=== PATIENT | female | born 1995 | race Caucasian/White ===

== ENCOUNTER 2017-12-28 20:40 | Emergency (ER) | payer OTHER ==
[2017-12-28 21:33] LABS: Urine Blood 1+ (NEG); Urine Glucose NEGATIVE (NEG); Urine Protein NEGATIVE (NEG); Urine Specific Gravity >1.030 (1.005-1.030); Urine pH 5.5 (5.0-7.0)
[2017-12-28 21:41] LABS: Absolute Lymphocytes (CBC) 2.7 K/uL (0.7-4.9); Absolute Neutrophil 7.7 K/uL (1.8-8.0); Basophils % 0.7 % (0-1.3); Eosinophils % 4.2 % (0-4.4); Hematocrit 38.3 % (36.0-45.0); Lymphocytes % 22.7 % (15.3-44.8); MCV 83.2 fL (80-100); MPV 8.4 fL (7.6-11.3); Monocytes % 8.1 % (3.3-12.3); RBC Red Blood Cell Count 4.61 M/uL (3.86-4.86)
[2017-12-28 21:49] LABS: Bicarbonate 27 mEq/L (21-31); Glucose Level 98 mg/dL (65-120); Potassium 3.6 mEq/L (3.6-5.0); Sodium Level 140 mEq/L (135-145)
[2017-12-28 21:50] LABS: BUN Blood Urea Nitrogen 15 mg/dL (6-20)
--- NOTE | 2017-12-28 23:11 | EDPHYS ---
Physician Documentation [facility] Name: Cony Krishnamurthy Age: 22 yrs Sex: Female : 1995 Arrival Date: 12/28/2017 Time: 20:41 Bed 18 Private MD: ED Physician David Domingo HPI: 12/28 20:55 This 22 yrs old Female presents to ER via Ambulatory with complaints of rn Abdominal Pain, Vaginal Bleeding, + Preg <12wks. 20:55 The patient presents to the emergency department with abdominal pain, of the suprapubic rn area and left lower quadrant, vaginal bleeding, that is light, with no clots. Previous pregnancies: in previous pregnancies patient has had. The patient has experienced similar episodes in the past. Reports at approx 6 weeks by dates presents with mild lower abd pain and spotting for 6 days, 3 previous abortions, unknown reasons. No trauma, no urinary symptoms. . 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 - Social history:: Smoking status: Patient uses tobacco products, smokes one pack cigarettes per day. - Family history:: not pertinent. - Hospitalizations: : No recent hospitalization is reported. ROS: 20:55 Constitutional: Negative for fever, chills, and weight loss, Eyes: Negative for injury, rn pain, redness, and discharge, Neck: Negative for injury, pain, and swelling, Cardiovascular: Negative for chest pain, palpitations, and edema, Respiratory: Negative for shortness of breath, cough, wheezing, and pleuritic chest pain, Abdomen/GI: Negative for nausea, vomiting, diarrhea, and constipation, Back: Negative for injury and pain, MS/Extremity: Negative for injury and deformity, Skin: Negative for injury, rash, and discoloration, Neuro: Negative for headache, weakness, numbness, tingling, and seizure. Exam: 20:55 Constitutional: This is a well developed, well nourished patient who is awake, alert, rn and in no acute distress. Head/Face: Normocephalic, atraumatic. Eyes: Pupils equal round and reactive to light, extra-ocular motions intact. Lids and lashes normal. Conjunctiva and sclera are non-icteric and not injected. Cornea within normal limits. Periorbital areas with no swelling, redness, or edema. ENT: MMM Abdomen/GI: Soft, non-tender, with normal bowel sounds. No distension or tympany. No guarding or rebound. No evidence of tenderness throughout. Skin: Warm, dry with normal turgor. Normal color with no rashes, no lesions, and no evidence of cellulitis. MS/ Extremity: Pulses equal, no cyanosis. Neurovascular intact. Full, normal range of motion. Equal circumference. Neuro: Awake and alert, GCS 15, oriented to person, place, time, and situation. Cranial nerves II-XII grossly intact. Motor strength 5/5 in all extremities. Sensory grossly intact. Cerebellar exam normal. Normal gait. Vital Signs: 20:47 BP 140 / 78; Pulse 105; Resp 19; Temp 98.6(TE); Pulse Ox 100% on R/A; Weight 115.67 kg; la1 Height 5 ft. 4 in. (162.56 cm); 22:00 BP 139 / 69; Pulse 99; Resp 17; Pulse Ox 99% on R/A; rk2 23:30 BP 147 / 79; Pulse 97; Resp 17; Pulse Ox 99% on R/A; rk2 20:47 Body Mass Index 43.77 (115.67 kg, 162.56 cm) la1 MDM: 20:49 Patient medically screened. rn 23:07 Differential diagnosis: ectopic . Data reviewed: vital signs, nurses notes, employee benefits attorney test result(s), radiologic studies, ultrasound, and as a result, I will discharge patient. Counseling: I had a detailed discussion with the patient and/or guardian regarding: the historical points, exam findings, and any diagnostic results supporting the discharge/admit diagnosis, lab results, radiology results, the need for outpatient follow up, to return to the emergency department if symptoms worsen or persist or if there are any questions or concerns that arise at home. Special discussion: Based on the patient's Hx, exam, and Dx evaluation, there is no indication for emergent surgery or inpatient Tx. It is understood by the patient/guardian that if the Sx's persist or worsen they need to return immediately for re-evaluation. I discussed with the patient/guardian in detail that at this point there is no indication for admission to the hospital. It is understood, however, that if the symptoms persist or worsen the patient needs to return immediately for re-evaluation. Based on the history and exam findings, there is no indication for further emergent testing or inpatient evaluation. I discussed with the patient/guardian the need to see the OB Gyne specialist for further evaluation of the symptoms. ED course: Nothing visualized on u/s, beta 41, UPT neg, will dc home with return in 48 hours for repeat beta. Possible miscarriage given + preg test 1 week ago, now neg, but beta elevated. Patient ambulatory, sitting upright, no peritoneal signs to suggest ectopic, no hx of ectopic. Return precautions given and understood.. 12/28 20:50 Order name: Quantitative Hcg; Complete Time: 22:04 12/28 20:50 Order name: Abo/rh Typing; Complete Time: 22:39 12/28 20:50 Order name: Basic Metabolic Panel; Complete Time: 22: 12/28 20:50 Order name: CBC with Diff; Complete Time: 22:04 12/28 21:17 Order name: Urine Dipstick--Ancillary (enter results); Complete Time: 22:04 12/28 21:17 Order name: Urine --Ancillary (enter results); Complete Time: 22:04 12/28 20:50 Order name: Urine Test (obtain specimen); Complete Time: 21:16 12/28 20:50 Order name: IV Saline Lock; Complete Time: 22:14 12/28 20:50 Order name: Labs collected and sent; Complete Time: 22:14 12/28 20:50 Order name: NPO; Complete Time: 22:14 12/28 20:50 Order name: Urine Dipstick-Ancillary (obtain specimen); Complete Time: 21:16 12/28 20:50 Order name: US Transvaginal Ob rn Administered Medications: No medications were administered Disposition: 12/28/17 23:10 Discharged to Home. Impression: Other abnormal uterine and vaginal bleeding, Suspected . - Condition is Stable. - Discharge Instructions: Miscarriage, Threatened Miscarriage, First Trimester of . - Medication Reconciliation Form, Thank You Letter, Antibiotic Education, Prescription Opioid Use form. - Follow up: Private Physician; When: As needed; Reason: Recheck today's complaints, Re-evaluation by your physician. - Problem is new. - Symptoms have improved. Signatures: Dispatcher [employer] EDDavid Diez MD MD rn Gera Mahoney RN RN la1 Mamta Campa RN RN rk2
--- NOTE | 2017-12-28 23:11 | ER ---
Nurse's Notes [facility] Name: Cony Krishnamurthy Age: 22 yrs Sex: Female : 1995 Arrival Date: 12/28/2017 Time: 20:41 Bed 18 Private MD: Diagnosis: Other abnormal uterine and vaginal bleeding;Suspected Presentation: 12/28 20:46 Presenting complaint: Patient states: I am (LMP 11/09/17) and having spotting la1 as well as lower abd cramping. Transition of care: patient was not received from another setting of care. Onset of symptoms was December 28, 2017. Initial Sepsis Screen: Does the patient meet any 2 criteria? No. Patient's initial sepsis screen is negative. Does the patient have a suspected source of infection? No. Patient's initial sepsis screen is negative. Care prior to arrival: None. 20:46 Method Of Arrival: Ambulatory la1 20:46 Acuity: SYBIL 3 la1 Triage Assessment: 21:10 General: Appears in no apparent distress. well groomed, well developed, well nourished, rk2 Behavior is calm, cooperative. 21:10 Pain: Complains of pain in left lower quadrant and suprapubic area. Neuro: Level of rk2 Consciousness is alert, obeys commands, Oriented to person, place, time, situation. Respiratory: Airway is patent Respiratory effort is even, unlabored, Respiratory pattern is regular, symmetrical. GI: Reports lower abdominal pain. Derm: Skin is pink, warm \T\ dry. 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 - Social history:: Smoking status: Patient uses tobacco products, smokes one pack cigarettes per day. - Family history:: not pertinent. - Hospitalizations: : No recent hospitalization is reported. Screenin:10 Abuse screen: Denies threats or abuse. rk2 21:10 Nutritional screening: No deficits noted. Tuberculosis screening: No symptoms or risk rk2 factors identified. Fall Risk None identified. Assessment: 20:30 GI: Bowel sounds Abd is soft Abdomen is tender to palpation in left lower quadrant. rk2 22:15 Reassessment: Pt. taken to US by wheelchair. rk2 22:45 Reassessment: Pt. resting in room \T\ this time, appears to be in no obvious distress... rk2 No needs voiced \T\ this time. Vital Signs: 20:47 BP 140 / 78; Pulse 105; Resp 19; Temp 98.6(TE); Pulse Ox 100% on R/A; Weight 115.67 kg; la1 Height 5 ft. 4 in. (162.56 cm); 22:00 BP 139 / 69; Pulse 99; Resp 17; Pulse Ox 99% on R/A; rk2 23:30 BP 147 / 79; Pulse 97; Resp 17; Pulse Ox 99% on R/A; rk2 20:47 Body Mass Index 43.77 (115.67 kg, 162.56 cm) la1 ED Course: 20:30 Inserted saline lock: 20 gauge in left antecubital area, using aseptic technique. rk2 20:41 Patient arrived in ED. am2 20:47 Triage completed. la1 20:48 David Domingo MD is Attending Physician. rn 20:48 Arm band placed on left wrist. la1 21:01 Mamta Campa, KATERINE is Primary Nurse. rk2 21:03 Radiology exam delayed due to test not completed at this time. sg3 21:10 Patient has correct armband on for positive identification. Bed in low position. Call rk2 light in reach. 22:15 US Transvaginal Ob Sent. rk2 22:29 Ultrasound completed. Patient tolerated well. sg3 23:41 No provider procedures requiring assistance completed. IV discontinued. rk2 Administered Medications: No medications were administered Outcome: 23:10 Discharge ordered by . rn 23:41 Discharged to home ambulatory. rk2 23:41 Condition: good 23:41 Discharge instructions given to patient. 23:42 Patient left the ED. rk2 Signatures: Dispatcher [employer] EDMS David Domingo MD MD rn Attema, Lee, RN RN la1 Karina Mccarthy am2 Radha Olson sg3 Mamta Campa, KATREINE RN rk2 Corrections: (The following items were deleted from the chart) 22:39 22:39 In radiology for Transvaginal Ob+US.RAD.TOYA. EDMS sg3
--- NOTE | 2017-12-29 09:01 | RAD REPORT ---
EXAM DESCRIPTION: US - Transvaginal OB - 12/28/2017 10:39 pm CLINICAL HISTORY: Abdominal pain, cramping, positive beta HCG Preliminary findings provided the time of the study. COMPARISON: None. TECHNIQUE: Endovaginal sonography performed. FINDINGS: A 9 millimeter thick endometrial stripe is present. There is no gestational sac or sac rem nant seen. Minimal amount of free fluid is present in the cul-de-sac. No adnexal mass to suspect ecto pic . Ovaries are unremarkable. Uterus is normal size. No myometrial mass. IMPRESSION: No intrauterine gestation or sac remnant. No adnexal mass to suspect ectopic . Findings may simply reflect very early . Followup sonography can be performed if serial HCG values indicate ongoing .
== END 2017-12-28 23:42 | disposition home or self-care (01) ==
LOC: ER 20:40
DX: O20.9 Hemorrhage in early pregnancy, unspecified (principal); Z3A.01 Less than 8 weeks gestation of pregnancy
CPT/HCPCS: 36415; 76817; 80048; 81003; 81025; 84702; 85025; 86900; 86901; 99283

== ENCOUNTER 2018-01-19 16:55 | Emergency (ER) | payer OTHER ==
[2018-01-19 17:58] LABS: Urine Bacteria <20 /HPF (<20)
[2018-01-19 17:59] LABS: Urine Culture Reflex Order REFLEXED; Urine Mucus 1+ /HPF (NONE SEEN)
[2018-01-19] MEDS ORDERED: NA CHLORIDE 0.9% 1,000 ML ONE (18:19)
[2018-01-19] MEDS ORDERED: DICYCLOMINE HCL 10 MG CAP ONE (18:19)
[2018-01-19] MEDS ORDERED: ONDANSETRON 4 MG (ODT) TAB ONE (18:19)
[2018-01-19 18:30] LABS: Absolute Lymphocytes (CBC) 1.3 K/uL (0.7-4.9); Absolute Monocytes 0.8 K/uL (0.1-1.3); Absolute Neutrophil 7.6 K/uL (1.8-8.0); Basophils % 0.4 % (0-1.3); Eosinophils % 2.5 % (0-4.4); Hematocrit 43.2 % (36.0-45.0); Lymphocytes % 12.8 % (15.3-44.8); MCH 27.5 pg (27.0-35.0); MCV 84.8 fL (80-100); MPV 8.6 fL (7.6-11.3); RBC Red Blood Cell Count 5.09 M/uL (3.86-4.86)
[2018-01-19 18:45] LABS: Urine Blood 2+ (NEG); Urine Glucose NEGATIVE (NEG); Urine Protein 2+ (NEG); Urine Specific Gravity >1.030 (1.005-1.030); Urine pH 5.5 (5.0-7.0)
[2018-01-19 18:57] LABS: Bicarbonate 25 mEq/L (21-31); Glucose Level 99 mg/dL (65-120); Lipase 16 U/L (22-51); Potassium 3.4 mEq/L (3.6-5.0); Sodium Level 137 mEq/L (135-145)
[2018-01-19 19:03] LABS: ALT/SGPT 18 IU/L (10-60); AST/SGOT 20 IU/L (10-42); Albumin 4.1 g/dL (3.2-5.5); Alkaline Phosphatase 55 IU/L (42-121); Amylase Level 36 U/L (28-100); BUN Blood Urea Nitrogen 13 mg/dL (6-20); Bilirubin Direct 0.1 mg/dL (0-0.2); Bilirubin Total 0.5 mg/dL (0.3-1.2); Protein, Total 7.6 g/dL (6.0-8.3)
[2018-01-19] MEDS ORDERED: POTASSIUM CL SA 10 MEQ TAB PO ONE (19:30)
[2018-01-19] MEDS ORDERED: DIPHENOX/ATROP SULF 1 TAB PO ONE (19:31)
--- NOTE | 2018-01-19 19:50 | EDPHYS ---
Physician Documentation [facility] Name: Cony Krishnamurthy Age: 22 yrs Sex: Female : 1995 Arrival Date: 01/19/2018 Time: 16:58 Bed 26 Private MD: None, None ED Physician Bg Lee HPI: 01/19 17:25 This 22 yrs old Female presents to ER via Ambulatory with complaints of Pain cp With Urination. 17:25 The patient presents with urinary symptoms, frequency. Onset: The symptoms/episode cp began/occurred 3 day(s) ago. Associated signs and symptoms: Pertinent positives: diarrhea, nausea, Pertinent negatives: constipation, fever, vaginal bleeding, vaginal discharge. Severity of symptoms: in the emergency department the symptoms are unchanged, despite home interventions. 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 - Social history:: Smoking status: Patient uses tobacco products, smokes one-half pack cigarettes per day. ROS: 17:30 Constitutional: Negative for body aches, chills, fever, poor PO intake. cp 17:30 Eyes: Negative for injury, pain, redness, and discharge. cp 17:30 ENT: Negative for drainage from ear(s), ear pain, sore throat, difficulty swallowing, difficulty handling secretions. 17:30 Cardiovascular: Positive for chest pain, Negative for edema, palpitations. 17:30 Respiratory: Negative for cough, shortness of breath, wheezing. 17:30 Abdomen/GI: Positive for abdominal pain, nausea, diarrhea, Negative for vomiting, constipation, anorexia, dysphagia, black/tarry stool, rectal bleeding. 17:30 Back: Negative for pain at rest, pain with movement, radiated pain. 17:30 : Positive for urinary symptoms, Negative for vaginal bleeding, vaginal discharge. 17:30 Skin: Negative for cellulitis, rash. 17:30 Neuro: Negative for altered mental status, headache, syncope, near syncope, weakness. 17:30 All other systems are negative. Exam: 17:35 Constitutional: The patient appears in no acute distress, alert, awake, non-toxic, well cp developed, well nourished. 17:35 Head/Face: Normocephalic, atraumatic. cp 17:35 Eyes: Periorbital structures: appear normal, Pupils: equal, round, and reactive to light and accomodation, Extraocular movements: intact throughout, Conjunctiva: normal, no exudate, no injection, Sclera: no appreciated abnormality, Lids and lashes: appear normal, bilaterally. 17:35 ENT: External ear(s): are unremarkable, Ear canal(s): are normal, clear, TM's: are normal, no evidence of bulging, no erythema, Nose: is normal, Mouth: Lips: moist, Oral mucosa: pink and intact, moist, Posterior pharynx: is normal, airway is patent, no erythema, no exudate. 17:35 Neck: ROM/movement: is normal, is supple, without pain, no range of motions limitations, no nuchal rigidity. 17:35 Chest/axilla: Inspection: normal, Palpation: is normal, no crepitus, no tenderness. 17:35 Cardiovascular: Rate: tachycardic, Rhythm: regular, Edema: is not appreciated, JVD: is not appreciated. 17:35 Respiratory: the patient does not display signs of respiratory distress, Respirations: normal, no use of accessory muscles, no retractions, no splinting, no tachypnea, labored breathing, is not present, Breath sounds: are clear throughout, no decreased breath sounds, no stridor, no wheezing. 17:35 Abdomen/GI: Inspection: abdomen appears normal, Bowel sounds: active, all quadrants, Palpation: soft, in all quadrants, mild abdominal tenderness, in the right lower quadrant and left lower quadrant, rebound tenderness, is not appreciated, voluntary guarding, is not appreciated, involuntary guarding, is not appreciated. 17:35 Back: CVA tenderness, is absent. 17:35 Skin: cellulitis, is not appreciated, no rash present. 18:50 ECG was reviewed by the Attending Physician. cp Vital Signs: 17:03 BP 131 / 79; Pulse 111; Resp 19; Temp 98.6; Pulse Ox 100% on R/A; Weight 97.52 kg; la1 Height 5 ft. 4 in. (162.56 cm); 19:34 BP 126 / 86; Pulse 90; Resp 18; Pulse Ox 99% on R/A; Pain 4/10; ed1 17:03 Body Mass Index 36.90 (97.52 kg, 162.56 cm) la1 MDM: 17:05 Patient medically screened. karmen 18:00 Differential diagnosis: ovarian cyst, pelvic inflammatory disease, urinary tract cp infection, vaginosis, dehydration, electrolyte abnormality. 19:35 Data reviewed: vital signs, nurses notes, lab test result(s), EKG. 19:35 Counseling: I had a detailed discussion with the patient and/or guardian regarding: the cp historical points, exam findings, and any diagnostic results supporting the discharge/admit diagnosis, lab results, to return to the emergency department if symptoms worsen or persist or if there are any questions or concerns that arise at home. Response to treatment: the patient's symptoms have markedly improved after treatment, and as a result, I will discharge patient. 01/19 17:41 Order name: Urine Microscopic Only; Complete Time: 18:02 cp 01/19 18:02 Interpretation: Normal except: UWBC 10-20; URBC 10-20; SQEPI 10-20. 01/19 17:48 Order name: Urine Dipstick--Ancillary (enter results); Complete Time: 19:03 ag 01/19 19:03 Interpretation: Normal except: UBLD 2+; UPROT 2+. 01/19 17:48 Order name: Urine --Ancillary (enter results); Complete Time: 19:03 ag 01/19 18:00 Order name: Urine Culture EDMI 01/19 18:03 Order name: Amylase, Serum; Complete Time: 19:16 cp 01/19 18:03 Order name: Basic Metabolic Panel; Complete Time: 19:16 cp 01/19 19:16 Interpretation: Normal except: K 3.4. cp 01/19 18:03 Order name: CBC with Diff; Complete Time: 18:39 cp 01/19 18:39 Interpretation: Normal except: RBC 5.09; VERA% 76.3; LYM% 12.8. 01/19 18:03 Order name: Creatinine for Radiology; Complete Time: 19:03 cp 01/19 18:03 Order name: Hepatic Function; Complete Time: 19:16 cp 01/19 18:03 Order name: Lipase; Complete Time: 19:16 cp 01/19 18:03 Order name: Magnesium; Complete Time: 19:16 cp 01/19 17:21 Order name: Urine Dipstick-Ancillary (obtain specimen); Complete Time: 17:40 cp 01/19 17:21 Order name: Urine Test (obtain specimen); Complete Time: 17:40 cp 01/19 18:03 Order name: IV Saline Lock; Complete Time: 18:17 cp 01/19 18:03 Order name: Labs collected and sent; Complete Time: 18:17 cp 01/19 18:03 Order name: EKG; Complete Time: 18:04 cp 01/19 18:03 Order name: EKG - Nurse/Tech; Complete Time: 18:52 cp 01/19 19:17 Order name: PO challenge; Complete Time: 19:33 cp EC:50 Rate is 79 beats/min. Rhythm is regular. MI interval is normal. QRS interval is normal. cp QT interval is normal. No ST changes noted. Interpreted by me. Reviewed by me. Administered Medications: 18:20 Drug: Zofran 4 mg Route: PO; mb3 18:20 Drug: Bentyl 20 mg Route: PO; mb3 18:23 Drug: NS 0.9% 1000 ml Route: IV; Rate: 1 bolus; Site: right antecubital; mb3 20:03 Follow up: IV Status: Completed infusion; IV Intake: 1000ml ed1 19:32 Drug: LoMOTIL 2 tabs Route: PO; ed1 20:03 Follow up: Response: No adverse reaction; No change in condition ed1 19:33 Drug: Potassium Chloride 20 mEq Route: PO; ed1 20:03 Follow up: Response: No adverse reaction ed1 Disposition: 01/20 07:53 Co-signature as Attending Physician, Bg Lee MD I agree with the assessment and karmen plan of care. Disposition: 01/19/18 19:49 Discharged to Home. Impression: Diarrhea, unspecified. - Condition is Stable. - Discharge Instructions: Food Choices to Help Relieve Diarrhea, Adult, Diarrhea. - Prescriptions for Bentyl 20 mg Oral Tablet - take 2 tablets by ORAL route every 6 hours As needed; 30 tablet. Zofran 4 mg Oral Tablet - take 1 tablet by ORAL route every 12 hours As needed; 20 tablet. Lomotil 2.5- 0.025 mg Oral Tablet - take 1 tablet by ORAL route every 6 hours As needed; 20 tablet. - Work release form, Medication Reconciliation Form, Thank You Letter, Antibiotic Education, Prescription Opioid Use form. - Follow up: Private Physician; When: 1 - 2 days; Reason: Recheck today's complaints. - Problem is new. - Symptoms have improved. Signatures: Dispatcher [employer] EDMS Bg Lee MD MD cha Riggs, Erika, AMBULATORY CARE COORDINATOR AMBULATORY CARE COORDINATOR ed1 Gera Mahoney RN RN la1 Bg Reeves PA PA cp Barnett, Mark RN RN mb3 Corrections: (The following items were deleted from the chart) 01/19 20:02 19:49 01/19/2018 19:49 Discharged to Home. Impression: Diarrhea, unspecified. Condition ed1 is Stable. Forms are Medication Reconciliation Form, Thank You Letter, Antibiotic Education, Prescription Opioid Use. Follow up: Private Physician; When: 1 - 2 days; Reason: Recheck today's complaints. Problem is new. Symptoms have improved. cp
--- NOTE | 2018-01-19 19:50 | ER ---
Nurse's Notes [facility] Name: Cony Krishnamurthy Age: 22 yrs Sex: Female : 1995 Arrival Date: 01/19/2018 Time: 16:58 Bed 26 Private MD: None, None Diagnosis: Diarrhea, unspecified Presentation: 01/19 17:02 Presenting complaint: Patient states: urinary sx for a few days and now having la1 abdominal pain, diarrhea, and nausea. Transition of care: patient was not received from another setting of care. Onset of symptoms was January 19, 2018. Initial Sepsis Screen: Does the patient meet any 2 criteria? No. Patient's initial sepsis screen is negative. Does the patient have a suspected source of infection? No. Patient's initial sepsis screen is negative. Care prior to arrival: None. 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 - Social history:: Smoking status: Patient uses tobacco products, smokes one-half pack cigarettes per day. Screenin:16 Abuse screen: Denies threats or abuse. Denies injuries from another. Nutritional ed1 screening: No deficits noted. Tuberculosis screening: No symptoms or risk factors identified. Fall Risk None identified. Assessment: 17:16 General: Appears in no apparent distress. Behavior is calm, cooperative. Pain: ed1 Complains of pain in suprapubic area, right lower quadrant and left lower quadrant Pain does not radiate. Pain currently is 6 out of 10 on a pain scale. Quality of pain is described as burning, aching, Pain began 2-3 days ago. Is continuous. Neuro: Level of Consciousness is awake, alert, obeys commands, Oriented to person, place, time, situation. Cardiovascular: Denies chest pain, Heart tones S1 S2 present. Respiratory: Airway is patent Respiratory effort is even, unlabored, Respiratory pattern is regular, symmetrical, Breath sounds are clear bilaterally. GI: Abdomen is non-distended, Bowel sounds present X 4 quads. Abd is soft and non tender X 4 quads. Reports diarrhea, nausea, vomiting. : Reports burning with urination, urinary frequency. EENT: No signs and/or symptoms were reported regarding the EENT system. Derm: Skin is pink, warm \T\ dry. Musculoskeletal: Circulation, motion, and sensation intact. 17:16 Reassessment: I agree with assessment completed by GIBSON Barajas . aa5 19:34 Reassessment: Patient appears in no apparent distress at this time. No changes from ed1 previously documented assessment. Patient and/or family updated on plan of care and expected duration. Pain level reassessed. Patient is alert, oriented x 3, equal unlabored respirations, skin warm/dry/pink. Patient states symptoms have improved. Vital Signs: 17:03 BP 131 / 79; Pulse 111; Resp 19; Temp 98.6; Pulse Ox 100% on R/A; Weight 97.52 kg; la1 Height 5 ft. 4 in. (162.56 cm); 19:34 BP 126 / 86; Pulse 90; Resp 18; Pulse Ox 99% on R/A; Pain 4/10; ed1 17:03 Body Mass Index 36.90 (97.52 kg, 162.56 cm) la1 ED Course: 16:58 Patient arrived in ED. sb2 16:58 None, None is Private Physician. sb2 17:03 Triage completed. la1 17:03 Arm band placed on right wrist. la1 17:04 Bg Reeves PA is PHCP. cp 17:04 Bg Lee MD is Attending Physician. cp 17:05 Jenn Ngo LVN is Primary Nurse. ed1 17:16 Patient has correct armband on for positive identification. Bed in low position. Call ed1 light in reach. 17:41 Urine collected: clean catch specimen, cloudy. dh3 18:17 Initial lab(s) drawn, by va, sent to lab. Inserted saline lock: 22 gauge in right ed1 antecubital area, using aseptic technique. Blood collected. 19:00 EKG done, by ED staff, reviewed by Bg DUMONT. dh3 20:00 No provider procedures requiring assistance completed. IV discontinued, intact, No la1 redness/swelling at site. Administered Medications: 18:20 Drug: Zofran 4 mg Route: PO; mb3 18:20 Drug: Bentyl 20 mg Route: PO; mb3 18:23 Drug: NS 0.9% 1000 ml Route: IV; Rate: 1 bolus; Site: right antecubital; mb3 20:03 Follow up: IV Status: Completed infusion; IV Intake: 1000ml ed1 19:32 Drug: LoMOTIL 2 tabs Route: PO; ed1 20:03 Follow up: Response: No adverse reaction; No change in condition ed1 19:33 Drug: Potassium Chloride 20 mEq Route: PO; ed1 20:03 Follow up: Response: No adverse reaction ed1 Intake: 20:03 IV: 1000ml; Total: 1000ml. ed1 Outcome: 19:49 Discharge ordered by . trena 20:00 Discharged to home ambulatory. la1 20:00 Condition: good 20:00 Discharge instructions given to patient, Instructed on discharge instructions, follow up and referral plans. medication usage, Demonstrated understanding of instructions, follow-up care, medications, Prescriptions given X 3. 20:02 Patient left the ED. ed1 Addendum: 01/22/2018 07:52 Addendum: Culture Results: Positive urine culture. Patient was not prescribed a a5 antibiotics at discharge. Report given to DENI for further evaluation and then to certified art therapist for follow up with patient. Phone call Attempt #1 at [phone], left voicemail. 12:20 Addendum: Culture Results: Positive urine culture. Patient was not prescribed a a5 antibiotics at discharge. Report given to DENI for further evaluation and then to certified art therapist for follow up with patient. Prescription called-in to pharmacy of choice. to [facility] in [place], [place] per pt's request. Signatures: Cristel Alfredo, RN RN aa5 Jenn Ngo LVN SCARFING MACHINE OPERATOR ed1 Gera Mahoney RN RN la1 Bg Reeves PA PA Bernadette Willson 3 Kimmie Villar sb2 Jose Crane, RN RN mb3
--- NOTE | 2018-01-20 08:01 | EKG ---
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
== END 2018-01-19 20:02 | disposition home or self-care (01) ==
LOC: ER 16:55
DX: R19.7 Diarrhea, unspecified (principal)
CPT/HCPCS: 36415; 80048; 80076; 81003; 81015; 81025; 82150; 83690; 83735; 85025; 87077; 87086; 87088; 87186; 93005; 96360; 96361; 99284; J7030

== ENCOUNTER 2018-08-18 11:22 | Emergency (ER) | payer OTHER ==
--- NOTE | 2018-08-18 13:51 | EDPHYS ---
Physician Documentation [facility] Name: Cony Krishnamurthy Age: 23 yrs Sex: Female : 1995 Arrival Date: 08/18/2018 Time: :27 Bed DIS1 Private MD: Tiffani Sheridan ED Physician Bg Lee HPI: 08/18 13:23 This 23 yrs old Female presents to ER via Ambulatory with complaints of Sore pm1 Throat, Congestion. 13:24 The patient presents with sore throat. The patient describes throat pain as constant. pm1 Onset: The symptoms/episode began/occurred yesterday. Severity of symptoms: in the emergency department the symptoms are unchanged. Modifying factors: The symptoms are alleviated by nothing, the symptoms are aggravated by swallowing, Patient's oral intake status: good The patient has had contact with sick daughter. Associated signs and symptoms: Pertinent positives: chills, flu-like symptoms, Sore throat Pertinent negatives chest pain, nausea, shortness of breath, vomiting. The patient has not experienced similar symptoms in the past. The patient has not recently seen a physician. 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 - Social history:: Smoking status: Patient uses tobacco products, smokes one-half pack cigarettes per day. - Ebola Screening: : No symptoms or risks identified at this time. ROS: 13:24 Eyes: Negative for injury, pain, redness, and discharge. pm1 13:24 Neck: Negative for injury, pain, and swelling, Cardiovascular: Negative for chest pain, palpitations, and edema, Respiratory: Negative for shortness of breath, cough, wheezing, and pleuritic chest pain, Abdomen/GI: Negative for abdominal pain, nausea, vomiting, diarrhea, and constipation, Back: Negative for injury and pain, : Negative for injury, bleeding, discharge, and swelling, MS/Extremity: Negative for injury and deformity, Skin: Negative for injury, rash, and discoloration, Neuro: Negative for headache, weakness, numbness, tingling, and seizure. 13:24 Constitutional: Positive for body aches, fever, Negative for poor PO intake. 13:24 ENT: Positive for sore throat, Negative for drainage from ear(s), ear pain, difficulty swallowing, difficulty handling secretions, hoarseness. Exam: 13:24 Constitutional: This is a well developed, well nourished patient who is awake, alert, pm1 and in no acute distress. Head/Face: Normocephalic, atraumatic. Eyes: Pupils equal round and reactive to light, extra-ocular motions intact. Lids and lashes normal. Conjunctiva and sclera are non-icteric and not injected. Cornea within normal limits. Periorbital areas with no swelling, redness, or edema. ENT: Nares patent. No nasal discharge, no septal abnormalities noted. Tympanic membranes are normal and external auditory canals are clear. Oropharynx with no redness, swelling, or masses, exudates, or evidence of obstruction, uvula midline. Mucous membranes moist. Neck: Trachea midline, no thyromegaly or masses palpated, and no cervical lymphadenopathy. Supple, full range of motion without nuchal rigidity, or vertebral point tenderness. No Meningismus. Chest/axilla: Normal chest wall appearance and motion. Nontender with no deformity. No lesions are appreciated. Cardiovascular: Regular rate and rhythm with a normal S1 and S2. No gallops, murmurs, or rubs. Normal PMI, no JVD. No pulse deficits. Respiratory: Lungs have equal breath sounds bilaterally, clear to auscultation and percussion. No rales, rhonchi or wheezes noted. No increased work of breathing, no retractions or nasal flaring. Abdomen/GI: Soft, non-tender, with normal bowel sounds. No distension or tympany. No guarding or rebound. No evidence of tenderness throughout. Back: No spinal tenderness. No costovertebral tenderness. Full range of motion. Skin: Warm, dry with normal turgor. Normal color with no rashes, no lesions, and no evidence of cellulitis. MS/ Extremity: Pulses equal, no cyanosis. Neurovascular intact. Full, normal range of motion. 13:24 Neuro: Orientation: is normal, Motor: is normal, Gait: is steady, at a normal pace, without difficulty. Vital Signs: 11:59 BP 140 / 85; Pulse 103; Resp 18 S; Temp 98.2(O); Pulse Ox 100% on R/A; Weight 108.41 kg aa5 (R); Height 5 ft. 4 in. (162.56 cm) (R); Pain 9/10; 11:59 Body Mass Index 41.02 (108.41 kg, 162.56 cm) aa5 MDM: 12:03 Patient medically screened. pm1 13:50 Data reviewed: vital signs. Data interpreted: Pulse oximetry: on room air is 100 %. pm1 Interpretation: normal. Counseling: I had a detailed discussion with the patient and/or guardian regarding: the historical points, exam findings, and any diagnostic results supporting the discharge/admit diagnosis, lab results, the need for outpatient follow up, to return to the emergency department if symptoms worsen or persist or if there are any questions or concerns that arise at home. 08/18 12:08 Order name: Flu; Complete Time: 13:46 pm1 08/18 12:08 Order name: Strep; Complete Time: 13:23 pm1 08/18 13:23 Order name: Throat Culture EDMS Administered Medications: No medications were administered Disposition: 08/19 06:32 Co-signature as Attending Physician, Bg Lee MD I agree with the assessment and [facility] plan of care. Disposition: 08/18/18 13:51 Discharged to Home. Impression: Acute pharyngitis. - Condition is Stable. - Discharge Instructions: Pharyngitis. - Prescriptions for Tamiflu 75 mg Oral Capsule - take 1 tablet by ORAL route once daily for 10 days; 10 tablet. - Work release form, Medication Reconciliation Form, Thank You Letter, Antibiotic Education form. - Follow up: Emergency Department; When: As needed; Reason: Worsening of condition. Follow up: Private Physician; When: 2 - 3 days; Reason: Recheck today's complaints, Continuance of care, Re-evaluation by your physician. - Problem is new. - Symptoms have improved. Signatures: Dispatcher [employer] EDBg Tarango MD MD cha Calderon, Audri RN KATERINE aa5 Jesica Mcnulty RN RN Alexis Bates, SAM AUDIOVISUAL AIDS TECHNICIAN pm1 Corrections: (The following items were deleted from the chart) 12/17 14:15 13:51 08/18/2018 13:51 Discharged to Home. Impression: Acute pharyngitis. Condition is ss Stable. Forms are Medication Reconciliation Form, Thank You Letter, Antibiotic Education, Prescription Opioid Use. Follow up: Emergency Department; When: As needed; Reason: Worsening of condition. Follow up: Private Physician; When: 2 - 3 days; Reason: Recheck today's complaints, Continuance of care, Re-evaluation by your physician. Problem is new. Symptoms have improved. pm1
--- NOTE | 2018-08-18 13:51 | ER ---
Nurse's Notes [facility] Name: Cony Krishnamurthy Age: 23 yrs Sex: Female : 1995 Arrival Date: 08/18/2018 Time: 11:27 Bed DIS1 Private MD: Tiffani Sheridan Diagnosis: Acute pharyngitis Presentation: 08/18 11:57 Presenting complaint: Patient states: cough, sore throat, congestion, and fever up to aa5 101.4 that began yesterday. Transition of care: patient was not received from another setting of care. Onset of symptoms was August 2018. Risk Assessment: Do you want to hurt yourself or someone else? Patient reports no desire to harm self or others. Initial Sepsis Screen: Does the patient meet any 2 criteria? No. Patient's initial sepsis screen is negative. Does the patient have a suspected source of infection? No. Patient's initial sepsis screen is negative. Care prior to arrival: None. 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 - Social history:: Smoking status: Patient uses tobacco products, smokes one-half pack cigarettes per day. - Ebola Screening: : No symptoms or risks identified at this time. Screenin:15 Abuse screen: Denies threats or abuse. Denies injuries from another. Nutritional ss screening: No deficits noted. Tuberculosis screening: No symptoms or risk factors identified. Never had TB. Fall Risk None identified. Assessment: 12:15 General: Appears in no apparent distress. comfortable, Behavior is calm, cooperative, ss Reports feeling ill for 1-2 days, Denies fever, fatigue, chills. Pain: Complains of pain in throat Quality of pain is described as sore Is continuous. Neuro: Level of Consciousness is awake, alert, obeys commands, Oriented to person, place, time, situation. Cardiovascular: Capillary refill < 3 seconds is brisk in bilateral fingers. Respiratory: Airway is patent Respiratory effort is even, unlabored, Respiratory pattern is regular, symmetrical, Breath sounds are clear bilaterally. GI: Patient currently denies diarrhea, nausea, vomiting. EENT: Throat is clear. Derm: Skin is intact, Skin is pink, warm \T\ dry. normal. Musculoskeletal: Circulation, motion, and sensation intact. Range of motion: intact in all extremities, Swelling absent. Vital Signs: 11:59 BP 140 / 85; Pulse 103; Resp 18 S; Temp 98.2(O); Pulse Ox 100% on R/A; Weight 108.41 kg aa5 (R); Height 5 ft. 4 in. (162.56 cm) (R); Pain 9/10; 11:59 Body Mass Index 41.02 (108.41 kg, 162.56 cm) aa5 ED Course: 11:27 Patient arrived in ED. mr 11:28 Tiffani Sheridan is Private Physician. mr 11:57 Arm band placed on. aa5 11:58 Triage completed. aa5 12:03 Alexis Bates NP is PHCP. pm1 12:03 Bg Lee MD is Attending Physician. pm1 12:15 Patient has correct armband on for positive identification. Bed in low position. Call ss light in reach. 14:14 No provider procedures requiring assistance completed. Patient did not have IV access ss during this emergency room visit. Administered Medications: No medications were administered Outcome: 13:51 Discharge ordered by MD. pm1 14:14 Discharged to home ambulatory, with family. 14:14 Condition: good 14:14 Discharge instructions given to patient, family, Instructed on discharge instructions, follow up and referral plans. medication usage, Demonstrated understanding of instructions, follow-up care, medications, Prescriptions given X 1. 14:15 Patient left the ED. ss Signatures: Archer Layne mr Cristel Alfredo RN RN aa5 Jesica Mcnulty RN RN ss Marinas, Patrick, NP BOWL TOPPER pm1 Corrections: (The following items were deleted from the chart) 16:24 12:02 Cristel Alfredo RN is Primary Nurse. aa5 aa5
== END 2018-08-18 14:15 | disposition home or self-care (01) ==
LOC: ER 11:22
DX: J02.9 Acute pharyngitis, unspecified (principal); J45.909 Unspecified asthma, uncomplicated; F17.210 Nicotine dependence, cigarettes, uncomplicated
CPT/HCPCS: 87070; 87081; 87804; 99282

== ENCOUNTER 2018-11-30 16:27 | Emergency (ER) | payer OTHER ==
--- OUTSIDE RECORDS SUMMARY | 2018-11-30 16:28 | XMS REPORT ---
:1995 [facility] Address [address] [place] [address] [address] [place] [address] Care Team Providers Name Role Phone Unavailable Unavailable Unavailable Problems This patient has no known problems. Allergies, Adverse Reactions, Alerts This patient has no known allergies or adverse reactions. Medications This patient has no known medications.
--- NOTE | 2018-11-30 17:09 | EDPHYS ---
Physician Documentation [facility] Name: Cony Krishnamurthy Age: 23 yrs Sex: Female : 1995 Arrival Date: 11/30/2018 Time: 16:32 Bed 12 Private MD: Tiffnai Sheridan ED Physician David Domingo HPI: 11/30 17:06 This 23 yrs old Female presents to ER via Ambulatory with complaints of kb Vomiting, 6 wks . 17:06 The patient presents to the emergency department with nausea and vomiting. The kb estimated gestational age is 6 weeks. course: care: at a clinic, Leakage of Fluid: none appreciated, Ultrasound: the patient has not had an ultrasound, Risk/complications: no obvious risks or complications are appreciated. Previous pregnancies: in previous pregnancies patient has had. Associated signs and symptoms: Pertinent positives: nausea, vomiting. 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 Pt reports she vomited once at work today due to morning sickness. States she was sent home and told she had to have a note to return, but they don't know she is . . 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 - Social history:: Smoking status: Patient uses tobacco products, smokes one-half pack cigarettes per day. - Ebola Screening: : No symptoms or risks identified at this time. ROS: 17:05 Constitutional: Negative for fever, chills, and weight loss, Neck: Negative for injury, kb pain, and swelling, Cardiovascular: Negative for chest pain, palpitations, and edema, Respiratory: Negative for shortness of breath, cough, wheezing, and pleuritic chest pain, Back: Negative for injury and pain, : Negative for injury, bleeding, discharge, and swelling, MS/Extremity: Negative for injury and deformity, Skin: Negative for injury, rash, and discoloration, Neuro: Negative for headache, weakness, numbness, tingling, and seizure. 17:05 Abdomen/GI: Positive for nausea and vomiting, Negative for abdominal pain, diarrhea, constipation, abdominal cramps, abdominal distension. Exam: 17:05 Constitutional: This is a well developed, well nourished patient who is awake, alert, kb and in no acute distress. Head/Face: Normocephalic, atraumatic. ENT: Nares patent. No nasal discharge, no septal abnormalities noted. Tympanic membranes are normal and external auditory canals are clear. Oropharynx with no redness, swelling, or masses, exudates, or evidence of obstruction, uvula midline. Mucous membranes moist. Neck: Trachea midline, no thyromegaly or masses palpated, and no cervical lymphadenopathy. Supple, full range of motion without nuchal rigidity, or vertebral point tenderness. No Meningismus. Chest/axilla: Normal chest wall appearance and motion. Nontender with no deformity. No lesions are appreciated. Cardiovascular: Regular rate and rhythm with a normal S1 and S2. No gallops, murmurs, or rubs. Normal PMI, no JVD. No pulse deficits. Respiratory: Lungs have equal breath sounds bilaterally, clear to auscultation and percussion. No rales, rhonchi or wheezes noted. No increased work of breathing, no retractions or nasal flaring. Abdomen/GI: Soft, non-tender, with normal bowel sounds. No distension or tympany. No guarding or rebound. No evidence of tenderness throughout. Back: No spinal tenderness. No costovertebral tenderness. Full range of motion. Skin: Warm, dry with normal turgor. Normal color with no rashes, no lesions, and no evidence of cellulitis. MS/ Extremity: Pulses equal, no cyanosis. Neurovascular intact. Full, normal range of motion. Neuro: Awake and alert, GCS 15, oriented to person, place, time, and situation. Cranial nerves II-XII grossly intact. Motor strength 5/5 in all extremities. Sensory grossly intact. Cerebellar exam normal. Normal gait. Vital Signs: 16:43 BP 119 / 59; Pulse 88; Resp 18; Temp 97.1; Pulse Ox 98% on R/A; Weight 111.13 kg; la1 Height 5 ft. 4 in. (162.56 cm); Pain 0/10; 16:43 Body Mass Index 42.05 (111.13 kg, 162.56 cm) la1 MDM: 16:56 Patient medically screened. kb 17:06 Data reviewed: vital signs, nurses notes. Data interpreted: Pulse oximetry: on room air kb is 98 %. Interpretation: normal. Counseling: I had a detailed discussion with the patient and/or guardian regarding: the historical points, exam findings, and any diagnostic results supporting the discharge/admit diagnosis, the need for outpatient follow up, an OB/Gyne specialist, to return to the emergency department if symptoms worsen or persist or if there are any questions or concerns that arise at home. Administered Medications: No medications were administered Disposition: 18:48 Co-signature as Attending Physician, David Domingo MD. rn Disposition: 11/30/18 17:08 Discharged to Home. Impression: Vomiting of , unspecified. - Condition is Stable. - Discharge Instructions: Morning Sickness, [id number]. - Work release form, Medication Reconciliation Form, Thank You Letter, Antibiotic Education, Prescription Opioid Use form. - Follow up: Emergency Department; When: As needed; Reason: Worsening of condition. Follow up: Private Physician; When: 2 - 3 days; Reason: Recheck today's complaints, Continuance of care, Re-evaluation by your physician. Signatures: Lisa Hale, ELEMENTARY PRINCIPAL-C ELEMENTARY PRINCIPAL-Ckb Jannie Luna, RN RN David Martinez MD MD rn Attema, Lee, RN RN la1 Corrections: (The following items were deleted from the chart) 17:26 17:08 11/30/2018 17:08 Discharged to Home. Impression: Vomiting of , iw unspecified. Condition is Stable. Forms are Medication Reconciliation Form, Thank You Letter, Antibiotic Education, Prescription Opioid Use. Follow up: Emergency Department; When: As needed; Reason: Worsening of condition. Follow up: Private Physician; When: 2 - 3 days; Reason: Recheck today's complaints, Continuance of care, Re-evaluation by your physician. kb
--- NOTE | 2018-11-30 17:09 | ER ---
Nurse's Notes [facility] Name: Cony Krishnamurthy Age: 23 yrs Sex: Female : 1995 Arrival Date: 11/30/2018 Time: 16:32 Bed 12 Private MD: Tiffani Sheridan Diagnosis: Vomiting of , unspecified Presentation: 11/30 16:42 Presenting complaint: Patient states: I know I am and I vomited once at work, la1 they sent me home, I know it was morning sickness but I do not want to tell anyone at work I am because I have a history of miscarriages. I need a work note to be able to go back. Transition of care: patient was not received from another setting of care. Onset of symptoms was November 30, 2018. Risk Assessment: Do you want to hurt yourself or someone else? Patient reports no desire to harm self or others. Initial Sepsis Screen: Does the patient meet any 2 criteria? No. Patient's initial sepsis screen is negative. Does the patient have a suspected source of infection? No. Patient's initial sepsis screen is negative. Care prior to arrival: None. 16:42 Method Of Arrival: Ambulatory la1 16:42 Acuity: SYBIL 5 la1 Triage Assessment: 17:25 General: Appears in no apparent distress. Behavior is calm, cooperative. GI: Reports iw nausea. 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 - Social history:: Smoking status: Patient uses tobacco products, smokes one-half pack cigarettes per day. - Ebola Screening: : No symptoms or risks identified at this time. Screenin:25 Abuse screen: Denies threats or abuse. Denies injuries from another. Nutritional iw screening: No deficits noted. Tuberculosis screening: No symptoms or risk factors identified. Fall Risk None identified. Assessment: 17:10 General: Appears in no apparent distress. comfortable, Behavior is calm, cooperative. iw Pain:. Neuro: Level of Consciousness is awake, alert, obeys commands. Respiratory: Respiratory effort is even, unlabored. GI: Abdomen is non-distended, Reports nausea, vomiting. Derm: Skin is intact, is healthy with good turgor. Musculoskeletal: Range of motion: intact in all extremities. Vital Signs: 16:43 BP 119 / 59; Pulse 88; Resp 18; Temp 97.1; Pulse Ox 98% on R/A; Weight 111.13 kg; la1 Height 5 ft. 4 in. (162.56 cm); Pain 0/10; 16:43 Body Mass Index 42.05 (111.13 kg, 162.56 cm) la1 ED Course: 16:32 Patient arrived in ED. mr 16:32 Tiffani Sheridan is Private Physician. mr 16:43 Triage completed. la1 16:43 [facility]C [facility]. kb 16:43 David Domingo MD is Attending Physician. kb 16:44 Arm band placed on right wrist. la1 16:55 Jannie Luna, RN is Primary Nurse. iw 17:10 Patient has correct armband on for positive identification. iw 17:25 No provider procedures requiring assistance completed. Patient did not have IV access iw during this emergency room visit. Administered Medications: No medications were administered Outcome: 17:08 Discharge ordered by . kb 17:25 Discharged to home ambulatory. iw 17:25 Condition: good 17:25 Discharge instructions given to patient, Instructed on discharge instructions, follow up and referral plans. Demonstrated understanding of instructions, follow-up care. 17:26 Patient left the ED. iw Signatures: Lisa Hale FNP-C FNP-Ckb RiveraLayne mr Jannie Luna RN KATERINE Gera Mahoney RN RN [facility]
== END 2018-11-30 17:26 | disposition home or self-care (01) ==
LOC: ER 16:27
DX: O21.9 Vomiting of pregnancy, unspecified (principal); Z3A.01 Less than 8 weeks gestation of pregnancy; O99.331 Smoking (tobacco) complicating pregnancy, first trimester; F17.210 Nicotine dependence, cigarettes, uncomplicated
CPT/HCPCS: 99281

== ENCOUNTER 2018-12-07 17:48 | Emergency (ER) | payer OTHER ==
--- OUTSIDE RECORDS SUMMARY | 2018-12-07 17:50 | XMS REPORT ---
:1995 [facility] Address [address] [place] [address] [address]. [address] [place] [address] Care Team Providers Name Role Phone Unavailable Unavailable Unavailable Problems This patient has no known problems. Allergies, Adverse Reactions, Alerts This patient has no known allergies or adverse reactions. Medications This patient has no known medications.
[2018-12-07 18:46] LABS: Urine Blood TRACE (NEG); Urine Glucose NEGATIVE (NEG); Urine Protein NEGATIVE (NEG); Urine Specific Gravity 1.025 (1.005-1.030); Urine pH 6.5 (5.0-7.0)
[2018-12-07] MEDS ORDERED: NA CHLORIDE 0.9% 500 ML ONE (18:51)
[2018-12-07] MEDS ORDERED: METOCLOPRAMIDE 10 MG/2mL INJ ONE (18:51)
[2018-12-07 19:10] LABS: Absolute Lymphocytes (CBC) 2.1 K/uL (0.7-4.9); Absolute Monocytes 1.1 K/uL (0.1-1.3); Absolute Neutrophil 8.7 K/uL (1.8-8.0); Basophils % 0.3 % (0-1.3); Eosinophils % 2.4 % (0-4.4); Hematocrit 39.8 % (36.0-45.0); Lymphocytes % 17.4 % (15.3-44.8); MPV 8.6 fL (7.6-11.3); Monocytes % 8.9 % (3.3-12.3); RBC Red Blood Cell Count 4.61 M/uL (3.86-4.86)
[2018-12-07 19:44] LABS: BUN Blood Urea Nitrogen 12 mg/dL (7-18); Bicarbonate 25 mmol/L (21-32); Glucose Level 82 mg/dL (74-106); HCG, Quantitative 15458 mIU/mL (1-3); Potassium 3.8 mmol/L (3.5-5.1); Sodium Level 140 mmol/L (136-145)
--- NOTE | 2018-12-07 20:29 | ER ---
Nurse's Notes [facility] Name: Cony Krishnamurthy Age: 23 yrs Sex: Female : 1995 Arrival Date: 12/07/2018 Time: 17:49 Bed 13 Private MD: Diagnosis: Threatened Presentation: 12/07 17:58 Presenting complaint: Patient states: I am about 6 weeks and I am high risk, I la1 have been having a headache since this morning and also having vaginal bleeding since last night. Transition of care: patient was not received from another setting of care. Onset of symptoms was December 07, 2018. Risk Assessment: Do you want to hurt yourself or someone else? Patient reports no desire to harm self or others. Initial Sepsis Screen: Does the patient meet any 2 criteria? No. Patient's initial sepsis screen is negative. Does the patient have a suspected source of infection? No. Patient's initial sepsis screen is negative. Care prior to arrival: None. 17:58 Method Of Arrival: Ambulatory la1 17:58 Acuity: SYBIL 3 la1 CLINICAL APPLICATION CONSULTANT: 17:59 LMP 10/24/2018 la1 18:13 7, 0 jmm Historical: - Allergies: 17:59 No Known Allergies; la1 - Home Meds: 18:05 albuterol sulfate 90 mcg/actuation Inhl HFAA 2 puffs every 4-6 hours as needed rb1 [Active]; Vitamin Oral tab 1 tab once daily [Active]; - PMHx: 17:59 Asthma; la1 - Immunization history:: Adult Immunizations up to date. - Social history:: Smoking status: Patient uses tobacco products, smokes one-half pack cigarettes per day. - Ebola Screening: : No symptoms or risks identified at this time. Screenin:05 Abuse screen: Denies threats or abuse. Nutritional screening: No deficits noted. rb1 Tuberculosis screening: No symptoms or risk factors identified. Fall Risk None identified. Assessment: 18:05 General: Appears in no apparent distress. comfortable, Behavior is calm, cooperative. rb1 Pain: Complains of pain in headache Pain currently is 7 out of 10 on a pain scale. Neuro: Level of Consciousness is awake, alert, obeys commands, Oriented to person, place, time, situation, Reports headache frontal area. Cardiovascular: Capillary refill < 3 seconds is brisk in bilateral fingers. Respiratory: Airway is patent Respiratory effort is even, unlabored, Respiratory pattern is regular, symmetrical. GI: Reports nausea, vomiting. : No signs and/or symptoms were reported regarding the genitourinary system. Derm: Skin is dry, Skin is normal, Skin temperature is warm. 18:05 Obstetrical Assessment: General assessment: awake and alert, skin warm and dry. rb1 19:00 Reassessment: Patient appears in no apparent distress at this time. Patient and/or jb4 family updated on plan of care and expected duration. Pain level reassessed. Patient is alert, oriented x 3, equal unlabored respirations, skin warm/dry/pink. 20:00 Reassessment: Patient appears in no apparent distress at this time. Patient and/or jb4 family updated on plan of care and expected duration. Pain level reassessed. Patient is alert, oriented x 3, equal unlabored respirations, skin warm/dry/pink. Patient states feeling better. Vital Signs: 17:59 BP 117 / 78; Pulse 92; Resp 16; Temp 97.8; Pulse Ox 98% on R/A; Weight 113.4 kg; Height la1 5 ft. 4 in. (162.56 cm); Pain 7/10; 18:59 BP 103 / 52; Pulse 81; Resp 19; Pulse Ox 100% on R/A; rb1 19:58 BP 105 / 68; Pulse 83; Resp 16; Pulse Ox 100% on R/A; jb4 17:59 Body Mass Index 42.91 (113.40 kg, 162.56 cm) la1 Vitals: 18:15 Heart Tones Too early to hear heart tones. rb1 ED Course: 17:49 Patient arrived in ED. as 17:59 Triage completed. la1 17:59 Arm band placed on left wrist. la1 18:00 Indra Pimentel PA is PHCP. [facility] 18:00 Bg Lee MD is Attending Physician. [facility] 18:00 Cony Zayas, KATERINE is Primary Nurse. rb1 18:05 Patient has correct armband on for positive identification. Bed in low position. Call rb1 light in reach. Side rails up X 1. Pulse ox on. NIBP on. Warm blanket given. 18:57 Report given to KATERINE Vásquez. rb1 19:57 Ultrasound completed. Patient tolerated well. Notified PLASTER MECHANIC/PA indra. sg3 20:30 US 1st Trimest Single 1st Fetus In Process Unspecified. EDMS 20:40 No provider procedures requiring assistance completed. IV discontinued, intact, jb4 bleeding controlled. Administered Medications: 18:52 Drug: Reglan 10 mg Route: IVP; Site: right antecubital; rb1 20:00 Follow up: Response: No adverse reaction; Nausea is decreased jb4 18:52 Drug: NS 0.9% 500 ml Route: IV; Rate: bolus; Site: right antecubital; rb1 19:45 Follow up: Response: No adverse reaction; IV Status: Completed infusion; IV Intake: jb4 500ml Point of Care Testing: Urine : 18:30 hCG Reading: Positive; Control Reading: Positive; rb1 Intake: 19:45 IV: 500ml; Total: 500ml. jb4 Outcome: 20:28 Discharge ordered by . raiza 20:40 Discharged to home ambulatory. jb4 20:40 Condition: stable 20:40 Discharge instructions given to patient, Instructed on discharge instructions, follow up and referral plans. Demonstrated understanding of instructions, follow-up care. 20:40 Patient left the ED. jb4 Signatures: Dispatcher [employer] EDMS Indra Pimentel PA PA jmm Martinez, Amelia as Attema, Lee RN RN la1 Cony Zayas, KATERINE RN rb1 Nino Krause RN RN jb4 Radha Olson sg3
--- NOTE | 2018-12-07 20:29 | EDPHYS ---
Physician Documentation [facility] Name: Cony Krishnamurthy Age: 23 yrs Sex: Female : 1995 Arrival Date: 12/07/2018 Time: 17:49 Bed 13 Private MD: ED Physician Bg Lee HPI: 12/07 18:13 This 23 yrs old Female presents to ER via Ambulatory with complaints of jmm Vaginal Bleeding, + Preg <12wks. 18:13 The patient presents to the emergency department with vaginal bleeding. The estimated jmm gestational age is 6 weeks. This is a 23 year old female with a history of asthma presents to the ED with complaints of vaginal spotting beginning last night. Patient states she has not carried a longer than 6 weeks. Patient is scheduled to see [facility]. Patient also complaints of frontal headache with nasal congestion beginning today. Patient denies fever, denies chills, denies cough. . 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 - Social history:: Smoking status: Patient uses tobacco products, smokes one-half pack cigarettes per day. - Ebola Screening: : No symptoms or risks identified at this time. ROS: 18:13 Constitutional: Negative for fever, chills, and weight loss. jmm 18:13 Neck: Negative for injury, pain, and swelling, Cardiovascular: Negative for chest pain, palpitations, and edema, Respiratory: Negative for shortness of breath, cough, wheezing, and pleuritic chest pain. 18:13 ENT: Positive for sinus congestion. 18:13 : Positive for vaginal bleeding. 18:13 All other systems are negative. Exam: 18:13 Head/Face: atraumatic. Eyes: EOMI, no conjunctival erythema appreciated ENT: Moist jmm Mucus Membranes Neck: Trachea midline, Supple Chest/axilla: Normal chest wall appearance and motion. Cardiovascular: Regular rate and rhythm. No edema appreciated Respiratory: Normal respirations, no respiratory distress appreciated Abdomen/GI: Non distended, soft Back: Normal ROM 18:13 Skin: General appearance color normal MS/ Extremity: Moves all extremities, no obvious deformities appreciated, no edema noted to the lower extremities Neuro: Awake and alert, normal gait Psych: Behavior is normal, Mood is normal, Patient is cooperative and pleasant 18:13 Constitutional: The patient appears in no acute distress, alert, awake. 18:13 Head/face: Sinus tenderness, that is moderate, is located over the right frontal sinus, left frontal sinus, right maxillary sinus and left maxillary sinus. Vital Signs: 17:59 BP 117 / 78; Pulse 92; Resp 16; Temp 97.8; Pulse Ox 98% on R/A; Weight 113.4 kg; Height la1 5 ft. 4 in. (162.56 cm); Pain 7/10; 18:59 BP 103 / 52; Pulse 81; Resp 19; Pulse Ox 100% on R/A; rb1 19:58 BP 105 / 68; Pulse 83; Resp 16; Pulse Ox 100% on R/A; jb4 17:59 Body Mass Index 42.91 (113.40 kg, 162.56 cm) la1 MDM: 18:10 Patient medically screened. [facility] 20:28 Data reviewed: vital signs, nurses notes. Counseling: I had a detailed discussion with [facility] the patient and/or guardian regarding: the historical points, exam findings, and any diagnostic results supporting the discharge/admit diagnosis, the need for outpatient follow up, smoking cessation. 20:28 Data reviewed: lab test result(s), radiologic studies, ultrasound. [facility] 20:28 ED course: Patient is alert and non toxic in appearance in the ED. I discussed with the [facility] patient US results and lab results along with the need for close OB follow up. PE findings consistent with sinus headache. patient's neck is supple I do not suspect meningitis. Character of headache appears inconsistent with SAH. Patient was otherwise given strict return precautions. Patient understood and agrees with the plan of care. . 12/07 18:12 Order name: Quantitative Hcg; Complete Time: 19:47 [facility] 12/07 18:12 Order name: Abo/rh Typing; Complete Time: 19:47 [facility] 12/07 18:12 Order name: Basic Metabolic Panel; Complete Time: 19:47 [facility] 12/07 18:12 Order name: CBC with Diff; Complete Time: 19:20 [facility] 12/07 18:13 Order name: Flu; Complete Time: 19:13 [facility] 12/07 18:40 Order name: Urine Dipstick--Ancillary (enter results); Complete Time: 18:49 bd 12/07 18:12 Order name: Urine Test (obtain specimen); Complete Time: 18:57 [facility] 12/07 18:12 Order name: IV Saline Lock; Complete Time: 18:57 [facility] 12/07 18:12 Order name: Labs collected and sent; Complete Time: 18:57 [facility] 12/07 18:12 Order name: NPO; Complete Time: 18:57 [facility] 12/07 18:40 Order name: Urine --Ancillary (enter results); Complete Time: 18:49 12/07 18:50 Order name: 1st Trimest Single 1st Fetus [facility] 12/07 18:12 Order name: Urine Dipstick-Ancillary (obtain specimen); Complete Time: 18:57 [facility] Administered Medications: 18:52 Drug: Reglan 10 mg Route: IVP; Site: right antecubital; rb1 20:00 Follow up: Response: No adverse reaction; Nausea is decreased jb4 18:52 Drug: NS 0.9% 500 ml Route: IV; Rate: bolus; Site: right antecubital; rb1 19:45 Follow up: Response: No adverse reaction; IV Status: Completed infusion; IV Intake: jb4 500ml Point of Care Testing: Urine : 18:30 hCG Reading: Positive; Control Reading: Positive; rb1 Disposition: 12/08 08:05 Co-signature as Attending Physician, Bg Lee MD I agree with the assessment and karmen plan of care. Disposition: 12/07/18 20:28 Discharged to Home. Impression: Threatened . - Condition is Stable. - Discharge Instructions: Threatened Miscarriage, Pelvic Rest. - Medication Reconciliation Form, Thank You Letter, Antibiotic Education, Prescription Opioid Use, Work release form form. - Follow up: Private Physician; When: 2 - 3 days; Reason: Recheck today's complaints, Continuance of care, Repeat Beta-HCG (48 Hours), Re-evaluation by your physician. Signatures: Dispatcher [employer] EDMS Jesus, BgMD MD karmen delacruz Joel, PA PA jmm Attema, Lee RN RN la1 Cony Zayas, RN RN rb1 Nino Krause RN RN jb4 Corrections: (The following items were deleted from the chart) 12/07 20:40 20:28 12/07/2018 20:28 Discharged to Home. Impression: Threatened . Condition jb4 is Stable. Forms are Medication Reconciliation Form, Thank You Letter, Antibiotic Education, Prescription Opioid Use. Follow up: Private Physician; When: 2 - 3 days; Reason: Recheck today's complaints, Continuance of care, Repeat Beta-HCG (48 Hours), Re-evaluation by your physician. raiza
--- NOTE | 2018-12-07 20:44 | RAD REPORT ---
EXAM DESCRIPTION: US - 1St Trimest Single 1St Fetus - 12/07/2018 8:30 pm CLINICAL HISTORY: VAGINAL BLEEDING COMPARISON: <Comparisons> FINDINGS: A single gestational sac is seen within the uterus. The shape of the sac is within normal limits for gestational age. Within the sac is a single pole with crown-rump length of 5 mm, cor relating to estimated gestational age of 6 weeks 2 days. Estimated date of delivery is 07/31/2019. Heart rate is 122 BPM. The placenta is not yet developed due to early gestational age. The maternal adnexa and ovaries are within normal limits. Normal Doppler blood flow was demonstrated to both ovaries. 11 x 7 mm subchorionic bleed is present inferior to the gestational sac. IMPRESSION: Single live early intrauterine gestation with estimated gestational age of 6 weeks 2 day s, FAN 07/31/2019. 11 x 7 mm subchorionic bleed inferior to the gestational sac.
== END 2018-12-07 20:40 | disposition home or self-care (01) ==
LOC: ER 17:48
DX: O20.0 Threatened abortion (principal); O99.511 Diseases of the respiratory system complicating pregnancy, first trimester; J45.909 Unspecified asthma, uncomplicated; Z3A.01 Less than 8 weeks gestation of pregnancy
CPT/HCPCS: 36415; 76801; 80048; 81003; 81025; 84702; 85025; 86900; 86901; 87804; 96361; 96374; 99284; J2765

== ENCOUNTER 2019-01-11 14:25 | Emergency (ER) | payer OTHER ==
--- OUTSIDE RECORDS SUMMARY | 2019-01-11 14:26 | XMS REPORT ---
:1995 [facility] Address [address] [place] [address] [address]. [address] [place] [address] Care Team Providers Name Role Phone Unavailable Unavailable Unavailable Problems This patient has no known problems. Allergies, Adverse Reactions, Alerts This patient has no known allergies or adverse reactions. Medications This patient has no known medications.
--- NOTE | 2019-01-11 14:49 | EDPHYS ---
Physician Documentation [facility] Name: Cony Krishnamurthy Age: 23 yrs Sex: Female : 1995 Arrival Date: 01/11/2019 Time: 14:26 Bed 19 Private MD: ED Physician Bg Lee HPI: 01/11 14:43 This 23 yrs old Female presents to ER via Ambulatory with complaints of nh Vaginal Discharge - 11 wks preg. 14:43 The patient presents with vaginal discharge, that is a moderate amount of white nh discharge. Onset: The symptoms/episode began/occurred 2 day(s) ago. Modifying factors: The symptoms are alleviated by nothing, the symptoms are aggravated by nothing. Associated signs and symptoms: The patient has no apparent associated signs or symptoms. Severity of symptoms: At their worst the symptoms were mild, just prior to arrival, in the emergency department the symptoms are unchanged. Patient is currently and c/o white vaginal discharge with itching. Denies abdominal pain. States that she has not tried anything over the counter. MILIEU COORDINATOR: 14:31 LMP 10/23/2018 aj Historical: - Allergies: 14:31 No Known Allergies; aj - Home Meds: 14:31 Vitamin Oral tab 1 tab once daily [Active]; albuterol sulfate 90 mcg/actuation aj Inhl HFAA 2 puffs every 4-6 hours as needed [Active]; - PMHx: 14:31 Asthma; aj - PSHx: 14:31 None; aj - Immunization history:: Adult Immunizations up to date. - Social history:: Smoking status: Patient uses tobacco products, smokes one-half pack cigarettes per day. - Ebola Screening: : Patient negative for fever greater than or equal to 101.5 degrees Fahrenheit, and additional compatible Ebola Virus Disease symptoms Patient denies exposure to infectious person Patient denies travel to an Ebola-affected area in the 21 days before illness onset No symptoms or risks identified at this time. ROS: 14:43 Positive for vaginal discharge. nh 14:43 Constitutional: Negative for fever, chills, and weight loss, Eyes: Negative for injury, pain, redness, and discharge, ENT: Negative for injury, pain, and discharge, Neck: Negative for injury, pain, and swelling, Cardiovascular: Negative for chest pain, palpitations, and edema, Respiratory: Negative for shortness of breath, cough, wheezing, and pleuritic chest pain, Abdomen/GI: Negative for abdominal pain, nausea, vomiting, diarrhea, and constipation, Back: Negative for injury and pain, MS/Extremity: Negative for injury and deformity, Skin: Negative for injury, rash, and discoloration, Neuro: Negative for headache, weakness, numbness, tingling, and seizure, Psych: Negative for depression, anxiety, suicide ideation, homicidal ideation, and hallucinations, Allergy/Immunology: Negative for hives, rash, and allergies, Endocrine: Negative for neck swelling, polydipsia, polyuria, polyphagia, and marked weight changes, Hematologic/Lymphatic: Negative for swollen nodes, abnormal bleeding, and unusual bruising. 14:43 : Positive for vaginal itching. Exam: 14:43 Constitutional: This is a well developed, well nourished patient who is awake, alert, nh and in no acute distress. Head/Face: Normocephalic, atraumatic. Eyes: Pupils equal round and reactive to light, extra-ocular motions intact. Lids and lashes normal. Conjunctiva and sclera are non-icteric and not injected. Cornea within normal limits. Periorbital areas with no swelling, redness, or edema. ENT: Nares patent. No nasal discharge, no septal abnormalities noted. Tympanic membranes are normal and external auditory canals are clear. Oropharynx with no redness, swelling, or masses, exudates, or evidence of obstruction, uvula midline. Mucous membranes moist. Neck: Trachea midline, no thyromegaly or masses palpated, and no cervical lymphadenopathy. Supple, full range of motion without nuchal rigidity, or vertebral point tenderness. No Meningismus. Chest/axilla: Normal chest wall appearance and motion. Nontender with no deformity. No lesions are appreciated. Cardiovascular: Regular rate and rhythm with a normal S1 and S2. No gallops, murmurs, or rubs. Normal PMI, no JVD. No pulse deficits. Respiratory: Lungs have equal breath sounds bilaterally, clear to auscultation and percussion. No rales, rhonchi or wheezes noted. No increased work of breathing, no retractions or nasal flaring. Abdomen/GI: Soft, non-tender, with normal bowel sounds. No distension or tympany. No guarding or rebound. No evidence of tenderness throughout. Back: No spinal tenderness. No costovertebral tenderness. Full range of motion. Female : Normal external genitalia. Skin: Warm, dry with normal turgor. Normal color with no rashes, no lesions, and no evidence of cellulitis. MS/ Extremity: Pulses equal, no cyanosis. Neurovascular intact. Full, normal range of motion. Neuro: Awake and alert, GCS 15, oriented to person, place, time, and situation. Cranial nerves II-XII grossly intact. Motor strength 5/5 in all extremities. Sensory grossly intact. Cerebellar exam normal. Normal gait. Psych: Awake, alert, with orientation to person, place and time. Behavior, mood, and affect are within normal limits. Vital Signs: 14:31 BP 112 / 65; Pulse 90; Resp 16; Temp 98.4; Pulse Ox 100% on R/A; Weight 113.4 kg; aj Height 5 ft. 4 in. (162.56 cm); 14:31 Body Mass Index 42.91 (113.40 kg, 162.56 cm) MDM: 14:38 Patient medically screened. wa 14:43 Data reviewed: vital signs, nurses notes, I have discussed the patient's wa presentation/case with the attending Emergency Department Physician; and as a result, I will discharge patient. Counseling: I had a detailed discussion with the patient and/or guardian regarding: the historical points, exam findings, and any diagnostic results supporting the discharge/admit diagnosis, the need for outpatient follow up, to return to the emergency department if symptoms worsen or persist or if there are any questions or concerns that arise at home. Administered Medications: No medications were administered Disposition: 01/12 09:04 Co-signature as Attending Physician, Bg Lee MD I agree with the assessment and [facility] plan of care. Disposition: 01/11/19 14:48 Discharged to Home as Medical Screen. Impression: Encounter for general adult medical examination without abnormal findings. - Condition is Stable. - Medication Reconciliation Form, Thank You Letter, Antibiotic Education, Prescription Opioid Use form. - Follow up: Private Physician; When: 2 - 3 days; Reason: Recheck today's complaints. - Problem is new. - Symptoms are unchanged. Signatures: Karina Ortiz RN RN aj Anderson, Corey, MD MD cha Cronk, Niki, RISK TECH RISK TECH nh Moon, Kvng, GARMENT PARTS CUTTER MACHINE GARMENT PARTS CUTTER MACHINE em Corrections: (The following items were deleted from the chart) 01/11 14:54 14:48 01/11/2019 14:48 Discharged to Home as Medical Screen. Impression: Encounter for em general adult medical examination without abnormal findings. Condition is Stable. Forms are Medication Reconciliation Form, Thank You Letter, Antibiotic Education, Prescription Opioid Use. Follow up: Private Physician; When: 2 - 3 days; Reason: Recheck today's complaints. Problem is new. Symptoms are unchanged. nh
--- NOTE | 2019-01-11 14:49 | ER ---
Nurse's Notes [facility] Name: Cony Krishnamurthy Age: 23 yrs Sex: Female : 1995 Arrival Date: 01/11/2019 Time: 14:26 Bed 19 Private MD: Diagnosis: Encounter for general adult medical examination without abnormal findings Presentation: 01/11 14:30 Presenting complaint: Patient states: "I think I have a yeast infection that started aj yesterday." Report thick white discharge. No OTC medications used. Transition of care: patient was not received from another setting of care. Onset of symptoms was January 10, 2019. Risk Assessment: Do you want to hurt yourself or someone else? Patient reports no desire to harm self or others. Initial Sepsis Screen: Does the patient meet any 2 criteria? No. Patient's initial sepsis screen is negative. Does the patient have a suspected source of infection? No. Patient's initial sepsis screen is negative. Care prior to arrival: None. 14:30 Method Of Arrival: Ambulatory 14:30 Acuity: SYBIL 5 aj Triage Assessment: 14:31 General: Appears in no apparent distress. comfortable, Behavior is calm, cooperative, aj appropriate for age. Pain: Denies pain. Neuro: Level of Consciousness is awake, alert, obeys commands, Oriented to person, place, time, situation, Appropriate for age. Respiratory: Airway is patent Respiratory effort is even, unlabored, Respiratory pattern is regular, symmetrical. : Reports discharge, white. Derm: Skin is intact, is healthy with good turgor, Skin is pink, warm \\T\\ dry. normal. 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 - Social history:: Smoking status: Patient uses tobacco products, smokes one-half pack cigarettes per day. - Ebola Screening: : Patient negative for fever greater than or equal to 101.5 degrees Fahrenheit, and additional compatible Ebola Virus Disease symptoms Patient denies exposure to infectious person Patient denies travel to an Ebola-affected area in the 21 days before illness onset No symptoms or risks identified at this time. Screenin:50 Abuse screen: Denies threats or abuse. Denies injuries from another. Nutritional iw screening: No deficits noted. Tuberculosis screening: No symptoms or risk factors identified. Fall Risk None identified. Assessment: 14:35 General: Appears in no apparent distress. iw Vital Signs: 14:31 BP 112 / 65; Pulse 90; Resp 16; Temp 98.4; Pulse Ox 100% on R/A; Weight 113.4 kg; aj Height 5 ft. 4 in. (162.56 cm); 14:31 Body Mass Index 42.91 (113.40 kg, 162.56 cm) aj ED Course: 14:26 Patient arrived in ED. as 14:31 Triage completed. aj 14:31 Arm band placed on left wrist. Patient placed in an exam room. aj 14:35 Patient has correct armband on for positive identification. iw 14:38 Kay Sanchez FNP is PHCP. nh 14:38 Bg Lee MD is Attending Physician. nh 14:50 No provider procedures requiring assistance completed. Patient did not have IV access iw during this emergency room visit. 14:54 Kvng Moon LVN is Primary Nurse. em Administered Medications: No medications were administered Outcome: 14:48 Discharge ordered by MD. nh 14:53 Condition: good iw 14:53 Following a medical screening exam, the patient was provided information regarding alternative care sites and resources available per registration personnel. 14:54 Medical screen evaluation completed per provider. Patient declined treatment. em 14:54 Patient left the ED. em Signatures: Karina Ortiz, RN RN aj Kay Sanchez FNP FNP mt Kvng Moon LVN LVN em Alpa Taylor as Jannie Luna RN RN iw
== END 2019-01-11 14:54 | disposition home or self-care (01) ==
LOC: ER 14:25
DX: O26.891 Other specified pregnancy related conditions, first trimester (principal); O99.331 Smoking (tobacco) complicating pregnancy, first trimester; F17.210 Nicotine dependence, cigarettes, uncomplicated; J45.909 Unspecified asthma, uncomplicated; Z3A.11 11 weeks gestation of pregnancy
CPT/HCPCS: 99281

== ENCOUNTER 2020-09-04 05:19 | Emergency (ER) | payer OTHER ==
--- OUTSIDE RECORDS SUMMARY | 2020-09-04 05:21 | XMS REPORT | Continuity of Care Document ---
:1995 Author Organization [facility] t Address [address] [place] [address] Care Team Providers Name Role Phone Betsy HERNÁNDEZ Attending Clinician 1, Lab Attending Clinician Unavailable Gray COREAS, Trav Attending Clinician Doctor Unassigned, Name Attending Clinician Unavailable Problems This patient has no known problems. Allergies, Adverse Reactions, Alerts This patient has no known allergies or adverse reactions. Medications This patient has no known medications. Procedures This patient has no known procedures. Encounters Start End Encounter Admission Attending Care Care Encounter Source Date/Time Date/Time Type Type Clinicians Facility Department ID 2019-05-20 2019-05-20 Routine GRIFFIN Meyer [id number] 13:07:44 13:38:14 Cinthya Ruiz [id number] Visit [place] [id number] [facility] [id number] [address] 2019-05-15 2019-05-15 Organizational Development Specialist 1, [facility] Lab [facility] [id number] 08:51:51 09:06:51 Visit Sara [id number] [place] [id number] [place] [id number] [facility] 2019-05-07 2019-05-07 Organizational Development Specialist 1, Mily Lab [facility] [id number] 08:17:00 08:32:00 Visit Sara [id number] [place] [id number] [place] [id number] 2019-05-07 2019-05-07 Case Betsy [facility] [id number] 00:00:00 00:00:00 Management Cinthya Sara [id number] [place] [id number] [facility] [id number] [address] 2019-04-29 2019-04-29 Routine Christi Castellano [facility] [id number] 14:22:55 15:27:05 Trav Ruiz [id number] Visit [place] [id number] [facility] [id number] [address] 2019-04-27 2019-04-27 Orders Doctor TYSHAWN [id number] 00:00:00 00:00:00 Only Unassigned, ELLIE [id number] [place] [facility] [id number] Results This patient has no known results.
[2020-09-04] MEDS ORDERED: KETOROLAC 30 MG/ML INJ ONE (06:15)
[2020-09-04] MEDS ORDERED: TETANUS & DIPHTHERIA TOX,ADULT 0.5 ML VIAL ONE (06:15)
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
[2020-09-04] MEDS ORDERED: ACETAMINOPHEN 500 MG TAB ONE (07:43)
[2020-09-04] MEDS ORDERED: LIDOCAINE 1% W/EPI 1:100,000 MDV 50 ML VIAL ONE (07:56)
[2020-09-04 09:12] VITALS: BP 119/78; TEMP 97.9; O2SAT 99
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
== END 2020-09-04 09:03 | disposition home or self-care (01) ==
LOC: ER 05:19
PROC: 0JQK0ZZ Repair Left Hand Subcutaneous Tissue and Fascia, Open Approach (ICD-10-PCS; principal; 2020-09-04)
DX: S61.432A Puncture wound without foreign body of left hand, initial encounter (principal); Y04.2XXA Assault by strike against or bumped into by another person, initial encounter; Y93.9 Activity, unspecified; Y92.89 Other specified places as the place of occurrence of the external cause; Z23 Encounter for immunization
CPT/HCPCS: 70450; 70486; 72125; 76377; 90471; 90714; 96372; 99284

== ENCOUNTER 2023-03-28 03:56 | Emergency (ER) | payer OTHER ==
--- OUTSIDE RECORDS SUMMARY | 2023-03-28 04:01 | XMS REPORT | Continuity of Care Document ---
:1995 Demographics Address [address] [address] Mobile Phone Email Address DECLINED 03/28 23 Preferred Language Barbadian Marital Status Unknown Hoahaoism Affiliation Unknown Race Unknown Additional Race(s) Black or Unavailable Ethnic Group Unknown Author Organization [facility] t Address [address] [facility] [place] [address] Care Team Providers Name Role Phone BOOM RAYO Attending Clinician Unavailable Robert Humphrey Attending Clinician Doctor Unassigned, Meyers Attending Clinician Unavailable Tasia Fu Attending Clinician [phone] Boom Villa Attending Clinician Imelda Claudio Attending Clinician TASIA BRIAN Attending Clinician Unavailable CINTHYA GARCIA Attending Clinician Unavailable Cinthya Garcia PA-C Attending Clinician 1, [facility] Attending Clinician Unavailable Christi Castellano MD Attending Clinician Payers Payer Name Policy Type Policy Number Effective Date Expiration Date S william [place] [id number] 2020 00:00:00 [place] [id number] 2020 WOMEN 00:00:00 MEDICAID PENDING PENDING 2020 00:00:00 [place] [facility] [id number] 2018 HEALTH 00:00:00 Problems Condition Condition Condition Status Onset Resolution Last Treating Co mments Source Name Details Category Date Date Treatment Clinician Date Chlamydia Chlamydia Disease Active Overview: Univers infection infection 2-17 Pending ity of affecting affecting 00:[place] 00 [facility] BMI BMI Disease Active Univers 35.0-35.9, 35.0-35.9, 2-12 it y of adult adult 00:00: [place] [facility] Branch Vaginal Vaginal Disease Active Univers bleeding bleeding 2-12 [place] affecting [place] 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 ity of loss in loss in 00:00: [place] 00 Medica l patient in patient in Br anch second second trimester, trimester, antepartum antepartum Vaginal Vaginal Disease Active Univers yeast yeast 6-12 [place] of infection infection 00:[place] [facility] Abnormal Abnormal Disease Active Overview: Un delia maternal maternal 3-29 Passed 3 ity of glucose glucose 00:00: hr gtt [place] tolerance, tolerance, 00 Me dical antepartum antepartum Br anch Supervisio Supervisio Disease Active U pari n of high n of high 3-28 ity of risk risk 00:00: [place] , , 00 Me dical antepartum antepartum Br anch History of History of Disease Active Overview : Univers miscarriag miscarriag 3-06 X5 per it y of e e 00:00: patient [address] Tobacco Tobacco Disease Active Univers smoking smoking 3-16 [place] of affecting affecting 00:[place] [facility] Obesity in Obesity in Disease Active U nivers 6-11 ity of 00:00: [address] Branch History of History of Disease Active Overview : Univers asthma asthma 6-11 ICD10 ity of 00:00: Diagnosis Term Medical [employer] Branch Utility Allergies, Adverse Reactions, Alerts Allergy Allergy Status Severity Reaction(s) Onset Inactive Treating Comm ents Source Name Type Date Date Clinician NO KNOWN Drug Active Univers ALLERGIE Class ity of S [facility] Social History Social Habit Start Date Stop Date Quantity Comments Source ASSERTION 2020-09-18 University of 00:00:00 [facility] Exposure to Not sure University of SARS-CoV-2 (event) [place] [facility] Sex Assigned At Universit y of [facility] Tobacco use and 2020-10-14 2020-10-14 Current user Univers ity of exposure 00:00:00 00:00:00 [facility] Cigarettes smoked 2020-10-14 2020-10-14 Univers ity of current (pack per 00:00:00 00:00:00 [place] ) - Reported Branch Alcohol intake 2020-10-14 2020-10-14 Current University of 00:00:00 00:00:00 non-drinker of [facility] alcohol Branch (finding) Tobacco Comment 2020-10-14 2020-10-14 vapes daily [facility] of 00:00:00 00:00:00 [facility] History of tobacco 2007-11-06 2020-05-03 Cigarette Smoker University of use 00:00:00 00:00:00 [facility] Smoking Status Start Date Stop Date Source Former smoker 2020-10-14 00:00:00 2020-10-14 00:00:00 Universi ty of [facility] Current every day 2020-10-11 00:00:00 [facility] [place] Medications Ordered Filled Start Stop Current Ordering Indication Dosage Frequency Signature Comments Components Source Medication Medication Date Date Medication? Clinician (SIG) Name Name ibuprofen Yes [id number] 600mg Take 1 Univers 600 mg 3-04 tablet by ity of tablet 00:00: mouth [place] 00 every 6 Medical (six) Branch hours as needed for Pain (scale 4-6). azithromyci 2020- No [id number] 1000mg Take 2 Univers n 500 mg 2-17 -18 tablets by ity of tablet 00:00: 05:59 [place] :[place] now for 1 Medical dose. Branch azithromyci 2020- No [id number] 1000mg Take 2 Univers n 500 mg 2-17 02-18 tablets by ity of tablet 00:00: 05:59 [place] 00 :[place] now for 1 Medical dose. Branch montelukast 2020- No Take by Un delia sodium 10-14 mouth. ity of (SINGULAIR 16:14: 00:00 [place] ORAL) 13 :00 Medical Branch montelukast 2020- No Take by Un delia sodium 10-14 mouth. ity of (SINGULAIR 16:14: 00:00 [place] ORAL) 13 :00 Medical Branch montelukast 2020- No Take by Un delia sodium 10-14 mouth. ity of (SINGULAIR 16:14: 00:00 [place] ORAL) 13 :00 Medical Branch diphenhydrA 2020- No 25mg Take 25 mg Univers MINE 10-14 by mouth ity of (BENADRYL) 16:14: 00:00 every 6 [place] 25 mg 03 :00 (six) Medical capsule hours as Branch needed for Allergies. diphenhydrA 2020- No 25mg Take 25 mg Univers MINE 10-14 by mouth ity of (BENADRYL) 16:14: 00:00 every 6 [place] 25 mg 03 :00 (six) Medical capsule hours as Branch needed for Allergies. diphenhydrA 2020- No 25mg Take 25 mg Univers MINE 10-14 by mouth ity of (BENADRYL) 16:14: 00:00 every 6 [place] 25 mg 03 :00 (six) Medical capsule hours as Branch needed for Allergies. ALBUTEROL 2020- No Inhale. [facility] [place] [facility] ers INHALE 10-14 ity of 16:14: 00:00 [place] 00 :00 Medical Branch ALBUTEROL 2020- No Inhale. [facility] [place] [facility] ers INHALE 10-14 ity of 16:14: 00:00 [place] 00 :00 Medical Branch ALBUTEROL 2020- No Inhale. [facility] [place] [facility] ers INHALE 10-14 ity of 16:14: 00:00 [place] 00 :00 [facility] Yes [id number] 1{tbl} Take 1 Univers ne 0.35 mg 2-19 tablet by ity of tablet 00:00: mouth [place] 00 daily. Medical Branch [facility] 2018-09 Yes [id number] 1{tbl} Take 1 Univers ne 0.35 mg 2-19 tablet by ity of tablet 00:00: mouth [place] 00 daily. Medical Branch [facility] 2018-09 Yes [id number] 1{tbl} Take 1 Univers ne 0.35 mg 2-19 tablet by ity of tablet 00:00: mouth [place] 00 daily. [facility] 2018-09- No [id number] 1{tbl} Take 1 Univers ne 0.35 mg 2-19 02-12 tablet by ity of tablet 00:00: 00:00 mouth [place] 00 :00 daily. [facility] 2018-09- No [id number] 1{tbl} Take 1 Univers ne 0.35 mg 2-19 02-12 tablet by ity of tablet 00:00: 00:00 mouth [place] 00 :00 daily. [facility] 2018-09- No [id number] 1{tbl} Take 1 Univers ne 0.35 mg 2-19 02-12 tablet by ity of tablet 00:00: 00:00 mouth [place] 00 :00 daily. [facility] ALBUTEROL 2018-09 Yes Inhale. [facility] INHALE 09-28 ity of 22:36: [place] [address] [place] [address] 2018-09 Yes Take by Uni vers sodium 1-27 mouth. ity of (SINGULAIR 22:36: [place] ORAL) [address] [place] [address] diphenhydrA 2018-09 Yes 25mg Take 25 mg Univers MINE 1-27 by mouth ity of (BENADRYL) 22:36: every 6 [place] 25 mg 08 (six) Medical capsule hours as Branch needed for Allergies. ALBUTEROL 2018-09 Yes Inhale. [facility] INHALE 09-28 ity of 22:36: [place] [address] [place] [address] 2018-09 Yes Take by Uni vers sodium 1-27 mouth. ity of (SINGULAIR 22:36: [place] ORAL) [address] [place] [address] diphenhydrA 2018-09 Yes 25mg Take 25 mg Univers MINE 1-27 by mouth ity of (BENADRYL) 22:36: every 6 [place] 25 mg 08 (six) Medical capsule hours as Branch needed for Allergies. ALBUTEROL 2018-09 Yes Inhale. [facility] INHALE - ity of 22:36: [place] [address] [place] [address] 2018-09 Yes Take by Uni vers sodium 1-27 mouth. ity of (SINGULAIR 22:36: [place] ORAL) [address] [place] [address] diphenhydrA 2018-09 Yes 25mg Take 25 mg Univers MINE 1-27 by mouth ity of (BENADRYL) 22:36: every 6 [place] 25 mg 08 (six) Medical capsule hours as Branch needed for Allergies. 2018-09 Yes [id number] 1{tbl} Take 1 U nivers vitamin 1-27 tablet by ity of w/FA tablet 00:00: mouth [place] 00 daily. Medical Branch docusate 2018-09 Yes [id number] 240mg Take 1 Un delia calcium 240 1-27 capsule by it y of mg capsule 00:00: mouth [place] 00 daily as Medical needed for Branch Constipati on. ferrous 2018-09 Yes [id number] 325mg Take 1 Uni vers sulfate 325 1-27 tablet by ity of mg (65 mg 00:00: mouth 2 [place] iron) 00 (two) Medical tablet times Branch daily. ibuprofen 2018-09 Yes [id number] 600mg Take 1 U nivers 600 mg 1-27 tablet by ity of tablet 00:00: mouth [place] 00 every 6 Medical (six) Branch hours as needed (Pain). Take with food or milk. 2018-09 Yes [id number] 1{tbl} Take 1 U nivers vitamin 1-27 tablet by ity of w/FA tablet 00:00: mouth [place] 00 daily. Medical Branch docusate 2018-09 Yes [id number] 240mg Take 1 Un delia calcium 240 1-27 capsule by it y of mg capsule 00:00: mouth [place] 00 daily as Medical needed for Branch Constipati on. ferrous 2018-09 Yes [id number] 325mg Take 1 Uni vers sulfate 325 1-27 tablet by ity of mg (65 mg 00:00: mouth 2 [place] iron) 00 (two) Medical tablet times Branch daily. ibuprofen 2018-09 Yes [id number] 600mg Take 1 U nivers 600 mg 1-27 tablet by ity of tablet 00:00: mouth [place] 00 every 6 Medical (six) Branch hours as needed (Pain). Take with food or milk. 2018-09 Yes [id number] 1{tbl} Take 1 U nivers vitamin 1-27 tablet by ity of w/FA tablet 00:00: mouth [place] 00 daily. Medical Branch docusate 2018-09 Yes [id number] 240mg Take 1 Un delia calcium 240 1-27 capsule by it y of mg capsule 00:00: mouth [place] 00 daily as Medical needed for Branch Constipati on. ferrous 2018-09 Yes [id number] 325mg Take 1 Uni vers sulfate 325 - tablet by ity of mg (65 mg 00:00: mouth 2 [place] iron) 00 (two) Medical tablet times Branch daily. ibuprofen 2018-09 Yes [id number] 600mg Take 1 U nivers 600 mg 09-28 tablet by ity of tablet 00:00: mouth [place] 00 every 6 Medical (six) Branch hours as needed (Pain). Take with food or milk. 2018-09- No [id number] 1{tbl} Take 1 Univers vitamin 09-28- tablet by ity of w/FA tablet 00:00: 00:00 [place] 00 :00 daily. Medical Branch docusate 2018-09- No [id number] 240mg Take 1 U nivers calcium 240 09-28 capsule by i ty of mg capsule 00:00: 00:00 mouth once [place] 00 :00 daily as Medical needed for Branch Constipati on. ferrous 2018-09- No [id number] 325mg Take 1 Un delia sulfate 325 09-28- tablet by it y of mg (65 mg 00:00: 00:00 [place] iron[place] 00 :00 (two) Medical tablet times Branch daily. ibuprofen 2018-09- No [id number] 600mg Take 1 Univers 600 mg 09-28- tablet by ity of tablet 00:00: 00:00 mouth [place] 00 :00 every 6 Medical (six) Branch hours as needed (Pain). Take with food or milk. 2018-09- No [id number] 1{tbl} Take 1 Univers vitamin 09-28- tablet by ity of w/FA tablet 00:00: 00:00 [place] 00 :00 daily. Medical Branch docusate 2018-09- No [id number] 240mg Take 1 U nivers calcium 240 09-28- capsule by i ty of mg capsule 00:00: 00:00 mouth once [place] 00 :00 daily as Medical needed for Branch Constipati on. ferrous 2018-09- No [id number] 325mg Take 1 Un delia sulfate 325 1-27 02-12 tablet by it y of mg (65 mg 00:00: 00:00 mouth [place] iron) 00 :00 (two) Medical tablet times Branch daily. ibuprofen 2018-09- No [id number] 600mg Take 1 Univers 600 mg 09-28 tablet by ity of tablet 00:00: 00:00 mouth [place] 00 :00 every 6 Medical (six) Branch hours as needed (Pain). Take with food or milk. 2018-09- No [id number] 1{tbl} Take 1 Univers vitamin 09-28 tablet by ity of w/FA tablet 00:00: 00:00 [place] 00 :00 daily. Medical Branch docusate 2018-09- No [id number] 240mg Take 1 U nivers calcium 240 09-28 capsule by i ty of mg capsule 00:00: 00:00 mouth once [place] 00 :00 daily as Medical needed for Branch Constipati on. ferrous 2018-09- No [id number] 325mg Take 1 Un delia sulfate 325 09-28 tablet by it y of mg (65 mg 00:00: 00:00 mouth [place] iron) 00 :00 (two) Medical tablet times Branch daily. ibuprofen 2018-09- No [id number] 600mg Take 1 Univers 600 mg 09-28 tablet by ity of tablet 00:00: 00:00 mouth [place] 00 :00 every 6 Medical (six) Branch hours as needed (Pain). Take with food or milk. [facility] Yes Take by Uni vers sodium 8-28 mouth. ity of (SINGULAIR 19:51: [place] ORAL) 56 [facility] Yes Take by Uni vers sodium 8-28 mouth. ity of (SINGULAIR 19:51: [place] ORAL) 56 [facility] Yes Take by Uni vers sodium 8-28 mouth. ity of (SINGULAIR 19:51: [place] ORAL) 56 [facility] 0 Yes Take by Uni vers sodium 8-28 mouth. ity of (SINGULAIR 19:51: [place] ORAL) 56 [facility] Yes Take by Uni vers sodium 8-28 mouth. ity of (SINGULAIR 19:51: [place] ORAL) [address] [place], [place] [address]st Yes Take by Uni vers sodium 8-28 mouth. ity of (SINGULAIR 19:51: [place] ORAL) 56 Medical Branch [facility] 0 Yes Take by Un delia sodium 8-28 mouth. ity of (SINGULAIR 19:51: [place] ORAL) 56 Medical Branch diphenhydrA Yes 25mg Take 25 mg Univers MINE 7-22 by mouth ity of (BENADRYL) 14:42: every 6 [place] 25 mg 42 (six) Medical capsule hours as Branch needed for Allergies. diphenhydrA Yes 25mg Take 25 mg Univers MINE 7-22 by mouth ity of (BENADRYL) 14:42: every 6 [place] 25 mg 42 (six) Medical capsule hours as Branch needed for Allergies. diphenhydrA Yes 25mg Take 25 mg Univers MINE 7-22 by mouth ity of (BENADRYL) 14:42: every 6 [place] 25 mg 42 (six) Medical capsule hours as Branch needed for Allergies. diphenhydrA Yes 25mg Take 25 mg Univers MINE 7-22 by mouth ity of (BENADRYL) 14:42: every 6 [place] 25 mg 42 (six) Medical capsule hours as Branch needed for Allergies. diphenhydrA Yes 25mg Take 25 mg Univers MINE 7-22 by mouth ity of (BENADRYL) 14:42: every 6 [place] 25 mg 42 (six) Medical capsule hours as Branch needed for Allergies. diphenhydrA Yes 25mg Take 25 mg Univers MINE 7-22 by mouth ity of (BENADRYL) 14:42: every 6 [place] 25 mg 42 (six) Medical capsule hours as Branch needed for Allergies. diphenhydrA Yes 25mg Take 25 mg Univers MINE 7-22 by mouth ity of (BENADRYL) 14:42: every 6 [place] 25 mg 42 (six) Medical capsule hours as Branch needed for Allergies. ALBUTEROL 0 Yes Inhale. [facility] INHALE 3-06 ity of 19:58: [address] ALBUTEROL 2018-0 Yes Inhale. [facility] [place] [facility] INHALE 3-06 ity of 19:58: [address] ALBUTEROL Yes Inhale. Unive rs INHALE 3-06 ity of 19:58: [address] ALBUTEROL Yes Inhale. Unive rs INHALE 3-06 ity of 19:58: [address] ALBUTEROL Yes Inhale. Unive rs INHALE 3-06 ity of 19:58: [address] ALBUTEROL Yes Inhale. Unive rs INHALE 3-06 ity of 19:58: [address] ALBUTEROL Yes Inhale. Unive rs INHALE 3-06 ity of 19:58: [place] [address] Medical Branch Yes 1{tbl} Take 1 Unive rs multivitami 3-06 tablet by ity of n ( 00:00: mouth [place] VITAMIN) 00 daily. Medical tablet Branch Yes 1{tbl} Take 1 Unive rs multivitami 3-06 tablet by ity of n ( 00:00: mouth [place] VITAMIN) 00 daily. Medical tablet Branch Yes 1{tbl} Take 1 Unive rs multivitami 3-06 tablet by ity of n ( 00:00: mouth [place] VITAMIN) 00 daily. Medical tablet Branch Yes 1{tbl} Take 1 Unive rs multivitami 3-06 tablet by ity of n ( 00:00: mouth [place] VITAMIN) 00 daily. Medical tablet Branch Yes 1{tbl} Take 1 Unive rs multivitami 3-06 tablet by ity of n ( 00:00: mouth [place] VITAMIN) 00 daily. Medical tablet Branch Yes 1{tbl} Take 1 Unive rs multivitami 3-06 tablet by ity of n ( 00:00: mouth [place] VITAMIN) 00 daily. Medical tablet Branch Yes 1{tbl} Take 1 Unive rs multivitami 3-06 tablet by ity of n ( 00:00: mouth [place] VITAMIN) 00 daily. Medical tablet Branch Yes 1{tbl} Take 1 Unive rs multivitami 3-06 tablet by ity of n ( 00:00: mouth [place] VITAMIN) 00 daily. Medical tablet Branch Yes 1{tbl} Take 1 Unive rs multivitami 3-06 tablet by ity of n ( 00:00: mouth [place] VITAMIN) 00 daily. Medical tablet Branch Yes 1{tbl} Take 1 Unive rs multivitami 3-06 tablet by ity of n ( 00:00: mouth [place] VITAMIN) 00 daily. Medical tablet Branch 2020- No 1{tbl} Take 1 Univ ers multivitami 3-06 02-12 tablet by it y of n ( 00:00: 00:00 [place] VITAMIN[place] 00 :00 daily. Medical tablet Branch 2020- No 1{tbl} Take 1 Univ ers multivitami 3-06 02-12 tablet by it y of n ( 00:00: 00:00 [place] VITAMIN) 00 :00 daily. Medical tablet Branch 2020- No 1{tbl} Take 1 Univ ers multivitami 3-06 02-12 tablet by it y of n ( 00:00: 00:00 [place] VITAMIN) 00 :00 daily. Medical tablet Branch No known No Univers medications ity of [facility] Immunizations Ordered Immunization Filled Immunization Date Status Commen ts Source Name Name TDAP (ADACEL) 2019-05-20 Completed University of VACCINE 00:00:00 [facility] TDAP (ADACEL) 2019-05-20 Completed University of VACCINE 00:00:00 [facility] TDAP (ADACEL) 2019-05-20 Completed University of VACCINE 00:00:00 [facility] TDAP (ADACEL) 2019-05-20 Completed University of VACCINE 00:00:00 [facility] TDAP (ADACEL) 2019-05-20 Completed University of VACCINE 00:00:00 [facility] TDAP (ADACEL) 2019-05-20 Completed University of VACCINE 00:00:00 [facility] Branch TDAP (ADACEL) 2019-05-20 Completed University of VACCINE 00:00:00 [facility] Branch TDAP (ADACEL) 2019-05-20 Completed University of VACCINE 00:00:00 [facility] TDAP (ADACEL) 2019-05-20 Completed University of VACCINE 00:00:00 [facility] TDAP (ADACEL) 2019-05-20 Completed University of VACCINE 00:00:00 [facility] TDAP (ADACEL) 2019-05-20 Completed University of VACCINE 00:00:00 [place] [facility] HPV 2012-05-06 Completed University of 00:00:00 [place] [facility] HPV 2012-05-06 Completed University of 00:00:00 [place] [facility] HPV 2012-05-06 Completed University of 00:00:00 [place] [facility] HPV 2012-05-06 Completed University of 00:00:00 [place] [facility] HPV 2012-05-06 Completed University of 00:00:00 [place] [facility] HPV 2012-05-06 Completed University of 00:00:00 [place] [facility] HPV 2012-05-06 Completed University of 00:00:00 [place] [facility] HPV 2012-05-06 Completed University of 00:00:00 [place] [facility] HPV 2012-05-06 Completed University of 00:00:00 [place] [facility] HPV 2012-05-06 Completed University of 00:00:00 [place] [facility] HPV 2012-05-06 Completed University of 00:00:00 [place] [facility] HPV 2012-05-06 Completed University of 00:00:00 [place] [facility] HPV 2012-05-06 Completed University of 00:00:00 [place] [facility] HPV 2012-05-06 Completed University of 00:00:00 [place] [facility] HPV 2012-05-06 Completed University of 00:00:00 [facility] Branch HPV 2012-05-06 Completed University of 00:00:00 [place] [facility] HPV 2012-05-06 Completed University of 00:00:00 [facility] Branch HEPATITIS A 2011-06-06 Completed University of 00:00:00 [facility] Influenza Virus 2011-06-06 Completed Universit y of Vaccine 00:00:00 [facility] Branch Meningococcal 2011-06-06 Completed University of Vaccine 00:00:00 [facility] HEPATITIS A 2011-06-06 Completed University of 00:00:00 [facility] Influenza Virus 2011-06-06 Completed Universit y of Vaccine 00:00:00 [facility] Branch Meningococcal 2011-06-06 Completed University of Vaccine 00:00:00 [facility] HEPATITIS A 2011-06-06 Completed University of 00:00:00 [facility] Influenza Virus 2011-06-06 Completed Universit y of Vaccine 00:00:00 [facility] Meningococcal 2011-06-06 Completed University of Vaccine 00:00:00 [facility] HEPATITIS A 2011-06-06 Completed University of 00:00:00 [facility] Influenza Virus 2011-06-06 Completed Universit y of Vaccine 00:00:00 [facility] Meningococcal 2011-06-06 Completed University of Vaccine 00:00:00 [facility] HEPATITIS A 2011-06-06 Completed University of 00:00:00 [facility] Influenza Virus 2011-06-06 Completed Universit y of Vaccine 00:00:00 [facility] Meningococcal 2011-06-06 Completed University of Vaccine 00:00:00 [facility] HEPATITIS A 2011-06-06 Completed University of 00:00:00 [facility] Influenza Virus 2011-06-06 Completed Universit y of Vaccine 00:00:00 [facility] Meningococcal 2011-06-06 Completed University of Vaccine 00:00:00 [facility] HEPATITIS A 2011-06-06 Completed University of 00:00:00 [facility] Influenza Virus 2011-06-06 Completed Universit y of Vaccine 00:00:00 [facility] Meningococcal 2011-06-06 Completed University of Vaccine 00:00:00 [facility] HEPATITIS A 2011-06-06 Completed University of 00:00:00 [facility] Influenza Virus 2011-06-06 Completed Universit y of Vaccine 00:00:00 [facility] Meningococcal 2011-06-06 Completed University of Vaccine 00:00:00 [facility] HEPATITIS A 2011-06-06 Completed University of 00:00:00 [facility] Influenza Virus 2011-06-06 Completed Universit y of Vaccine 00:00:00 [facility] Meningococcal 2011-06-06 Completed University of Vaccine 00:00:00 [facility] HEPATITIS A 2011-06-06 Completed University of 00:00:00 [facility] Influenza Virus 2011-06-06 Completed Universit y of Vaccine 00:00:00 [facility] Meningococcal 2011-06-06 Completed University of Vaccine 00:00:00 [facility] HEPATITIS A 2011-06-06 Completed University of 00:00:00 [facility] Influenza Virus 2011-06-06 Completed Universit y of Vaccine 00:00:00 [facility] Meningococcal 2011-06-06 Completed University of Vaccine 00:00:00 [facility] HEPATITIS A 2011-06-06 Completed University of 00:00:00 [facility] Influenza Virus 2011-06-06 Completed Universit y of Vaccine 00:00:00 [facility] Meningococcal 2011-06-06 Completed University of Vaccine 00:00:00 [facility] HEPATITIS A 2011-06-06 Completed University of 00:00:00 [facility] Influenza Virus 2011-06-06 Completed Universit y of Vaccine 00:00:00 [facility] Meningococcal 2011-06-06 Completed University of Vaccine 00:00:00 [facility] HEPATITIS A 2011-06-06 Completed University of 00:00:00 [facility] Influenza Virus 2011-06-06 Completed Universit y of Vaccine 00:00:00 [facility] Meningococcal 2011-06-06 Completed University of Vaccine 00:00:00 [facility] HEPATITIS A 2011-06-06 Completed University of 00:00:00 [facility] Influenza Virus 2011-06-06 Completed Universit y of Vaccine 00:00:00 [facility] Meningococcal 2011-06-06 Completed University of Vaccine 00:00:00 [facility] HEPATITIS A 2011-06-06 Completed University of 00:00:00 [facility] Influenza Virus 2011-06-06 Completed Universit y of Vaccine 00:00:00 [facility] Meningococcal 2011-06-06 Completed University of Vaccine 00:00:00 [facility] HEPATITIS A 2011-06-06 Completed University of 00:00:00 [facility] Influenza Virus 2011-06-06 Completed Universit y of Vaccine 00:00:00 [facility] Meningococcal 2011-06-06 Completed University of Vaccine 00:00:00 [facility] MMR 1999-10-04 Completed University of 00:00:00 [facility] MMR 1999-10-04 Completed University of 00:00:00 [facility] MMR 1999-10-04 Completed University of 00:00:00 [facility] MMR 1999-10-04 Completed University of 00:00:00 [facility] MMR 1999-10-04 Completed University of 00:00:00 [facility] MMR 1999-10-04 Completed University of 00:00:00 [facility] MMR 1999-10-04 Completed University of 00:00:00 [facility] MMR 1999-10-04 Completed University of 00:00:00 [facility] MMR 1999-10-04 Completed University of 00:00:00 [facility] MMR 1999-10-04 Completed University of 00:00:00 [facility] MMR 1999-10-04 Completed University of 00:00:00 [facility] MMR 1999-10-04 Completed University of 00:00:00 [facility] MMR 1999-10-04 Completed University of 00:00:00 [facility] MMR 1999-10-04 Completed University of 00:00:00 [facility] MMR 1999-10-04 Completed University of 00:00:00 [facility] MMR 1999-10-04 Completed University of 00:00:00 [facility] MMR 1999-10-04 Completed University of 00:00:00 [facility] 1996-11-24 Completed University of 00:00:00 [facility] MMR 1996-11-24 Completed University of 00:00:00 [facility] MMR 1996-11-24 Completed University of 00:00:00 [facility] 1996-11-24 Completed University of 00:00:00 [facility] MMR 1996-11-24 Completed University of 00:00:00 [facility] MMR 1996-11-24 Completed University of 00:00:00 [facility] 1996-11-24 Completed University of 00:00:00 [facility] 1996-11-24 Completed University of 00:00:00 [facility] 1996-11-24 Completed University of 00:00:00 [facility] MMR 1996-11-24 Completed University of 00:00:00 [facility] 1996-11-24 Completed University of 00:00:00 [facility] 1996-11-24 Completed University of 00:00:00 [facility] 1996-11-24 Completed University of 00:00:00 [facility] 1996-11-24 Completed University of 00:00:00 [facility] 1996-11-24 Completed University of 00:00:00 [facility] 1996-11-24 Completed University of 00:00:00 [facility] MMR 1996-11-24 Completed University of 00:00:00 [facility] Hep B, Adol or Pedi 1996-05-15 Completed Unive rsity of Dosage 00:00:00 [facility] Hep B, Adol or Pedi 1996-05-15 Completed Unive rsity of Dosage 00:00:00 [facility] Hep B, Adol or Pedi 1996-05-15 Completed Unive rsity of Dosage 00:00:00 [facility] Hep B, Adol or Pedi 1996-05-15 Completed Unive rsity of Dosage 00:00:00 [facility] Hep B, Adol or Pedi 1996-05-15 Completed Unive rsity of Dosage 00:00:00 [facility] Hep B, Adol or Pedi 1996-05-15 Completed Unive rsity of Dosage 00:00:00 [facility] Hep B, Adol or Pedi 1996-05-15 Completed Unive rsity of Dosage 00:00:00 [facility] Hep B, Adol or Pedi 1996-05-15 Completed Unive rsity of Dosage 00:00:00 [facility] Hep B, Adol or Pedi 1996-05-15 Completed Unive rsity of Dosage 00:00:00 [facility] Hep B, Adol or Pedi 1996-05-15 Completed Unive rsity of Dosage 00:00:00 [facility] Hep B, Adol or Pedi 1996-05-15 Completed Unive rsity of Dosage 00:00:00 [facility] Hep B, Adol or Pedi 1996-05-15 Completed Unive rsity of Dosage 00:00:00 [facility] Hep B, Adol or Pedi 1996-05-15 Completed Unive rsity of Dosage 00:00:00 [facility] Hep B, Adol or Pedi 1996-05-15 Completed Unive rsity of Dosage 00:00:00 [facility] Hep B, Adol or Pedi 1996-05-15 Completed Unive rsity of Dosage 00:00:00 [facility] Hep B, Adol or Pedi 1996-05-15 Completed Unive rsity of Dosage 00:00:00 [facility] Hep B, Adol or Pedi 1996-05-15 Completed Unive rsity of Dosage 00:00:00 [facility] Hep B, Adol or Pedi 1995 Completed Unive rsity of Dosage 00:00:00 [facility] Hep B, Adol or Pedi 1995 Completed Unive rsity of Dosage 00:00:00 [facility] Hep B, Adol or Pedi 1995 Completed Unive rsity of Dosage 00:00:00 [facility] Hep B, Adol or Pedi 1995 Completed Unive rsity of Dosage 00:00:00 [facility] Hep B, Adol or Pedi 1995 Completed Unive rsity of Dosage 00:00:00 [facility] Hep B, Adol or Pedi 1995 Completed Unive rsity of Dosage 00:00:00 [facility] Hep B, Adol or Pedi 1995 Completed Unive rsity of Dosage 00:00:00 [facility] Hep B, Adol or Pedi 1995 Completed Unive rsity of Dosage 00:00:00 [facility] Hep B, Adol or Pedi 1995 Completed Unive rsity of Dosage 00:00:00 [facility] Hep B, Adol or Pedi 1995 Completed Unive rsity of Dosage 00:00:00 [facility] Hep B, Adol or Pedi 1995 Completed Unive rsity of Dosage 00:00:00 [facility] Hep B, Adol or Pedi 1995 Completed Unive rsity of Dosage 00:00:00 [facility] Hep B, Adol or Pedi 1995 Completed Unive rsity of Dosage 00:00:00 [facility] Hep B, Adol or Pedi 1995 Completed Unive rsity of Dosage 00:00:00 [facility] Hep B, Adol or Pedi 1995 Completed Unive rsity of Dosage 00:00:00 [facility] Hep B, Adol or Pedi 1995 Completed Unive rsity of Dosage 00:00:00 [facility] Hep B, Adol or Pedi 1995 Completed Unive rsity of Dosage 00:00:00 [facility] Hep B, Adol or Pedi 1995 Completed Unive rsity of Dosage 00:00:00 [facility] Hep B, Adol or Pedi 1995 Completed Unive rsity of Dosage 00:00:00 [facility] Hep B, Adol or Pedi 1995 Completed Unive rsity of Dosage 00:00:00 [facility] Hep B, Adol or Pedi 1995 Completed Unive rsity of Dosage 00:00:00 [facility] Hep B, Adol or Pedi 1995 Completed Unive rsity of Dosage 00:00:00 [facility] Hep B, Adol or Pedi 1995 Completed Unive rsity of Dosage 00:00:00 [facility] Hep B, Adol or Pedi 1995 Completed Unive rsity of Dosage 00:00:00 [facility] Hep B, Adol or Pedi 1995 Completed Unive rsity of Dosage 00:00:00 [facility] Hep B, Adol or Pedi 1995 Completed Unive rsity of Dosage 00:00:00 [facility] Hep B, Adol or Pedi 1995 Completed Unive rsity of Dosage 00:00:00 [facility] Hep B, Adol or Pedi 1995 Completed Unive rsity of Dosage 00:00:00 [facility] Hep B, Adol or Pedi 1995 Completed Unive rsity of Dosage 00:00:00 [facility] Hep B, Adol or Pedi 1995 Completed Unive rsity of Dosage 00:00:00 [facility] Hep B, Adol or Pedi 1995 Completed Unive rsity of Dosage 00:00:00 [facility] Hep B, Adol or Pedi 1995 Completed Unive rsity of Dosage 00:00:00 [facility] Hep B, Adol or Pedi 1995 Completed Unive rsity of Dosage 00:00:00 [facility] Hep B, Adol or Pedi 1995 Completed Unive rsity of Dosage 00:00:00 [facility] Vital Signs Vital Name Observation Time Observation Value Comments Source Systolic blood 2020-11-03 23:01:00 129 mm[Hg] Univer sity of pressure [facility] Diastolic blood 2020-11-03 23:01:00 71 mm[Hg] Unive rsity of pressure [facility] Heart rate 2020-11-03 23:01:00 93 /min [facility] Body temperature 2020-11-03 23:01:00 37.17 [place] [facility] Respiratory rate 2020-11-03 23:01:00 14 /min [facility] Body height 2020-11-03 23:01:00 162.6 cm [facility] Body weight 2020-11-03 23:01:00 86.183 kg [facility] BMI 2020-11-03 23:01:00 32.61 kg/m2 Universi ty of [facility] Oxygen saturation in 2020-11-03 23:01:00 100 /min University of Arterial blood by [facility] Pulse oximetry Branch Systolic blood 2020-10-14 15:42:00 109 mm[Hg] Univer sity of pressure [facility] Diastolic blood 2020-10-14 15:42:00 67 mm[Hg] Unive rsity of pressure [facility] Heart rate 2020-10-14 15:42:00 81 /min Universi ty of [facility] Body temperature 2020-10-14 15:42:00 36.61 [place] Univ ersity of [facility] Respiratory rate 2020-10-14 15:42:00 16 /min Univ ersity of [facility] Body height 2020-10-14 15:42:00 162.6 cm Universi ty of [facility] Body weight 2020-10-14 15:42:00 94.212 kg [facility]i ty of [facility] BMI 2020-10-14 15:42:00 35.65 kg/m2 Univers[facility] ty of [facility] Systolic blood 2020-10-12 02:31:00 127 mm[Hg] Univer sity of pressure [facility] Diastolic blood 2020-10-12 02:31:00 83 mm[Hg] Unive rsity of pressure [facility] Heart rate 2020-10-12 02:31:00 86 /min Universi ty of [facility] Body temperature 2020-10-12 02:31:00 36.72 [place] Univ ersity of [facility] Respiratory rate 2020-10-12 02:31:00 17 /min Univ ersity of [facility] Oxygen saturation in 2020-10-12 02:31:00 100 /min University of Arterial blood by [facility] Pulse oximetry Branch Systolic blood 2020-10-12 01:30:00 112 mm[Hg] Univer sity of pressure [facility] Diastolic blood 2020-10-12 01:30:00 66 mm[Hg] Unive rsity of pressure [facility] Heart rate 2020-10-12 01:30:00 83 /min Universi ty of [facility] Respiratory rate 2020-10-12 01:30:00 17 /min Univ ersity of [facility] Oxygen saturation in 2020-10-12 01:30:00 100 /min University Arterial blood by [facility] Pulse oximetry Branch Body temperature 2020-10-11 23:12:00 36.67 [place] Univ ersity of [facility] Body weight 2020-10-11 23:12:00 91.627 kg Universi ty of [facility] BMI 2020-10-11 23:12:00 31.64 kg/m2 Universi ty of [facility] Systolic blood 2019-05-20 18:15:00 127 mm[Hg] Univer sity of pressure [facility] Diastolic blood 2019-05-20 18:15:00 79 mm[Hg] Unive rsity of pressure [facility] Heart rate 2019-05-20 18:15:00 88 /min Universi ty of [facility] Body temperature 2019-05-20 18:15:00 36.67 [place] Univ ersity of [facility] Respiratory rate 2019-05-20 18:15:00 18 /min Univ ersity of [facility] Body height 2019-05-20 18:15:00 162.6 cm [facility] [place] [facility] [place] Body weight 2019-05-20 18:15:00 117.028 kg [facility]i ty [facility] BMI 2019-05-20 18:15:00 44.29 kg/m2 Universi ty of [facility] Systolic blood 2019-05-20 18:15:00 127 mm[Hg] Univer sity of pressure [facility] Diastolic blood 2019-05-20 18:15:00 79 mm[Hg] Unive rsity of pressure [facility] Heart rate 2019-05-20 18:15:00 88 /min Universi ty of [facility] Body temperature 2019-05-20 18:15:00 36.67 [place] Univ ersity of [facility] Respiratory rate 2019-05-20 18:15:00 18 /min Univ ersity of [facility] Body height 2019-05-20 18:15:00 162.6 cm [facility] [place] Body weight 2019-05-20 18:15:00 117.028 kg [facility] BMI 2019-05-20 18:15:00 44.29 kg/m2 [facility] Systolic blood 2019-04-29 19:47:00 122 mm[Hg] Univer sity of pressure [facility] Diastolic blood 2019-04-29 19:47:00 71 mm[Hg] Unive rsity of pressure [facility] Heart rate 2019-04-29 19:47:00 98 /min Universi ty of [facility] Body temperature 2019-04-29 19:47:00 36.61 [place] Univ ersity of [facility] Respiratory rate 2019-04-29 19:47:00 18 /min Univ ersity of [facility] Body height 2019-04-29 19:47:00 162.6 cm Universi ty of [facility] Body weight 2019-04-29 19:47:00 116.847 kg [facility] BMI 2019-04-29 19:47:00 44.22 kg/m2 [facility] ty of [facility] Systolic blood 2019-04-29 19:47:00 122 mm[Hg] Univer sity of pressure [facility] Diastolic blood 2019-04-29 19:47:00 71 mm[Hg] Unive rsity of pressure [facility] Heart rate 2019-04-29 19:47:00 98 /min Universi ty of [facility] Body temperature 2019-04-29 19:47:00 36.61 [place] Univ ersity of [facility] Respiratory rate 2019-04-29 19:47:00 18 /min Univ ersity of [facility] Body height 2019-04-29 19:47:00 162.6 cm Universi ty of [facility] Body weight 2019-04-29 19:47:00 116.847 kg [facility] BMI 2019-04-29 19:47:00 44.22 kg/m2 [facility] Procedures Procedure Date / Time Performing Clinician Source Performed CONSENT/REFUSAL FOR 2020-11-03 22:50:29 Doctor Unassigned, No [facility] DIAGNOSIS AND TREATMENT [facility] POCT TEST 2020-10-14 15:43:00 Boom Rayo [facility] POCT URINALYSIS W/O 2020-10-14 15:43:00 Boom Rayo [facility] SPECIFIC GRAVITY [facility] Branch ASSIGNMENT OF BENEFITS 2020-10-14 15:02:26 Doctor Unassigned, No University [facility] Name Medical Branch US FIRST 2020-10-12 01:27:14 Imelda Iglesias [facility] TRIMESTER LESS THAN 14 Medical B ranch WEEKS WITH TRANSVAGINAL COMP. METABOLIC PANEL 2020-10-11 23:30:00 Imelda Iglesias [facility] ([id number]) [facility] TOTAL BETA HCG ASSAY 2020-10-11 23:30:00 Imelda Iglesias [facility] CBC WITH DIFF 2020-10-11 23:30:00 Imelda Iglesias [facility] URINALYSIS 2020-10-11 23:30:00 Imelda Iglesias [facility] POCT TEST 2020-10-11 23:30:00 IglesiasImelda curtis [facility] NOTICE OF PRIVACY 2020-10-11 23:00:41 Doctor Unassigned, No [facility] TDAP (ADACEL) 2019-05-20 18:30:34 Radha Excela [facility] IMMUNIZATION [facility] POCT URINALYSIS W/O 2019-05-20 00:00:00 Cinthya Garcia [facility] SPECIFIC GRAVITY [facility] 1 HR GLUCOSE TOLERANCE 2019-05-15 15:00:00 Radha Cinthya [facility] GLUCOSE FASTING 2019-05-15 14:00:00 Rad[facility] DME/SUPPLY JUSTIFICATION 2019-04-27 05:01:00 Doctor Unassigned, No [facility] Encounters Start End Encounter Admission Attending Care Care Encounter Source Date/Time Date/Time Type Type Clinicians Facility Department ID 2021-07-02 Emergency [facility] [id number] Univers 03:21:10 [facility] 2021-07-01 Emergency [facility] [id number] Univers 22:39:41 [facility] 2020-11-14 2020-11-14 Outpatient Irasema RAYO [facility] [id number] Univers 13:45:00 13:45:00 BOOM [facility] 2020-11-03 2020-11-03 Emergency Robert Stapleton [facility] [id number] Univers 17:03:00 17:26:00 Amber Ruiz [id number] i ty of [place] [id number] [facility] [id number] [address] 2020-11-03 2020-11-03 Orders Doctor TYSHAWN [id number] Univers 00:00:00 00:00:00 Only Unassigned, ELLIE [id number] [facility]y [facility] [place] [facility] [id number] [place] [id number] [address] 2020-10-19 2020-10-19 Telephone [facility] [id number] Univers 00:00:00 00:00:00 Tasia Cox [employer] [id number] ity of [facility] [id number] [place] MATERNAL [phone] Med ical & CHILD [address] [place] [address] 2020-10-14 2020-10-14 Initial [facility] [id number] Univers 09:21:43 10:26:07 Jose Albertonda R [employer] [id number] ity of Visit [facility] [id number] [place] MATERNAL [phone] Med ical & CHILD [address] [place] [address] 2020-10-14 2020-10-14 Outpatient R [facility] [id number] Univers 08:30:00 08:30:00 ity of [facility] 2020-10-14 2020-10-14 Orders Doctor TYSHAWN [id number] Univers 00:00:00 00:00:00 Only Unassigned, ELLIE [id number] [facility]y [facility] [place] [facility] [id number] [place] [phone] [address] 2020-10-11 2020-10-11 Emergency [facility] [id number] Univers 17:13:00 20:50:00 Imelda Ruiz [id number] i ty of [place] [id number] [facility] [id number] [address] 2020-08-09 2020-08-09 Outpatient R SNEHAL, [facility] [id number] Univers 14:15:00 14:15:00 TASIA salguero [facility] 2020-02-22 2020-02-22 Outpatient R RADHA, [facility] [id number] Univers 14:00:00 14:00:00 CINTHYA wall [facility] 2019-08-20 2019-08-20 Outpatient R RADHA, [facility] [id number] Univers 08:30:00 08:46:46 CINTHYA wall [facility] 2019-05-20 2019-05-20 [facility] [id number] 13:07:44 13:38:14 Cinthya Ruiz [id number] Visit [place] [id number] Professio [id number] [address] 2019-05-20 2019-05-20 Routine Radha [facility] [id number] Univers 13:07:44 13:38:14 Cinthya Ruiz [id number] ity of Visit [place] [id number] [facility] [id number] Tn dical [address] 2019-05-15 2019-05-15 Medicaid Nurse 1, [facility] 1.2.840.114 [id number] Univers 08:51:51 09:06:51 Visit Cinthya Garcia [id number] [id number] [id number] [address] 2019-05-15 2019-05-15 Medicaid Nurse 1, [facility] 1.2.840.114 [id number] 08:51:51 09:06:51 Visit Sara [id number] [place] [id number] [place] [id number] [facility] 2019-05-07 2019-05-07 Medicaid Nurse 1, Adc Lab [facility] 1.2.840.114 [id number] Univers 08:17:00 08:32:00 Visit Christi Castellano [id number] it[id number] [phone] [facility] [address] [place] 2019-05-07 2019-05-07 Medicaid Nurse 1, Adc Lab [facility] 1.2.840.114 [id number] 08:17:00 08:32:00 Visit [place] [id number] [place] [id number] [place] [id number] [facility] 2019-05-07 2019-05-07 Case Radha [facility] [id number] [facility] 00:00:00 00:00:00 Management Cinthya [place] [id number] ity [id number] [phone] [address] 2019-05-07 2019-05-07 Cornelius Garcia [facility] [id number] 00:00:00 00:00:00 Management Cinthya Ruiz [id number] [place] [id number] Professio [phone] [address] 2019-04-29 2019-04-29 Routine Christi Castellano MSCHANDA [id number] [facility] 14:22:55 15:27:05 Cam Sara [id number] ity of Visit [id number] [phone] [address] 2019-04-29 2019-04-29 Routine Christi Castellano [facility] [id number] 14:22:55 15:27:05 Cam Sara [id number] Visit [place] [id number] Professio [id number] [address] 2019-04-27 2019-04-27 Orders Doctor TYSHAWN 1.2.840.114 [id number] 00:00:00 00:00:00 Only Unassigned, ELLIE [id number] ity [facility] [place] [facility] [id number] [place] [id number] [address] 2019-04-27 2019-04-27 Orders Doctor TYSHAWN [id number] 00:00:00 00:00:00 Only Unassigned, ELLIE [id number] [place] [facility] 4.2.7.2.686 [id number] Results Test Description Test Time Test Comments Results Result Comments Source POCT URINALYSIS W/O SPECIFIC GRAVITY 2020-10-14 15:44:00 Test Item Value Reference Range Interpretation Comme nts POCT PH U (test code = 3254) 5 mg/dl 5-8 POCT U LEUK EST (test code = 3263) trace Negative - Negative POCT U NIT (test code = 3262) pos Negative - Negative POCT U PROT (test code = 3259) trace Negative - Negative POCT U GLU (test code = 3256) neg Negative - Negative POCT U KETONE (test code = 3258) neg Negative - Negative POCT U BLD (test code = 3257) large Negative - Negative Lab Interpretation (test code = 87108-9) Abnormal [facility] URINALYSIS W/O SPECIFIC [id number] 15:44:00 Test Item Value Reference Range Interpretation Comments POCT PH U (test code = 3254) 5 mg/dl 5-8 POCT U LEUK EST (test code = trace Negative - Negative 3263) POCT U NIT (test code = 3262) pos Negative - Negative POCT U PROT (test code = 3259) trace Negative - Negative POCT U GLU (test code = 3256) neg Negative - Negative POCT U KETONE (test code = 3258) neg Negative - Negative POCT U BLD (test code = 3257) large Negative - Negative Lab Interpretation (test code = Abnormal 52929-3) [facility] URINALYSIS W/O SPECIFIC [id number] 15:44:00 Test Item Value Reference Range Interpretation Comments POCT PH U (test code = 3254) 5 mg/dl 5-8 POCT U LEUK EST (test code = trace Negative - Negative 3263) POCT U NIT (test code = 3262) pos Negative - Negative POCT U PROT (test code = 3259) trace Negative - Negative POCT U GLU (test code = 3256) neg Negative - Negative POCT U KETONE (test code = 3258) neg Negative - Negative POCT U BLD (test code = 3257) large Negative - Negative Lab Interpretation (test code = Abnormal 47388-7) [facility] [id number] 15:43:00 Test Item Value Reference Range Interpretation Comments POCT PREG (test code = 1605) Positive On board controls acceptable with C Yes Line (test code = 3574) POCT PREG LOT # (test code = 3575) POCT PREG TEST DATE (test code = 3576) [facility] [id number] 15:43:00 Test Item Value Reference Range Interpretation Comments POCT PREG (test code = 1605) Positive On board controls acceptable with C Yes Line (test code = 3574) POCT PREG LOT # (test code = 3575) POCT PREG TEST DATE (test code = 3576) [facility] [id number] 15:43:00 Test Item Value Reference Range Interpretation Comments POCT PREG (test code = 1605) Positive On board controls acceptable with C Yes Line (test code = 3574) POCT PREG LOT # (test code = 3575) POCT PREG TEST DATE (test code = 3576) [facility] TRIMESTER LESS THAN 14 WEEKS WITH [id number] 02:38:22 No intrauterine or extrauterine fetus is visualized. Hypoechoic fluid is seen in the cul-de-sac which could represent blood.Possibility of an ectopic cannot be definitely excluded. Possible gestational sac versus fluid distention in the upper endometrium.Left ovary corpus luteal cyst. Preliminary Report Dictated by Resident: Ronald Oliveros MD., have reviewed this study and agree with the abovereport.TRANSABDOMINAL AND TRANSVAGINAL PELVIC ULTRASOUND CLINICAL HISTORY: vaginal bleeding, Beta HCG: ~1700 mIU/mL. FINDINGS: Transabdominal and transvaginal pelvic ultrasounds were performed. ? The uterus measures 7.9 x 4.3 x 5.7 cm. Mild anechoic fluid distentionversus a gestational sac is seen in the upper endometrial canal, measuringup to 1.8 cm. Adjacent mild heterogenous irregular thickening of theendometrium is noted. The lower endometrial canal is nondistended. No fetalpole or yolk sac is detected. Free fluid in the posterior pelvis extends to the left adnexa. Ill-definedtubular structures posterior to the uterus and around the adnexal regionslikely represent loops of bowel. The right ovary measures 3.2 x 2.4 x 1.7 cm (6.7 mL) and contains smallfollicles. Th e left ovary measures 3.6 x 2.9 x 2.9 cm (15.1 mL) andcontains a corpus luteal cyst measuring 2.3 cmwith peripheralvascularization. The ovaries demonstrate symmetric blood flow and no focallesions areseen. [facility], Radiant Results Inft User - 10/11/2020 8:39 PM CSTTRANSABDOMINAL AND TRANSVAGINAL PELVIC ULTRASOUNDCLINICAL HISTORY: vaginal bleeding, Beta HCG: ~1700 mIU/mL.FINDINGS:Transabdominal and transvaginal pelvic ultrasounds were performed. The uterus measures 7.9 x 4.3 x 5.7 cm. Mild anechoic fluid distentionversus a gestational sac is seen in the upper endometrial canal, measuringup to 1.8 cm. Adjacent mild heterogenous irregular thickening of theendometrium is noted. The lower endometrial canal is nondistended. No fetalpole or yolk sac is detected.Free fluid in the posterior pelvisextends to the left adnexa. Ill-definedtubular structures posterior to the uterus and around the adnexal regionslikely represent loops of bowel.The right ovary measures 3.2 x 2.4 x 1.7 cm (6.7 mL) and contains smallfollicles. The left ovary measures 3.6 x 2.9 x 2.9 cm (15.1 mL) andcontains a corpus luteal cyst measuring 2.3 cm with peripheralvascularization. The ovaries demonstrate symmetric blood flow and no focallesions are seen.IMPRESSIONNo intrauterine or extrauterine fetus is visualized.Hypoechoic fluid is seen in the cul-de-sac which could represent blood.Possibility of an ectopic cannot be definitely excluded.Possible gestational sac versus fluid distention in the upper endometrium.Left ovary corpus luteal cyst.Preliminary Report Dictated by Resident: Ronald Moctezuma MD., have reviewed this study and agree with the abovereport.[facility] BETA HCG [id number] 00:24:00 Test Item Value Reference Range Interpretation Comments BETA HCG (test See_Comment [Automated m essage] code = The system Readmill [id number]) generated this result transmit addis reference range : Non- fe male and male patien ts: <5 mIU/mL. The reference range was not used to interpret this result as normal/abnormal . VIVI (test code Gestational Age ? ? = VIVI) ?Range (mIU/mL) 1-10 ?Weeks ?83-67766640-90 Weeks ?44870-29297538-68 Weeks ?6226-80719904-57 Weeks ?1531-060236 Biotin has been reported to cause a negative bias, interpret results relative to patient's use of biotin. [facility] BETA HCG [id number] 00:24:00 Test Item Value Reference Range Interpretation Comments BETA HCG (test See_Comment [Automated m essage] code = The system Readmill [id number]) generated this result transmit addis reference range : Non- fe male and male patien ts: <5 mIU/mL. The reference range was not used to interpret this result as normal/abnormal . VIVI (test code Gestational Age ? ? = VIVI) ?Range (mIU/mL) 1-10 ?Weeks ?61-12862754-26 Weeks ?36476-67717123-36 Weeks ?4845-31583578-55 Weeks ?1531-658576 Biotin has been reported to cause a negative bias, interpret results relative to patient's use of biotin. [facility] [place], [place]. METABOLIC PANEL ([id number])2020-10-11 23:57:00 Test Item Value Reference Range Interpretation Comments NA (test code = 139 mmol/L 135-145 3988226862) K (test code = 3.9 mmol/L 3.5-5 0067247946) CL (test code = 103 mmol/L 98-108 4310513931) CO2 TOTAL (test code = 27 mmol/L 23-31 3374620090) AGAP (test code = 2-16 9236698729) BUN (test code = 10 mg/dL 7-23 2115882063) GLUCOSE (test code = 104 mg/dL 70-110 2257264435) CREATININE (test code 0.58 mg/dL 0.5-1.04 = 1625955063) TOTAL BILI (test code 0.4 mg/dL 0.1-1.1 = 2166384701) CALCIUM (test code = 8.8 mg/dL 8.6-10.6 3367076686) T PROTEIN (test code = 7.3 g/dL 6.3-8.2 2785695242) ALBUMIN (test code = 4.2 g/dL 3.5-5 5779037497) ALK PHOS (test code = 56 U/L 34-122 0758451200) ALTv (test code = 8 U/L 5-35 1742-6) AST(SGOT) (test code = 15 U/L 13-40 2584888409) eGFR Calculation mL/min/1.73m2 (Non-) (test code = 2026391867) eGFR Calculation mL/min/1.73m2 () (test code = 8494383265) VIVI (test code = VIVI) Association of Glomerular Filtration Rate (GFR) and Staging of Kidney Disease* + -+ + ---+| GFR (mL/min/1.73 m2) ?| With Kidney Damage ?| ?Without Kidney Damage+ -------+ ------+ ---------+| ?>90 ?| ?Stage one ?| ? Normal ?+ --+ -+ ----+| ?60-89 ?| ?Stage two ?| ? Decreased GFR ? + -+ + ---+| ?30-59 ?| ?Stage three ?| ? Stage three ? + -+ + ---+| ?15-29 ?| ?Stage four ? | ? Stage four ?+ --+ -+ ----+| ?<15 (or dialysis) ? ?| ?Stage five ? | ? Stage five ?+ --+ -+ ----+ *Each stage assumes the associated GFR level has been in effect for at least three months. ?Stages 1 to 5, with or without kidney disease, indicate chronic kidney disease. Notes: Determination of stages one and two (with eGFR >59mL/min/1.73 m2) requires estimation of kidney damage for at least three months as defined by structural or functional abnormalities of the kidney, manifested by either:Pathological abnormalities or Markers of kidney damage (including abnormalities in the composition of the blood or urine or abnormalities in imaging tests). [facility] [place], [place]. METABOLIC PANEL ([id number])2020-10-11 23:57:00 Test Item Value Reference Range Interpretation Comments NA (test code = 139 mmol/L 135-145 4654307346) K (test code = 3.9 mmol/L 3.5-5 9933837692) CL (test code = 103 mmol/L 98-108 2369414978) CO2 TOTAL (test code = 27 mmol/L 23-31 4394476533) AGAP (test code = 2-16 0523422238) BUN (test code = 10 mg/dL 7-23 8503326657) GLUCOSE (test code = 104 mg/dL 70-110 8154778364) CREATININE (test code 0.58 mg/dL 0.5-1.04 = 0385553903) TOTAL BILI (test code 0.4 mg/dL 0.1-1.1 = 2779334756) CALCIUM (test code = 8.8 mg/dL 8.6-10.6 7033346714) T PROTEIN (test code = 7.3 g/dL 6.3-8.2 7072232982) ALBUMIN (test code = 4.2 g/dL 3.5-5 4719414969) ALK PHOS (test code = 56 U/L 34-122 1400426245) ALTv (test code = 8 U/L 5-35 1742-6) AST(SGOT) (test code = 15 U/L 13-40 6190369434) eGFR Calculation mL/min/1.73m2 (Non-) (test code = 8072726628) eGFR Calculation mL/min/1.73m2 () (test code = 9989148731) VIVI (test code = VIVI) Association of Glomerular Filtration Rate (GFR) and Staging of Kidney Disease* + -+ + ---+| GFR (mL/min/1.73 m2) ?| With Kidney Damage ?| ?Without Kidney Damage+ -------+ ------+ ---------+| ?>90 ?| ?Stage one ?| ? Normal ?+ --+ -+ ----+| ?60-89 ?| ?Stage two ?| ? Decreased GFR ? + -+ + ---+| ?30-59 ?| ?Stage three ?| ? Stage three ? + -+ + ---+| ?15-29 ?| ?Stage four ? | ? Stage four ?+ --+ -+ ----+| ?<15 (or dialysis) ? ?| ?Stage five ? | ? Stage five ?+ --+ -+ ----+ *Each stage assumes the associated GFR level has been in effect for at least three months. ?Stages 1 to 5, with or without kidney disease, indicate chronic kidney disease. Notes: Determination of stages one and two (with eGFR >59mL/min/1.73 m2) requires estimation of kidney damage for at least three months as defined by structural or functional abnormalities of the kidney, manifested by either:Pathological abnormalities or Markers of kidney damage (including abnormalities in the composition of the blood or urine or abnormalities in imaging tests). [facility] Test Item Value Reference Range Interpretation Comments APPEARANCE (test code = Clear Clear 9591294798) COLOR (test code = Yellow Yellow 7665416335) PH (test code = 4.8-8.0 6389702550) SP GRAVITY (test code = 1.003-1.030 H 7047154386) GLU U QUAL (test code = Normal Normal 7277526903) BLOOD (test code = Negative Negative INTERFERE NCE FROM 4066676791) ASCORBIC ACID M AY CAUSE FALSE NEG ATIVE RESULT KETONES (test code = 5 mg/dL Negative A 4096765080) PROTEIN (test code = 30 mg/dL Negative A 2887-8) UROBILIN (test code = 2.0 mg/dL Normal A 6687567051) BILIRUBIN (test code = Negative Negative 1900099808) NITRITE (test code = Negative Negative 3207523033) LEUK RONAK (test code = Negative Negative 4986094102) RBC/HPF (test code = See_Comment [Autom ated message] 3140186410) The system Readmill generated this result transmitted ref erence range: 0 - 3 HP F. The reference range was not used to int erpret this result as normal/abnormal . WBC/HPF (test code = See_Comment [Autom ated message] 4155543701) The system Readmill generated this result transmitted ref erence range: 0 - 5 HP F. The reference range was not used to int erpret this result as normal/abnormal . BACTERIA (test code = Few Negative A 6184067435) MUCOUS (test code = Marked Negative LPF A 0052636933) SQ EPITH (test code = HPF 1133411019) Lab Interpretation Abnormal (test code = 15442-6) [facility] 23:53:00 Test Item Value Reference Range Interpretation Comments APPEARANCE (test code = Clear Clear 1238839107) COLOR (test code = Yellow Yellow 7071315806) PH (test code = 4.8-8.0 1621975361) SP GRAVITY (test code = 1.003-1.030 H 9210112257) GLU U QUAL (test code = Normal Normal 4677299769) BLOOD (test code = Negative Negative INTERFERE NCE FROM 1524508008) ASCORBIC ACID M AY CAUSE FALSE NEG ATIVE RESULT KETONES (test code = 5 mg/dL Negative A 9912948806) PROTEIN (test code = 30 mg/dL Negative A 2887-8) UROBILIN (test code = 2.0 mg/dL Normal A 1849113753) BILIRUBIN (test code = Negative Negative 3920616561) NITRITE (test code = Negative Negative 4172553274) LEUK RONAK (test code = Negative Negative 2537602614) RBC/HPF (test code = See_Comment [Autom ated message] 9547423026) The system Readmill generated this result transmitted ref erence range: 0 - 3 HP F. The reference range was not used to int erpret this result as normal/abnormal . WBC/HPF (test code = See_Comment [Autom ated message] 7359893978) The system Readmill generated this result transmitted ref erence range: 0 - 5 HP F. The reference range was not used to int erpret this result as normal/abnormal . BACTERIA (test code = Few Negative A 0271592247) MUCOUS (test code = Marked Negative LPF A 7784223749) SQ EPITH (test code = HPF 4330274700) Lab Interpretation Abnormal (test code = 09809-6) [facility] WITH [id number] 23:46:00 Test Item Value Reference Range Interpretation Comments WBC (test code = See_Comment H [Automated 6690-2) message] The sy stem which generated this result transmitted reference range : 4.30 - 11.10 10*3/?L. The reference range was not used to interpret this result as normal/abnormal . RBC (test code = See_Comment [Automated 789-8) message] The sy stem which generated this result transmitted reference range : 3.93 - 5.25 10*6/?L. The reference range was not used to interpret this result as normal/abnormal . HGB (test code = 11.9 g/dL 11.6-15 718-7) HCT (test code = 37.6 % 35.7-45.2 4544-3) MCV (test code = 90.6 fL 80.6-95.5 787-2) MCH (test code = 28.7 pg 25.9-32.8 785-6) MCHC (test code = 31.6 g/dL 31.6-35.1 786-4) RDW-SD (test code = 48.6 fL 39-49.9 60271-4) RDW-CV (test code = 14.4 % 12-15.5 788-0) PLT (test code = See_Comment [Automated 777-3) message] The sy stem which generated this result transmitted reference range : 166 - 358 10*3/ ?L. The reference r geraldo was not used to interpret this result as normal/abnormal . MPV (test code = 10.1 fL 9.5-12.9 77272-2) NRBC/100 WBC (test See_Comment [Automat ed code = 2519667072) message] The system which generated this result transmitted reference range : 0.0 - 10.0 /100 WBCs. The refer ence range was not u sed to interpret th is result as normal/abnormal . NRBC x10^3 (test code <0.01 See_Comment [Auto mated = 8927370878) message] The s ystem which generated this result transmitted reference range : 10*3/?L. The reference range was not used to interpret this result as normal/abnormal . GRAN MAT (NEUT) % 77.1 % (test code = 770-8) IMM GRAN % (test code 0.50 % = 2454311160) LYMPH % (test code = 13.8 % 736-9) MONO % (test code = 7.6 % 5905-5) EOS % (test code = 0.7 % 713-8) BASO % (test code = 0.3 % 706-2) GRAN MAT x10^3(ANC) 9.37 10*3/uL 1.88-7.09 H (test code = 8562334552) IMM GRAN x10^3 (test 0.06 10*3/uL 0-0.06 code = 7905587521) LYMPH x10^3 (test code 1.68 10*3/uL 1.32-3.29 = 731-0) MONO x10^3 (test code 0.92 10*3/uL 0.33-0.92 = 742-7) EOS x10^3 (test code = 0.09 10*3/uL 0.03-0.39 711-2) BASO x10^3 (test code 0.04 10*3/uL 0.01-0.07 = 704-7) Lab Interpretation Abnormal (test code = 21498-8) [facility] WITH [id number] 23:46:00 Test Item Value Reference Range Interpretation Comments WBC (test code = See_Comment H [Automated 8490-2) message] The sy stem which generated this result transmitted reference range : 4.30 - 11.10 10*3/?L. The reference range was not used to interpret this result as normal/abnormal . RBC (test code = See_Comment [Automated 277-8) message] The sy stem which generated this result transmitted reference range : 3.93 - 5.25 10*6/?L. The reference range was not used to interpret this result as normal/abnormal . HGB (test code = 11.9 g/dL 11.6-15 718-7) HCT (test code = 37.6 % 35.7-45.2 4544-3) MCV (test code = 90.6 fL 80.6-95.5 787-2) MCH (test code = 28.7 pg 25.9-32.8 785-6) MCHC (test code = 31.6 g/dL 31.6-35.1 786-4) RDW-SD (test code = 48.6 fL 39-49.9 26003-4) RDW-CV (test code = 14.4 % 12-15.5 788-0) PLT (test code = See_Comment [Automated 777-3) message] The sy stem which generated this result transmitted reference range : 166 - 358 10*3/ ?L. The reference r geraldo was not used to interpret this result as normal/abnormal . MPV (test code = 10.1 fL 9.5-12.9 33540-0) NRBC/100 WBC (test See_Comment [Automat ed code = 7275148826) message] The system which generated this result transmitted reference range : 0.0 - 10.0 /100 WBCs. The refer ence range was not u sed to interpret th is result as normal/abnormal . NRBC x10^3 (test code <0.01 See_Comment [Auto mated = 7469081674) message] The s ystem which generated this result transmitted reference range : 10*3/?L. The reference range was not used to interpret this result as normal/abnormal . GRAN MAT (NEUT) % 77.1 % (test code = 770-8) IMM GRAN % (test code 0.50 % = 2693790986) LYMPH % (test code = 13.8 % 736-9) MONO % (test code = 7.6 % 5905-5) EOS % (test code = 0.7 % 713-8) BASO % (test code = 0.3 % 706-2) GRAN MAT x10^3(ANC) 9.37 10*3/uL 1.88-7.09 H (test code = 5815113791) IMM GRAN x10^3 (test 0.06 10*3/uL 0-0.06 code = 8005744580) LYMPH x10^3 (test code 1.68 10*3/uL 1.32-3.29 = 731-0) MONO x10^3 (test code 0.92 10*3/uL 0.33-0.92 = 742-7) EOS x10^3 (test code = 0.09 10*3/uL 0.03-0.39 711-2) BASO x10^3 (test code 0.04 10*3/uL 0.01-0.07 = 704-7) Lab Interpretation Abnormal (test code = 44940-4) [facility] [id number] 23:30:00 Test Item Value Reference Range Interpretation Comments POCT PREG (test code = 1605) positive On board controls acceptable with C present Line (test code = 3574) Lab Interpretation (test code = Normal 54481-9) [facility] [id number] 23:30:00 Test Item Value Reference Range Interpretation Comments POCT PREG (test code = 1605) positive On board controls acceptable with C present Line (test code = 3574) Lab Interpretation (test code = Normal 75776-5) [facility] URINALYSIS W/O SPECIFIC [id number] 18:26:00 Test Item Value Reference Range Interpretation Comments POCT PH U (test code = 3254) N/A 5-8 POCT U LEUK EST (test code = N/A Negative - Negative 3263) POCT U NIT (test code = 3262) N/A Negative - Negative POCT U PROT (test code = 3259) Negative Negative - Negative POCT U GLU (test code = 3256) Negative Negative - Negative POCT U KETONE (test code = 3258) N/A Negative - Negative POCT U BLD (test code = 3257) N/A Negative - Negative [facility] HR GLUCOSE TOLERANCE [id number] 15:28:00 Test Item Value Reference Range Interpretation Comments GLUC 1 HR (test code = 2646351330) 174 mg/dL 120-170 H Lab Interpretation (test code = Abnormal 61437-6) [facility] [id number] 14:37:00 Test Item Value Reference Range Interpretation Comments GLU FASTNG (test code = 3542385184) 85 mg/dL 70-110 Lab Interpretation (test code = Normal 31189-7) [facility] [place] [facility]"
[2023-03-28] MEDS ORDERED: PROMETHAZINE 25 MG TABLET ONE (04:31)
[2023-03-28] MEDS ORDERED: HYDROCODONE/APAP 10/325 TAB ONE (04:32)
[2023-03-28] MEDS ORDERED: AZITHROMYCIN 250 MG TAB ONE (04:32)
[2023-03-28] MEDS ORDERED: LIDOCAINE 1% MPF 2 ML AMPULE ONE (04:32)
[2023-03-28] MEDS ORDERED: CEFTRIAXONE 1000 MG/VIAL ONE (04:32)
[2023-03-28] MEDS ORDERED: KETOROLAC 30 MG/ML INJ ONE (04:32)
--- NOTE | 2023-03-28 04:48 | EDPHYS ---
Physician Documentation [facility] Name: Cony Krishnamurthy Age: 27 yrs Sex: Female : 1995 Arrival Date: 03/28/2023 Time: 03:56 Bed 12 Private MD: ED Physician Anton Delcid HPI: 03/28 04:10 This 27 yrs old Female presents to ER via Ambulatory with complaints of Sore sp4 Throat. 04:15 27-year-old female presents with acute pain in her throat difficulty swallowing for the sp4 past 3 days. Patient reports moderate to severe sore throat. Historical: - Allergies: 04:08 No Known Allergies; kl - PMHx: 04:08 Asthma; kl - PSHx: 04:08 None; kl - Immunization history:: Adult Immunizations not immunized. - Social history:: Smoking status: Reported history of juuling and/or vaping. - Family history:: not pertinent. ROS: 04:15 Constitutional: Negative for fever, chills, and weight loss, Eyes: Negative for injury, sp4 pain, redness, and discharge, ENT: Negative for injury, and discharge, positive for sore throat positive for pain on swallowing 04:15 All other systems are negative. Exam: 04:15 Constitutional: This is a well developed, well nourished patient who is awake, alert, sp4 and in no acute distress. Head/Face: Normocephalic, atraumatic. Eyes: Pupils equal round and reactive to light, extra-ocular motions intact. Lids and lashes normal. Conjunctiva and sclera are not injected. Cornea within normal limits. Periorbital areas with no swelling, redness, or edema. ENT: Nares patent. No nasal discharge, no septal abnormalities noted. Tympanic membranes are normal and external auditory canals are clear. Positive for bilateral tonsillar exudates, positive uvular exudate, positive bilateral tonsillar enlargement and redness consistent with acute exudative tonsillitis that involves the uvula, Neck: Trachea midline, no thyromegaly or masses palpated, and no cervical lymphadenopathy. Supple, full range of motion without nuchal rigidity, or vertebral point tenderness. Chest/axilla: Normal chest wall appearance and motion. Nontender with no deformity. No lesions are appreciated. Cardiovascular: Regular rate and rhythm with a normal S1 and S2. No gallops, murmurs, or rubs. Normal PMI, no JVD. No pulse deficits. Respiratory: Lungs have equal breath sounds bilaterally, clear to auscultation and percussion. No rales, rhonchi or wheezes noted. No increased work of breathing, no retractions or nasal flaring. Abdomen/GI: Soft, non-tender, with normal bowel sounds. No distension or tympany. No guarding or rebound. No evidence of tenderness throughout. Back: No spinal tenderness. No costovertebral tenderness. Skin: Warm, dry with normal turgor. Normal color with no rashes, no lesions, and no evidence of cellulitis. MS/ Extremity: Pulses equal, no cyanosis. Neurovascular intact. Full, normal range of motion. Neuro: Awake and alert, GCS 15, oriented to person, place, time, and situation. Cranial nerves II-XII grossly intact. Motor strength 5/5 in all extremities. Sensory grossly intact. Psych: Awake, alert, with orientation to person, place and time. Behavior, mood, and affect are within normal limits Vital Signs: 04:07 BP 121 / 76; Pulse 85; Resp 18; Temp 100.5; Pulse Ox 99% ; Weight 90.72 kg (R); Height kl 5 ft. 4 in. ; Pain 10/10; 04:07 Body Mass Index 34.33 (90.72 kg, 162.56 cm) kl 04:07 Pain Scale: Adult kl MDM: 04:15 Differential diagnosis: apthous ulcer, bronchitis, influenza, laryngitis, sp4 mononucleosis, pharyngitis. Data reviewed: vital signs, nurses notes, lab test result(s), UPT: negative. Consideration of Admission/Observation Escalation of care including admission/observation considered. ED course: Patient will require 5 days of Zithromax p.o. at home. 04:19 Patient medically screened. sp4 03/28 04:15 Order name: Test, Urine sp4 Administered Medications: 04:43 Drug: Ketorolac IM 60 mg Route: IM; Site: right gluteus; ll3 04:59 Follow up: Response: No adverse reaction ll3 04:43 Drug: Rocephin (cefTRIAXone) IM 1 grams Route: IM; Site: left gluteus; ll3 04:59 Follow up: Response: No adverse reaction ll3 04:43 Drug: [place] PO 10 mg-325 mg 1 tabs Route: PO; ll3 04:59 Follow up: Response: No adverse reaction ll3 04:43 Not Given (Patient Refused): Promethazine PO 25 mg PO once ll3 04:43 Drug: AZITHromycin PO 500 mg Route: PO; ll3 04:59 Follow up: Response: No adverse reaction ll3 Disposition Summary: 03/28/23 04:47 Discharge Ordered Location: Home sp4 Problem: new sp4 Symptoms: have improved sp4 Condition: Stable sp4 Diagnosis - Acute streptococcal tonsillitis, unspecified sp4 - Acute exudative tonsillitis. sp4 Followup: sp4 - With: Private Physician - When: 7 - 10 days - Reason: Recheck today's complaints Discharge Instructions: - Discharge Summary Sheet sp4 - Strep Throat, Adult, [id number] sp4 Forms: - Work release form ll3 - Patient Portal Instructions sp4 Prescriptions: - Ibuprofen 600 mg Oral Tablet - take 1 tablet by ORAL route every 6 hours As needed take with food; 30 tablet; sp4 Refills: 0, Product Selection Permitted - Zithromax Z-Kvng 250 mg Oral Tablet - take 1 tablet by ORAL route as directed for 5 days Day 1 - take two (2) tablets sp4 one time. Day 2, 3, 4 , 5 take one (1) tablet once daily.; 6 tablet; Refills: 0, Product Selection Permitted Signatures: Dispatcher [employer] Ashley Ngo RN RN kl Loubet, Lynsea, RN RN ll3 Anton Delcid MD MD sp4
--- NOTE | 2023-03-28 04:48 | ER ---
Nurse's Notes [facility] Name: Cony Krishnamurthy Age: 27 yrs Sex: Female : 1995 Arrival Date: 03/28/2023 Time: 03:56 Bed 12 Private MD: Diagnosis: Acute streptococcal tonsillitis, unspecified;Acute exudative tonsillitis. Presentation: 03/28 04:07 Chief complaint: Patient states: sore throat difficulty swallowing x 2 days. kl Coronavirus screen: Vaccine status: Patient reports being unvaccinated. Ebola Screen: Patient negative for fever greater than or equal to 101.5 degrees Fahrenheit, and additional compatible Ebola Virus Disease symptoms. Initial Sepsis Screen: Does the patient meet any 2 criteria? No. Patient's initial sepsis screen is negative. Does the patient have a suspected source of infection? Yes:. Risk Assessment: Do you want to hurt yourself or someone else? Patient reports no desire to harm self or others. 04:07 Method Of Arrival: Ambulatory kl 04:07 Acuity: SYBIL 4 kl Triage Assessment: 04:09 General: Appears uncomfortable, Behavior is calm, cooperative. Pain: Complains of pain kl in throat. EENT: Throat is reddened has patchy exudate Reports difficulty swallowing since x 2 days. Historical: - Allergies: 04:08 No Known Allergies; kl - PMHx: 04:08 Asthma; kl - PSHx: 04:08 None; kl - Immunization history:: Adult Immunizations not immunized. - Social history:: Smoking status: Reported history of juuling and/or vaping. - Family history:: not pertinent. Screenin:59 [facility] ED Fall Risk Assessment (Adult) History of falling in the last 3 months, ll3 including since admission No falls in past 3 months (0 pts) Confusion or Disorientation No (0 pts) Intoxicated or Sedated No (0 pts) Impaired Gait No (0 pts) Mobility Assist Device Used No (0 pt) Altered Elimination No (0 pt) Score/Fall Risk Level 0 - 2 = Low Risk Oriented to surroundings, Maintained a safe environment, Educated pt \T\ family on fall prevention, incl call for assistance when getting out of bed. Abuse screen: Denies threats or abuse. Denies injuries from another. Nutritional screening: No deficits noted. Tuberculosis screening: No symptoms or risk factors identified. Assessment: 04:40 General: Appears uncomfortable, Behavior is calm, cooperative. Pain: Complains of pain ll3 in left aspect of posterior pharynx and right aspect of posterior pharynx Pain does not radiate. Pain currently is 10 out of 10 on a pain scale. Respiratory: Reports Pain with swallowing Airway is patent Respiratory effort is even, unlabored, Respiratory pattern is regular, symmetrical, Breath sounds are clear bilaterally. Derm: Skin is pink, warm \T\ dry. Vital Signs: 04:07 BP 121 / 76; Pulse 85; Resp 18; Temp 100.5; Pulse Ox 99% ; Weight 90.72 kg (R); Height kl 5 ft. 4 in. ; Pain 10/10; 04:07 Body Mass Index 34.33 (90.72 kg, 162.56 cm) kl 04:07 Pain Scale: Adult kl ED Course: 03:59 Patient arrived in ED. es 04:08 Triage completed. 04:10 Anton Delcid MD is Attending Physician. sp4 04:59 Patient has correct armband on for positive identification. Bed in low position. Call ll3 light in reach. Side rails up X 1. 04:59 No provider procedures requiring assistance completed. Patient did not have IV access ll3 during this emergency room visit. 05:01 Arm band placed on Patient placed in an exam room, on a stretcher, on pulse oximetry. ll3 Administered Medications: 04:43 Drug: Ketorolac IM 60 mg Route: IM; Site: right gluteus; ll3 04:59 Follow up: Response: No adverse reaction ll3 04:43 Drug: Rocephin (cefTRIAXone) IM 1 grams Route: IM; Site: left gluteus; ll3 04:59 Follow up: Response: No adverse reaction ll3 04:43 Drug: Spofford PO 10 mg-325 mg 1 tabs Route: PO; ll3 04:59 Follow up: Response: No adverse reaction ll3 04:43 Not Given (Patient Refused): Promethazine PO 25 mg PO once ll3 04:43 Drug: AZITHromycin PO 500 mg Route: PO; ll3 04:59 Follow up: Response: No adverse reaction ll3 Medication: 05:00 VIS not applicable for this client. ll3 Outcome: 04:47 Discharge ordered by . sp4 04:59 Discharged to home ambulatory, with family. ll3 04:59 Condition: stable 04:59 Discharge instructions given to patient, Instructed on discharge instructions, follow up and referral plans. medication usage, Demonstrated understanding of instructions, follow-up care, medications, Prescriptions given X 2. 05:01 Patient left the ED. ll3 Signatures: Ashley Obrien RN Michelle Garcia [place], RN RN 3 Anton Delcid MD MD sp4
[2023-03-28 05:06] VITALS: BP 121/76; TEMP 100.5; O2SAT 99
[2023-03-28 05:16] LABS: Specific Gravity 1.026 (1.005-1.030)
== END 2023-03-28 05:01 | disposition home or self-care (01) ==
LOC: ER 03:56
DX: J03.00 Acute streptococcal tonsillitis, unspecified (principal)
CPT/HCPCS: 81025; 96372; 99284; J0696; Q0169

== ENCOUNTER → 2023-10-29 | Emergency (ER) | payer OTHER ==
[~2023-10-29] MED LIST: MAGNESIUM SULFATE IV ONE; NA CHLORIDE 0.9% 1,000 ML ONE; ONDANSETRON 4 MG/2 ML VIAL ONE
--- OUTSIDE RECORDS SUMMARY | 2023-10-29 17:02 | XMS REPORT | Continuity of Care Document ---
Demographics Address [address] [address] Mobile Phone Email Address DECLINED 03/28 23 Preferred Language Afghan Marital Status Unknown Roman Catholic Affiliation Unknown Race Unknown Additional Race(s) Black or Ruby rican Ethnic Group Unknown Author Name Unknown Address [address] [facility] [place] [address] [facility] Address [address] [facility] [address] [place] [address] Care Team Providers Care Account [facility] Name Role Phone PCP, PATIENT DOES NOT HAVE A Primary Care Physic jorge Unavailable DENISSE SEARS Attending Clinician UnavailDenisse Robles CNM Attending Clinician [phone] Tasia Fu Attending Clinician + Ultrasound, Ang-Mfm Attending Clinician UnavailDaniel Jain MD Attending Clinician [phone] DANIEL TREJO Attending Clinician Unavailable DANIEL TREJO Attending Clinician Unavailable Doctor Unassigned, [place] Attending Clinician U JESSICA Boateng Attending Clinician UnaJessica Sellers MD Attending Clinician + Robert AVITIA Attending Clinician Unavailable Robert Humphrey Attending Clinician [phone] TASIA ABDULLAHI Attending Clinician Unavail able BOOM RAYO Attending Clinician Unavailab Boom Cor[place]an Attending Clinician [phone] Imelda Claudio Attending Clinician CINTHYA GARCIA Attending Clinician Unavailable Cinthya Garcia PA-C Attending Clinician [phone], [facility] Attending Clinician Unavailable Christi Castellano MD Attending Clinician [phone] Robert AVITIA Admitting Clinician Unavailable Payers Payer Name Policy Type Policy Number Effective Date Expirati on Date Source [place] [id number] 2020 00:00:00 [facility] [place] [facility] [id number] 2020 00:00[place]00 [place] [facility] [id number] 2023 00:00:00 [facility] [id number] 2023 00:00:00 2023 00:00:00 Problems Condition Name Condition Details Condition Category Status Onset Date Resolution Date Last Treatment Date Treating Clinician Comments Source Depression affecting Depression affecting Disease Active 2022-09 00:00: 00 [facility] Constipati on during Constipati on during Disease Active 2022-09 00:00: 00 [facility] Nausea and vomiting during Nausea and vomiting during Disease Active 2022-09 00:00: 00 [facility] BV (bacterial vaginosis) BV (bacterial vaginosis) Disease Active 2022-09- 00:00: 00 [facility] Yeast infection Yeast infection Disease Active 2022-09 1- 00:00: 00 [facility] Multiparit y Multiparit y Disease Active 2022-09 0-31 00:00: 00 [facility] Engages in vaping Engages in vaping Disease Active 2022-09 0-03 00:00: 00 [facility] History of pre-eclamp ferdinand in prior , currently History of pre-eclamp ferdinand in prior , currently Disease Active 2022-09 0-03 00:00: 00 [facility] Chlamydia infection affecting Chlamydia infection affecting Disease Active 2-17 00:00: 00 Overview: Formattin g of this note might be different from the original. 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, antepartum Disease Active 212 00:00: 00 [facility] Vaginal yeast infection Vaginal yeast infection Disease Active 02-11 00:00: 00 [facility] Abnormal maternal glucose tolerance, antepartum Abnormal maternal glucose tolerance, antepartum Disease Active 3-29 00:00: 00 Overview: Passed 3 hr gtt [facility] Supervisio n of high risk , antepartum Supervisio n of high risk , antepartum Disease Active 328 00:00: 00 [facility] History of miscarriag e History of miscarriag e Disease Active 3-06 00:00: 00 Overview: Formattin g of this note might be different from the original. X5 per patient [facility] Tobacco smoking affecting Tobacco smoking affecting Disease Active 3-16 00:00: 00 [facility] Asthma during Asthma during Disease Active 02-10 00:00: 00 Overview: Formattin g of this note might be different from the original. ICD10 Diagnosis [facility] [employer] [facility] Obesity in Obesity in Disease Active 02-10 00:00: 00 [facility] History of asthma History of asthma Disease Active 02-10 00:00: 00 Overview: Formattin g of this note might be different from the original. ICD10 Diagnosis [facility] [employer] [facility] Allergies, Adverse Reactions, Alerts Allergy Name Allergy Type Status Severity Reaction(s) Onset Date Inactive Date Treating Clinician Comments Source NO KNOWN ALLERGIE S Drug Class Active [facility] Social History Social Habit Start Date Stop Date Quantity Comments Source ASSERTION 2023-04-25 00:00:00 [facility] Exposure to SARS-CoV-2 (event) Not sure [facility] Gender identity [facility] Sexual orientation [facility] Alcohol intake 2023-09-04 00:00:00 2023-09-04 00:00:00 0 /d [facility] History of Social function 2023-07-02 00:00:00 2023-07-02 00:00:00 [facility] Tobacco use and exposure 2023-06-04 00:00:00 2023-06-04 00:00:00 User of smokeless tobacco [facility] Cigarettes smoked current (pack per day) - Reported 2023-06-04 00:00:00 2023-06-04 00:00:00 [facility] Tobacco Comment 2023-06-04 00:00:00 2023-06-04 00:00:00 vapes daily since 2018 [facility] History of tobacco use 2007-11-06 00:00:00 2020-05-03 00:00:00 Cigarette Smoker [facility] Sex Assigned At 1995 00:00:00 1995 00:00:00 [facility] Smoking Status Start Date Stop Date Source Ex-smoker 2023-06-04 00:00:00 2023-06-04 00:00:00 [facility] Current every day smoker 2020-10-11 00:00:00 [facility] Medications Ordered Medication Name Filled Medication Name Start Date Stop Date Current Medication? Ordering Clinician Indication Dosage Frequency Signature (SIG) Comments Components Source proMETHazin e 25 mg tablet 2-05 00:00: 00 Yes [id number] 25mg Take 1 tablet by mouth every 4 (four) hours as needed for Nausea and Vomiting (N/V). [facility] levalbutero l 45 mcg/actuati on inhaler - 00:00: 00 Yes [id number] 1{puff} Inhale 1-2 Puffs every 4 (four) hours as needed for Wheezing. [facility] budesonide- formoteroL 80-4.5 mcg/actuati on inhaler 09-03 00:00: 00 Yes [id number] 2{puff} Inhale 2 Puffs in the morning and 2 Puffs in the evening. [facility] levalbutero l 45 mcg/actuati on inhaler 09-03 00:00: 00 Yes [id number] 1{puff} Inhale 1-2 Puffs every 4 (four) hours as needed for Wheezing. [facility] budesonide- formoteroL 80-4.5 mcg/actuati on inhaler 09-03 00:00: 00 Yes [id number] 2{puff} Inhale 2 Puffs in the morning and 2 Puffs in the evening. [facility] levalbutero l 45 mcg/actuati on inhaler 09-03 00:00: 00 Yes [id number] 1{puff} Inhale 1-2 Puffs every 4 (four) hours as needed for Wheezing. [facility] budesonide- formoteroL 80-4.5 mcg/actuati on inhaler 09-03 00:00: 00 Yes [id number] 2{puff} Inhale 2 Puffs in the morning and 2 Puffs in the evening. [facility] buPROPion XL (WELLBUTRIN XL) 150 mg 24 hr tablet 2022-09 00:00: 00 Yes [id number] 100 150mg Take 1 tablet by mouth in the morning. [facility] buPROPion XL (WELLBUTRIN XL) 150 mg 24 hr tablet 2022-09 00:00: 00 Yes [id number] 100 150mg Take 1 tablet by mouth in the morning. [facility] buPROPion XL (WELLBUTRIN XL) 150 mg 24 hr tablet 2022-09 00:00: 00 Yes [id number] 100 150mg Take 1 tablet by mouth in the morning. [facility] buPROPion XL (WELLBUTRIN XL) 150 mg 24 hr tablet 2022-09 00:00: 00 Yes [id number] 100 150mg Take 1 tablet by mouth in the morning. [facility] buPROPion XL (WELLBUTRIN XL) 150 mg 24 hr tablet 2022-09 00:00: 00 Yes [id number] 100 150mg Take 1 tablet by mouth in the morning. [facility] buPROPion XL (WELLBUTRIN XL) 150 mg 24 hr tablet 2022-09 00:00: 00 Yes [id number] 100 150mg Take 1 tablet by mouth in the morning. [facility] proMETHazin e 25 mg tablet 2022-09 00:00: 00 Yes [id number] 25mg Take 1 tablet by mouth every 4 (four) hours as needed for Nausea and Vomiting (N/V). [facility] docusate (COLACE) 100 mg capsule 2022-09 00:00: 00 Yes [id number] 100mg Take 1 capsule by mouth in the morning. [facility] buPROPion XL (WELLBUTRIN XL) 150 mg 24 hr tablet 2022-09 00:00: 00 Yes [id number] 100 150mg Take 1 tablet by mouth in the morning. [facility] proMETHazin e 25 mg tablet 2022-09 00:00: 00 Yes [id number] 25mg Take 1 tablet by mouth every 4 (four) hours as needed for Nausea and Vomiting (N/V). [facility] docusate (COLACE) 100 mg capsule 2022-09 00:00: 00 Yes [id number] 100mg Take 1 capsule by mouth in the morning. [facility] proMETHazin e 25 mg tablet 2022-09 00:00: 00 Yes [id number] 25mg Take 1 tablet by mouth every 4 (four) hours as needed for Nausea and Vomiting (N/V). [facility] docusate (COLACE) 100 mg capsule 2022-09 00:00: 00 Yes [id number] 100mg Take 1 capsule by mouth in the morning. [facility] proMETHazin e 25 mg tablet 2022-09 00:00: 00 Yes [id number] 25mg Take 1 tablet by mouth every 4 (four) hours as needed for Nausea and Vomiting (N/V). [facility] docusate (COLACE) 100 mg capsule 2022-09 00:00: 00 Yes [id number] 100mg Take 1 capsule by mouth in the morning. [facility] proMETHazin e 25 mg tablet 2022-09 00:00: 00 Yes [id number] 25mg Take 1 tablet by mouth every 4 (four) hours as needed for Nausea and Vomiting (N/V). [facility] docusate (COLACE) 100 mg capsule 2022-09 00:00: 00 Yes [id number] 100mg Take 1 capsule by mouth in the morning. [facility] proMETHazin e 25 mg tablet 2022-09 00:00: 00 Yes [id number] 25mg Take 1 tablet by mouth every 4 (four) hours as needed for Nausea and Vomiting (N/V). [facility] docusate (COLACE) 100 mg capsule 2022-09 00:00: 00 Yes [id number] 100mg Take 1 capsule by mouth in the morning. [facility] docusate (COLACE) 100 mg capsule 2022-09 00:00: 00 Yes [id number] 100mg Take 1 capsule by mouth in the morning. [facility] buPROPion XL (WELLBUTRIN XL) 150 mg 24 hr tablet 2022-09 00:00: 00 Yes [id number] 150mg Take 1 tablet by mouth in the morning. [facility] proMETHazin e 25 mg tablet 2022-09 00:00: 00 Yes [id number] 25mg Take 1 tablet by mouth every 4 (four) hours as needed for Nausea and Vomiting (N/V). [facility] docusate (COLACE) 100 mg capsule 2022-09 00:00: 00 Yes [id number] 100mg Take 1 capsule by mouth in the morning. [facility] buPROPion XL (WELLBUTRIN XL) 150 mg 24 hr tablet 2022-09 00:00: 00 Yes [id number] 100 150mg Take 1 tablet by mouth in the morning. [facility] proMETHazin e 25 mg tablet 2022-09 2 00:00: 00 Yes [id number] 25mg Take 1 tablet by mouth every 4 (four) hours as needed for Nausea and Vomiting (N/V). [facility] docusate (COLACE) 100 mg capsule 2022-09 00:00: 00 Yes [id number] 100mg Take 1 capsule by mouth in the morning. [facility] proMETHazin e 25 mg tablet 2022-09 00:00: 00 10-04 00:00 :00 No [id number] 25mg Take 1 tablet by mouth every 4 (four) hours as needed for Nausea and Vomiting (N/V). [facility] buPROPion XL (WELLBUTRIN XL) 150 mg 24 hr tablet 2022-09 00:00: 00 08-23 00:00 :00 No [id number] 100 150mg Take 1 tablet by mouth in the morning. [facility] metroNIDAZO LE (FLAGYL) 500 mg tablet 2022-09 00:00: 00 07-12 05:59 :00 No [id number] 500mg Take 1 tablet by mouth every 12 (twelve) hours for 7 days. [facility] metroNIDAZO LE (FLAGYL) 500 mg tablet 2022-09 00:00: 00 07-12 05:59 :00 No [id number] 500mg Take 1 tablet by mouth every 12 (twelve) hours for 7 days. [facility] metroNIDAZO LE (FLAGYL) 500 mg tablet 2022-09 00:00: 00 07-12 05:59 :00 No [id number] 500mg Take 1 tablet by mouth every 12 (twelve) hours for 7 days. [facility] terconazole 80 mg vaginal suppository 2022-09 00:00: 00 07-08 05:59 :00 No [id number] 80mg Insert 1 Suppositor y into vagina at bedtime for 3 days. [facility] terconazole 80 mg vaginal suppository 2022-09 1- 00:00: 00 07-08 05:59 :00 No [id number] 80mg Insert 1 Suppositor y into vagina at bedtime for 3 days. [facility] fgk55-dhxw- folic acid 29 mg iron- 1 mg per tablet 2022-09 0 00:00: 00 Yes [id number] 1{tbl} Take 1 tablet by mouth in the morning. [facility] aspirin 81 mg Cap 2022-09 0 00:00: 00 Yes [id number] 9100 1{tbl} Take 1 tablet by mouth in the morning. [facility] fqn58-xsxm- folic acid 29 mg iron- 1 mg per tablet 2022-09 0 00:00: 00 Yes [id number] 1{tbl} Take 1 tablet by mouth in the morning. [facility] aspirin 81 mg Cap 2022-09 0 00:00: 00 Yes [id number] 9100 1{tbl} Take 1 tablet by mouth in the morning. [facility] mht07-oevx- folic acid 29 mg iron- 1 mg per tablet 2022-09 0 00:00: 00 Yes [id number] 1{tbl} Take 1 tablet by mouth in the morning. [facility] aspirin 81 mg Cap 2022-09 0 00:00: 00 Yes [id number] 9100 1{tbl} Take 1 tablet by mouth in the morning. [facility] ctt08-plpg- folic acid 29 mg iron- 1 mg per tablet 2022-09 0 00:00: 00 Yes [id number] 1{tbl} Take 1 tablet by mouth in the morning. [facility] aspirin 81 mg Cap 2022-09 0 00:00: 00 Yes [id number] 9100 1{tbl} Take 1 tablet by mouth in the morning. [facility] lrl19-ugow- folic acid 29 mg iron- 1 mg per tablet 2022-09 0- 00:00: 00 Yes [id number] 1{tbl} Take 1 tablet by mouth in the morning. [facility] aspirin 81 mg Cap 2022-09 0 00:00: 00 Yes [id number] 9100 1{tbl} Take 1 tablet by mouth in the morning. [facility] ydy33-hwhm- folic acid 29 mg iron- 1 mg per tablet 2022-09 0 00:00: 00 Yes [id number] 1{tbl} Take 1 tablet by mouth in the morning. [facility] aspirin 81 mg Cap 2022-09 0 00:00: 00 Yes [id number] 9100 1{tbl} Take 1 tablet by mouth in the morning. [facility] aap81-uojq- folic acid 29 mg iron- 1 mg per tablet 2022-09 00:00: 00 Yes [id number] 1{tbl} Take 1 tablet by mouth in the morning. [facility] aspirin 81 mg Cap 2022-09 00:00: 00 Yes [id number] 9100 1{tbl} Take 1 tablet by mouth in the morning. [facility] hcv20-wxiw- folic acid 29 mg iron- 1 mg per tablet 2022-09 00:00: 00 Yes [id number] 1{tbl} Take 1 tablet by mouth in the morning. [facility] aspirin 81 mg Cap 2022-09 00:00: 00 Yes [id number] 9100 1{tbl} Take 1 tablet by mouth in the morning. [facility] fid85-nbxr- folic acid 29 mg iron- 1 mg per tablet 2022-09 00:00: 00 Yes [id number] 1{tbl} Take 1 tablet by mouth in the morning. [facility] aspirin 81 mg Cap 2022-09 0 00:00: 00 Yes [id number] 9100 1{tbl} Take 1 tablet by mouth in the morning. [facility] buPROPion XL (WELLBUTRIN XL) 150 mg 24 hr tablet 2022-09 0 00:00: 00 Yes [id number] 150mg Take 1 tablet by mouth in the morning. [facility] njy38-exvr- folic acid 29 mg iron- 1 mg per tablet 2022-09 00:00: 00 Yes [id number] 1{tbl} Take 1 tablet by mouth in the morning. [facility] aspirin 81 mg Cap 2022-09 00:00: 00 Yes [id number] 9100 1{tbl} Take 1 tablet by mouth in the morning. [facility] buPROPion XL (WELLBUTRIN XL) 150 mg 24 hr tablet 2022-09 00:00: 00 Yes [id number] 150mg Take 1 tablet by mouth in the morning. [facility] mce61-qbmj- folic acid 29 mg iron- 1 mg per tablet 2022-09 00:00: 00 Yes [id number] 1{tbl} Take 1 tablet by mouth in the morning. [facility] aspirin 81 mg Cap 2022-09 00:00: 00 Yes [id number] 9100 1{tbl} Take 1 tablet by mouth in the morning. [facility] buPROPion XL (WELLBUTRIN XL) 150 mg 24 hr tablet 2022-09 00:00: 00 Yes [id number] 150mg Take 1 tablet by mouth in the morning. [facility] ukw09-axkj- folic acid 29 mg iron- 1 mg per tablet 2022-09 00:00: 00 Yes [id number] 1{tbl} Take 1 tablet by mouth in the morning. [facility] aspirin 81 mg Cap 2022-09 00:00: 00 Yes [id number] 9100 1{tbl} Take 1 tablet by mouth in the morning. [facility] buPROPion XL (WELLBUTRIN XL) 150 mg 24 hr tablet 2022-09 00:00: 00 Yes [id number] 150mg Take 1 tablet by mouth in the morning. [facility] hbi31-ydxy- folic acid 29 mg iron- 1 mg per tablet 2022-09 00:00: 00 Yes [id number] 1{tbl} Take 1 tablet by mouth in the morning. [facility] aspirin 81 mg Cap 2022-09 00:00: 00 Yes [id number] 9100 1{tbl} Take 1 tablet by mouth in the morning. [facility] buPROPion XL (WELLBUTRIN XL) 150 mg 24 hr tablet 2022-09 0- 00:00: 00 Yes [id number] 150mg Take 1 tablet by mouth in the morning. [facility] pbf35-cnxh- folic acid 29 mg iron- 1 mg per tablet 2022-09 0 00:00: 00 Yes [id number] 1{tbl} Take 1 tablet by mouth in the morning. [facility] aspirin 81 mg Cap 2022-09 0 00:00: 00 Yes [id number] 9100 1{tbl} Take 1 tablet by mouth in the morning. [facility] buPROPion XL (WELLBUTRIN XL) 150 mg 24 hr tablet 2022-09 0 00:00: 00 Yes [id number] 150mg Take 1 tablet by mouth in the morning. [facility] lyf57-bbsz- folic acid 29 mg iron- 1 mg per tablet 2022-09 0 00:00: 00 Yes [id number] 1{tbl} Take 1 tablet by mouth in the morning. [facility] aspirin 81 mg Cap 2022-09 0 00:00: 00 Yes [id number] 9100 1{tbl} Take 1 tablet by mouth in the morning. [facility] buPROPion XL (WELLBUTRIN XL) 150 mg 24 hr tablet 2022-09 0 00:00: 00 Yes [id number] 150mg Take 1 tablet by mouth in the morning. [facility] ngn62-bvcq- folic acid 29 mg iron- 1 mg per tablet 2022-09 0 00:00: 00 Yes [id number] 1{tbl} Take 1 tablet by mouth in the morning. [facility] aspirin 81 mg Cap 2022-09 0 00:00: 00 Yes [id number] 9100 1{tbl} Take 1 tablet by mouth in the morning. [facility] buPROPion XL (WELLBUTRIN XL) 150 mg 24 hr tablet 2022-09 0- 00:00: 00 Yes [id number] 150mg Take 1 tablet by mouth in the morning. [facility] exk15-sbyk- folic acid 29 mg iron- 1 mg per tablet 2022-09 0 00:00: 00 Yes [id number] 1{tbl} Take 1 tablet by mouth in the morning. [facility] aspirin 81 mg Cap 2022-09 0 00:00: 00 Yes [id number] 9100 1{tbl} Take 1 tablet by mouth in the morning. [facility] buPROPion XL (WELLBUTRIN XL) 150 mg 24 hr tablet 2022-09 0 00:00: 00 Yes [id number] 150mg Take 1 tablet by mouth in the morning. [facility] jds74-iydp- folic acid 29 mg iron- 1 mg per tablet 2022-09 00:00: 00 Yes [id number] 1{tbl} Take 1 tablet by mouth in the morning. [facility] aspirin 81 mg Cap 2022-09 0 00:00: 00 Yes [id number] 9100 1{tbl} Take 1 tablet by mouth in the morning. [facility] buPROPion XL (WELLBUTRIN XL) 150 mg 24 hr tablet 2022-09 00:00: 00 Yes [id number] 150mg Take 1 tablet by mouth in the morning. [facility] nro08-muir- folic acid 29 mg iron- 1 mg per tablet 2022-09 00:00: 00 Yes [id number] 1{tbl} Take 1 tablet by mouth in the morning. [facility] aspirin 81 mg Cap 2022-09 0 00:00: 00 Yes [id number] 9100 1{tbl} Take 1 tablet by mouth in the morning. [facility] wwv12-vffw- folic acid 29 mg iron- 1 mg per tablet 2022-09 0 00:00: 00 Yes [id number] 1{tbl} Take 1 tablet by mouth in the morning. [facility] aspirin 81 mg Cap 2022-09 0 00:00: 00 Yes [id number] 9100 1{tbl} Take 1 tablet by mouth in the morning. [facility] buPROPion XL (WELLBUTRIN XL) 150 mg 24 hr tablet 2022-09 0-31 00:00: 00 08-06 00:00 :00 No [id number] 150mg Take 1 tablet by mouth in the morning. [facility] proMETHazin e 25 mg tablet 2022-09 0-03 00:00: 00 Yes [id number] 25mg Take 1 tablet by mouth every 4 (four) hours as needed for Nausea and Vomiting (N/V). [facility] proMETHazin e 25 mg tablet 2022-09 0-03 00:00: 00 Yes [id number] 25mg Take 1 tablet by mouth every 4 (four) hours as needed for Nausea and Vomiting (N/V). [facility] proMETHazin e 25 mg tablet 2022-09 0- 00:00: 00 Yes [id number] 25mg Take 1 tablet by mouth every 4 (four) hours as needed for Nausea and Vomiting (N/V). [facility] proMETHazin e 25 mg tablet 2022-09 0- 00:00: 00 Yes [id number] 25mg Take 1 tablet by mouth every 4 (four) hours as needed for Nausea and Vomiting (N/V). [facility] proMETHazin e 25 mg tablet 2022-09 0- 00:00: 00 Yes [id number] 25mg Take 1 tablet by mouth every 4 (four) hours as needed for Nausea and Vomiting (N/V). [facility] proMETHazin e 25 mg tablet 2022-09 0-03 00:00: 00 Yes [id number] 25mg Take 1 tablet by mouth every 4 (four) hours as needed for Nausea and Vomiting (N/V). [facility] proMETHazin e 25 mg tablet 2022-09 0-03 00:00: 00 Yes [id number] 25mg Take 1 tablet by mouth every 4 (four) hours as needed for Nausea and Vomiting (N/V). [facility] proMETHazin e 25 mg tablet 2022-09 0-03 00:00: 00 Yes [id number] 25mg Take 1 tablet by mouth every 4 (four) hours as needed for Nausea and Vomiting (N/V). [facility] proMETHazin e 25 mg tablet 2022-09 0-03 00:00: 00 Yes [id number] 25mg Take 1 tablet by mouth every 4 (four) hours as needed for Nausea and Vomiting (N/V). [facility] proMETHazin e 25 mg tablet 2022-09 0- 00:00: 00 Yes [id number] 25mg Take 1 tablet by mouth every 4 (four) hours as needed for Nausea and Vomiting (N/V). [facility] proMETHazin e 25 mg tablet 2022-09 0- 00:00: 00 Yes [id number] 25mg Take 1 tablet by mouth every 4 (four) hours as needed for Nausea and Vomiting (N/V). [facility] proMETHazin e 25 mg tablet 2022-09 0- 00:00: 00 Yes [id number] 25mg Take 1 tablet by mouth every 4 (four) hours as needed for Nausea and Vomiting (N/V). [facility] proMETHazin e 25 mg tablet 2022-09 0- 00:00: 00 Yes [id number] 25mg Take 1 tablet by mouth every 4 (four) hours as needed for Nausea and Vomiting (N/V). [facility] [facility] proMETHazin e 25 mg tablet 2022-09 0- 00:00: 00 Yes [id number] 25mg Take 1 tablet by mouth every 4 (four) hours as needed for Nausea and Vomiting (N/V). [facility] proMETHazin e 25 mg tablet 2022-09 0- 00:00: 00 Yes [id number] 25mg Take 1 tablet by mouth every 4 (four) hours as needed for Nausea and Vomiting (N/V). [facility] proMETHazin e 25 mg tablet 2022-09 0-03 00:00: 00 08-06 00:00 :00 No [id number] 25mg Take 1 tablet by mouth every 4 (four) hours as needed for Nausea and Vomiting (N/V). [facility] iopamidol (ISOVUE 370-500 mL) injection 80 mL 03-30 20:45: 00 03-30 20:45 :00 No [id number] 80mL 80 mL, Intravenou s, ONCE, 1 dose, On 03/30/23 at 1545, Routine [facility] HYDROcodone -acetaminop hen (NORCO) 10-325 mg tablet 1 tablet 03-30 20:45: 00 03-30 19:51 :00 No 1{tbl} 1 tablet, Oral, ONCE, 1 dose, On 03/30/23 at 1545, Routine [facility] NaCl 0.9% (NS) bolus infusion 1,000 mL 03-30 20:45: 00 03-30 20:41 :00 No 1000mL at 999 mL/hr, 1,000 mL, IV Infusion, ONCE, 1 dose, On 03/30/23 at 1545, STAT [facility] penicillin g benzathine (BICILLIN L-A) injection 1.2 Million Units 03-30 20:15: 00 03-30 20:22 :00 No 1.210 1.2 Million Units, Intramuscu lar, ONCE, 1 dose, On 03/30/23 at 1515, GEORGE
Re ason for Anti-Infec tive: Documented Infection< br>Documen addis Infection Site: HEENT
D uration of Therapy: Other (see Comments) [facility] methylpredn isolone sod succ (SOLU-MEDRO L) injection 125 mg 03-30 19:45: 00 03-30 19:04 :00 No 125mg 125 mg, Slow IV Push, ONCE, 1 dose, On 03/30/23 at 1445, GEORGE [facility] predniSONE 20 mg tablet 03-30 00:00: 00 Yes [id number] 1 PO BID x 4 days [facility] predniSONE 20 mg tablet 03-30 00:00: 00 Yes [id number] 1 PO BID x 4 days [facility] predniSONE 20 mg tablet 03-30 00:00: 00 06-04 00:00 :00 No [id number] 1 PO BID x 4 days [facility] ibuprofen 600 mg tablet 2021-0 3-04 00:00: 00 Yes [id number] 600mg Take 1 tablet by mouth every 6 (six) hours as needed for Pain (scale 4-6). [facility] ibuprofen 600 mg tablet 3-04 00:00: 00 Yes [id number] 600mg Take 1 tablet by mouth every 6 (six) hours as needed for Pain (scale 4-6). [facility] ibuprofen 600 mg tablet 3-04 00:00: 00 Yes [id number] 600mg Take 1 tablet by mouth every 6 (six) hours as needed for Pain (scale 4-6). [facility] ibuprofen 600 mg tablet 3-04 00:00: 00 06-04 00:00 :00 No [id number] 600mg Take 1 tablet by mouth every 6 (six) hours as needed for Pain (scale 4-6). [facility] azithromyci n 500 mg tablet 10-19 00:00: 00 10-20 05:59 :00 No [id number] 1000mg Take 2 tablets by mouth once now for 1 dose. [facility] azithromyci n 500 mg tablet 10-19 00:00: 00 10-20 05:59 :00 No [id number] 1000mg Take 2 tablets by mouth once now for 1 dose. [facility] montelukast sodium (SINGULAIR ORAL) 10-14 16:14: 10-14 00:00 :00 No Take by mouth. [facility] montelukast sodium (SINGULAIR ORAL) 10-14 16:14: 10-14 00:00 :00 No Take by mouth. [facility] montelukast sodium (SINGULAIR ORAL) 10-14 16:14: 10-14 00:00 :00 No Take by mouth. [facility] diphenhydrA MINE (BENADRYL) 25 mg capsule 212 16:14: 10-14 00:00 :00 No 25mg Take 25 mg by mouth every 6 (six) hours as needed for Allergies. [facility] diphenhydrA MINE (BENADRYL) 25 mg capsule 10-14 16:14: 10-14 00:00 :00 No 25mg Take 25 mg by mouth every 6 (six) hours as needed for Allergies. [facility] diphenhydrA MINE (BENADRYL) 25 mg capsule 10-14 16:14: 10-14 00:00 :00 No 25mg Take 25 mg by mouth every 6 (six) hours as needed for Allergies. [facility] ALBUTEROL INHALE 10-14 16:14: 10-14 00:00 :00 No Inhale. [facility] ALBUTEROL INHALE 10-14 16:14: 10-14 00:00 :00 No Inhale. [facility] ALBUTEROL INHALE 10-14 16:14: 10-14 00:00 :00 No Inhale. [facility] norethindro ne 0.35 mg tablet 2018-09 00:00: 00 Yes [id number] 1{tbl} Take 1 tablet by mouth daily. [facility] norethindro ne 0.35 mg tablet 2018-09 00:00: 00 Yes [id number] 1{tbl} Take 1 tablet by mouth daily. [facility] norethindro ne 0.35 mg tablet 2018-09 00:00: 00 Yes [id number] 1{tbl} Take 1 tablet by mouth daily. [facility] norethindro ne 0.35 mg tablet 2018-09 00:00: 00 10-14 00:00 :00 No [id number] 1{tbl} Take 1 tablet by mouth daily. [facility] norethindro ne 0.35 mg tablet 2018-09 00:00: 00 10-14 00:00 :00 No [id number] 1{tbl} Take 1 tablet by mouth daily. [facility] norethindro ne 0.35 mg tablet 2018-09 00:00: 00 10-14 00:00 :00 No [id number] 1{tbl} Take 1 tablet by mouth daily. [facility] ALBUTEROL INHALE 2018-09 22:36: 08 Yes Inhale. [facility] montelukast sodium (SINGULAIR ORAL) 2018-09 22:36: 08 Yes Take by mouth. [facility] diphenhydrA MINE (BENADRYL) 25 mg capsule 2018-09 22:36: 08 Yes 25mg Take 25 mg by mouth every 6 (six) hours as needed for Allergies. [facility] ALBUTEROL INHALE 2018-09 22:36: 08 Yes Inhale. [facility] montelukast sodium (SINGULAIR ORAL) 2018-09 22:36: 08 Yes Take by mouth. [facility] diphenhydrA MINE (BENADRYL) 25 mg capsule 2018-09 22:36: 08 Yes 25mg Take 25 mg by mouth every 6 (six) hours as needed for Allergies. [facility] ALBUTEROL INHALE 2018-09 22:36: 08 Yes Inhale. [facility] montelukast sodium (SINGULAIR ORAL) 2018-09 22:36: 08 Yes Take by mouth. [facility] diphenhydrA MINE (BENADRYL) 25 mg capsule 2018-09 22:36: 08 Yes 25mg Take 25 mg by mouth every 6 (six) hours as needed for Allergies. [facility] vitamin w/FA tablet 2018-09 00:00: 00 Yes [id number] 1{tbl} Take 1 tablet by mouth daily. [facility] docusate calcium 240 mg capsule 2018-09 00:00: 00 Yes [id number] 240mg Take 1 capsule by mouth once daily as needed for Constipati on. [facility] ferrous sulfate 325 mg (65 mg iron) tablet 2018-09 00:00: 00 Yes [id number] 325mg Take 1 tablet by mouth 2 (two) times daily. [facility] ibuprofen 600 mg tablet 2018-09 00:00: 00 Yes [id number] 600mg Take 1 tablet by mouth every 6 (six) hours as needed (Pain). Take with food or milk. [facility] vitamin w/FA tablet 2018-09 00:00: 00 Yes [id number] 1{tbl} Take 1 tablet by mouth daily. [facility] docusate calcium 240 mg capsule 2018-09 00:00: 00 Yes [id number] 240mg Take 1 capsule by mouth once daily as needed for Constipati on. [facility] ferrous sulfate 325 mg (65 mg iron) tablet 2018-09 00:00: 00 Yes [id number] 325mg Take 1 tablet by mouth 2 (two) times daily. [facility] ibuprofen 600 mg tablet 2018-09 00:00: 00 Yes [id number] 600mg Take 1 tablet by mouth every 6 (six) hours as needed (Pain). Take with food or milk. [facility] vitamin w/FA tablet 2018-09 00:00: 00 Yes [id number] 1{tbl} Take 1 tablet by mouth daily. [facility] docusate calcium 240 mg capsule 2018-09 00:00: 00 Yes [id number] 240mg Take 1 capsule by mouth once daily as needed for Constipati on. [facility] ferrous sulfate 325 mg (65 mg iron) tablet 2018-09 00:00: 00 Yes [id number] 325mg Take 1 tablet by mouth 2 (two) times daily. [facility] ibuprofen 600 mg tablet 2018-09 00:00: 00 Yes [id number] 600mg Take 1 tablet by mouth every 6 (six) hours as needed (Pain). Take with food or milk. [facility] vitamin w/FA tablet 2018-09 00:00: 00 10-14 00:00 :00 No [id number] 1{tbl} Take 1 tablet by mouth daily. [facility] docusate calcium 240 mg capsule 2018-09 00:00: 10-14 00:00 :00 No [id number] 240mg Take 1 capsule by mouth once daily as needed for Constipati on. [facility] ferrous sulfate 325 mg (65 mg iron) tablet 2018-09 00:00: 00 10-14 00:00 :00 No [id number] 325mg Take 1 tablet by mouth 2 (two) times daily. [facility] ibuprofen 600 mg tablet 2018-09 00:00: 10-14 00:00 :00 No [id number] 600mg Take 1 tablet by mouth every 6 (six) hours as needed (Pain). Take with food or milk. [facility] vitamin w/FA tablet 2018-09 00:00: 00 10-14 00:00 :00 No [id number] 1{tbl} Take 1 tablet by mouth daily. [facility] docusate calcium 240 mg capsule 2018-09 00:00: 00 10-14 00:00 :00 No [id number] 240mg Take 1 capsule by mouth once daily as needed for Constipati on. [facility] ferrous sulfate 325 mg (65 mg iron) tablet 2018-09 00:00: 00 10-14 00:00 :00 No [id number] 325mg Take 1 tablet by mouth 2 (two) times daily. [facility] ibuprofen 600 mg tablet 2018-09 00:00: 00 10-14 00:00 :00 No [id number] 600mg Take 1 tablet by mouth every 6 (six) hours as needed (Pain). Take with food or milk. [facility] vitamin w/FA tablet 2018-09 00:00: 00 10-14 00:00 :00 No [id number] 1{tbl} Take 1 tablet by mouth daily. [facility] docusate calcium 240 mg capsule 2018-09 00:00: 00 10-14 00:00 :00 No [id number] 240mg Take 1 capsule by mouth once daily as needed for Constipati on. [facility] ferrous sulfate 325 mg (65 mg iron) tablet 2018-09 00:00: 00 10-14 00:00 :00 No [id number] 325mg Take 1 tablet by mouth 2 (two) times daily. [facility] ibuprofen 600 mg tablet 2018-09 00:00: 00 10-14 00:00 :00 No [id number] 600mg Take 1 tablet by mouth every 6 (six) hours as needed (Pain). Take with food or milk. [facility] montelukast sodium (SINGULAIR ORAL) 04-29 19:51: 56 Yes Take by mouth. [facility] montelukast sodium (SINGULAIR ORAL) 04-29 19:51: 56 Yes Take by mouth. [facility] montelukast sodium (SINGULAIR ORAL) 04-29 19:51: 56 Yes Take by mouth. [facility] montelukast sodium (SINGULAIR ORAL) 04-29 19:51: 56 Yes Take by mouth. [facility] montelukast sodium (SINGULAIR ORAL) 04-29 19:51: 56 Yes Take by mouth. [facility] montelukast sodium (SINGULAIR ORAL) 04-29 19:51: 56 Yes Take by mouth. [facility] montelukast sodium (SINGULAIR ORAL) 04-29 19:51: 56 Yes Take by mouth. [facility] diphenhydrA MINE (BENADRYL) 25 mg capsule 03-23 14:42: 42 Yes 25mg Take 25 mg by mouth every 6 (six) hours as needed for Allergies. [facility] diphenhydrA MINE (BENADRYL) 25 mg capsule 03-23 14:42: 42 Yes 25mg Take 25 mg by mouth every 6 (six) hours as needed for Allergies. [facility] diphenhydrA MINE (BENADRYL) 25 mg capsule 03-23 14:42: 42 Yes 25mg Take 25 mg by mouth every 6 (six) hours as needed for Allergies. [facility] diphenhydrA MINE (BENADRYL) 25 mg capsule 03-23 14:42: 42 Yes 25mg Take 25 mg by mouth every 6 (six) hours as needed for Allergies. [facility] diphenhydrA MINE (BENADRYL) 25 mg capsule 03-23 14:42: 42 Yes 25mg Take 25 mg by mouth every 6 (six) hours as needed for Allergies. [facility] diphenhydrA MINE (BENADRYL) 25 mg capsule 03-23 14:42: 42 Yes 25mg Take 25 mg by mouth every 6 (six) hours as needed for Allergies. [facility] diphenhydrA MINE (BENADRYL) 25 mg capsule 03-23 14:42: 42 Yes 25mg Take 25 mg by mouth every 6 (six) hours as needed for Allergies. [facility] ALBUTEROL INHALE 11-05 19:58: 54 Yes Inhale. [facility] ALBUTEROL INHALE 11-05 19:58: 54 Yes Inhale. [facility] ALBUTEROL INHALE 11-05 19:58: 54 Yes Inhale. [facility] ALBUTEROL INHALE 11-05 19:58: 54 Yes Inhale. [facility] ALBUTEROL INHALE 11-05 19:58: 54 Yes Inhale. [facility] ALBUTEROL INHALE 11-05 19:58: 54 Yes Inhale. [facility] ALBUTEROL INHALE 11-05 19:58: 54 Yes Inhale. [facility] multivitami n ( VITAMIN) tablet 11-05 00:00: 00 Yes 1{tbl} Take 1 tablet by mouth daily. [facility] multivitami n ( VITAMIN) tablet 11-05 00:00: 00 Yes 1{tbl} Take 1 tablet by mouth daily. [facility] multivitami n ( VITAMIN) tablet 11-05 00:00: 00 Yes 1{tbl} Take 1 tablet by mouth daily. [facility] multivitami n ( VITAMIN) tablet 11-05 00:00: 00 Yes 1{tbl} Take 1 tablet by mouth daily. [facility] multivitami n ( VITAMIN) tablet 11-05 00:00: 00 Yes 1{tbl} Take 1 tablet by mouth daily. [facility] multivitami n ( VITAMIN) tablet 11-05 00:00: 00 Yes 1{tbl} Take 1 tablet by mouth daily. [facility] multivitami n ( VITAMIN) tablet 11-05 00:00: 00 Yes 1{tbl} Take 1 tablet by mouth daily. [facility] multivitami n ( VITAMIN) tablet 11-05 00:00: 00 Yes 1{tbl} Take 1 tablet by mouth daily. [facility] multivitami n ( VITAMIN) tablet 11-05 00:00: 00 Yes 1{tbl} Take 1 tablet by mouth daily. [facility] multivitami n ( VITAMIN) tablet 11-05 00:00: 00 Yes 1{tbl} Take 1 tablet by mouth daily. [facility] multivitami n ( VITAMIN) tablet 11-05 00:00: 00 10-14 00:00 :00 No 1{tbl} Take 1 tablet by mouth daily. [facility] multivitami n ( VITAMIN) tablet 11-05 00:00: 00 10-14 00:00 :00 No 1{tbl} Take 1 tablet by mouth daily. [facility] multivitami n ( VITAMIN) tablet 11-05 00:00: 00 10-14 00:00 :00 No 1{tbl} Take 1 tablet by mouth daily. [facility] No known medications No [facility] Immunizations Ordered Immunization Name Filled Immunization Name Date Status Comments Source TDAP (ADACEL) VACCINE 2019-05-20 00:00:00 Completed [facility] TDAP (ADACEL) VACCINE 2019-05-20 00:00:00 Completed [facility] TDAP (ADACEL) VACCINE 2019-05-20 00:00:00 Completed [facility] TDAP (ADACEL) VACCINE 2019-05-20 00:00:00 Completed [facility] TDAP (ADACEL) VACCINE 2019-05-20 00:00:00 Completed [facility] TDAP (ADACEL) VACCINE 2019-05-20 00:00:00 Completed [facility] TDAP (ADACEL) VACCINE 2019-05-20 00:00:00 Completed [facility] TDAP (ADACEL) VACCINE 2019-05-20 00:00:00 Completed [facility] TDAP (ADACEL) VACCINE 2019-05-20 00:00:00 Completed [facility] TDAP (ADACEL) VACCINE 2019-05-20 00:00:00 Completed [facility] TDAP (ADACEL) VACCINE 2019-05-20 00:00:00 Completed [facility] TDAP (ADACEL) VACCINE 2019-05-20 00:00:00 Completed [facility] HPV 2012-05-06 00:00:00 Completed [facility] HPV 2012-05-06 00:00:00 Completed [facility] HPV 2012-05-06 00:00:00 Completed [facility] HPV 2012-05-06 00:00:00 Completed [facility] HPV 2012-05-06 00:00:00 Completed [facility] HPV 2012-05-06 00:00:00 Completed [facility] HPV 2012-05-06 00:00:00 Completed [facility] HPV 2012-05-06 00:00:00 Completed [facility] HPV 2012-05-06 00:00:00 Completed [facility] HPV 2012-05-06 00:00:00 Completed [facility] HPV 2012-05-06 00:00:00 Completed [facility] HPV 2012-05-06 00:00:00 Completed [facility] HPV 2012-05-06 00:00:00 Completed [facility] HPV 2012-05-06 00:00:00 Completed [facility] HPV 2012-05-06 00:00:00 Completed [facility] HPV 2012-05-06 00:00:00 Completed [facility] HPV 2012-05-06 00:00:00 Completed [facility] HPV 2012-05-06 00:00:00 Completed [facility] HEPATITIS A 2011-06-06 00:00:00 Completed [facility] Influenza Virus Vaccine 2011-06-06 00:00:00 Completed [facility] Meningococcal Vaccine 2011-06-06 00:00:00 Completed [facility] HEPATITIS A 2011-06-06 00:00:00 Completed [facility] Influenza Virus Vaccine 2011-06-06 00:00:00 Completed [facility] Meningococcal Vaccine 2011-06-06 00:00:00 Completed [facility] HEPATITIS A 2011-06-06 00:00:00 Completed [facility] Influenza Virus Vaccine 2011-06-06 00:00:00 Completed [facility] Meningococcal Vaccine 2011-06-06 00:00:00 Completed [facility] HEPATITIS A 2011-06-06 00:00:00 Completed [facility] Influenza Virus Vaccine 2011-06-06 00:00:00 Completed [facility] Meningococcal Vaccine 2011-06-06 00:00:00 Completed [facility] HEPATITIS A 2011-06-06 00:00:00 Completed [facility] Influenza Virus Vaccine 2011-06-06 00:00:00 Completed [facility] Meningococcal Vaccine 2011-06-06 00:00:00 Completed [facility] HEPATITIS A 2011-06-06 00:00:00 Completed [facility] Influenza Virus Vaccine 2011-06-06 00:00:00 Completed [facility] Meningococcal Vaccine 2011-06-06 00:00:00 Completed [facility] HEPATITIS A 2011-06-06 00:00:00 Completed [facility] Influenza Virus Vaccine 2011-06-06 00:00:00 Completed [facility] Meningococcal Vaccine 2011-06-06 00:00:00 Completed [facility] HEPATITIS A 2011-06-06 00:00:00 Completed [facility] Influenza Virus Vaccine 2011-06-06 00:00:00 Completed [facility] Meningococcal Vaccine 2011-06-06 00:00:00 Completed [facility] HEPATITIS A 2011-06-06 00:00:00 Completed [facility] Influenza Virus Vaccine 2011-06-06 00:00:00 Completed [facility] Meningococcal Vaccine 2011-06-06 00:00:00 Completed [facility] HEPATITIS A 2011-06-06 00:00:00 Completed [facility] Influenza Virus Vaccine 2011-06-06 00:00:00 Completed [facility] Meningococcal Vaccine 2011-06-06 00:00:00 Completed [facility] HEPATITIS A 2011-06-06 00:00:00 Completed [facility] Influenza Virus Vaccine 2011-06-06 00:00:00 Completed [facility] Meningococcal Vaccine 2011-06-06 00:00:00 Completed [facility] HEPATITIS A 2011-06-06 00:00:00 Completed [facility] Influenza Virus Vaccine 2011-06-06 00:00:00 Completed [facility] Meningococcal Vaccine 2011-06-06 00:00:00 Completed [facility] HEPATITIS A 2011-06-06 00:00:00 Completed [facility] Influenza Virus Vaccine 2011-06-06 00:00:00 Completed [facility] Meningococcal Vaccine 2011-06-06 00:00:00 Completed [facility] HEPATITIS A 2011-06-06 00:00:00 Completed [facility] Influenza Virus Vaccine 2011-06-06 00:00:00 Completed [facility] Meningococcal Vaccine 2011-06-06 00:00:00 Completed [facility] HEPATITIS A 2011-06-06 00:00:00 Completed [facility] Influenza Virus Vaccine 2011-06-06 00:00:00 Completed [facility] Meningococcal Vaccine 2011-06-06 00:00:00 Completed [facility] HEPATITIS A 2011-06-06 00:00:00 Completed [facility] Influenza Virus Vaccine 2011-06-06 00:00:00 Completed [facility] Meningococcal Vaccine 2011-06-06 00:00:00 Completed [facility] HEPATITIS A 2011-06-06 00:00:00 Completed [facility] Influenza Virus Vaccine 2011-06-06 00:00:00 Completed [facility] Meningococcal Vaccine 2011-06-06 00:00:00 Completed [facility] HEPATITIS A 2011-06-06 00:00:00 Completed [facility] Influenza Virus Vaccine 2011-06-06 00:00:00 Completed [facility] Meningococcal Vaccine 2011-06-06 00:00:00 Completed [facility] MMR 1999-10-04 00:00:00 Completed [facility] MMR 1999-10-04 00:00:00 Completed [facility] MMR 1999-10-04 00:00:00 Completed [facility] MMR 1999-10-04 00:00:00 Completed [facility] MMR 1999-10-04 00:00:00 Completed [facility] MMR 1999-10-04 00:00:00 Completed [facility] MMR 1999-10-04 00:00:00 Completed [facility] MMR 1999-10-04 00:00:00 Completed [facility] MMR 1999-10-04 00:00:00 Completed [facility] MMR 1999-10-04 00:00:00 Completed [facility] MMR 1999-10-04 00:00:00 Completed [facility] MMR 1999-10-04 00:00:00 Completed [facility] MMR 1999-10-04 00:00:00 Completed [facility] MMR 1999-10-04 00:00:00 Completed [facility] MMR 1999-10-04 00:00:00 Completed [facility] MMR 1999-10-04 00:00:00 Completed [facility] MMR 1999-10-04 00:00:00 Completed [facility] MMR 1999-10-04 00:00:00 Completed [facility] MMR 1996-11-24 00:00:00 Completed [facility] MMR 1996-11-24 00:00:00 Completed [facility] MMR 1996-11-24 00:00:00 Completed [facility] MMR 1996-11-24 00:00:00 Completed [facility] MMR 1996-11-24 00:00:00 Completed [facility] MMR 1996-11-24 00:00:00 Completed [facility] MMR 1996-11-24 00:00:00 Completed [facility] MMR 1996-11-24 00:00:00 Completed [facility] MMR 1996-11-24 00:00:00 Completed [facility] MMR 1996-11-24 00:00:00 Completed [facility] MMR 1996-11-24 00:00:00 Completed [facility] MMR 1996-11-24 00:00:00 Completed [facility] MMR 1996-11-24 00:00:00 Completed [facility] MMR 1996-11-24 00:00:00 Completed [facility] MMR 1996-11-24 00:00:00 Completed [facility] MMR 1996-11-24 00:00:00 Completed [facility] MMR 1996-11-24 00:00:00 Completed [facility] MMR 1996-11-24 00:00:00 Completed [facility] Hep B, Adol or Pedi Dosage 1996-05-15 00:00:00 Completed [facility] Hep B, Adol or Pedi Dosage 1996-05-15 00:00:00 Completed [facility] Hep B, Adol or Pedi Dosage 1996-05-15 00:00:00 Completed [facility] Hep B, Adol or Pedi Dosage 1996-05-15 00:00:00 Completed [facility] Hep B, Adol or Pedi Dosage 1996-05-15 00:00:00 Completed [facility] Hep B, Adol or Pedi Dosage 1996-05-15 00:00:00 Completed [facility] Hep B, Adol or Pedi Dosage 1996-05-15 00:00:00 Completed [facility] Hep B, Adol or Pedi Dosage 1996-05-15 00:00:00 Completed [facility] Hep B, Adol or Pedi Dosage 1996-05-15 00:00:00 Completed [facility] Hep B, Adol or Pedi Dosage 1996-05-15 00:00:00 Completed [facility] Hep B, Adol or Pedi Dosage 1996-05-15 00:00:00 Completed [facility] Hep B, Adol or Pedi Dosage 1996-05-15 00:00:00 Completed [facility] Hep B, Adol or Pedi Dosage 1996-05-15 00:00:00 Completed [facility] Hep B, Adol or Pedi Dosage 1996-05-15 00:00:00 Completed [facility] Hep B, Adol or Pedi Dosage 1996-05-15 00:00:00 Completed [facility] Hep B, Adol or Pedi Dosage 1996-05-15 00:00:00 Completed [facility] Hep B, Adol or Pedi Dosage 1996-05-15 00:00:00 Completed [facility] Hep B, Adol or Pedi Dosage 1996-05-15 00:00:00 Completed [facility] Hep B, Adol or Pedi Dosage 1995 00:00:00 Completed [facility] Hep B, Adol or Pedi Dosage 1995 00:00:00 Completed [facility] Hep B, Adol or Pedi Dosage 1995 00:00:00 Completed [facility] Hep B, Adol or Pedi Dosage 1995 00:00:00 Completed [facility] Hep B, Adol or Pedi Dosage 1995 00:00:00 Completed [facility] Hep B, Adol or Pedi Dosage 1995 00:00:00 Completed [facility] Hep B, Adol or Pedi Dosage 1995 00:00:00 Completed [facility] Hep B, Adol or Pedi Dosage 1995 00:00:00 Completed [facility] Hep B, Adol or Pedi Dosage 1995 00:00:00 Completed [facility] Hep B, Adol or Pedi Dosage 1995 00:00:00 Completed [facility] Hep B, Adol or Pedi Dosage 1995 00:00:00 Completed [facility] Hep B, Adol or Pedi Dosage 1995 00:00:00 Completed [facility] Hep B, Adol or Pedi Dosage 1995 00:00:00 Completed [facility] Hep B, Adol or Pedi Dosage 1995 00:00:00 Completed [facility] Hep B, Adol or Pedi Dosage 1995 00:00:00 Completed [facility] Hep B, Adol or Pedi Dosage 1995 00:00:00 Completed [facility] Hep B, Adol or Pedi Dosage 1995 00:00:00 Completed [facility] Hep B, Adol or Pedi Dosage 1995 00:00:00 Completed [facility] Hep B, Adol or Pedi Dosage 1995 00:00:00 Completed [facility] Hep B, Adol or Pedi Dosage 1995 00:00:00 Completed [facility] Hep B, Adol or Pedi Dosage 1995 00:00:00 Completed [facility] Hep B, Adol or Pedi Dosage 1995 00:00:00 Completed [facility] Hep B, Adol or Pedi Dosage 1995 00:00:00 Completed [facility] Hep B, Adol or Pedi Dosage 1995 00:00:00 Completed [facility] Hep B, Adol or Pedi Dosage 1995 00:00:00 Completed [facility] Hep B, Adol or Pedi Dosage 1995 00:00:00 Completed [facility] Hep B, Adol or Pedi Dosage 1995 00:00:00 Completed [facility] Hep B, Adol or Pedi Dosage 1995 00:00:00 Completed [facility] Hep B, Adol or Pedi Dosage 1995 00:00:00 Completed [facility] Hep B, Adol or Pedi Dosage 1995 00:00:00 Completed [facility] Hep B, Adol or Pedi Dosage 1995 00:00:00 Completed [facility] Hep B, Adol or Pedi Dosage 1995 00:00:00 Completed [facility] Hep B, Adol or Pedi Dosage 1995 00:00:00 Completed [facility] Hep B, Adol or Pedi Dosage 1995 00:00:00 Completed [facility] Hep B, Adol or Pedi Dosage 1995 00:00:00 Completed [facility] Hep B, Adol or Pedi Dosage 1995 00:00:00 Completed [facility] Meningococcal Vaccine Unknown Completed [facility] MMR Unknown Completed [facility] MMR Unknown Completed [facility] TDAP (ADACEL) VACCINE Unknown Completed [facility] HEPATITIS A Unknown Completed [facility] Hep B, Adol or Pedi Dosage Unknown Completed [facility] Hep B, Adol or Pedi Dosage Unknown Completed [facility] Hep B, Adol or Pedi Dosage Unknown Completed [facility] HPV Unknown Completed [facility] Influenza Virus Vaccine Unknown Completed [facility] Meningococcal Vaccine Unknown Completed [facility] MMR Unknown Completed [facility] MMR Unknown Completed [facility] TDAP (ADACEL) VACCINE Unknown Completed [facility] HEPATITIS A Unknown Completed [facility] Hep B, Adol or Pedi Dosage Unknown Completed [facility] Hep B, Adol or Pedi Dosage Unknown Completed [facility] Hep B, Adol or Pedi Dosage Unknown Completed [facility] HPV Unknown Completed [facility] Influenza Virus Vaccine Unknown Completed [facility] Meningococcal Vaccine Unknown Completed [facility] MMR Unknown Completed [facility] MMR Unknown Completed [facility] TDAP (ADACEL) VACCINE Unknown Completed [facility] HEPATITIS A Unknown Completed [facility] Hep B, Adol or Pedi Dosage Unknown Completed [facility] Hep B, Adol or Pedi Dosage Unknown Completed [facility] Hep B, Adol or Pedi Dosage Unknown Completed [facility] HPV Unknown Completed [facility] Influenza Virus Vaccine Unknown Completed [facility] Meningococcal Vaccine Unknown Completed [facility] MMR Unknown Completed [facility] MMR Unknown Completed [facility] TDAP (ADACEL) VACCINE Unknown Completed [facility] HEPATITIS A Unknown Completed [facility] Hep B, Adol or Pedi Dosage Unknown Completed [facility] Hep B, Adol or Pedi Dosage Unknown Completed [facility] Hep B, Adol or Pedi Dosage Unknown Completed [facility] HPV Unknown Completed [facility] Influenza Virus Vaccine Unknown Completed [facility] Meningococcal Vaccine Unknown Completed [facility] MMR Unknown Completed [facility] MMR Unknown Completed [facility] TDAP (ADACEL) VACCINE Unknown Completed [facility] HEPATITIS A Unknown Completed [facility] Hep B, Adol or Pedi Dosage Unknown Completed [facility] Hep B, Adol or Pedi Dosage Unknown Completed [facility] Hep B, Adol or Pedi Dosage Unknown Completed [facility] HPV Unknown Completed [facility] Influenza Virus Vaccine Unknown Completed [facility] Meningococcal Vaccine Unknown Completed [facility] MMR Unknown Completed [facility] MMR Unknown Completed [facility] TDAP (ADACEL) VACCINE Unknown Completed [facility] HEPATITIS A Unknown Completed [facility] Hep B, Adol or Pedi Dosage Unknown Completed [facility] Hep B, Adol or Pedi Dosage Unknown Completed [facility] Hep B, Adol or Pedi Dosage Unknown Completed [facility] HPV Unknown Completed [facility] Influenza Virus Vaccine Unknown Completed [facility] Meningococcal Vaccine Unknown Completed [facility] MMR Unknown Completed [facility] MMR Unknown Completed [facility] TDAP (ADACEL) VACCINE Unknown Completed [facility] HEPATITIS A Unknown Completed [facility] Hep B, Adol or Pedi Dosage Unknown Completed [facility] Hep B, Adol or Pedi Dosage Unknown Completed [facility] Hep B, Adol or Pedi Dosage Unknown Completed [facility] HPV Unknown Completed [facility] Influenza Virus Vaccine Unknown Completed [facility] Meningococcal Vaccine Unknown Completed [facility] MMR Unknown Completed [facility] MMR Unknown Completed [facility] TDAP (ADACEL) VACCINE Unknown Completed [facility] HEPATITIS A Unknown Completed [facility] Hep B, Adol or Pedi Dosage Unknown Completed [facility] Hep B, Adol or Pedi Dosage Unknown Completed [facility] Hep B, Adol or Pedi Dosage Unknown Completed [facility] HPV Unknown Completed [facility] Influenza Virus Vaccine Unknown Completed [facility] Meningococcal Vaccine Unknown Completed [facility] MMR Unknown Completed [facility] MMR Unknown Completed [facility] TDAP (ADACEL) VACCINE Unknown Completed [facility] HEPATITIS A Unknown Completed [facility] Hep B, Adol or Pedi Dosage Unknown Completed [facility] Hep B, Adol or Pedi Dosage Unknown Completed [facility] Hep B, Adol or Pedi Dosage Unknown Completed [facility] HPV Unknown Completed [facility] Influenza Virus Vaccine Unknown Completed [facility] Meningococcal Vaccine Unknown Completed [facility] MMR Unknown Completed [facility] MMR Unknown Completed [facility] TDAP (ADACEL) VACCINE Unknown Completed [facility] HEPATITIS A Unknown Completed [facility] Hep B, Adol or Pedi Dosage Unknown Completed [facility] Hep B, Adol or Pedi Dosage Unknown Completed [facility] Hep B, Adol or Pedi Dosage Unknown Completed [facility] HPV Unknown Completed [facility] Influenza Virus Vaccine Unknown Completed [facility] Meningococcal Vaccine Unknown Completed [facility] MMR Unknown Completed [facility] MMR Unknown Completed [facility] TDAP (ADACEL) VACCINE Unknown Completed [facility] HEPATITIS A Unknown Completed [facility] Hep B, Adol or Pedi Dosage Unknown Completed [facility] Hep B, Adol or Pedi Dosage Unknown Completed [facility] Hep B, Adol or Pedi Dosage Unknown Completed [facility] HPV Unknown Completed [facility] Influenza Virus Vaccine Unknown Completed [facility] Meningococcal Vaccine Unknown Completed [facility] MMR Unknown Completed [facility] MMR Unknown Completed [facility] TDAP (ADACEL) VACCINE Unknown Completed [facility] HEPATITIS A Unknown Completed [facility] Hep B, Adol or Pedi Dosage Unknown Completed [facility] Hep B, Adol or Pedi Dosage Unknown Completed [facility] Hep B, Adol or Pedi Dosage Unknown Completed [facility] HPV Unknown Completed [facility] Influenza Virus Vaccine Unknown Completed [facility] Meningococcal Vaccine Unknown Completed [facility] MMR Unknown Completed [facility] MMR Unknown Completed [facility] TDAP (ADACEL) VACCINE Unknown Completed [facility] HEPATITIS A Unknown Completed [facility] Hep B, Adol or Pedi Dosage Unknown Completed [facility] Hep B, Adol or Pedi Dosage Unknown Completed [facility] Hep B, Adol or Pedi Dosage Unknown Completed [facility] HPV Unknown Completed [facility] Influenza Virus Vaccine Unknown Completed [facility] Meningococcal Vaccine Unknown Completed [facility] MMR Unknown Completed [facility] MMR Unknown Completed [facility] TDAP (ADACEL) VACCINE Unknown Completed [facility] HEPATITIS A Unknown Completed [facility] Hep B, Adol or Pedi Dosage Unknown Completed [facility] Hep B, Adol or Pedi Dosage Unknown Completed [facility] Hep B, Adol or Pedi Dosage Unknown Completed [facility] HPV Unknown Completed [facility] Influenza Virus Vaccine Unknown Completed [facility] Meningococcal Vaccine Unknown Completed [facility] MMR Unknown Completed [facility] MMR Unknown Completed [facility] TDAP (ADACEL) VACCINE Unknown Completed [facility] HEPATITIS A Unknown Completed [facility] Hep B, Adol or Pedi Dosage Unknown Completed [facility] Hep B, Adol or Pedi Dosage Unknown Completed [facility] Hep B, Adol or Pedi Dosage Unknown Completed [facility] HPV Unknown Completed [facility] Influenza Virus Vaccine Unknown Completed [facility] Meningococcal Vaccine Unknown Completed [facility] MMR Unknown Completed [facility] MMR Unknown Completed [facility] TDAP (ADACEL) VACCINE Unknown Completed [facility] HEPATITIS A Unknown Completed [facility] Hep B, Adol or Pedi Dosage Unknown Completed [facility] Hep B, Adol or Pedi Dosage Unknown Completed [facility] Hep B, Adol or Pedi Dosage Unknown Completed [facility] HPV Unknown Completed [facility] Influenza Virus Vaccine Unknown Completed [facility] Meningococcal Vaccine Unknown Completed [facility] MMR Unknown Completed [facility] MMR Unknown Completed [facility] TDAP (ADACEL) VACCINE Unknown Completed [facility] HEPATITIS A Unknown Completed [facility] Hep B, Adol or Pedi Dosage Unknown Completed [facility] Hep B, Adol or Pedi Dosage Unknown Completed [facility] Hep B, Adol or Pedi Dosage Unknown Completed [facility] HPV Unknown Completed [facility] Influenza Virus Vaccine Unknown Completed [facility] Meningococcal Vaccine Unknown Completed [facility] MMR Unknown Completed [facility] MMR Unknown Completed [facility] TDAP (ADACEL) VACCINE Unknown Completed [facility] HEPATITIS A Unknown Completed [facility] Hep B, Adol or Pedi Dosage Unknown Completed [facility] Hep B, Adol or Pedi Dosage Unknown Completed [facility] Hep B, Adol or Pedi Dosage Unknown Completed [facility] HPV Unknown Completed [facility] Influenza Virus Vaccine Unknown Completed [facility] Meningococcal Vaccine Unknown Completed [facility] MMR Unknown Completed [facility] MMR Unknown Completed [facility] TDAP (ADACEL) VACCINE Unknown Completed [facility] HEPATITIS A Unknown Completed [facility] Hep B, Adol or Pedi Dosage Unknown Completed [facility] Hep B, Adol or Pedi Dosage Unknown Completed [facility] Hep B, Adol or Pedi Dosage Unknown Completed [facility] HPV Unknown Completed [facility] Influenza Virus Vaccine Unknown Completed [facility] Meningococcal Vaccine Unknown Completed [facility] MMR Unknown Completed [facility] MMR Unknown Completed [facility] TDAP (ADACEL) VACCINE Unknown Completed [facility] HEPATITIS A Unknown Completed [facility] Hep B, Adol or Pedi Dosage Unknown Completed [facility] Hep B, Adol or Pedi Dosage Unknown Completed [facility] Hep B, Adol or Pedi Dosage Unknown Completed [facility] HPV Unknown Completed [facility] Influenza Virus Vaccine Unknown Completed [facility] Meningococcal Vaccine Unknown Completed [facility] MMR Unknown Completed [facility] MMR Unknown Completed [facility] TDAP (ADACEL) VACCINE Unknown Completed [facility] HEPATITIS A Unknown Completed [facility] Hep B, Adol or Pedi Dosage Unknown Completed [facility] Hep B, Adol or Pedi Dosage Unknown Completed [facility] Hep B, Adol or Pedi Dosage Unknown Completed [facility] HPV Unknown Completed [facility] Influenza Virus Vaccine Unknown Completed [facility] Meningococcal Vaccine Unknown Completed [facility] MMR Unknown Completed [facility] MMR Unknown Completed [facility] TDAP (ADACEL) VACCINE Unknown Completed [facility] HEPATITIS A Unknown Completed [facility] Hep B, Adol or Pedi Dosage Unknown Completed [facility] Hep B, Adol or Pedi Dosage Unknown Completed [facility] Hep B, Adol or Pedi Dosage Unknown Completed [facility] HPV Unknown Completed [facility] Influenza Virus Vaccine Unknown Completed [facility] Meningococcal Vaccine Unknown Completed [facility] MMR Unknown Completed [facility] MMR Unknown Completed [facility] TDAP (ADACEL) VACCINE Unknown Completed [facility] HEPATITIS A Unknown Completed [facility] Hep B, Adol or Pedi Dosage Unknown Completed [facility] Hep B, Adol or Pedi Dosage Unknown Completed [facility] Hep B, Adol or Pedi Dosage Unknown Completed [facility] HPV Unknown Completed [facility] Influenza Virus Vaccine Unknown Completed [facility] Meningococcal Vaccine Unknown Completed [facility] MMR Unknown Completed [facility] MMR Unknown Completed [facility] TDAP (ADACEL) VACCINE Unknown Completed [facility] HEPATITIS A Unknown Completed [facility] Hep B, Adol or Pedi Dosage Unknown Completed [facility] Hep B, Adol or Pedi Dosage Unknown Completed [facility] Hep B, Adol or Pedi Dosage Unknown Completed [facility] HPV Unknown Completed [facility] Influenza Virus Vaccine Unknown Completed [facility] Meningococcal Vaccine Unknown Completed [facility] MMR Unknown Completed [facility] MMR Unknown Completed [facility] TDAP (ADACEL) VACCINE Unknown Completed [facility] HEPATITIS A Unknown Completed [facility] Hep B, Adol or Pedi Dosage Unknown Completed [facility] Hep B, Adol or Pedi Dosage Unknown Completed [facility] Hep B, Adol or Pedi Dosage Unknown Completed [facility] HPV Unknown Completed [facility] Influenza Virus Vaccine Unknown Completed [facility] Vital Signs Vital Name Observation Time Observation Value Comments S ource Systolic blood pressure 2023-09-03 21:07:00 125 mm[Hg] [facility] Diastolic blood pressure 2023-09-03 21:07:00 84 mm[Hg] [facility] Heart rate 2023-09-03 21:07:00 119 /min [facility] Body temperature 2023-09-03 21:07:00 36.61 [place] [facility] Respiratory rate 2023-09-03 21:07:00 18 /min [facility] Body height 2023-09-03 21:07:00 162.6 cm [facility] Body weight 2023-09-03 21:07:00 99.536 kg [facility] BMI 2023-09-03 21:07:00 37.67 kg/m2 [facility] Systolic blood pressure 2023-08-06 21:54:00 135 mm[Hg] [facility] Diastolic blood pressure 2023-08-06 21:54:00 75 mm[Hg] [facility] Heart rate 2023-08-06 21:54:00 107 /min [facility] Body temperature 2023-08-06 21:54:00 35.39 [place] [facility] Respiratory rate 2023-08-06 21:54:00 18 /min [facility] Body height 2023-08-06 21:54:00 162.6 cm [facility] Body weight 2023-08-06 21:54:00 92.761 kg [facility] BMI 2023-08-06 21:54:00 35.10 kg/m2 [facility] Systolic blood pressure 2023-07-08 23:47:00 123 mm[Hg] [facility] Diastolic blood pressure 2023-07-08 23:47:00 75 mm[Hg] [facility] Heart rate 2023-07-08 23:47:00 79 /min [facility] Body temperature 2023-07-08 23:47:00 36.61 [place] [facility] Respiratory rate 2023-07-08 23:47:00 16 /min [facility] Body height 2023-07-08 23:47:00 162.6 cm [facility] Body weight 2023-07-08 23:47:00 94.802 kg [facility] BMI 2023-07-08 23:47:00 35.87 kg/m2 [facility] Oxygen saturation in Arterial blood by Pulse oximetry 2023-07-08 23:47:00 98 /min [facility] Systolic blood pressure 2023-07-02 12:55:00 126 mm[Hg] [facility] Diastolic blood pressure 2023-07-02 12:55:00 74 mm[Hg] [facility] Heart rate 2023-07-02 12:55:00 99 /min [facility] Body temperature 2023-07-02 12:55:00 36.78 [place] [facility] Respiratory rate 2023-07-02 12:55:00 18 /min [facility] Body height 2023-07-02 12:55:00 162.6 cm [facility] Body weight 2023-07-02 12:55:00 91.264 kg [facility] BMI 2023-07-02 12:55:00 34.54 kg/m2 [facility] Systolic blood pressure 2023-06-04 18:06:00 123 mm[Hg] [facility] Diastolic blood pressure 2023-06-04 18:06:00 67 mm[Hg] [facility] Heart rate 2023-06-04 18:06:00 88 /min [facility] Body temperature 2023-06-04 18:06:00 36.78 [place] [facility] Respiratory rate 2023-06-04 18:06:00 18 /min [facility] Body height 2023-06-04 18:06:00 162.6 cm [facility] Body weight 2023-06-04 18:06:00 91.4 kg [facility] BMI 2023-06-04 18:06:00 34.59 kg/m2 [facility] Systolic blood pressure 2023-03-30 19:43:48 132 mm[Hg] [facility] Diastolic blood pressure 2023-03-30 19:43:48 83 mm[Hg] [facility] Heart rate 2023-03-30 19:43:48 103 /min [facility] Respiratory rate 2023-03-30 19:43:48 16 /min [facility] Oxygen saturation in Arterial blood by Pulse oximetry 2023-03-30 19:43:48 100 /min [facility] Body temperature 2023-03-30 18:30:00 37.5 [place] [facility] Body height 2023-03-30 18:30:00 162.6 cm [facility] Body weight 2023-03-30 18:30:00 90.719 kg [facility] BMI 2023-03-30 18:30:00 34.33 kg/m2 [facility] Systolic blood pressure 2020-11-03 23:01:00 129 mm[Hg] [facility] Diastolic blood pressure 2020-11-03 23:01:00 71 mm[Hg] [facility] Heart rate 2020-11-03 23:01:00 93 /min [facility] Body temperature 2020-11-03 23:01:00 37.17 [place] [facility] Respiratory rate 2020-11-03 23:01:00 14 /min [facility] Body height 2020-11-03 23:01:00 162.6 cm [facility] Body weight 2020-11-03 23:01:00 86.183 kg [facility] BMI 2020-11-03 23:01:00 32.61 kg/m2 [facility] Oxygen saturation in Arterial blood by Pulse oximetry 2020-11-03 23:01:00 100 /min [facility] Systolic blood pressure 2020-10-14 15:42:00 109 mm[Hg] [facility] Diastolic blood pressure 2020-10-14 15:42:00 67 mm[Hg] [facility] Heart rate 2020-10-14 15:42:00 81 /min [facility] Body temperature 2020-10-14 15:42:00 36.61 [place] [facility] Respiratory rate 2020-10-14 15:42:00 16 /min [facility] Body height 2020-10-14 15:42:00 162.6 cm [facility] Body weight 2020-10-14 15:42:00 94.212 kg [facility] BMI 2020-10-14 15:42:00 35.65 kg/m2 [facility] Systolic blood pressure 2020-10-12 02:31:00 127 mm[Hg] [facility] Diastolic blood pressure 2020-10-12 02:31:00 83 mm[Hg] [facility] Heart rate 2020-10-12 02:31:00 86 /min [facility] Body temperature 2020-10-12 02:31:00 36.72 [place] [facility] Respiratory rate 2020-10-12 02:31:00 17 /min [facility] Oxygen saturation in Arterial blood by Pulse oximetry 2020-10-12 02:31:00 100 /min [facility] Systolic blood pressure 2020-10-12 01:30:00 112 mm[Hg] [facility] Diastolic blood pressure 2020-10-12 01:30:00 66 mm[Hg] [facility] Heart rate 2020-10-12 01:30:00 83 /min [facility] Respiratory rate 2020-10-12 01:30:00 17 /min [facility] Oxygen saturation in Arterial blood by Pulse oximetry 2020-10-12 01:30:00 100 /min [facility] Body temperature 2020-10-11 23:12:00 36.67 [place] [facility] Body weight 2020-10-11 23:12:00 91.627 kg [facility] BMI 2020-10-11 23:12:00 31.64 kg/m2 [facility] Systolic blood pressure 2019-05-20 18:15:00 127 mm[Hg] [facility] Diastolic blood pressure 2019-05-20 18:15:00 79 mm[Hg] [facility] Heart rate 2019-05-20 18:15:00 88 /min [facility] Body temperature 2019-05-20 18:15:00 36.67 [place] [facility] Respiratory rate 2019-05-20 18:15:00 18 /min [facility] Body height 2019-05-20 18:15:00 162.6 [facility] weight 2019-05-20 18:15:00 117.028 kg [facility] BMI 2019-05-20 18:15:00 44.29 kg/m2 [facility] Systolic blood pressure 2019-05-20 18:15:00 127 mm[Hg] [facility] Diastolic blood pressure 2019-05-20 18:15:00 79 mm[Hg] [facility] Heart rate 2019-05-20 18:15:00 88 /min [facility] Body temperature 2019-05-20 18:15:00 36.67 [place] [facility] Respiratory rate 2019-05-20 18:15:00 18 /min [facility] Body height 2019-05-20 18:15:00 162.6 cm [facility] Body weight 2019-05-20 18:15:00 117.028 kg [facility] BMI 2019-05-20 18:15:00 44.29 kg/m2 [facility] Systolic blood pressure 2019-04-29 19:47:00 122 mm[Hg] [facility] Diastolic blood pressure 2019-04-29 19:47:00 71 mm[Hg] [facility] Heart rate 2019-04-29 19:47:00 98 /min [facility] Body temperature 2019-04-29 19:47:00 36.61 [place] [facility] Respiratory rate 2019-04-29 19:47:00 18 /min [facility] Body height 2019-04-29 19:47:00 162.6 cm [facility] Body weight 2019-04-29 19:47:00 116.847 kg [facility] BMI 2019-04-29 19:47:00 44.22 kg/m2 [facility] Systolic blood pressure 2019-04-29 19:47:00 122 mm[Hg] [place] [facility] Diastolic blood pressure 2019-04-29 19:47:00 71 mm[Hg] [facility] Heart rate 2019-04-29 19:47:00 98 /min [facility] Body temperature 2019-04-29 19:47:00 36.61 [place] [facility] Respiratory rate 2019-04-29 19:47:00 18 /min [facility] Body height 2019-04-29 19:47:00 162.6 cm [facility] Body weight 2019-04-29 19:47:00 116.847 kg [facility] BMI 2019-04-29 19:47:00 44.22 kg/m2 [facility] Procedures Procedure Date / Time Performed Performing Clinician Source POCT URINALYSIS 2023-09-03 21:08:00 Denisse Sears [facility] SECOND AND THIRD TRIMESTER ULTRASOUND 2023-08-28 15:45:00 Tasia Abdullahi [facility] ALPHA FETOPROTEIN-MATERNAL SER 2023-08-06 22:00:00 Denisse Sears [facility] POCT URINALYSIS 2023-08-06 21:54:00 Denisse Sears [facility] CONSENT FOR NIPT 2023-08-06 06:01:00 Doctor Unas signed, [place] [facility] FIRST TRIMESTER ULTRASOUND 2023-07-11 19:54:00 Tasia Abdullahi [facility] ASSIGNMENT OF BENEFITS 2023-07-09 00:18:03 Docto r Unassigned, [place] [facility] RAPID STREP SCREEN FOR GROUP A 2023-07-08 23:50:00 Robert Avitia [facility] CONSENT/REFUSAL FOR DIAGNOSIS AND TREATMENT 2023-07-08 23:17:17 Doctor Unassigned, [place] [facility] POCT URINALYSIS 2023-07-02 00:00:00 Denisse Sears [facility] GC & CHLAMYDIA AMPLIFIED ASSAY 2023-06-04 19:26:00 Denisse Sears [facility] TRICHOMONAS AMPLIFIED ASSAY 2023-06-04 19:26:00 Denisse Sears [facility] PAP SMEAR-LIQUID BASED-CP 2023-06-04 19:26:00 Denisse Sears [facility] POCT TEST 2023-06-04 17:58:00 Bree Sears [facility] POCT URINALYSIS W/O SPECIFIC GRAVITY 2023-06-04 17:58:00 Denisse Sears [facility] ASSIGNMENT OF BENEFITS 2023-06-04 17:39:07 Docto r Unassigned, [place] [facility] GLUCOSE 1 HOUR POST PRANDIAL 2023-06-04 07:05:00 Denisse Sears [facility] COMP. METABOLIC PANEL (32691) 2023-06-04 07:05:00 Denisse Sears [facility] CBC WITH DIFF 2023-06-04 07:05:00 Denisse Sears [facility] RUBELLA SCREEN IGG 2023-06-04 07:05:00 Karely Sears [facility] VZV ANTIBODY SCREEN 2023-06-04 07:05:00 Bree Sears [facility] HEPATITIS B SURFACE ANTIGEN 2023-06-04 07:05:00 Denisse Sears [facility] HCV ANTIBODY 2023-06-04 07:05:00 [facility] ABO GROUPING 2023-06-04 07:05:00 Denisse Sears [facility] HIV 1/2 AG-AB WITH REFLEX 2023-06-04 07:05:00 Denisse Sears [facility] SYPHILIS IGG/IGM 2023-06-04 07:05:00 Denisse Sears [facility] CT SOFT TISSUE NECK W CONTRAST 2023-03-30 19:49:39 Robert Avitia [facility] COMP. METABOLIC PANEL (39672) 2023-03-30 19:02:00 Robert Avitia [facility] CBC WITH DIFF 2023-03-30 19:02:00 Robert Avitia [facility] RAPID STREP SCREEN FOR GROUP A 2023-03-30 19:02:00 Robert Avitia [facility] CONSENT/REFUSAL FOR DIAGNOSIS AND TREATMENT 2023-03-30 18:27:08 Doctor Unassigned, [place] [facility] CONSENT/REFUSAL FOR DIAGNOSIS AND TREATMENT 2020-11-03 22:50:29 Doctor Unassigned, [place] [facility] POCT TEST 2020-10-14 15:43:00 Nita Rayo [facility] POCT URINALYSIS W/O SPECIFIC GRAVITY 2020-10-14 15:43:00 Boom Rayo [facility] ASSIGNMENT OF BENEFITS 2020-10-14 15:02:26 Docto r Unassigned, [place] [facility] US FIRST TRIMESTER LESS THAN 14 WEEKS WITH TRANSVAGINAL 2020-10-12 01:27:14 [facility] COMP. METABOLIC PANEL (83292) 2020-10-11 23:30:00 Imelda Iglesias [facility] TOTAL BETA HCG ASSAY 2020-10-11 23:30:00 Imelda Iglesias [facility] CBC WITH DIFF 2020-10-11 23:30:00 Imelda Iglesias [facility] URINALYSIS 2020-10-11 23:30:00 Imelda Iglesias [facility] POCT TEST 2020-10-11 23:30:00 Imelda Iglesias [facility] NOTICE OF PRIVACY PRACTICES 2020-10-11 23:00:41 Doctor Unassigned, [place] [facility] TDAP (ADACEL) IMMUNIZATION 2019-05-20 18:30:34 Betsy [facility] POCT URINALYSIS W/O SPECIFIC GRAVITY 2019-05-20 00:00:00 Betsy Cinthya [facility] 1 HR GLUCOSE TOLERANCE TEST 2019-05-15 15:00:00 Btesy [facility] GLUCOSE FASTING 2019-05-15 14:00:00 [facility] JUSTIFICATION 2019-04-27 05:01:00 Doc tor Unassigned, [place] [facility] Encounters Start Date/Time End Date/Time Encounter Type Admission Type Attending Clinicians Care Facility Care Department Encounter ID Source 2021-07-02 03:21:10 Emergency [facility] [id number] [facility] 2021-07-01 22:39:41 Emergency [facility] [id number] [facility] 2023-10-30 15:00:00 2023-10-30 15:00:00 Outpatient DENISSE RICARDO [facility] [id number] [facility] 2023-10-04 00:00:00 2023-10-04 00:00:00 Refill Denisse Sears [facility] HAND RIVETER [facility] CHILD [facility] ..840.114 350.1.13.10 4.2.7.2.686 [id number] 107 [id number] [facility] 2023-10-01 14:15:00 2023-10-01 14:15:00 Outpatient R DENISSE SEARS [facility] [id number] [facility] 2023-09-03 15:00:00 2023-09-03 15:32:52 Outpatient R DENISSE SEARS [facility] [id number] [facility] 2023-09-03 15:00:00 2023-09-03 15:32:52 Routine Visit Denisse Sears [facility] HAND RIVETER [facility] CHILD [facility] .840.114 350.1.13.10 4.2.7.2.686 [id number] [facility] 2023-09-03 00:00:00 2023-09-03 00:00:00 Abstract Tasia Abdullahi [facility] HAND RIVETER [facility] CHILD [facility] ..840.114 350.1.13.10 4.2.7.2.686 [id number] [facility] 2023-08-28 09:00:00 2023-08-28 09:41:47 [employer] Signal 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 [id number] [facility] 2023-08-23 00:00:00 2023-08-23 00:00:00 Refill Denisse Sears [facility] HAND RIVETER [facility] 1.84.114 350.1.13.10 4.2.7.2.686 [id number] [facility] 2023-08-06 15:30:00 2023-08-06 16:20:20 Outpatient R DENISSE SEARS [facility] [id number] [facility] 2023-08-06 15:30:00 2023-08-06 16:20:20 Routine Visit Denisse Sears [facility] HAND RIVETER [facility] 1..114 350.1.13.10 4.2.7.2.686 [id number] [facility] 2023-08-06 00:00:00 2023-08-06 00:00:00 Orders Only Doctor Unassigned, [place] [facility] ..114 350.1.13.10 4.2.7.2.686 [id number] [id number] [facility] 2023-07-24 00:00:00 2023-07-24 00:00:00 Refill Tasia Abdullahi [facility] HAND RIVETER [facility]ILD [facility] 1.2840.114 350.1.13.10 4.2.7.2.686 [id number] [facility] 2023-07-16 07:45:00 2023-07-16 07:45:00 Outpatient Irasema SEARS DENISSE [facility] [id number] [facility] 2023-07-12 00:00:00 2023-07-12 00:00:00 Abstract Tasia Abdullahi [facility] HAND RIVETER [facility] CHILD [facility] 1.2840.114 350.1.13.10 4.2.7.2.686 [id number] [facility] 2023-07-11 13:30:00 2023-07-11 14:06:29 Outpatient Jazmín AGUILAR ALYSIANando [facility] [id number] [facility] 2023-07-11 13:30:00 2023-07-11 14:06:29 [employer] Signal Technician Visit Ultrasound, Tony-Dia AguilarJessica Ikuvbogie [facility] HAND RIVETER [facility]ILD [facility] 1.84.114 350.1.13.10 4.2.7.2.686 [id number] [facility] 2023-07-08 17:49:00 2023-07-08 19:04:00 Emergency X Robert AVITIA [facility] ERT [id number] [facility] 2023-07-08 17:49:00 2023-07-08 19:04:00 Emergency Robert Avitia [facility] 1.84.114 350.1.13.10 4.2.7.2.686 [id number] [facility] 2023-07-04 00:00:00 2023-07-04 00:00:00 Telephone Tasia Abdullahi [facility] HAND RIVETER [facility] CHILD [facility] 1.2840.114 350.1.13.10 4.2.7.2.686 [id number] [facility] 2023-07-02 12:45:00 2023-07-02 12:45:00 Outpatient R DENISSE SEARS [facility] [id number] [facility] 2023-07-02 07:45:00 2023-07-02 09:04:48 Outpatient R TASIA ABDULLAHI [facility] [id number] [facility] 2023-07-02 07:45:00 2023-07-02 09:04:48 Routine Visit Tasia Abdullahi [facility] HAND RIVETER [facility] 1.2.840.114 350.1.13.10 4.2.7.2.686 [id number] [facility] 2023-07-01 00:00:00 2023-07-01 00:00:00 Case Management Denisse Sears [facility] HAND RIVETER [facility] 1.2.840.114 350.1.13.10 4.2.7.2.686 [id number] [facility] 2023-06-28 00:00:00 2023-06-28 00:00:00 Telephone Tasia Abdullahi [facility] HAND RIVETER [facility] 1.2.840.114 350.1.13.10 4.2.7.2.686 [id number] [facility] 2023-06-28 00:00:00 2023-06-28 00:00:00 Telephone Tasia Abdullahi [facility] HAND RIVETER [facility] 1.2.840.114 350.1.13.10 4.2.7.2.686 [id number] [facility] 2023-06-14 13:00:00 2023-06-14 13:00:00 Outpatient P [facility] [id number] [facility] 2023-06-04 13:00:00 2023-06-04 14:20:42 Outpatient R ESTEFANÍADENISSE MARTINEZ [facility] [id number] [facility] 2023-06-04 13:00:00 2023-06-04 14:20:42 Initial Visit Estefaníaevelia Denisse Myles [facility] HAND RIVETER [facility] 1.114 350.1.13.10 4.2.7.2.686 [id number] 107 [id number] [facility] 2023-06-04 00:00:00 2023-06-04 00:00:00 Orders Only Doctor Unassigned, [place] [facility] 1.114 350.1.13.10 4.2.7.2.686 [id number] [facility] 2023-05-28 13:45:00 2023-05-28 13:45:00 Outpatient R TASIA ABDULLAHI [facility] [id number] [facility] 2023-03-30 13:32:00 2023-03-30 15:51:00 Emergency X Robert AVITIA [facility] ERT [id number] [facility] 2023-03-30 13:32:00 2023-03-30 15:51:00 Emergency Robert Avitia [facility] 1.84.114 350.1.13.10 4.2.7.2.686 [id number] [facility] 2020-11-14 13:45:00 2020-11-14 13:45:00 Outpatient R BOOM RAYO [facility] [id number] [facility] 2020-11-03 17:03:00 2020-11-03 17:26:00 Emergency Robert Avitia [facility] 1.84114 350.1.13.10 4.2.7.2.686 [id number] [facility] 2020-11-03 00:00:00 2020-11-03 00:00:00 Orders Only Doctor Unassigned, [place] [facility] 1.2840.114 350.1.13.10 4.2.7.2.686 [id number] [facility] 2020-10-19 00:00:00 2020-10-19 00:00:00 Telephone Tasia Abdullahi [facility] HAND RIVETER [facility] 1.2840.114 350.1.13.10 4.2.7.2.686 [id number] [facility] 2020-10-14 09:21:43 2020-10-14 10:26:07 Initial Visit Boom Rayo [facility] HAND RIVETER [facility] CHILD [facility] 1.2840.114 350.1.13.10 4.2.7.2.686 [id number] [facility] 2020-10-14 08:30:00 2020-10-14 08:30:00 Outpatient R [facility] [id number] [facility] 2020-10-14 00:00:00 2020-10-14 00:00:00 Orders Only Doctor Unassigned, [place] [facility] 1.284.114 350.1.13.10 4.2.7.2.686 [id number] [facility] 2020-10-11 17:13:00 2020-10-11 20:50:00 Emergency Imelda Iglesias R [facility] 1.284.114 350.1.13.10 4.2.7.2.686 [id number] [facility] 2020-08-09 14:15:00 2020-08-09 14:15:00 Outpatient R TASIA ABDULLAHI [facility] [id number] [facility] 2020-02-22 14:00:00 2020-02-22 14:00:00 Outpatient R CINTHYA GARCIA [facility] [id number] [facility] 2019-08-20 08:30:00 2019-08-20 08:46:46 Outpatient R CINTHYA GARCIA [facility] [id number] [facility] 2019-05-20 13:07:44 2019-05-20 13:38:14 Routine Visit Cinthya Garcia [facility] 1.2.840.114 350.1.13.10 4.2.7.2.686 [id number] 2019-05-20 13:07:44 2019-05-20 13:38:14 Routine Visit Cinthya Garcia [facility] 1.2.840.114 350.1.13.10 4.2.7.2.686 [id number] [facility] 2019-05-15 08:51:51 2019-05-15 09:06:51 [employer] Signal Technician Visit 1, [facility] 1.2.840.114 350.1.13.10 4.2.7.2.686 [id number] 2019-05-15 08:51:51 2019-05-15 09:06:51 [employer] Signal Technician Visit 1, [facility] Betsy Cinthya [facility] 1.2.840.114 350.1.13.10 4.2.7.2.686 [id number] [facility] 2019-05-07 08:17:00 2019-05-07 08:32:00 [employer] Signal Technician Visit 1, Adc Lab Christi Castellano Trav [facility] 1.2.840.114 350.1.13.10 4.2.7.2.686 [id number] [facility] 2019-05-07 08:17:00 2019-05-07 08:32:00 [employer] Signal Technician Visit 1, Ad[facility] Lab [facility] 1.2.840.114 350.1.13.10 4.2.7.2.686 [id number] 2019-05-07 00:00:00 2019-05-07 00:00:00 Case Management Cinthya Garcia [facility] 1.2.840.114 350.1.13.10 4.2.7.2.686 [id number] [facility] 2019-05-07 00:00:00 2019-05-07 00:00:00 Case Management Cinthya Garcia [facility] 1.2.840.114 350.1.13.10 4.2.7.2.686 [id number] 2019-04-29 14:22:55 2019-04-29 15:27:05 Routine Visit Christi Castellano [facility] 1.2.840.114 350.1.13.10 4.2.7.2.686 [id number] [facility] 2019-04-29 14:22:55 2019-04-29 15:27:05 Routine Visit Christi Castellano [facility] 1.2.840.114 350.1.13.10 4.2.7.2.686 [id number] 2019-04-27 00:00:00 2019-04-27 00:00:00 Orders Only Doctor Unassigned, [place] [facility] 1.2.840.114 350.1.13.10 4.2.7.2.686 [id number] [facility] 2019-04-27 00:00:00 2019-04-27 00:00:00 Orders Only Doctor Unassigned, [place] [facility] 1.2.840.114 350.1.13.10 4.2.7.2.686 [id number] Results Test Description Test Time Test Comments Results Result Co [facility] [id number] 13:46:28* Test Item Value Reference Range Interpretation Comme nts AFP-MS (test code = 6406528790) 34.3 ng/mL AFP-MS MoM (test code = 6220503734) 1.20 WEIGHT (test code = 1861502568) 204.5 lbs RACE (test code = 3244230745) GEST. AGE (test code = 3228984514) 16,5 Gestational age reflects sample collection date. Previous preliminary verified result was 13,0 on 08/08/2023 at 0720 FINANCE INTERN INS. DEP (test code = 8517212768) No LMP (test code = 9133055900) US DATE (test code = 1944030501) [id number] PE DATE (test code = 4188230628) METHOD (test code = 2718223007) US MULT GEST (test code = 7121193470) No NTD HX (test code = 6306218726) No INITAL OR REPEAT (test code = 8490511035) Initial Testing SMOKER (test code = 0569077416) Yes RH (test code = 8225201026) Positive OSB INTERP (test code = 1937749041) See Note The maternal ser um AFP result is NOT elevated for a of thisgestational age. The risk of an open neural tube defect is less thanthe screening cut-off. OSB RSK (test code = 7531647125) 1:79798 The risk of OSB is equal to 1:98223Ibj OSB cut-off is 2.46 (1:104) OSB SCRN (test code = 7276732289) Negative [facility] [id number] 21:55:00* Test Item Value Reference Range Interpretation Comme nts POCT U SP GRAV (test code = 3255) . 1.005-1.025 POCT PH U (test code = 3254) 6 mg/dl 5-8 POCT U LEUK EST (test code = 3263) Neg Negative - Negative POCT U NIT (test code = 3262) Neg Negative - Negati ve POCT U PROT (test code = 3259) Trace Negative - Negat carmina POCT U GLU (test code = 3256) Nml Negative - Negati ve POCT U KETONE (test code = 3258) None Negative - Neg ative POCT U UROBILI (test code = 3260) . 0.2-1 POCT U BILI (test code = 3261) . Negative - Negat carmina POCT U BLD (test code = 3257) Trace Negative - Negati ve POCT U COLOR (test code = 3266) POCT U APPEAR (test code = 3267) [facility] URINALYSIS W SPECIFIC [id number] 13:02:00* Test Item Value Reference Range Interpretation Comme nts POCT U SP GRAV (test code = 3255) . 1.005-1.025 POCT PH U (test code = 3254) 6 mg/dl 5-8 POCT U LEUK EST (test code = 3263) 1+ Negative - Negative POCT U NIT (test code = 3262) negative Negative - Negati ve POCT U PROT (test code = 3259) trace Negative - Negat carmina POCT U GLU (test code = 3256) negative Negative - Negati ve POCT U KETONE (test code = 3258) negative Negative - Neg ative POCT U UROBILI (test code = 3260) . 0.2-1 POCT U BILI (test code = 3261) . Negative - Negat carmina POCT U BLD (test code = 3257) negative Negative - Negati ve POCT U COLOR (test code = 3266) . POCT U APPEAR (test code = 3267) . [facility] URINALYSIS W SPECIFIC [id number] 13:02:00* Test Item Value Reference Range Interpretation Comme nts POCT U SP GRAV (test code = 3255) . 1.005-1.025 POCT PH U (test code = 3254) 6 mg/dl 5-8 POCT U LEUK EST (test code = 3263) 1+ Negative - Negative POCT U NIT (test code = 3262) negative Negative - Negati ve POCT U PROT (test code = 3259) trace Negative - Negat carmina POCT U GLU (test code = 3256) negative Negative - Negati ve POCT U KETONE (test code = 3258) negative Negative - Neg ative POCT U UROBILI (test code = 3260) . 0.2-1 POCT U BILI (test code = 3261) . Negative - Negat carmina POCT U BLD (test code = 3257) negative Negative - Negati ve POCT U COLOR (test code = 3266) . POCT U APPEAR (test code = 3267) . [facility] URINALYSIS W SPECIFIC [id number] 13:02:00* Test Item Value Reference Range Interpretation Comme nts POCT U SP GRAV (test code = 3255) . 1.005-1.025 POCT PH U (test code = 3254) 6 mg/dl 5-8 POCT U LEUK EST (test code = 3263) 1+ Negative - Negative POCT U NIT (test code = 3262) negative Negative - Negati ve POCT U PROT (test code = 3259) trace Negative - Negat carmina POCT U GLU (test code = 3256) negative Negative - Negati ve POCT U KETONE (test code = 3258) negative Negative - Neg ative POCT U UROBILI (test code = 3260) . 0.2-1 POCT U BILI (test code = 3261) . Negative - Negat carmina POCT U BLD (test code = 3257) negative Negative - Negati ve POCT U COLOR (test code = 3266) . POCT U APPEAR (test code = 3267) . [facility] URINALYSIS W SPECIFIC [id number] 13:02:00* Test Item Value Reference Range Interpretation Comme nts POCT U SP GRAV (test code = 3255) . 1.005-1.025 POCT PH U (test code = 3254) 6 mg/dl 5-8 POCT U LEUK EST (test code = 3263) 1+ Negative - Negative POCT U NIT (test code = 3262) negative Negative - Negati ve POCT U PROT (test code = 3259) trace Negative - Negat carmina POCT U GLU (test code = 3256) negative Negative - Negati ve POCT U KETONE (test code = 3258) negative Negative - Neg ative POCT U UROBILI (test code = 3260) . 0.2-1 POCT U BILI (test code = 3261) . Negative - Negat carmina POCT U BLD (test code = 3257) negative Negative - Negati ve POCT U COLOR (test code = 3266) . POCT U APPEAR (test code = 3267) . [facility] URINALYSIS W SPECIFIC [id number] 13:02:00* Test Item Value Reference Range Interpretation Comme nts POCT U SP GRAV (test code = 3255) . 1.005-1.025 POCT PH U (test code = 3254) 6 mg/dl 5-8 POCT U LEUK EST (test code = 3263) 1+ Negative - Negative POCT U NIT (test code = 3262) negative Negative - Negati ve POCT U PROT (test code = 3259) trace Negative - Negat carmina POCT U GLU (test code = 3256) negative Negative - Negati ve POCT U KETONE (test code = 3258) negative Negative - Neg ative POCT U UROBILI (test code = 3260) . 0.2-1 POCT U BILI (test code = 3261) . Negative - Negat carmina POCT U BLD (test code = 3257) negative Negative - Negati ve POCT U COLOR (test code = 3266) . POCT U APPEAR (test code = 3267) . [facility] ONLY - SYPHILIS [id number] 15:48:45* Test Item Value Reference Range Interpretation Comme [facility] Syphilis IgG/IgM (test code = 03555-5) Non-reactive Non-reactive VIVI (test code = VIVI) Non-reactive - No serologic evidence of T. pallidum infection. Cannot exclude incubating or early syphilis. Submit a second specimen in 2-4 weeks if syphilis is clinically suspected. Equivocal - Further testing to follow. Reactive - Further testing to follow. Lab Interpretation (test code = 44837-6) Normal [facility] 1/2 AG-AB WITH [id number] 08:25:41* Test Item Value Reference Range Interpretation Comme [facility] HIV Semi-quantitative (test code = 18554-3) 0.09 Negative VIVI (test code = VIVI) Non-reactive for HIV-1 antigen and HIV-1/HIV-2 antibodies. ?No laboratory evidence of HIV infection. ?Repeat in 2-4 weeks if acute HIV infection is suspected. [facility] [id number] 07:10:07* Test Item Value Reference Range Interpretation Comme nts HCV Ab (test code = 29526-6) Negative HCV Semi-Quantitative (test code = 77374-4) 0.03 [facility] CenterHEPAT[facility]IS B SURFACE [id number] 06:53:26 * Test Item Value Reference Range Interpretation Comme nts HBsAg Semi-Quantitative (amy t code = 5195-3) 0.09 Negative [facility] CenterCOMP. METABOLIC PANEL (24022)2023-06-05 06:17:42* Test Item Value Reference Range Interpretation Comme nts NA (test code = 6836292428) 136 mmol/L 135-145 K (test code = 6110465086) 4.0 mmol/L 3.5-5.0 CL (test code = 6867064548) 104 mmol/L 98-108 CO2 TOTAL (test code = 6976213344) 18 mmol/L 23-31 L AGAP (test code = 5168917980) 14 2-16 BUN (test code = 6126021466) 6 mg/dL 7-23 L GLUCOSE (test code = 8604299386) 99 mg/dL 70-110 CREATININE (test code = 9907620431) 0.50 mg/dL 0.50-1.04 TOTAL BILI (test code = 2058660698) 0.2 mg/dL 0.1-1.1 CALCIUM (test code = 2001585217) 9.3 mg/dL 8.6-10.6 T PROTEIN (test code = 7017490737) 7.1 g/dL 6.3-8.2 ALBUMIN (test code = 0521363652) 4.3 g/dL 3.5-5.0 ALK PHOS (test code = 4603847100) 56 U/L 34-122 ALTv (test code = 1742-6) 17 U/L 5-35 AST(SGOT) (test code = 9542461198) 19 U/L 13-40 eGFR (test code = 0588768914) 146.9 mL/min/1.73m2 VIVI (test code = VIVI) Association of Glomerular Filtration Rate (GFR) and Staging of Kidney Disease* + --+ --+ ------+| GFR (mL/min/1.73 m2) ?| With Kidney Damage ?| ?Without Kidney Damage+ --------+ --------+ +| ?>90 ?| ?Stage one ?| ? Normal ?+ ---+ ---+ -------+| ?60-89 ?| ?Stage two ?| ? Decreased GFR ? + --+ --+ ------+| ?30-59 ?| ?Stage three ?| ? Stage three ? + --+ --+ ------+| ?15-29 ?| ?Stage four ? | ? Stage four ?+ ---+ ---+ -------+| ?<15 (or dialysis) ? ?| ?Stage five ? | ? Stage five ?+ ---+ ---+ -------+ *Each stage assumes the associated GFR level [...] or urine or abnormalities in imaging tests). Lab Interpretation (test code = 26446-3) Abnormal [facility] CenterPR[facility]AT[facility] WORKUP, BLOOD [id number] 05:18:00 * Test Item Value Reference Range Interpretation Comme nts ABO & RH (test code = 20) O POSITIVE IAT (test code = 1185) Negative [facility] CenterCB WITH [id number] 04:40:08* Test Item Value Reference Range Interpretation Comme nts WBC (test code = 6690-2) 11.86 See_Comment H [Automated [employer]] The system which generated this result transmitted reference range: 4.30 - 11.10 10*3/?L. The reference range was not used to interpret this result as normal/abnormal. RBC (test code = 789-8) 4.65 See_Comment [Automated [employer]] The system which generated this result transmitted reference range: 3.93 - 5.25 10*6/?L. The reference range was not used to interpret this result as normal/abnormal. HGB (test code = 718-7) 13.1 g/dL 11.6-15.0 HCT (test code = 4544-3) 40.4 % 35.7-45.2 MCV (test code = 787-2) 86.9 fL 80.6-95.5 MCH (test code = 785-6) 28.2 pg 25.9-32.8 MCHC (test code = 786-4) 32.4 g/dL 31.6-35.1 RDW-SD (test code = 87233-8) 50.1 fL 39.0-49.9 H RDW-CV (test code = 788-0) 15.9 % 12.0-15.5 H PLT (test code = 777-3) 344 See_Comment [Automated messa ge] The system which generated this result transmitted reference range: 166 - 358 10*3/?L. The reference range was not used to interpret this result as normal/abnormal. MPV (test code = 59324-6) 10.7 fL 9.5-12.9 NRBC/100 WBC (test code = 0317916766) 0.0 See_Comment [Automated [employer] ssage] The system which generated this result transmitted reference range: 0.0 - 10.0 /100 WBCs. The reference range was not used to interpret this result as normal/abnormal. NRBC x10^3 (test code = 4228383737) See_Comment [Automated messa ge] The system which generated this result transmitted reference range: 10*3/?L. The reference range was not used to interpret this result as normal/abnormal. GRAN MAT (NEUT) % (test code = 770-8) 72.6 % IMM GRAN % (test code = 4452743476) 0.40 % LYMPH % (test code = 736-9) 17.0 % MONO % (test code = 5905-5) 7.6 % EOS % (test code = 713-8) 2.1 % BASO % (test code = 706-2) 0.3 % GRAN MAT x10^3(ANC) (test code = 1127457074) 8.61 10*3/uL 1.88-7.09 H IMM GRAN x10^3 (test code = 1405275035) 0.05 10*3/uL 0.00-0.06 LYMPH x10^3 (test code = 731-0) 2.02 10*3/uL 1.32-3.29 MONO x10^3 (test code = 742-7) 0.90 10*3/uL 0.33-0.92 EOS x10^3 (test code = 711-2) 0.25 10*3/uL 0.03-0.39 BASO x10^3 (test code = 704-7) 0.03 10*3/uL 0.01-0.07 Lab Interpretation (test code = 79118-3) Abnormal [facility] [id number] 17:58:00* Test Item Value Reference Range Interpretation Comme nts POCT PREG (test code = 1605) Positive On board controls acceptable with C Line (test code = 3574) Yes POCT PREG LOT # (test code = 3575) POCT PREG TEST DATE ( test code = 3576) [facility] URINALYSIS W/O SPECIFIC [id number] 17:58:00* Test Item Value Reference Range Interpretation Comme nts POCT PH U (test code = 3254) 6 mg/dl 5-8 POCT U LEUK EST (test code = 3263) 1+ Negative - Negative POCT U NIT (test code = 3262) Neg Negative - Negati ve POCT U PROT (test code = 3259) Trace Negative - Negat carmina POCT U GLU (test code = 3256) Neg Negative - Negati ve POCT U KETONE (test code = 3258) None Negative - Neg ative POCT U BLD (test code = 3257) trace Negative - Negati ve [facility]. METABOLIC PANEL (42622)2023-03-30 19:33:38* Test Item Value Reference Range Interpretation Comme nts NA (test code = 6734193827) 141 mmol/L 135-145 K (test code = 0754551878) 3.7 mmol/L 3.5-5.0 CL (test code = 6076262096) 106 mmol/L 98-108 CO2 TOTAL (test code = 4242917971) 21 mmol/L 23-31 L AGAP (test code = 3873252910) 14 2-16 BUN (test code = 5993756470) 9 mg/dL 7-23 GLUCOSE (test code = 0437376165) 157 mg/dL 70-110 H CREATININE (test code = 5078673084) 0.86 mg/dL 0.50-1.04 TOTAL BILI (test code = 3828820712) 0.5 mg/dL 0.1-1.1 CALCIUM (test code = 0087159967) 10.1 mg/dL 8.6-10.6 T PROTEIN (test code = 0607843531) 8.9 g/dL 6.3-8.2 H ALBUMIN (test code = 2070393858) 4.4 g/dL 3.5-5.0 ALK PHOS (test code = 4383893425) 83 U/L 34-122 ALTv (test code = 1742-6) 20 U/L 5-35 AST(SGOT) (test code = 4348478361) 20 U/L 13-40 eGFR (test code = 3500260904) 79.2 mL/min/1.73m2 VIVI (test code = VIVI) Association of Glomerular Filtration Rate (GFR) and Staging of Kidney Disease* + --+ --+ ------+| GFR (mL/min/1.73 m2) ?| With Kidney Damage ?| ?Without Kidney Damage+ --------+ --------+ +| ?>90 ?| ?Stage one ?| ? Normal ?+ ---+ ---+ -------+| ?60-89 ?| ?Stage two ?| ? Decreased GFR ? + --+ --+ ------+| ?30-59 ?| ?Stage three ?| ? Stage three ? + --+ --+ ------+| ?15-29 ?| ?Stage four ? | ? Stage four ?+ ---+ ---+ -------+| ?<15 (or dialysis) ? ?| ?Stage five ? | ? Stage five ?+ ---+ ---+ -------+ *Each stage assumes the associated GFR level [...] or urine or abnormalities in imaging tests). Lab Interpretation (test code = 73937-8) Abnormal [facility] WITH [id number] 19:21:57* Test Item Value Reference Range Interpretation Comme nts WBC (test code = 6690-2) 11.04 See_Comment [Automated [employer] ge] The system which generated this result transmitted reference range: 4.30 - 11.10 10*3/?L. The reference range was not used to interpret this result as normal/abnormal. RBC (test code = 789-8) 5.50 See_Comment H [Automated messa ge] The system which generated this result transmitted reference range: 3.93 - 5.25 10*6/?L. The reference range was not used to interpret this result as normal/abnormal. HGB (test code = 718-7) 15.5 g/dL 11.6-15.0 H HCT (test code = 4544-3) 46.9 % 35.7-45.2 H MCV (test code = 787-2) 85.3 fL 80.6-95.5 MCH (test code = 785-6) 28.2 pg 25.9-32.8 MCHC (test code = 786-4) 33.0 g/dL 31.6-35.1 RDW-SD (test code = 55157-5) 43.9 fL 39.0-49.9 RDW-CV (test code = 788-0) 14.2 % 12.0-15.5 PLT (test code = 777-3) 324 See_Comment [Automated messa ge] The system which generated this result transmitted reference range: 166 - 358 10*3/?L. The reference range was not used to interpret this result as normal/abnormal. MPV (test code = 12651-8) 10.0 fL 9.5-12.9 NRBC/100 WBC (test code = 7666239243) 0.0 See_Comment [Automated me ssage] The system which generated this result transmitted reference range: 0.0 - 10.0 /100 WBCs. The reference range was not used to interpret this result as normal/abnormal. NRBC x10^3 (test code = 9070061913) See_Comment [Automated messa ge] The system which generated this result transmitted reference range: 10*3/?L. The reference range was not used to interpret this result as normal/abnormal. GRAN MAT (NEUT) % (test code = 770-8) 78.4 % IMM GRAN % (test code = 8465977749) 0.40 % LYMPH % (test code = 736-9) 11.8 % MONO % (test code = 5905-5) 8.9 % EOS % (test code = 713-8) 0.2 % BASO % (test code = 706-2) 0.3 % GRAN MAT x10^3(ANC) (test code = 1731954096) 8.67 10*3/uL 1.88-7.09 H IMM GRAN x10^3 (test code = 2695097760) 0.04 10*3/uL 0.00-0.06 LYMPH x10^3 (test code = 731-0) 1.30 10*3/uL 1.32-3.29 L MONO x10^3 (test code = 742-7) 0.98 10*3/uL 0.33-0.92 H EOS x10^3 (test code = 711-2) 0.03-0.39 L BASO x10^3 (test code = 704-7) 0.03 10*3/uL 0.01-0.07 Lab Interpretation (test code = 40683-9) Abnormal [facility] URINALYSIS W/O SPECIFIC [id number] 15:44:00* Test Item Value Reference Range Interpretation Comme nts POCT PH U (test code = 3254) 5 mg/dl 5-8 POCT U LEUK EST (test code = 3263) trace Negative - Negative POCT U NIT (test code = 3262) pos Negative - Negati ve POCT U PROT (test code = 3259) trace Negative - Negat carmina POCT U GLU (test code = 3256) neg Negative - Negati ve POCT U KETONE (test code = 3258) neg Negative - Neg ative POCT U BLD (test code = 3257) large Negative - Negati ve Lab Interpretation (test cod e = 55957-8) Abnormal [facility] URINALYSIS W/O SPECIFIC [id number] 15:44:00* Test Item Value Reference Range Interpretation Comme nts POCT PH U (test code = 3254) 5 mg/dl 5-8 POCT U LEUK EST (test code = 3263) trace Negative - Negative POCT U NIT (test code = 3262) pos Negative - Negati ve POCT U PROT (test code = 3259) trace Negative - Negat carmina POCT U GLU (test code = 3256) neg Negative - Negati ve POCT U KETONE (test code = 3258) neg Negative - Neg ative POCT U BLD (test code = 3257) large Negative - Negati ve Lab Interpretation (test cod e = 32031-1) Abnormal [facility] URINALYSIS W/O SPECIFIC [id number] 15:44:00* Test Item Value Reference Range Interpretation Comme nts POCT PH U (test code = 3254) 5 mg/dl 5-8 POCT U LEUK EST (test code = 3263) trace Negative - Negative POCT U NIT (test code = 3262) pos Negative - Negati ve POCT U PROT (test code = 3259) trace Negative - Negat carmina POCT U GLU (test code = 3256) neg Negative - Negati ve POCT U KETONE (test code = 3258) neg Negative - Neg ative POCT U BLD (test code = 3257) large Negative - Negati ve Lab Interpretation (test cod e = 13322-1) Abnormal [facility] [id number] 15:43:00* Test Item Value Reference Range Interpretation Comme nts POCT PREG (test code = 1605) Positive On board controls acceptable with C Line (test code = 3574) Yes POCT PREG LOT # (test code = 3575) POCT PREG TEST DATE ( test code = 3576) [facility] [id number] 15:43:00* Test Item Value Reference Range Interpretation Comme nts POCT PREG (test code = 1605) Positive On board controls acceptable with C Line (test code = 3574) Yes POCT PREG LOT # (test code = 3575) POCT PREG TEST DATE ( test code = 3576) [facility] [id number] 15:43:00* Test Item Value Reference Range Interpretation Comme nts POCT PREG (test code = 1605) Positive On board controls acceptable with C Line (test code = 3574) Yes POCT PREG LOT # (test code = 3575) POCT PREG TEST DATE ( test code = 3576) [facility] CenterUS FIRST TRIMESTER LESS THAN 14 WEEKS WITH [id number] 02:38:22No intrauterine or extrauterine fetus is visualized. Hypoechoic fluid is seen in the cul-de-sac which could represent blood.Possibility of an ectopic cannot be definitely excluded. Possiblegestational sac versus fluid distention in the upper endometrium.Left ovary corpus luteal cyst. Preliminary Report Dictated by Resident: Ronald Oliveros MD., have reviewed this study and agree with the abovereport.TRANSABDOMINAL AND TRANSVAGINAL PELVIC ULTRASOUND CLINICAL HISTORY: vaginal bleeding, Beta HCG: ~1700 mIU/mL. FINDINGS: Transabdominal and transvaginal pelvicultrasounds were performed. ? The uterus measures 7.9 [...] symmetric blood flow and no focallesions are seen. [facility], Radiant Results Inft User - 10/11/2020 8:39 PM CSTTRANSABDOMINAL AND TRANSVAGINAL PELVIC ULTRASOUNDCLINICAL HISTORY: vaginal bleeding, Beta HCG: ~1700 mIU/mL.FINDINGS:Transabdominal and transvaginal pelvic ultrasounds were performed. The uterus measures 7.9 x 4.3 x5.7 cm. Mild anechoic fluid distentionversus a gestational sac is seen in the upper endometrial canal, measuringup to 1.8 cm. Adjacent mild heterogenous irregular thickening of theendometrium is noted. The lower endometrial canal is nondistended. No fetalpole or yolk sac is detected.Free fluid in the posterior pelvis extends to the left adnexa. Ill-definedtubular structures posterior to the uterus and around the adnexal regionslikely represent loops of bowel.The right ovary measures 3.2 x 2.4 x1.7 cm (6.7 mL) and contains smallfollicles. The left ovary measures 3.6 x 2.9 x 2.9 cm (15.1 mL) andcontains a corpus luteal cyst measuring 2.3 cm with peripheralvascularization. The ovaries demonstrate symmetric blood flow and no focallesions are seen.IMPRESSIONNo intrauterine or extrauterine fetu s is visualized.Hypoechoic fluid is seen in the cul-de-sac which could represent blood.Possibility of an ectopic cannot be definitely excluded.Possible gestational sac versus fluid distention in the upper endometrium.Left ovary corpus luteal cyst.Preliminary Report Dictated by Resident: Ronald Moctezuma MD., have reviewed this study and agree with the abovereport. [facility] BETA HCG [id number] 00:24:00* Test Item Value Reference Range Interpretation Comme nts BETA HCG (test code = 8934177639) See_Comment [Automated [employer]] The system which generated this result transmitted reference range: Non- female and male patients: <5 mIU/mL. The reference range was not used to interpret this result as normal/abnormal. VIVI (test code = VIVI) Gestational Age ?Range (mIU/mL) 1-10 ?Weeks ?12-88861343-13 Weeks ?43378-77782700-25 Weeks ?2582-43303609-17 Weeks ?1531-577548 Biotin has been reported to cause a negative bias, interpret results relative to patient's use of biotin. [facility] [id number] 00:24:00* Test Item Value Reference Range Interpretation Comme nts BETA HCG (test code = 6256019197) See_Comment [Automated [employer] ge] The system which generated this result transmitted reference range: Non- female and male patients: <5 mIU/mL. The reference range was not used to interpret this result as normal/abnormal. VIVI (test code = VIVI) Gestational Age ?Range (mIU/mL) 1-10 ?Weeks ?40-90032540-16 Weeks ?14574-05148498-36 Weeks ?5181-43113412-25 Weeks ?1531-496133 Biotin has been reported to cause a negative bias, interpret results relative to patient's use of biotin. [facility]. METABOLIC PANEL ([id number])2020-10-11 23:57:00* Test Item Value Reference Range Interpretation Comme nts NA (test code = 4888898842) 139 mmol/L 135-145 K (test code = 6891852781) 3.9 mmol/L 3.5-5 CL (test code = 5968503044) 103 mmol/L 98-108 CO2 TOTAL (test code = 5947383194) 27 mmol/L 23-31 AGAP (test code = 7972122961) 2-16 BUN (test code = 7397843553) 10 mg/dL 7-23 GLUCOSE (test code = 8136773488) 104 mg/dL 70-110 CREATININE (test code = 7872591653) 0.58 mg/dL 0.5-1.04 TOTAL BILI (test code = 5409300605) 0.4 mg/dL 0.1-1.1 CALCIUM (test code = 6203751031) 8.8 mg/dL 8.6-10.6 T PROTEIN (test code = 3432056596) 7.3 g/dL 6.3-8.2 ALBUMIN (test code = 9205292102) 4.2 g/dL 3.5-5 ALK PHOS (test code = 8772305371) 56 U/L 34-122 ALTv (test code = 1742-6) 8 U/L 5-35 AST(SGOT) (test code = 8176109719) 15 U/L 13-40 eGFR Calculation (Non-) (test code = 4420399423) mL/min/1.73m2 eGFR Calculation () (test code = 1117398934) mL/min/1.73m2 VIVI (test code = VIVI) Association of [...] or urine or abnormalities in imaging tests). [facility]. METABOLIC PANEL (88372)2020-10-11 23:57:00* Test Item Value Reference Range Interpretation Comme nts NA (test code = 0381921199) 139 mmol/L 135-145 K (test code = 9472208179) 3.9 mmol/L 3.5-5 CL (test code = 4176199558) 103 mmol/L 98-108 CO2 TOTAL (test code = 1960775891) 27 mmol/L 23-31 AGAP (test code = 4885730677) 2-16 BUN (test code = 5702561972) 10 mg/dL 7-23 GLUCOSE (test code = 0734124925) 104 mg/dL 70-110 CREATININE (test code = 3758213615) 0.58 mg/dL 0.5-1.04 TOTAL BILI (test code = 6548331997) 0.4 mg/dL 0.1-1.1 CALCIUM (test code = 2641805715) 8.8 mg/dL 8.6-10.6 T PROTEIN (test code = 9169727720) 7.3 g/dL 6.3-8.2 ALBUMIN (test code = 9714477570) 4.2 g/dL 3.5-5 ALK PHOS (test code = 2780739009) 56 U/L 34-122 ALTv (test code = 1742-6) 8 U/L 5-35 AST(SGOT) (test code = 6968246863) 15 U/L 13-40 eGFR Calculation (Non-) (test code = 8867989470) mL/min/1.73m2 eGFR Calculation () (test code = 7505615378) mL/min/1.73m2 VIVI (test code = VIVI) Association of [...] or urine or abnormalities in imaging tests). [facility]IN[facility]IS2021-[facility]-09 23:53:00* Test Item Value Reference Range Interpretation Comme nts APPEARANCE (test code = 9310303515) Clear Clear COLOR (test code = 8352981809) Yellow Yellow PH (test code = 8276539953) 4.8-8.0 SP GRAVITY (test code = 0654528968) 1.003-1.030 H GLU U QUAL (test code = 7728853670) Normal Normal BLOOD (test code = 0061110454) Negative Negative INTERFERENCE FRO M ASCORBIC ACID MAY CAUSE FALSE NEGATIVE RESULT KETONES (test code = 1630543792) 5 mg/dL Negative A PROTEIN (test code = 2887-8) 30 mg/dL Negative A UROBILIN (test code = 2898580552) 2.0 mg/dL Normal A BILIRUBIN (test code = 4050255581) Negative Negative NITRITE (test code = 8681732457) Negative Negative LEUK RONAK (test code = 8544024576) Negative Negative RBC/HPF (test code = 2330178859) See_Comment [Automated [employer]] The system which generated this result transmitted reference range: 0 - 3 HPF. The reference range was not used to interpret this result as normal/abnormal. WBC/HPF (test code = 8746480274) See_Comment [Compliance Science] The system which generated this result transmitted reference range: 0 - 5 HPF. The reference range was not used to interpret this result as normal/abnormal. BACTERIA (test code = 0538796977) Few Negative A MUCOUS (test code = 7512008325) Marked Negative LPF A SQ EPITH (test code = 2782335836) HPF Lab Interpretation (test code = 32609-7) [facility]* Test Item Value Reference Range Interpretation Comme nts APPEARANCE (test code = 8524819558) Clear Clear COLOR (test code = 3339838835) Yellow Yellow PH (test code = 2064114502) 4.8-8.0 SP GRAVITY (test code = 8454009816) 1.003-1.030 H GLU U QUAL (test code = 3459712939) Normal Normal BLOOD (test code = 9132361769) Negative Negative INTERFERENCE FRO M ASCORBIC ACID MAY CAUSE FALSE NEGATIVE RESULT KETONES (test code = 2969937578) 5 mg/dL Negative A PROTEIN (test code = 2887-8) 30 mg/dL Negative A UROBILIN (test code = 2898148352) 2.0 mg/dL Normal A BILIRUBIN (test code = 3503047383) Negative Negative NITRITE (test code = 9338446220) Negative Negative LEUK RONAK (test code = 3468988456) Negative Negative RBC/HPF (test code = 5412615513) See_Comment [Automated messa ge] The system which generated this result transmitted reference range: 0 - 3 HPF. The reference range was not used to interpret this result as normal/abnormal. WBC/HPF (test code = 7477484790) See_Comment [Automated messa ge] The system which generated this result transmitted reference range: 0 - 5 HPF. The reference range was not used to interpret this result as normal/abnormal. BACTERIA (test code = 1142824662) Few Negative A MUCOUS (test code = 9511263577) Marked Negative LPF A SQ EPITH (test code = 5566492817) HPF Lab Interpretation (test code = 83572-6) [facility] [id number] 23:46:00* Test Item Value Reference Range Interpretation Comme nts WBC (test code = 6690-2) See_Comment H [Automated messa ge] The system which generated this result transmitted reference range: 4.30 - 11.10 10*3/?L. The reference range was not used to interpret this result as normal/abnormal. RBC (test code = 789-8) See_Comment [Automated PolicyGeniusa ge] The system which generated this result transmitted reference range: 3.93 - 5.25 10*6/?L. The reference range was not used to interpret this result as normal/abnormal. HGB (test code = 718-7) 11.9 g/dL 11.6-15 HCT (test code = 4544-3) 37.6 % 35.7-45.2 MCV (test code = 787-2) 90.6 fL 80.6-95.5 MCH (test code = 785-6) 28.7 pg 25.9-32.8 MCHC (test code = 786-4) 31.6 g/dL 31.6-35.1 RDW-SD (test code = 03662-8) 48.6 fL 39-49.9 RDW-CV (test code = 788-0) 14.4 % 12-15.5 PLT (test code = 777-3) See_Comment [Automated messa ge] The system which generated this result transmitted reference range: 166 - 358 10*3/?L. The reference range was not used to interpret this result as normal/abnormal. MPV (test code = 05803-3) 10.1 fL 9.5-12.9 NRBC/100 WBC (test code = 0709470631) See_Comment [Automated [employer] ssage] The system which generated this result transmitted reference range: 0.0 - 10.0 /100 WBCs. The reference range was not used to interpret this result as normal/abnormal. NRBC x10^3 (test code = 7125639251) <0.01 See_Comment [Automated messa ge] The system which generated this result transmitted reference range: 10*3/?L. The reference range was not used to interpret this result as normal/abnormal. GRAN MAT (NEUT) % (test code = 770-8) 77.1 % IMM GRAN % (test code = 4070401760) 0.50 % LYMPH % (test code = 736-9) 13.8 % MONO % (test code = 5905-5) 7.6 % EOS % (test code = 713-8) 0.7 % BASO % (test code = 706-2) 0.3 % GRAN MAT x10^3(ANC) (test code = 4151114396) 9.37 10*3/uL 1.88-7.09 H IMM GRAN x10^3 (test code = 1996300224) 0.06 10*3/uL 0-0.06 LYMPH x10^3 (test code = 731-0) 1.68 10*3/uL 1.32-3.29 MONO x10^3 (test code = 742-7) 0.92 10*3/uL 0.33-0.92 EOS x10^3 (test code = 711-2) 0.09 10*3/uL 0.03-0.39 BASO x10^3 (test code = 704-7) 0.04 10*3/uL 0.01-0.07 Lab Interpretation (test code = 31825-8) Abnormal [facility] WITH [id number] 23:46:00* Test Item Value Reference Range Interpretation Comme nts WBC (test code = 6690-2) See_Comment H [Automated messa ge] The system which generated this result transmitted reference range: 4.30 - 11.10 10*3/?L. The reference range was not used to interpret this result as normal/abnormal. RBC (test code = 789-8) See_Comment [Automated messa ge] The system which generated this result transmitted reference range: 3.93 - 5.25 10*6/?L. The reference range was not used to interpret this result as normal/abnormal. HGB (test code = 718-7) 11.9 g/dL 11.6-15 HCT (test code = 4544-3) 37.6 % 35.7-45.2 MCV (test code = 787-2) 90.6 fL 80.6-95.5 MCH (test code = 785-6) 28.7 pg 25.9-32.8 MCHC (test code = 786-4) 31.6 g/dL 31.6-35.1 RDW-SD (test code = 11111-0) 48.6 fL 39-49.9 RDW-CV (test code = 788-0) 14.4 % 12-15.5 PLT (test code = 777-3) See_Comment [Automated messa ge] The system which generated this result transmitted reference range: 166 - 358 10*3/?L. The reference range was not used to interpret this result as normal/abnormal. MPV (test code = 76631-5) 10.1 fL 9.5-12.9 NRBC/100 WBC (test code = 1743424977) See_Comment [Automated me ssage] The system which generated this result transmitted reference range: 0.0 - 10.0 /100 WBCs. The reference range was not used to interpret this result as normal/abnormal. NRBC x10^3 (test code = 8823335594) <0.01 See_Comment [Automated messa ge] The system which generated this result transmitted reference range: 10*3/?L. The reference range was not used to interpret this result as normal/abnormal. GRAN MAT (NEUT) % (test code = 770-8) 77.1 % IMM GRAN % (test code = 2718095031) 0.50 % LYMPH % (test code = 736-9) 13.8 % MONO % (test code = 5905-5) 7.6 % EOS % (test code = 713-8) 0.7 % BASO % (test code = 706-2) 0.3 % GRAN MAT x10^3(ANC) (test code = 3022617824) 9.37 10*3/uL 1.88-7.09 H IMM GRAN x10^3 (test code = 2161662377) 0.06 10*3/uL 0-0.06 LYMPH x10^3 (test code = 731-0) 1.68 10*3/uL 1.32-3.29 MONO x10^3 (test code = 742-7) 0.92 10*3/uL 0.33-0.92 EOS x10^3 (test code = 711-2) 0.09 10*3/uL 0.03-0.39 BASO x10^3 (test code = 704-7) 0.04 10*3/uL 0.01-0.07 Lab Interpretation (test code = 52186-8) [facility] [id number] 23:30:00* Test Item Value Reference Range Interpretation Comme nts POCT PREG (test code = 1605) positive On board controls acceptable with C Line (test code = 3574) present Lab Interpretation (test cod e = 20917-7) Normal [facility] [id number] 23:30:00* Test Item Value Reference Range Interpretation Comme nts POCT PREG (test code = 1605) positive On board controls acceptable with C Line (test code = 3574) present Lab Interpretation (test cod e = 67736-9) Normal [facility] W/O SPECIFIC [id number] 18:26:00* Test Item Value Reference Range Interpretation Comme nts POCT PH U (test code = 3254) N/A 5-8 POCT U LEUK EST (test code = 3263) N/A Negative - Negative POCT U NIT (test code = 3262) N/A Negative - Negati ve POCT U PROT (test code = 3259) Negative Negative - Negat carmina POCT U GLU (test code = 3256) Negative Negative - Negati ve POCT U KETONE (test code = 3258) N/A Negative - Neg ative POCT U BLD (test code = 3257) N/A Negative - Negati ve [facility]1 HR GLUCOSE TOLERANCE [id number] 15:28:00 * Test Item Value Reference Range Interpretation Comme nts GLUC 1 HR (test code = 1012684667) 174 mg/dL 120-170 H Lab Interpretation (test cod e = 90485-9) Abnormal [facility] Center[facility] [id number] 14:37:00* Test Item Value Reference Range Interpretation Comme nts GLU FASTNG (test code = 2453394471) 85 mg/dL 70-110 Lab Interpretation (test cod e = 73986-8) Normal [facility] Notes Date/Time Note Provider Source 2023-10-04 16:56:03 IubU79WLx+9C13g4sbmB jgmM2CXT/or721a ENh/oVo/4ZY3vfq/Z4lwJTcasJh3V3577-7 10-04T16:56:03 Pt is needing a Rx refill for her proMETHazine 25 mg tablet, has 2 pills left .Please advise.[facility]/pharmacy #[id number] - [place], [place] - [address] [facility] [id number] [place] [address]Jafqv: [phone] Shxcqirdhzwzud signed by Santhosh Mendoza at 10/04/2023 4:57 PM NIA46630-8Fhrtxwsdo encounter XvgdTT8642-60-19V18:57:05Telephone encounter NoteTXT1.2.840.760466.1.13.104.2.7. 2.306374|[id number] for patient ofvn87955-7VnyzWIFUXVYPCUTGkeaquvph C-CDA narrative [id number] 5DOYLGZIHCSHJGVVWJJKXGW0924-88-26Y6 6:57:051.2.840.069303.1.72.3.15|1.2 .840.387952.1.13.104.2.7.2.727879_2 [id number] [facility] 2023-08-23 12:16:38 Fack0ZD/JL20e4JDzN+8 ziMxtiqk3+7Ym7L 6A+nKMFSnXHZcQInpMTQdKLVBpOid2746-5 2:16:38Addended by: DENISSE SEARS CNM on: 08/23/2023 12:16 PMModules accepted: Orders 62286-3Ndjdoftb KnlvohcsHG9246-41-74X80:16:38Addend um DocumentTXT1.2.840.880302.1.13.104. 2.7.2.582456|[id number] for patient kkpj05687-2IvllVSFWQFLQLAPSfffzzzon C-CDA narrative [id number] 3DEMTDYLPTUYBYYGTWQYYUM4047-84-23Q5 2:16:381.2.840.427598.1.72.3.15|1.2 .840.052014.1.13.104.2.7.2.727879_1 [id number] [facility] 2023-03-30 15:49:49 3pLDSVMO3ppUVd7HePxT qm5ZH9xmYmP9UbV 0sl4IzKXo+gswbKsVfNjWGWUr1BXI3100-3 5:49:49 Pt given discharge instructions on strep throat, tonsilititis. Given prescription X 1 for prednisone. Pt left ER ambulatory with adult, no signs of distress. 10333-4Wdtddutxe department QdhrQL8618-36-06P39:50:32[facility] NoteTXT1.2.840.341255.1.13.104.2.7. 2.937271|[id number] for patient [address] Ti[id number] 9NNMROAPIAZYLCWBAQKSUQU8834-23-15Z0 5:50:321.2.840.130553.1.72.3.15|1.2 .840.946110.1.13.104.2.7.2.727879_1 [id number] [facility] 2023-03-30 13:29:45 UoymadsHSCdUpjcQTevM AlNg3dD0f6GqXV0 uJ2+jzgW3T9gLRI+1lv477m5d7BWP1735-9 3:29:45 Patient states: "I went to [facility] in [place] last week and they gave me z-pack and a shot but it's still hurting. I have not eaten since Saturday, I'm so hungry" Pmhx: none 54202-9Tbzrjhowf department Triage nfreYI6114-44-45B53:30:40[facility] Triage noteTXT1.2.840.711878.1.13.104.2.7. 2.821319|[id number] for patient [id number] M Cruz RN[address]Ys[id number] 4FEZVLFKMYGQXFNVBOEWYFS3813-57-12K5 3:30:401.2.840.106475.1.72.3.15|1.2 .840.747565.1.13.104.2.7.2.727879_1 [id number] Paige Johnson RN [facility]
[2023-10-29 18:07] LABS: Absolute Lymphocytes (CBC) 1.1 K/uL (0.7-4.9); Hematocrit 36.3 % (36.0-45.0); Lymphocytes % 21.3 % (15.3-44.8); MCV 86.9 fL (80-100); MPV 8.6 fL (7.6-11.3); Platelets 217 thou/uL (152-406); RBC Red Blood Cell Count 4.18 M/uL (3.86-4.86)
[2023-10-29 18:08] LABS: Specific Gravity 1.026 (1.005-1.030); Urine Bilirubin 2+ (Negative); Urine Blood Negative (Negative); Urine Clarity Extremely Turbid (Clear); Urine Color Dark-Yellow (Yellow); Urine Glucose NEGATIVE (Negative); Urine Protein TRACE (Negative); Urine Urobilinogen 3+ (Normal); Urine pH 7.5 (5.0-7.0)
[2023-10-29 18:09] LABS: Urine Bacteria None Seen /HPF (<20); Urine Crystals Unidentified Few /HPF (None Seen); Urine Mucus Slight /HPF (None Seen); Urine RBC <5 /HPF (None Seen)
[2023-10-29 18:15] LABS: Albumin 2.2 g/dL (3.4-5.0); Bilirubin Total 1.6 mg/dL (0.2-1.0); Potassium 3.6 mEq/L (3.5-5.1); Protein, Total 6.6 g/dL (6.4-8.2)
[2023-10-29 18:19] LABS: Protime INR 0.92
--- NOTE | 2023-10-29 18:29 | RAD REPORT ---
EXAM DESCRIPTION: US - OB Limited - 10/29/2023 6:22 pm CLINICAL HISTORY: decreased movement COMPARISON: Transvaginal OB dated 12/28/2017 FINDINGS: A single cephalic presenting gestation is identified. Heart rate normal measured 151 bpm. Anterior placenta. No previa. The cervix is closed measuring 4.3 cm. Femur length measures 5.3 cm which is consistent with 28 weeks 0 day. The ROBE is within normal limits at 18.3 cm. IMPRESSION: 1. Single, cephalic gestation measuring 28 weeks 0 day with FAN of 01/21/2024 2. No gross abnormalities are identifiable. 3. Anterior placenta without previa. 4. ROBE is within normal limits.
--- NOTE | 2023-10-29 19:07 | ER ---
Nurse's Notes [facility] Name: Cony Krishnamurthy Age: 28 yrs Sex: Female : 1995 Arrival Date: 10/29/2023 Time: 16:55 Bed 14 Private MD: Diagnosis: Upper GI bleed, help syndrome, proteinuria Presentation: 10/29 17:01 Chief complaint: Patient states: "I've been vomiting blood today and it makes me as6 nervous because I'm and I haven't been feeling the baby move as much". Coronavirus screen: At this time, the client does not indicate any symptoms associated with coronavirus-19. Ebola Screen: No symptoms or risks identified at this time. Initial Sepsis Screen: Does the patient meet any 2 criteria? No. Patient's initial sepsis screen is negative. Does the patient have a suspected source of infection? No. Patient's initial sepsis screen is negative. Risk Assessment: Do you want to hurt yourself or someone else? Patient reports no desire to harm self or others. Onset of symptoms was October 29, 2023. 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 - Social history:: Smoking status: Patient denies any tobacco usage or history of. Screenin:40 [facility] ED Fall Risk Assessment (Adult) Score/Fall Risk Level 0 - 2 = Low Risk nj1 Oriented to surroundings, Maintained a safe environment, Hourly rounding (assess needs \\T\\ fall precautionary measures) done. Abuse screen: Denies threats or abuse. Denies injuries from another. 17:40 Nutritional screening: No deficits noted. Tuberculosis screening: No symptoms or risk nj1 factors identified. Assessment: 17:40 General: Appears in no apparent distress. comfortable, Behavior is calm, cooperative, nj1 appropriate for age. Pain: Complains of pain in abdomen and throat Pain currently is 5 out of 10 on a pain scale. Neuro: Level of Consciousness is awake, alert, obeys commands, Oriented to person, place, time, situation. Cardiovascular: Patient's skin is warm and dry. Respiratory: Airway is patent Respiratory effort is even, unlabored. 18:41 Reassessment: Patient appears in no apparent distress at this time. Patient and/or nj1 family updated on plan of care and expected duration. Pain level reassessed. Patient is alert, oriented x 3, equal unlabored respirations, skin warm/dry/pink. 19:00 General: Appears in no apparent distress. comfortable, Behavior is calm, cooperative. jw7 Pain: Complains of pain in Throat Pain does not radiate. Pain currently is 3 out of 10 on a pain scale. Quality of pain is described as burning, stinging, Pain began suddenly, Is episodic. 19:00 Neuro: Level of Consciousness is awake, alert, obeys commands, Oriented to person, jw7 place, time, situation. Cardiovascular: Heart tones S1 S2 present Capillary refill < 3 seconds Patient's skin is warm and dry. Respiratory: Airway is patent Trachea midline Respiratory effort is even, unlabored, Respiratory pattern is regular, symmetrical. GI: Abdomen is round Bowel sounds present X 4 quads. : No deficits noted. No signs and/or symptoms were reported regarding the genitourinary system. EENT: No deficits noted. No signs and/or symptoms were reported regarding the EENT system. Derm: Skin is intact, is healthy with good turgor, Skin is dry, Skin is normal, Skin temperature is warm. Musculoskeletal: Circulation, motion, and sensation intact. Range of motion: intact in all extremities. 20:00 Reassessment: Patient appears in no apparent distress at this time. Patient and/or jw7 family updated on plan of care and expected duration. Pain level reassessed. Patient is alert, oriented x 3, equal unlabored respirations, skin warm/dry/pink. 21:00 Reassessment: Patient appears in no apparent distress at this time. Patient and/or jw7 family updated on plan of care and expected duration. Pain level reassessed. Patient is alert, oriented x 3, equal unlabored respirations, skin warm/dry/pink. Vital Signs: 17:01 BP 128 / 80; Pulse 89; Resp 18; Temp 97.5(TE); Pulse Ox 100% on R/A; Weight 90.72 kg as6 (R); Height 5 ft. 4 in. (R); Pain 4/10; 17:45 BP 115 / 69; Pulse 62; Resp 18; Pulse Ox 100% on R/A; Pain 5/10; nj1 18:40 BP 120 / 78; Pulse 67; Resp 16; Pulse Ox 100% ; nj1 19:30 BP 110 / 77; Pulse 79; Resp 18 S; Pulse Ox 99% on R/A; jw7 20:30 BP 120 / 85; Pulse 72; Resp 16 S; Pulse Ox 100% on R/A; jw7 17:01 Body Mass Index 34.33 (90.72 kg, 162.56 cm) as6 17:01 Pain Scale: Adult as6 17:45 Pain Scale: Adult nj1 ED Course: 16:57 Patient arrived in ED. rg4 17:00 Shea Urbina MD is Attending Physician. sp3 17:03 Triage completed. as6 17:04 Arm band placed on. as6 17:38 Irma Mckeon RN is Primary Nurse. nj1 17:40 Patient has correct armband on for positive identification. Bed in low position. Call nj1 light in reach. 17:40 Provided Education on: call light, fall precautions. nj1 17:44 Inserted saline lock: 22 gauge in right antecubital area, using aseptic technique. nj1 Blood collected. 18:20 US OB Limited In Process Unspecified. EDMS 18:47 initiated transfer to [facility]. bd 19:10 Report given to Chantel GARCIAS. nj1 21:11 No provider procedures requiring assistance completed. Patient transferred, IV remains jw7 in place. Administered Medications: 17:54 Drug: NS 0.9% IV 1000 ml IV at 1 bolus Per protocol; 1000 mL bolus Route: IV; Rate: 1 nj1 bolus; Site: right antecubital; 20:43 Follow up: Response: No adverse reaction; IV Status: Completed infusion; IV Intake: jw7 1000ml 17:54 Drug: Ondansetron IVP 4 mg IVP once; over 2 minutes Route: IVP; Site: right antecubital;nj1 18:41 Follow up: Response: No adverse reaction; Nausea is decreased nj1 19:42 Drug: Magnesium Sulfate IVPB 6 grams IVPB once over 30 mins Route: IVPB; Infused Over: jw7 30 mins; Site: right antecubital; 20:43 Follow up: Response: No adverse reaction; IV Status: Completed infusion; IV Intake: jw7 150ml 20:17 Drug: Magnesium Sulfate IVPB 2000 mg/hr IVPB continuous Route: IVPB; Site: right jw7 antecubital; 21:10 Follow up: Response: No adverse reaction; IV Status: Infusion continued upon transfer; jw7 IV Intake: 40ml Medication: 21:12 VIS not applicable for this client. jw7 Intake: 20:43 IV: 1000ml; Total: 1000ml. jw7 20:43 IV: 150ml; Total: 1150ml. jw7 21:10 IV: 40ml; Total: 1190ml. jw7 Outcome: 19:06 ER care complete, transfer ordered by MD. sherwood 21:11 Transferred by ground EMS to [facility], jw7 21:11 Condition: stable 21:11 Instructed on the need for transfer, Demonstrated understanding of instructions, 21:12 Patient left the ED. jw7 Signatures: Dispatcher [employer] EDMS Codi Khalil Rubi rg4 Shea Urbina MD MD sp3 Royal Gregorio, RN RN as6 Chantel Frank RN RN jw7 Irma Mckeon, RN RN nj1
--- NOTE | 2023-10-29 19:07 | EDPHYS ---
Physician Documentation [facility] Name: Cony Krishnamurthy Age: 28 yrs Sex: Female : 1995 Arrival Date: 10/29/2023 Time: 16:55 Bed 14 Private MD: ED Physician Shea Urbina HPI: 10/29 17:21 This 28 yrs old Female presents to ER via Ambulatory with complaints of Decreased sp3 movement, Vomiting blood, 30 wks pg. 17:21 28-year-old female at 30 weeks presents to the ED with chief complaint emesis sp3 for 2 days now with pamela blood. Patient also states that she has decreased feelings of movement. Her OB is at [facility]. She denies any diarrhea with last bowel movement approximately 6 days ago. She denies significant abdominal pain, chest pain, shortness of breath, fever, URI symptoms, bleeding anywhere else, rash, syncope, near syncope, or any other signs or symptoms on ROS at this time.. 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 - Social history:: Smoking status: Patient denies any tobacco usage or history of. ROS: 17:24 Constitutional: Negative for fever, chills, and weight loss, Eyes: Negative for injury, sp3 pain, redness, and discharge, ENT: Negative for injury, pain, and discharge, Neck: Negative for injury, pain, and swelling, Cardiovascular: Negative for chest pain, palpitations, and edema, Respiratory: Negative for shortness of breath, cough, wheezing, and pleuritic chest pain, Back: Negative for injury and pain, Skin: Negative for injury, rash, and discoloration, Neuro: Negative for headache, weakness, numbness, tingling, and seizure, Allergy/Immunology: Negative for hives, rash, and allergies, Endocrine: Negative for neck swelling, polydipsia, polyuria, polyphagia, and marked weight changes, 17:24 All other systems are negative, Exam: 17:24 Constitutional: This is a well developed, well nourished patient who is awake, alert, sp3 and in no acute distress. Head/Face: Normocephalic, atraumatic. Eyes: Pupils equal round and reactive to light, extra-ocular motions intact. Lids and lashes normal. Conjunctiva and sclera are non-icteric and not injected. Cornea within normal limits. Periorbital areas with no swelling, redness, or edema. ENT: Nares patent. No nasal discharge, no septal abnormalities noted. External auditory canals are clear. Oropharynx with no redness, swelling, or masses, exudates, or evidence of obstruction, uvula midline. Mucous membranes moist. Neck: Trachea midline, no thyromegaly or masses palpated, and no cervical lymphadenopathy. Supple, full range of motion without nuchal rigidity, or vertebral point tenderness. No Meningismus. Chest/axilla: Normal chest wall appearance and motion. Nontender with no deformity. No lesions are appreciated. Cardiovascular: Regular rate and rhythm with a normal S1 and S2. No gallops, murmurs, or rubs. Normal PMI, no JVD. No pulse deficits. Respiratory: Lungs have equal breath sounds bilaterally, clear to auscultation and percussion. No rales, rhonchi or wheezes noted. No increased work of breathing, no retractions or nasal flaring. Back: No spinal tenderness. No costovertebral tenderness. Full range of motion. Skin: Warm, dry with normal turgor. Normal color with no rashes, no lesions, and no evidence of cellulitis. MS/ Extremity: Pulses equal, no cyanosis. Neurovascular intact. Full, normal range of motion. Neuro: Awake and alert, GCS 15, oriented to person, place, time, and situation. Cranial nerves II-XII grossly intact. Motor strength 5/5 in all extremities. Sensory grossly intact. Cerebellar exam normal. Normal gait. 17:24 Abdomen/GI: Gravid uterus consistent with dates. Mild epigastric pain noted without peritoneal signs rebound or guarding. Patient has photo of bloody emesis and the ER bathroom toilet which she took and has shown me. Blood is bright red in color., Vital Signs: 17:01 BP 128 / 80; Pulse 89; Resp 18; Temp 97.5(TE); Pulse Ox 100% on R/A; Weight 90.72 kg as6 (R); Height 5 ft. 4 in. (R); Pain 4/10; 17:45 BP 115 / 69; Pulse 62; Resp 18; Pulse Ox 100% on R/A; Pain 5/10; nj1 18:40 BP 120 / 78; Pulse 67; Resp 16; Pulse Ox 100% ; nj1 19:30 BP 110 / 77; Pulse 79; Resp 18 S; Pulse Ox 99% on R/A; jw7 20:30 BP 120 / 85; Pulse 72; Resp 16 S; Pulse Ox 100% on R/A; jw7 17:01 Body Mass Index 34.33 (90.72 kg, 162.56 cm) as6 17:01 Pain Scale: Adult as6 17:45 Pain Scale: Adult nj1 MDM: 17:11 Patient medically screened. sp3 17:26 Data reviewed: vital signs, nurses notes. sp3 17:29 ED course: 20-year-old female with bloody emesis and decreased movement. Will sp3 obtain routine labs and administer Zofran as well as get an ultrasound OB. Differential diagnosis includes gastritis, upper GI bleed, coagulopathy, among others. Also on the differential is demise given decreased movement. Disposition pending workup and patient course with possible transfer to [facility] for further evaluation.. 19:02 ED course: Spoke to L\T\D attending at [facility]. I am concerned about HELLP sp3 syndrome given low end of platelets, elevated LFTs and elevated total bilirubin. CBC demonstrates no hemolysis on the current report. We will start magnesium at 6 g loading dose and 2 g an hour IV with subsequent transfer to L\T\D.. 10/29 17:19 Order name: CBC with Diff; Complete Time: 18:20 sp3 10/29 17:19 Order name: CMP; Complete Time: 18:20 sp3 10/29 17:19 Order name: Lipase; Complete Time: 18:20 sp3 10/29 17:19 Order name: Urinalysis w/ reflexes; Complete Time: 18:20 sp3 10/29 17:19 Order name: PT-INR; Complete Time: 18:20 sp3 10/29 17:19 Order name: Ptt, Activated; Complete Time: 18:20 sp3 10/29 17:19 Order name: US OB Limited; Complete Time: 18:30 sp3 10/29 17:19 Order name: IV Saline Lock; Complete Time: 17:56 sp3 10/29 17:19 Order name: Labs collected and sent; Complete Time: 17:56 sp3 10/29 17:19 Order name: NPO; Complete Time: 18:08 sp3 Administered Medications: 17:54 Drug: NS 0.9% IV 1000 ml IV at 1 bolus Per protocol; 1000 mL bolus Route: IV; Rate: 1 nj1 bolus; Site: right antecubital; 20:43 Follow up: Response: No adverse reaction; IV Status: Completed infusion; IV Intake: jw7 1000ml 17:54 Drug: Ondansetron IVP 4 mg IVP once; over 2 minutes Route: IVP; Site: right antecubital;nj1 18:41 Follow up: Response: No adverse reaction; Nausea is decreased nj1 19:42 Drug: Magnesium Sulfate IVPB 6 grams IVPB once over 30 mins Route: IVPB; Infused Over: jw7 30 mins; Site: right antecubital; 20:43 Follow up: Response: No adverse reaction; IV Status: Completed infusion; IV Intake: jw7 150ml 20:17 Drug: Magnesium Sulfate IVPB 2000 mg/hr IVPB continuous Route: IVPB; Site: right jw7 antecubital; 21:10 Follow up: Response: No adverse reaction; IV Status: Infusion continued upon transfer; jw7 IV Intake: 40ml Disposition Summary: 10/29/23 19:06 Transfer Ordered Notes: Transfer Location: [facility] sp3 Reason: Higher level of care sp3 Condition: Stable sp3 Problem: new sp3 Symptoms: have worsened sp3 Accepting Physician: GRIFFIN Sanderson L\T\D(10/29/23 21:12) jw7 Diagnosis - Upper GI bleed, help syndrome, proteinuria sp3 Forms: - Medication Reconciliation Form sp3 - SBAR form sp3 Signatures: Dispatcher [employer] Shea Muñiz MD MD sp3 Royal Gregorio RN RN as6 Chantel Frank RN RN jw7 Irma Mckeon RN RN nj1 Corrections: (The following items were deleted from the chart) 21:12 19:06 [facility] Maria E Varghese\T\D sp3 jw7
[2023-10-29 21:32] VITALS: BP 120/85; TEMP 97.5; O2SAT 100
== END ==
LOC: ER 16:55
DX: O99.613 Diseases of the digestive system complicating pregnancy, third trimester (principal); O14.20 HELLP syndrome (HELLP), unspecified trimester; O12.13 Gestational proteinuria, third trimester; K92.0 Hematemesis; Z3A.34 34 weeks gestation of pregnancy
CPT/HCPCS: 85025; 81001; 36415; 85610; 85730; 83690; 80053; 76815; J3475; J2405; J7030

== ENCOUNTER 2024-01-08 14:06 | Emergency (ER) | payer OTHER ==
--- NOTE | 2024-01-08 14:16 | EDPHYS ---
Physician Documentation [facility] Name: Cony Krishnamurthy Age: 28 yrs Sex: Female : 1995 Arrival Date: 01/08/2024 Time: 14:06 Bed 3 Private MD: ED Physician Cain Heck HPI: 01/07 16:50 This 28 yrs old Female presents to ER via EMS with complaints of opioid overdose. ms3 16:50 28-year-old female with no past medical history presents to the emergency department ms3 via [facility] after being found unresponsive laying against the couch. EMS notes patient has a history of fentanyl abuse. EMS administered 2 mg of Narcan and patient became alert and oriented x 4 approximately 5 minutes after administration. EMS notes patient refused vital signs. Patient endorses snorting a Percocet prior to becoming unresponsive. She states she would like to receive help and will be going to rehab in 1 week. She is concerned about this overdose as she states she lost her children due to drug abuse and that is her reason for wanting to become clean. Patient provided information for [facility] emergency response opioid engagement system. Historical: - Allergies: 14:20 No Known Allergies; db - PMHx: 14:20 None; db - Immunization history:: Adult Immunizations unknown. - Infectious Disease History:: Denies. - Social history:: Patient uses street drugs, Smoking status: Reported history of juuling and/or vaping. ROS: 16:50 Constitutional: Negative for fever, and chills. Neck: Negative for injury, pain, and ms3 swelling, Cardiovascular: Negative for chest pain, and palpitations. Respiratory: Negative for shortness of breath, cough, wheezing, and pleuritic chest pain, Abdomen/GI: Negative for abdominal pain, nausea, vomiting, diarrhea, and constipation, MS/Extremity: Negative for injury and deformity, Skin: Negative for injury, rash, and discoloration, Exam: 16:50 Constitutional: This is a well developed, well nourished patient who is awake, alert, ms3 and in no acute distress. Head/Face: Normocephalic, atraumatic. Chest/axilla: Normal chest wall appearance and motion. Nontender with no deformity. Cardiovascular: Regular rate and rhythm with a normal S1 and S2. No gallops, murmurs, or rubs. Normal PMI, no JVD. No pulse deficits. Respiratory: Lungs have equal breath sounds bilaterally, clear to auscultation and percussion. No rales, rhonchi or wheezes noted. No increased work of breathing, no retractions or nasal flaring. Abdomen/GI: Soft, non-tender, with normal bowel sounds. No distension or tympany. No guarding or rebound. No evidence of tenderness throughout. Skin: Warm, dry with normal turgor. Normal color with no rashes, no lesions, and no evidence of cellulitis. MS/ Extremity: Pulses equal, no cyanosis. Neurovascular intact. Full, normal range of motion. Vital Signs: 13:54 db 14:18 Resp 18; db 13:54 PT REFUSED VITAL SIGNS db 14:18 PATIENT REFUSED VITALS db MDM: 14:08 Patient medically screened. ms3 16:50 Differential diagnosis: Opioid overdose. Data reviewed: vital signs, nurses notes. ms3 Historians other than the Patient: EMS: [facility]. Counseling: I had a detailed discussion with the patient and/or guardian regarding the historical points, exam findings, and any diagnostic results supporting the discharge/admit diagnosis, the need for outpatient follow up, to return to the emergency department if symptoms worsen or persist or if there are any questions or concerns that arise at home. ED course: Patient is alert and oriented x 4, no apparent distress, nontoxic-appearing, ambulatory in emergency department, speaking full sentences. Patient stated she would like to be discharged. Patient to follow-up Dr. Urbina in 2 to 3 days and patient encouraged to follow-up with [facility] emergency response opioid engagement system. All questions were answered. Return precautions discussed include worsening symptoms, or any other concerns. Administered Medications: No medications were administered Disposition Summary: 01/08/24 14:15 Discharge Ordered Notes: Location: Home ms3 Condition: Stable ms3 Diagnosis - Opioid overdose ms3 Followup: ms3 - With: Murali Urbina DO - When: 2 - 3 days - Reason: Recheck today's complaints Discharge Instructions: - Discharge Summary Sheet ms3 - Opioid Overdose ms3 Forms: - Medication Reconciliation Form ms3 - Antibiotic Education ms3 - Prescription Opioid Use ms3 - Patient Portal Instructions ms3 - Leadership Thank You Letter ms3 Signatures: Cain Heck DO DO ms3 Aissatou Keating, RN RN db
--- NOTE | 2024-01-08 14:21 | ER ---
Nurse's Notes [facility] Name: Cony Krishnamurthy Age: 28 yrs Sex: Female : 1995 Arrival Date: 01/08/2024 Time: 14:06 Bed 3 Private MD: Diagnosis: Opioid overdose Presentation: 01/07 13:54 Chief complaint: EMS states: PT FOUND AT HER FRIEND'S HOUSE FROM DRUG OD FOUND db UNRESPONSIVE WITH SNORING RESPIRATIONS. HX OF USING FENTANYL. GIVEN 2 MG NARCAN. PT REFUSED TO GIVE INFORMATION. Coronavirus screen: Client denies travel out of the [place] in the last 14 days. At this time, the client does not indicate any symptoms associated with coronavirus-19. Ebola Screen: Unable to complete the Ebola screening because:. Ebola Screen: Patient negative for fever greater than or equal to 101.5 degrees Fahrenheit, and additional compatible Ebola Virus Disease symptoms Patient denies exposure to infectious person. Patient denies travel to an Ebola-affected area in the 21 days before illness onset. No symptoms or risks identified at this time. Unable to complete the Ebola screening because: PT REFUSED. Initial Sepsis Screen: Does the patient meet any 2 criteria? No. Patient's initial sepsis screen is negative. Does the patient have a suspected source of infection? No. Patient's initial sepsis screen is negative. Risk Assessment: Do you want to hurt yourself or someone else? Patient reports no desire to harm self or others. Onset of symptoms was January 08, 2024. Care prior to arrival: Medication(s) given: NARCAN 4 MG INTRANASAL. 13:54 Method Of Arrival: EMS: [facility] db 13:54 Acuity: SYBIL 2 db Triage Assessment: 13:54 General: Appears in no apparent distress. Behavior is agitated, uncooperative. Pain: db Denies pain. Historical: - Allergies: 14:20 No Known Allergies; db - PMHx: 14:20 None; db - Immunization history:: Adult Immunizations unknown. - Infectious Disease History:: Denies. - Social history:: Patient uses street drugs, Smoking status: Reported history of juuling and/or vaping. Screenin:20 [facility] ED Fall Risk Assessment (Adult) History of falling in the last 3 months, db including since admission No falls in past 3 months (0 pts) Confusion or Disorientation No (0 pts) Intoxicated or Sedated No (0 pts) Impaired Gait Yes (1 pt) Mobility Assist Device Used No (0 pt) Altered Elimination No (0 pt) Score/Fall Risk Level 0 - 2 = Low Risk Oriented to surroundings, Maintained a safe environment. Abuse screen: Denies threats or abuse. Denies injuries from another. Nutritional screening: No deficits noted. Tuberculosis screening: No symptoms or risk factors identified. Assessment: 13:59 Reassessment: PT SPEAKING WITH DR. HECK. REFUSES TO GIVE INFORMATION FOR REGISTRATION. db REFUSED VITALS. Vital Signs: 13:54 db 14:18 Resp 18; db 13:54 PT REFUSED VITAL SIGNS db 14:18 PATIENT REFUSED VITALS db ED Course: 13:54 Arm band placed on Patient placed. db 13:59 Patient has correct armband on for positive identification. Bed in low position. Call db light in reach. Side rails up X 1. 14:07 Patient arrived in ED. bd 14:08 Cain Heck DO is Attending Physician. ms3 14:15 Murali Urbina DO is Referral Physician. ms3 14:16 Triage completed. db 14:18 Provided Education on: HOME SAFETY. db 14:18 No provider procedures requiring assistance completed. Patient did not have IV access db during this emergency room visit. Administered Medications: No medications were administered Medication: 14:20 VIS not applicable for this client. db Outcome: 14:15 Discharge ordered by MD. ms3 14:18 Discharged to home ambulatory, db 14:18 Condition: stable 14:20 Discharge instructions given to patient, Instructed on discharge instructions, follow db up and referral plans. 14:21 Patient left the ED. db Signatures: Codi Khalil bd Cain Heck DO DO ms3 Aissatou Keating, RN RN db
== END 2024-01-08 14:21 | disposition home or self-care (01) ==
LOC: EDBD 14:06 → MERGE 14:06 → ER 14:06
DX: T40.2X1A Poisoning by other opioids, accidental (unintentional), initial encounter (principal)

== ENCOUNTER 2024-05-01 16:41 | Emergency (ER) | payer OTHER ==
[~2024-05-01 16:41] MED LIST changes: -MAGNESIUM SULFATE IV ONE; +NALOXONE 0.4 MG/ML VIAL ONE; -ONDANSETRON 4 MG/2 ML VIAL ONE
--- NOTE | 2024-05-01 16:47 | EDPHYS ---
Physician Documentation [facility] Name: Cony Krishnamurthy Age: 28 yrs Sex: Female : 1995 Arrival Date: 05/01/2024 Time: 16:41 Bed 8 Private MD: ED Physician Cain Heck HPI: 05/01 21:17 This 28 yrs old Female presents to ER via Stretcher with complaints of Overdose. ms3 21:17 28-year-old female presents to the emergency department unresponsive in the back of a ms3 vehicle. Persons with the patient stated patient overdosed.. Historical: - Allergies: 16:48 unable to obtain; mb9 16:48 No Known Drug Allergies; tm6 - PMHx: 16:48 Asthma; mb9 16:48 Asthma; tm6 - PSHx: 16:48 Unable to Obtain; mb9 - Immunization history:: Adult Immunizations unknown, unknown. - Infectious Disease History:: unknown. - Social history:: Smoking status: unknown Smoking status: unknown. ROS: 21:17 Unable to obtain ROS due to Patient unresponsive, ms3 Exam: 21:17 Constitutional: This is a well developed, well nourished patient who is awake, alert, ms3 and in no acute distress. Head/Face: Normocephalic, atraumatic. Neck: Trachea midline, no cervical lymphadenopathy. Supple, full range of motion without nuchal rigidity, or vertebral point tenderness. No Meningismus. Chest/axilla: Normal chest wall appearance and motion. Nontender with no deformity. Cardiovascular: Regular rate and rhythm with a normal S1 and S2. No gallops, murmurs, or rubs. Normal PMI, no JVD. No pulse deficits. Respiratory: Lungs have equal breath sounds bilaterally, clear to auscultation and percussion. No rales, rhonchi or wheezes noted. No increased work of breathing, no retractions or nasal flaring. Abdomen/GI: Soft, non-tender, with normal bowel sounds. No distension or tympany. No guarding or rebound. No evidence of tenderness throughout. Skin: Warm, dry with normal turgor. Normal color with no rashes, no lesions, and no evidence of cellulitis. MS/ Extremity: Pulses equal, no cyanosis. Neurovascular intact. Full, normal range of motion. Vital Signs: 16:46 BP 168 / 96; Pulse 111; Resp 18; Temp 98; Pulse Ox 100% on BVM; mb9 MDM: 16:44 Patient medically screened. ms3 21:17 Differential diagnosis: Ingestion/exposure to Opioids polypharmacy, over medication. ms3 Data reviewed: vital signs, nurses notes. I considered the following discharge prescriptions or medication management in the emergency department Medications were administered in the Emergency Department. See MAR. Counseling: I had a detailed discussion with the patient and/or guardian regarding the historical points, exam findings, and any diagnostic results supporting the discharge/admit diagnosis, Need to continue further workup and observation in the emergency. Refusal of service: The patient/guardian displays adequate decision making capability and despite a detailed discussion of alternatives, benefits, risks, and consequences refuses: all lab tests, Observation in the emergency department. ED course: After patient received IV Narcan in the emergency department she awoke. Patient was alert and oriented x 4, no apparent distress, nontoxic-appearing, ambulatory in the emergency department. Patient refused further care, removed her IV, and walked out of the emergency department. Discussed with patient the opioids taken may have a longer half-life than the Narcan given and she could return to an unconscious state causing or disability. Patient understands and accepts risks. Patient is able to verbalize risks. Patient left the emergency department alert and oriented x 4, no apparent distress, nontoxic-appearing, speaking full sentences. Administered Medications: 16:38 Drug: Naloxone IVP 2 mg IVP once Route: IVP; Site: right antecubital; mb9 16:51 Follow up: Response: No adverse reaction mb9 Disposition: 21:20 Chart complete. ms3 Disposition Summary: 05/01/24 16:46 Discharge Ordered Notes: Location: Home ms3 Condition: Stable ms3 Diagnosis - Opioid overdose ms3 Followup: ms3 - With: Murali Urbina, DO - When: 2 - 3 days - Reason: Re-evaluation by your physician Discharge Instructions: - Discharge Summary Sheet ms3 - Opioid Overdose ms3 Forms: - Medication Reconciliation Form ms3 - Antibiotic Education ms3 - Prescription Opioid Use ms3 - Patient Portal Instructions ms3 - Leadership Thank You Letter ms3 Prescriptions: - Narcan 4 mg/actuation Nasal spray, non-aerosol - spray 1 spray INTRANASAL route every 2 minutes spray 1 dose into ONE nostril; ms3 alternate nostrils w each dose until help arrives; 1 unit; Refills: 0, Product Selection Permitted Signatures: Cain Heck DO DO ms3 Layne Gambino, RN RN mb9 Chikis Daley RN RN tm6
--- NOTE | 2024-05-01 16:47 | ER ---
Nurse's Notes [facility] Name: Cony Krishnamurthy Age: 28 yrs Sex: Female : 1995 Arrival Date: 05/01/2024 Time: 16:41 Bed 8 Private MD: Diagnosis: Opioid overdose Presentation: 05/01 16:35 Chief complaint: pt in passenger seat in front of ER unresponsive and Airway is mb9 compromised. Radiology Director stating she is overdosing and needs help. Pt pulled out of car and placed on stretcher. Ebola Screen: No symptoms or risks identified at this time. 16:45 Initial Sepsis Screen: Does the patient meet any 2 criteria? No. Patient's initial mb9 sepsis screen is negative. Does the patient have a suspected source of infection? No. Patient's initial sepsis screen is negative. Risk Assessment: Do you want to hurt yourself or someone else? Patient reports no desire to harm self or others. Onset of symptoms was May 01, 2024. 16:45 Acuity: SYBIL 1 mb9 16:46 Method Of Arrival: Stretcher mb9 Triage Assessment: 16:35 General: Appears distressed, Behavior is unresponsive. mb9 16:35 Pain: Unable to use pain scale. Patient is unresponsive. Neuro: Faria mb9 Agitation-Sedation Scale (RASS): -5 Unarousable Level of Consciousness is unresponsive, Oriented to none. Cardiovascular: Rhythm is sinus tachycardia. Respiratory: Airway is compromised Respiratory effort is shallow, weak. Derm: Skin is intact, Skin is dry, Skin is pale. Historical: - Allergies: 16:48 unable to obtain; mb9 16:48 No Known Drug Allergies; tm6 - PMHx: 16:48 Asthma; mb9 16:48 Asthma; tm6 - PSHx: 16:48 Unable to Obtain; mb9 - Immunization history:: Adult Immunizations unknown, unknown. - Infectious Disease History:: unknown. - Social history:: Smoking status: unknown Smoking status: unknown. Assessment: 16:35 Respiratory: Airway via nasal trumpet. mb9 16:42 Reassessment: Patient states symptoms have improved. Neuro: Level of Consciousness is mb9 awake, Oriented to none. Respiratory: Airway is patent Respiratory effort is even, unlabored, Respiratory pattern is regular, symmetrical. 16:45 Reassessment: Pt ripping off monitors and getting out of bed. ERP at bedside speaking mb9 to pt. Pt noncompliant and walking out of ER. Charge nurse and ERP with pt explaining the risks of leaving such as dying and becoming unresponsive again. Pt removed IV and left ER. Vital Signs: 16:46 BP 168 / 96; Pulse 111; Resp 18; Temp 98; Pulse Ox 100% on BVM; mb9 ED Course: 16:41 Inserted saline lock: 18 gauge in right antecubital area, using aseptic technique. tm6 Flushed with 10 mL NS. 16:42 Patient arrived in ED. tm6 16:44 Cain Heck DO is Attending Physician. ec2 16:44 Layne Gambino, KATERINE is Primary Nurse. mb9 16:45 Triage completed. mb9 16:46 Murali Urbina DO is Referral Physician. ms3 16:47 Arm band placed on. mb9 16:48 IV discontinued, intact, bleeding controlled, No redness/swelling at site. Pressure tm6 dressing applied. Administered Medications: 16:38 Drug: Naloxone IVP 2 mg IVP once Route: IVP; Site: right antecubital; mb9 16:51 Follow up: Response: No adverse reaction mb9 Outcome: 16:46 Discharge ordered by . ms3 16:52 Discharged to pt walked out of ER mb9 16:52 Condition: improved 16:54 Patient left the ED. mb9 Signatures: Cain Heck DO DO ms3 Layne Gambino, RN RN mb9 Mykel Mcdowell MD MD ec2 Chikis Daley RN RN tm6 Corrections: (The following items were deleted from the chart) 16:48 16:45 Reassessment: Pt ripping off monitors and getting out of bed. ERP at bedside mb9 speaking to pt. Pt noncompliant and walking out of ER. Charge nurse and ERP with pt mb9 16:50 16:46 BP 168 / 96; Pulse 111bpm; Resp 18bpm; Pulse Ox 100%; Temp 98F; mb9 mb9 16:55 16:35 Coronavirus screen: Vaccine status: Patient reports being unvaccinated. mb9 mb9 16:55 16:35 Chief complaint: pt in passenger seat in front of ER unresponsive . Radiology Director mb9 stating she is overdosing and needs help. Pt pulled out of car and placed on stretcher. mb9 16:55 16:45 Reassessment: Pt ripping off monitors and getting out of bed. ERP at bedside mb9 speaking to pt. Pt noncompliant and walking out of ER. Charge nurse and ERP with pt. Pt removed IV and left ER. mb9
--- OUTSIDE RECORDS SUMMARY | 2024-05-01 16:57 | XMS REPORT | Continuity of Care Document ---
Author Name Unknown Address [address] [facility] [address] [place] [address] [facility] thconnect Address [address] [facility] 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 Role Phone PCP, PATIENT DOES NOT HAVE A Primary Care Physic jorge Unavailable MARILIN ROLLINS Attending Clinician Unavailable MARILIN ROLLINS Attending Clinician Unavailable TYSHAWN KWOK Attending Clinician Unavailable Ivelisse De La Cruz LMSW Attending Clinician + [phone] DENISSE GUERRA Attending Clinician UnavailDARLENE Wiggins Attending Clinician Unavailable Darlene Hussein MD Attending Clinician [phone] Alban Ragsdale MD Attending Clinician [phone] Denisse Guerra CNM Attending Clinician [phone] Akinsipe JENNIFERPAnant Attending Clinician + DANIEL TREJO Attending Clinician Unavailable DANIEL TREJO Attending Clinician Unavailable Ultrasound, Ang-Mfm Attending Clinician UnavailDaniel Jain MD Attending Clinician [phone] SANTHOSH BARROSO Attending Clinician UnavailSanthosh Santos MD Attending Clinician [phone] João Sandra MD Attending Clinician [phone] Doctor Unassigned, [place] Attending Clinician U KEN Boateng Attending Clinician Unav souleymane Kessler MD, Ken Silva Attending Clinician + Robert STAPLETON Attending Clinician Unavailable Robert Humphrey Attending Clinician [phone] AKINSIANANT MCPHERSON Attending Clinician Unavail able BOOM RAYO Attending Clinician Unavailab jose Rayo ELECTRIC MOTOR REPAIRING SUPERVISORBoom Attending Clinician [phone] Imelda Claudio R Attending Clinician [phone] YASHIRA GARCIA Attending Clinician Unavailable Yashira Garcia PA-C Attending Clinician [phone] 1, [facility] Attending Clinician Unavailable Christi Castellano MD Attending Clinician [phone] SANTHOSH BARROSO Admitting Clinician UnavailMARILIN Cummings Admitting Clinician Unavailable DARLENE HUSSEIN Admitting Clinician Unavailable Darlene Hussein MD Admitting Clinician [phone] Santhosh Barroso MD Admitting Clinician [phone] Robert STAPLETON Admitting Clinician Unavailable Payers Payer Name Policy Type Policy Number Effective Date Expirati on Date Source [place] [employer] [id number] 2023 00:00:00 [employer] [place] [id number] 2020 00:00:00 [facility] [place] [facility] [id number] 2020 00:00:00 [facility] [id number] 2023 00:00:00 2023 00:00:00 Problems Condition Name Condition Details Condition Category Status Onset Date Resolution Date Last Treatment Date Treating Clinician Comments Source Liveborn infant, of bright , born in hospital by vaginal delivery Liveborn , of bright , born in hospital by vaginal delivery Disease Active 12-21 00:00: 00 [facility] 36 weeks gestation of 36 weeks gestation of Disease Active 12-21 00:00: 00 [facility] Obesity (BMI 30-39.9) Obesity (BMI 30-39.9) Disease Active 0 4-21 00:00: 00 [facility] uterine contractio ns, antepartum , third trimester uterine contractio ns, antepartum , third trimester Disease Active 0 4-21 00:00: 00 [facility] Elevated blood pressure affecting in third trimester, antepartum Elevated blood pressure affecting in third trimester, antepartum Disease Active 4-21 00:00: 00 [facility] Gestationa l hypertensi on, third trimester Gestationa l hypertensi on, third trimester Disease Active 4-21 00:00: 00 [facility] Severe preeclamps ia, third trimester Severe preeclamps ia, third trimester Disease Active 0 4- 00:00: 00 [facility] Poor weight gain of , third trimester Poor weight gain of , third trimester Disease Active 3-27 00:00: 00 [facility] Poor appetite Poor appetite Disease Active 0 3-27 00:00: 00 [facility] Anemia of mother in , antepartum Anemia of mother in , antepartum Disease Active 3-08 00:00: 00 [facility] Cholelithi asis affecting in third trimester, antepartum Cholelithi asis affecting in third trimester, antepartum Disease Active 0 2-28 00:00: 00 [facility] Hematemesi s with nausea Hematemesi s with nausea Disease Active 2-28 00:00: 00 [facility] 28 weeks gestation of 28 weeks gestation of Disease Active 0 2-28 00:00: 00 [facility] Depression affecting Depression affecting Disease Active 2022-09 2- 00:00: 00 [facility] Constipati on during Constipati on during Disease Active 2022-09 2- 00:00: 00 [facility] Nausea and vomiting during Nausea and vomiting during Disease Active 2022-09- 00:00: 00 [facility] BV (bacterial vaginosis) BV (bacterial vaginosis) Disease Active 2022-09 1-02 00:00: 00 [facility] Yeast infection Yeast infection Disease Active 2022-09 1-02 00:00: 00 [facility] Multiparit y Multiparit y Disease Active 2022-09 0-31 00:00: 00 [facility] Engages in vaping Engages in vaping Disease Active 2022-09 0-03 00:00: 00 [facility] History of pre-eclamp ferdinand in prior , currently History of pre-eclamp ferdinand in prior , currently Disease Active 2022-09 0-03 00:00: 00 [facility] Chlamydia infection affecting Chlamydia infection affecting Disease Active 2-17 00:00: 00 Overview: Formattin g of this note might be different from the original. 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, antepartum Disease Active 2-12 00:00: 00 [facility] Vaginal yeast infection Vaginal yeast infection Disease Active 6-12 00:00: 00 [facility] Abnormal maternal glucose tolerance, antepartum Abnormal maternal glucose tolerance, antepartum Disease Active 3-29 00:00: 00 Overview: Passed 3 hr gtt [facility] Supervisio n of high risk , antepartum Supervisio n of high risk , antepartum Disease Active 3-28 00:00: 00 [facility] History of miscarriag e History of miscarriag e Disease Active 3-06 00:00: 00 Overview: Formattin g of this note might be different from the original. X5 per patient [facility] Tobacco smoking affecting Tobacco smoking affecting Disease Active 16 00:00: 00 [facility] Asthma during Asthma during Disease Active 02-10 00:00: 00 Overview: Formattin g of this note might be different from the original. ICD10 Diagnosis Term Orthotic Technician Utility [facility] Obesity in Obesity in Disease Active 02-10 00:00: 00 [facility] History of asthma History of asthma Disease Active 02-10 00:00: 00 Overview: Formattin g of this note might be different from the original. ICD10 Diagnosis Term Orthotic Technician Utility [facility] Allergies, Adverse Reactions, Alerts Allergy Name Allergy Type Status Severity Reaction(s) Onset Date Inactive Date Treating Clinician Comments Source NO KNOWN ALLERGIE S Drug Class Active [facility] Social History Social Habit Start Date Stop Date Quantity Comments Source ASSERTION 2023-04-25 00:00:00 [facility] Exposure to SARS-CoV-2 (event) Not sure [facility] Gender identity [facility] Alcoholic beverage intake 2024-02-10 00:00:00 2024-02-10 00:00:00 0 /d [facility] Education 2023-12-22 00:00:00 2023-12-22 00:00:00 12 [facility] Alcohol intake 2023-12-22 00:00:00 2023-12-22 00:00:00 0 /d [facility] History of Social function 2023-07-02 00:00:00 2023-07-02 00:00:00 [facility] Tobacco use and exposure 2023-06-04 00:00:00 2023-06-04 00:00:00 User of smokeless tobacco [facility] Cigarettes smoked current (pack per day) - Reported 2023-06-04 00:00:00 2023-06-04 00:00:00 [facility] Tobacco Comment 2023-06-04 00:00:2023-06-04 00:00:00 vapes daily since 2018 [facility] History of tobacco use 2007-11-06 00:00:00 2020-05-03 00:00:00 Cigarette Smoker [facility] Sex assigned at 1995 00:00:00 1995 00:00:00 [facility] Smoking Status Start Date Stop Date Source Ex-smoker 2023-06-04 00:00:00 2023-06-04 00:00:[address] Current every day smoker 2020-10-11 00:00:00 [facility] Medications Ordered Medication Name Filled Medication Name Start Date Stop Date Current Medication? Ordering Clinician Indication Dosage Frequency Signature (SIG) Comments Components Source ipratropium -albuteroL (DUONEB) 0.5 mg-3 mg(2.5 mg base)/3 mL nebulizer solution 3 mL 02-09 16:45: 00 02-09 17:01 :00 No 3mL 3 mL, Inhalation , ONCE NOW, 1 dose, On Sat02/10/24 at 1145, Routine [facility] methylPREDN ISolone sod succ (SOLU-MEDRO L (PF)) injection 125 mg 02-09 16:15: 00 02-09 17:01 :00 No 125mg 125 mg, Intravenou s, ONCE, 1 dose, On Sat02/10/24 at 1115, GEORGE [facility] levalbutero l 45 mcg/actuati on inhaler 02-09 00:00: 00 Yes [id number] 1{puff} Inhale 1-2 Puffs every 4 (four) hours as needed for Wheezing. [facility] budesonide- formoteroL 80-4.5 mcg/actuati on inhaler 02-09 00:00: 00 Yes [id number] 2{puff} Inhale 2 Puffs in the morning and 2 Puffs in the evening. [facility] predniSONE 50 mg tablet 02-09 00:00: 00 02-15 04:59 :00 Yes [id number] 50mg Take 1 tablet by mouth in the morning for 5 days. [facility] vitamin w/FA tablet 12-23 00:00: 00 Yes [id number] 1{tbl} Take 1 tablet by mouth in the morning. [facility] docusate 100 mg capsule 12-23 00:00: 00 Yes [id number] 200mg Take 2 capsules by mouth once daily as needed for Constipati on. [facility] ferrous sulfate 325 mg (65 mg iron) tablet 12-23 00:00: 00 Yes [id number] 325mg Take 1 tablet by mouth in the morning. [facility] ibuprofen 600 mg tablet 12-23 00:00: 00 Yes [id number] 600mg Take 1 tablet by mouth every 6 (six) hours as needed (Pain). Take with food or milk. [facility] lactated ringers IV infusion 1,000 mL 12-22 21:00: 00 12-23 01:28 :34 No 1000mL at 50 mL/hr, 1,000 mL, IV Infusion, CONTINUOUS , Starting on Sat12/23/23 at 1600, Until Sat12/23/23 at 2027, Routine [facility] labetaloL (NORMODYNE) injection 20 mg 12-22 01:40: 00 12-22 01:37 :00 No 20mg 20 mg, Slow IV Push, ONCE, 1 dose, On Sat12/22/23 at 2044, Routine [facility] HYDROcodone -acetaminop hen (NORCO 5) 5-325 mg tablet 1 tablet 12-22 01:16: 45 12-23 01:28 :34 No 1{tbl} 1 tablet, Oral, Q6HPRN, Starting on Sat12/22/23 at 2015, Until Sat12/23/23 at 2027, Routine, Pain (scale 7-10) [facility] ibuprofen (IBU) tablet 600 mg 12-22 01:16: 45 12-23 01:28 :34 No 600mg 600 mg, Oral, Q6HPRN, Starting on Sat12/22/23 at 2015, Until 12/23/23 at 2027, Routine, Pain (scale 4-6) [facility] fentaNYL-ro pivacaine 2 mcg/mL-0.1 % (PF) in NS 200 mL epidural infusion RTU 12-21 21:05: 00 12-22 03:55 :51 No Intra-op [facility] lidocaine-e pinephrine (XYLOCAINE W/EPINEPHRI NE) 1.5 %-1:200,000 injection 12-21 20:58: 00 12-22 03:55 :51 No Epidural, ONCE INTRA PROCEDURE, Starting on 12/22/23 at 1558, Until Discontinu ed, Routine, Intra-op [facility] oxytocin (PITOCIN) 30 units in NS 500 mL IV infusion 12-21 18:59: 07 12-22 01:18 :42 No 2mU/min at 2-40 mL/hr, IV Infusion, TITRATE, Starting on Sat12/22/23 at 1359, Until Sat12/22/23 at 2018, Routine [facility] D5W-LR IV infusion 1,000 mL 12-21 18:59: 07 12-22 01:18 :42 No 1000mL at 1-125 mL/hr, IV Infusion, TITRATE, Starting on Sat12/22/23 at 1359, Until Sat12/22/23 at 2018, Routine [facility] Iron Fum & P-FA-Vit B & C No.9 (INTEGRA PLUS) 125 mg iron- 1 mg Cap 11-07 00:00: 00 Yes [id number] 1{capsu le} Take 1 capsule by mouth in the morning. [facility] ondansetron (ZOFRAN) tablet 4 mg 10-31 16:45: 00 10-31 16:23 :00 No 4mg 4 mg, Oral, ONCE, 1 dose, On Sat11/01/23 at 1045, [facility] EC tablet 40 mg 10-31 14:00: 00 Yes 40mg 40 mg, Oral, BID, First dose on Sat11/01/23 at 0800, Until Discontinu ed, Routine [facility] ondansetron (ZOFRAN-ODT ) disintegrat ing tablet 4 mg 10-31 09:30: 00 10-31 09:09 :00 No 4mg 4 mg, Oral, ONCE, 1 dose, On Sat11/01/23 at 0330, Routine [facility] oxyCODONE immediate release tablet 5 mg 10-31 08:44: 25 Yes 5mg 5 mg, Oral, Q6HPRN, Starting on Sat11/01/23 at 0244, Until Discontinu ed, Routine, Pain (scale 7-10)
F aculty member approving Restricted medication : OBYWHITE [facility] acetaminoph en (TYLENOL) tablet 1,000 mg 10-31 04:00: 00 Yes 1000mg 1,000 mg, Oral, Q8H, First dose on Sat10/31/23 at 2200, Until Discontinu ed, Routine [facility] acetaminoph en (OFIRMEV) IV piggyback 1,000 mg 10-31 00:30: 00 10-31 00:26 :00 No 1000mg 1,000 mg, IV Piggyback, at 400 mL/hr Administer over 15 Minutes, ONCE, 1 dose, On Sat10/31/23 at 1830, Routine
Is the patient strict NPO and unable to tolerate oral medication s? Yes [facility] acetaminoph en (TYLENOL EXTRA STRENGTH) 500 mg tablet 10-31 00:00: 00 Yes [id number] 500mg Take 1 tablet by mouth every 8 (eight) hours. [facility] oxyCODONE 5 mg immediate release tablet 10-31 00:00: 00 11-08 05:59 :00 No [id number] 5mg Take 1 tablet by mouth every 6 (six) hours as needed for Pain (scale 7-10) for up to 7 days. Indication s: acute pain [facility] ketorolac (TORADOL) injection 30 mg 22:00: 00 21:29 :00 No 30mg 30 mg, Slow IV Push, ONCE, 1 dose, On Beulah 10/31/23 at 1600, Routine [facility] simethicone (GAS RELIEF (SIMETHICON E)) chewable tablet 80 mg 21:15: 00 Yes 80mg 80 mg, Oral, PC+HS, First dose on Beulah 10/31/23 at 1515, Until Discontinu ed, Routine [facility] FENTanyl PF (SUBLIMAZE (PF)) injection 50 mcg 20:19: 33 21:01 :01 No 50ug 50 mcg, Slow IV Push, Q15MIN PRN, 2 doses, Starting on Beulah 10/31/23 at 1419, Until Beulah 10/31/23 at 1501, Routine, Pain (scale 7-10), PACU [facility] lactated ringers IV infusion 1,000 mL 19:30: 00 10-31 08:45 :25 No 1000mL at 75 mL/hr, 1,000 mL, IV Infusion, CONTINUOUS , Starting on Sat10/31/23 at 1330, Until Sat11/01/23 at 0245, Routine, PACU [facility] meperidine (DEMEROL) injection 12.5 mg 19:28: 34 20:15 :00 No 12.5mg 12.5 mg, Slow IV Push, PRN, 1 dose, Starting on Beulah 10/31/23 at 1328, Until Discontinu ed, Routine, Shivering, PACU
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 bupivacaine (preserv free) (SENSORCAIN E MPF) 0.25 % (2.5 mg/mL) injection 18:54: 00 Yes PRN, Starting on Beulah 10/31/23 at 1254, Until Discontinu ed, Routine, Intra-op [facility] acetaminoph en (OFIRMEV) IV piggyback 1,000 mg 13:45: 00 14:37 :00 No 1000mg 1,000 mg, IV Piggyback, at 400 mL/hr Administer over 15 Minutes, ONCE, 1 dose, On Beulah 10/31/23 at 0745, Routine
Is the patient strict NPO and unable to tolerate oral medication s? Yes [facility] acetaminoph en (TYLENOL) tablet 1,000 mg 10:30: 00 09:50 :00 No 1000mg 1,000 mg, Oral, ONCE, 1 dose, On Beulah 10/31/23 at 0430, Routine [facility] pantoprazol e (PROTONIX) injection 40 mg 02:00: 00 10-31 07:40 :40 No 40mg 40 mg, Slow IV Push, Q12H, First dose (after last modificati on) on Sat10/30/23 at 2000, Until Discontinu ed [facility] pantoprazol e (PROTONIX) injection 40 mg 10-30 19:45: 00 10-30 20:47 :36 No 40mg 40 mg, Slow IV Push, Q24H, First dose on Sat10/30/23 at 1345, Until Discontinu ed [facility] D5W-LR IV infusion 1,000 mL 10-30 18:15: 00 Yes 1000mL at 125 mL/hr, IV Infusion, CONTINUOUS , Starting on Sat10/30/23 at 1215, Until Discontinu ed, Routine [facility] vitamin w/FA tablet 1 tablet 10-30 15:00: 00 Yes 1{tbl} 1 tablet, Oral, DAILY, First dose on Sat10/30/23 at 0900, Until Discontinu ed, Routine [facility] diphenhydrA MINE (BENADRYL) tablet 25 mg 10-30 09:45: 00 10-30 09:01 :00 No 25mg 25 mg, Oral, ONCE, 1 dose, On Sat10/30/23 at 0345, Routine [facility] D5W-LR IV infusion 1,000 mL 10-30 07:30: 00 10-31 08:45 :25 No 1000mL at 125 mL/hr, IV Infusion, CONTINUOUS , Starting on Sat10/30/23 at 0130, Until Sat11/01/23 at 0245, Routine [facility] ondansetron (ZOFRAN (PF)) injection 4 mg 10-30 07:16: 38 Yes 4mg 4 mg, Slow IV Push, Q6HPRN, Nausea and Vomiting (N/V), Starting on Sat10/30/23 at 0116
Do ses of ondansetro n 16 mg and above need to be administer ed via IV piggyback. For Dose >=24mg ECG monitoring is advisable.
[facility] alum-mag hydroxide-s imeth (MAG-AL PLUS) 200-200-20 mg/5 mL suspension 30 mL 10-30 07:14: 43 Yes 30mL 30 mL, Oral, Q6HPRN, Starting on Sat10/30/23 at 011, Until Discontinu ed, Routine, Indigestio n [facility] docusate (COLACE) capsule 200 mg 10-30 07:14: 43 Yes 200mg 200 mg, Oral, QHSPRN, Starting on Sat10/30/23 at 011, Until Discontinu ed, Routine, Constipati on [facility] magnesium hydroxide (MILK OF MAGNESIA) 400 mg/5 mL suspension 30 mL 10-30 07:14: 43 Yes 30mL 30 mL, Oral, QDAILYPRN, Starting on Sat10/30/23 at 0114, Until Discontinu ed, Routine, Constipati on [facility] ondansetron (ZOFRAN (PF)) injection 4 mg 10-30 06:00: 00 10-30 05:41 :00 No 4mg 4 mg, Slow IV Push, ONCE, On Sat10/30/23 at 0000, For 1 dose
Do ses of ondansetro n 16 mg and above need to be administer ed via IV piggyback. For Dose >=24mg ECG monitoring is advisable.
[facility] acetaminoph en (TYLENOL) tablet 1,000 mg 10-30 06:00: 00 10-30 05:20 :00 No 1000mg 1,000 mg, Oral, ONCE, 1 dose, On Sat10/30/23 at 0000, Routine [facility] magnesium sulfate in water for injection 20 gram/500 mL (4 %) IV infusion 10-30 05:45: 00 10-30 07:14 :36 No 2g/h 2 g/hr (50 mL/hr), IV Infusion, CONTINUOUS , Starting on Sat10/29/23 at 2345, Until Sat10/30/23 at 0114, [facility] benzocaine- menthoL (CEPACOL SORE THROAT (LIBERTAD-MEN)) lozenge 1 Lozenge 10-30 05:20: 35 Yes 1{lozen ge} 1 Lozenge, Oral, Q4HPRN, Starting on Sat10/29/23 at 2320, Until Discontinu ed, Routine, Sore throat [facility] D5W-LR IV infusion 1,000 mL 10-30 05:15: 00 10-30 07:14 :36 No 1000mL at 75 mL/hr, IV Infusion, CONTINUOUS , Starting on Sat10/29/23 at 2315, Until Sat10/30/23 at 0114, [facility] proMETHazin e 25 mg tablet 10-07 00:00: 00 Yes [id number] 25mg Take 1 tablet by mouth every 4 (four) hours as needed for Nausea and Vomiting (N/V). [facility] levalbutero l 45 mcg/actuati on inhaler 09-03 00:00: 00 02-09 00:00 :00 No [id number] 1{puff} Inhale 1-2 Puffs every 4 (four) hours as needed for Wheezing. [facility] budesonide- formoteroL 80-4.5 mcg/actuati on inhaler 09-03 00:00: 00 02-09 00:00 :00 No [id number] 2{puff} Inhale 2 Puffs in the morning and 2 Puffs in the evening. [facility] buPROPion XL (WELLBUTRIN XL) 150 mg 24 hr tablet 2022-09 00:00: 00 Yes [id number] 100 150mg Take 1 tablet by mouth in the morning. [facility] docusate (COLACE) 100 mg capsule 2022-09 00:00: 00 Yes [id number] 100mg Take 1 capsule by mouth in the morning. [facility] proMETHazin e 25 mg tablet 2022-09 00:00: 00 10-04 00:00 :00 No [id number] 25mg Take 1 tablet by mouth every 4 (four) hours as needed for Nausea and Vomiting (N/V). [facility] buPROPion XL (WELLBUTRIN XL) 150 mg 24 hr tablet 2022-09 00:00: 00 08-23 00:00 :00 No [id number] 100 150mg Take 1 tablet by mouth in the morning. [facility] metroNIDAZO LE (FLAGYL) 500 mg tablet 2022-09 00:00: 00 07-12 05:59 :00 No [id number] 500mg Take 1 tablet by mouth every 12 (twelve) hours for 7 days. [facility] terconazole 80 mg vaginal suppository 2022-09 00:00: 00 07-08 05:59 :00 No [id number] 80mg Insert 1 Suppositor y into vagina at bedtime for 3 days. [facility] jmx27-daca- folic acid 29 mg iron- 1 mg per tablet 2022-09 00:00: 00 Yes [id number] 1{tbl} Take 1 tablet by mouth in the morning. [facility] aspirin 81 mg Cap 2022-09 00:00: 00 Yes [id number] 9100 1{tbl} Take 1 tablet by mouth in the morning. [facility] buPROPion XL (WELLBUTRIN XL) 150 mg 24 hr tablet 2022-09 00:00: 00 08-06 00:00 :00 No [id number] 150mg Take 1 tablet by mouth in the morning. [facility] proMETHazin e 25 mg tablet 2022-09 00:00: 00 08-06 00:00 :00 No [id number] 25mg Take 1 tablet by mouth every 4 (four) hours as needed for Nausea and Vomiting (N/V). [facility] iopamidol (ISOVUE 370-500 mL) injection 80 mL 03-30 20:45: 00 03-30 20:45 :00 No [id number] 80mL 80 mL, Intravenou s, ONCE, 1 dose, On 03/30/23 at 1545, Routine [facility] HYDROcodone -acetaminop hen (NORCO) 10-325 mg tablet 1 tablet 03-30 20:45: 00 03-30 19:51 :00 No 1{tbl} 1 tablet, Oral, ONCE, 1 dose, On 03/30/23 at 1545, Routine [facility] NaCl 0.9% (NS) bolus infusion 1,000 mL 03-30 20:45: 00 03-30 20:41 :00 No 1000mL at 999 mL/hr, 1,000 mL, IV Infusion, ONCE, 1 dose, On 03/30/23 at 1545, STAT [facility] penicillin g benzathine (BICILLIN L-A) injection 1.2 Million Units 03-30 20:15: 00 03-30 20:22 :00 No 1.210 1.2 Million Units, Intramuscu lar, ONCE, 1 dose, On 03/30/23 at 1515, GEORGE
Re ason for Anti-Infec tive: Documented Infection< br>Documen addis Infection Site: HEENT
D uration of Therapy: Other (see Comments) [facility] methylpredn isolone sod succ (SOLU-MEDRO L) injection 125 mg 03-30 19:45: 00 03-30 19:04 :00 No 125mg 125 mg, Slow IV Push, ONCE, 1 dose, On 03/30/23 at 1445, GEORGE [facility] predniSONE 20 mg tablet 03-30 00:00: 00 06-04 00:00 :00 No [id number] 1 PO BID x 4 days [facility] ibuprofen 600 mg tablet 11-03 00:00: 00 06-04 00:00 :00 No [id number] 600mg Take 1 tablet by mouth every 6 (six) hours as needed for Pain (scale 4-6). [facility] azithromyci n 500 mg tablet 10-19 00:00: 00 10-20 05:59 :00 No [id number] 1000mg Take 2 tablets by mouth once now for 1 dose. [facility] montelukast sodium (SINGULAIR ORAL) 10-14 16:14: 13 10-14 00:00 :00 No Take by mouth. [facility] diphenhydrA MINE (BENADRYL) 25 mg capsule 10-14 16:14: 03 10-14 00:00 :00 No 25mg Take 25 mg by mouth every 6 (six) hours as needed for Allergies. [facility] ALBUTEROL INHALE 10-14 16:14: 00 10-14 00:00 :00 No Inhale. [facility] norethindro ne 0.35 mg tablet 2018-09 00:00: 00 10-14 00:00 :00 No [id number] 1{tbl} Take 1 tablet by mouth daily. [facility] ALBUTEROL INHALE 2018-09 22:36: 08 Yes Inhale. [facility] montelukast sodium (SINGULAIR ORAL) 2018-09 22:36: 08 Yes Take by mouth. [facility] diphenhydrA MINE (BENADRYL) 25 mg capsule 2018-09 22:36: 08 Yes 25mg Take 25 mg by mouth every 6 (six) hours as needed for Allergies. [facility] vitamin w/FA tablet 2018-09 00:00: 00 10-14 00:00 :00 No [id number] 1{tbl} Take 1 tablet by mouth daily. [facility] docusate calcium 240 mg capsule 2018-09 00:00: 00 10-14 00:00 :00 No [id number] 240mg Take 1 capsule by mouth once daily as needed for Constipati on. [facility] ferrous sulfate 325 mg (65 mg iron) tablet 2018-09 00:00: 00 10-14 00:00 :00 No [id number] 325mg Take 1 tablet by mouth 2 (two) times daily. [facility] ibuprofen 600 mg tablet 2018-09 00:00: 00 10-14 00:00 :00 No [id number] 600mg Take 1 tablet by mouth every 6 (six) hours as needed (Pain). Take with food or milk. [facility] montelukast sodium (SINGULAIR ORAL) 04-29 19:51: 56 Yes Take by mouth. [facility] diphenhydrA MINE (BENADRYL) 25 mg capsule 03-23 14:42: 42 Yes 25mg Take 25 mg by mouth every 6 (six) hours as needed for Allergies. [facility] ALBUTEROL INHALE 11-05 19:58: 54 Yes Inhale. [facility] multivitami n ( VITAMIN) tablet 11-05 00:00: 00 10-14 00:00 :00 No 1{tbl} Take 1 tablet by mouth daily. [facility] No known medications No Un delia [facility] Immunizations Ordered Immunization Name Filled Immunization Name Date Status Comments Source TDAP (ADACEL) VACCINE 2019-05-20 00:00:00 Completed [facility] TDAP (ADACEL) VACCINE 2019-05-20 00:00:00 Completed [facility] TDAP (ADACEL) VACCINE 2019-05-20 00:00:00 Completed [facility] TDAP (ADACEL) VACCINE 2019-05-20 00:00:00 Completed [facility] TDAP (ADACEL) VACCINE 2019-05-20 00:00:00 Completed [facility] TDAP (ADACEL) VACCINE 2019-05-20 00:00:00 Completed [facility] TDAP (ADACEL) VACCINE 2019-05-20 00:00:00 Completed [facility] TDAP (ADACEL) VACCINE 2019-05-20 00:00:00 Completed [facility] TDAP (ADACEL) VACCINE 2019-05-20 00:00:00 Completed [facility] TDAP (ADACEL) VACCINE 2019-05-20 00:00:00 Completed [facility] TDAP (ADACEL) VACCINE 2019-05-20 00:00:00 Completed [facility] TDAP (ADACEL) VACCINE 2019-05-20 00:00:00 Completed [facility] HPV 2012-05-06 00:00:00 Completed [facility] HPV 2012-05-06 00:00:00 Completed [facility] HPV 2012-05-06 00:00:00 Completed [facility] HPV 2012-05-06 00:00:00 Completed [facility] HPV 2012-05-06 00:00:00 Completed [facility] HPV 2012-05-06 00:00:00 Completed [facility] HPV 2012-05-06 00:00:00 Completed [facility] HPV 2012-05-06 00:00:00 Completed [facility] HPV 2012-05-06 00:00:00 Completed [facility] HPV 2012-05-06 00:00:00 Completed [facility] HPV 2012-05-06 00:00:00 Completed [facility] HPV 2012-05-06 00:00:00 Completed [facility] HPV 2012-05-06 00:00:00 Completed [facility] HPV 2012-05-06 00:00:00 Completed [facility] HPV 2012-05-06 00:00:00 Completed [facility] HPV 2012-05-06 00:00:00 Completed [facility] HPV 2012-05-06 00:00:00 Completed [facility] HPV 2012-05-06 00:00:00 Completed [facility] HEPATITIS A 2011-06-06 00:00:00 Completed [facility] Influenza Virus Vaccine 2011-06-06 00:00:00 Completed [facility] Meningococcal Vaccine 2011-06-06 00:00:00 Completed [facility] HEPATITIS A 2011-06-06 00:00:00 Completed [facility] Influenza Virus Vaccine 2011-06-06 00:00:00 Completed [facility] Meningococcal Vaccine 2011-06-06 00:00:00 Completed [facility] HEPATITIS A 2011-06-06 00:00:00 Completed [facility] Influenza Virus Vaccine 2011-06-06 00:00:00 Completed [facility] Meningococcal Vaccine 2011-06-06 00:00:00 Completed [facility] HEPATITIS A 2011-06-06 00:00:00 Completed [facility] Influenza Virus Vaccine 2011-06-06 00:00:00 Completed [facility] Meningococcal Vaccine 2011-06-06 00:00:00 Completed [facility] HEPATITIS A 2011-06-06 00:00:00 Completed [facility] Influenza Virus Vaccine 2011-06-06 00:00:00 Completed [facility] Meningococcal Vaccine 2011-06-06 00:00:00 Completed [facility] HEPATITIS A 2011-06-06 00:00:00 Completed [facility] Influenza Virus Vaccine 2011-06-06 00:00:00 Completed [facility] Meningococcal Vaccine 2011-06-06 00:00:00 Completed [facility] HEPATITIS A 2011-06-06 00:00:00 Completed [facility] Influenza Virus Vaccine 2011-06-06 00:00:00 Completed [facility] Meningococcal Vaccine 2011-06-06 00:00:00 Completed [facility] HEPATITIS A 2011-06-06 00:00:00 Completed [facility] Influenza Virus Vaccine 2011-06-06 00:00:00 Completed [facility] Meningococcal Vaccine 2011-06-06 00:00:00 Completed [facility] HEPATITIS A 2011-06-06 00:00:00 Completed [facility] Influenza Virus Vaccine 2011-06-06 00:00:00 Completed [facility] Meningococcal Vaccine 2011-06-06 00:00:00 Completed [facility] HEPATITIS A 2011-06-06 00:00:00 Completed [facility] Influenza Virus Vaccine 2011-06-06 00:00:00 Completed [facility] Meningococcal Vaccine 2011-06-06 00:00:00 Completed [facility] HEPATITIS A 2011-06-06 00:00:00 Completed [facility] Influenza Virus Vaccine 2011-06-06 00:00:00 Completed [facility] Meningococcal Vaccine 2011-06-06 00:00:00 Completed [facility] HEPATITIS A 2011-06-06 00:00:00 Completed [facility] Influenza Virus Vaccine 2011-06-06 00:00:00 Completed [facility] Meningococcal Vaccine 2011-06-06 00:00:00 Completed [facility] HEPATITIS A 2011-06-06 00:00:00 Completed [facility] Influenza Virus Vaccine 2011-06-06 00:00:00 Completed [facility] Meningococcal Vaccine 2011-06-06 00:00:00 Completed [facility] HEPATITIS A 2011-06-06 00:00:00 Completed [facility] Influenza Virus Vaccine 2011-06-06 00:00:00 Completed [facility] Meningococcal Vaccine 2011-06-06 00:00:00 Completed [facility] HEPATITIS A 2011-06-06 00:00:00 Completed [facility] Influenza Virus Vaccine 2011-06-06 00:00:00 Completed [facility] Meningococcal Vaccine 2011-06-06 00:00:00 Completed [facility] HEPATITIS A 2011-06-06 00:00:00 Completed [facility] Influenza Virus Vaccine 2011-06-06 00:00:00 Completed [facility] Meningococcal Vaccine 2011-06-06 00:00:00 Completed [facility] HEPATITIS A 2011-06-06 00:00:00 Completed [facility] Influenza Virus Vaccine 2011-06-06 00:00:00 Completed [facility] Meningococcal Vaccine 2011-06-06 00:00:00 Completed [facility] HEPATITIS A 2011-06-06 00:00:00 Completed [facility] Influenza Virus Vaccine 2011-06-06 00:00:00 Completed [facility] Meningococcal Vaccine 2011-06-06 00:00:00 Completed [facility] MMR 1999-10-04 00:00:00 Completed [facility] MMR 1999-10-04 00:00:00 Completed [facility] MMR 1999-10-04 00:00:00 Completed [facility] MMR 1999-10-04 00:00:00 Completed [facility] MMR 1999-10-04 00:00:00 Completed [facility] MMR 1999-10-04 00:00:00 Completed [facility] MMR 1999-10-04 00:00:00 Completed [facility] MMR 1999-10-04 00:00:00 Completed [facility] MMR 1999-10-04 00:00:00 Completed [facility] MMR 1999-10-04 00:00:00 Completed [facility] MMR 1999-10-04 00:00:00 Completed [facility] MMR 1999-10-04 00:00:00 Completed [facility] MMR 1999-10-04 00:00:00 Completed [facility] MMR 1999-10-04 00:00:00 Completed [facility] MMR 1999-10-04 00:00:00 Completed [facility] MMR 1999-10-04 00:00:00 Completed [facility] MMR 1999-10-04 00:00:00 Completed [facility] MMR 1999-10-04 00:00:00 Completed [facility] MMR 1996-11-24 00:00:00 Completed [facility] MMR 1996-11-24 00:00:00 Completed [facility] MMR 1996-11-24 00:00:00 Completed [facility] MMR 1996-11-24 00:00:00 Completed [facility] MMR 1996-11-24 00:00:00 Completed [facility] MMR 1996-11-24 00:00:00 Completed [facility] MMR 1996-11-24 00:00:00 Completed [facility] MMR 1996-11-24 00:00:00 Completed [facility] MMR 1996-11-24 00:00:00 Completed [facility] MMR 1996-11-24 00:00:00 Completed [facility] MMR 1996-11-24 00:00:00 Completed [facility] MMR 1996-11-24 00:00:00 Completed [facility] MMR 1996-11-24 00:00:00 Completed [facility] MMR 1996-11-24 00:00:00 Completed [facility] MMR 1996-11-24 00:00:00 Completed [facility] MMR 1996-11-24 00:00:00 Completed [facility] MMR 1996-11-24 00:00:00 Completed [facility] MMR 1996-11-24 00:00:00 Completed [facility] Hep B, Adol or Pedi Dosage 1996-05-15 00:00:00 Completed [facility] Hep B, Adol or Pedi Dosage 1996-05-15 00:00:00 Completed [facility] Hep B, Adol or Pedi Dosage 1996-05-15 00:00:00 Completed [facility] Hep B, Adol or Pedi Dosage 1996-05-15 00:00:00 Completed [facility] Hep B, Adol or Pedi Dosage 1996-05-15 00:00:00 Completed [facility] Hep B, Adol or Pedi Dosage 1996-05-15 00:00:00 Completed [facility] Hep B, Adol or Pedi Dosage 1996-05-15 00:00:00 Completed [facility] Hep B, Adol or Pedi Dosage 1996-05-15 00:00:00 Completed [facility] Hep B, Adol or Pedi Dosage 1996-05-15 00:00:00 Completed [facility] Hep B, Adol or Pedi Dosage 1996-05-15 00:00:00 Completed [facility] Hep B, Adol or Pedi Dosage 1996-05-15 00:00:00 Completed [facility] Hep B, Adol or Pedi Dosage 1996-05-15 00:00:00 Completed [facility] Hep B, Adol or Pedi Dosage 1996-05-15 00:00:00 Completed [facility] Hep B, Adol or Pedi Dosage 1996-05-15 00:00:00 Completed [facility] Hep B, Adol or Pedi Dosage 1996-05-15 00:00:00 Completed [facility] Hep B, Adol or Pedi Dosage 1996-05-15 00:00:00 Completed [facility] Hep B, Adol or Pedi Dosage 1996-05-15 00:00:00 Completed [facility] Hep B, Adol or Pedi Dosage 1996-05-15 00:00:00 Completed [facility] Hep B, Adol or Pedi Dosage 1995 00:00:00 Completed [facility] Hep B, Adol or Pedi Dosage 1995 00:00:00 Completed [facility] Hep B, Adol or Pedi Dosage 1995 00:00:00 Completed [facility] Hep B, Adol or Pedi Dosage 1995 00:00:00 Completed [facility] Hep B, Adol or Pedi Dosage 1995 00:00:00 Completed [facility] Hep B, Adol or Pedi Dosage 1995 00:00:00 Completed [facility] Hep B, Adol or Pedi Dosage 1995 00:00:00 Completed [facility] Hep B, Adol or Pedi Dosage 1995 00:00:00 Completed [facility] Hep B, Adol or Pedi Dosage 1995 00:00:00 Completed [facility] Hep B, Adol or Pedi Dosage 1995 00:00:00 Completed [facility] Hep B, Adol or Pedi Dosage 1995 00:00:00 Completed [facility] Hep B, Adol or Pedi Dosage 1995 00:00:00 Completed [facility] Hep B, Adol or Pedi Dosage 1995 00:00:00 Completed [facility] Hep B, Adol or Pedi Dosage 1995 00:00:00 Completed [facility] Hep B, Adol or Pedi Dosage 1995 00:00:00 Completed [facility] Hep B, Adol or Pedi Dosage 1995 00:00:00 Completed [facility] Hep B, Adol or Pedi Dosage 1995 00:00:00 Completed [facility] Hep B, Adol or Pedi Dosage 1995 00:00:00 Completed [facility] Hep B, Adol or Pedi Dosage 1995 00:00:00 Completed [facility] Hep B, Adol or Pedi Dosage 1995 00:00:00 Completed [facility] Hep B, Adol or Pedi Dosage 1995 00:00:00 Completed [facility] Hep B, Adol or Pedi Dosage 1995 00:00:00 Completed [facility] Hep B, Adol or Pedi Dosage 1995 00:00:00 Completed [facility] Hep B, Adol or Pedi Dosage 1995 00:00:00 Completed [facility] Hep B, Adol or Pedi Dosage 1995 00:00:00 Completed [facility] Hep B, Adol or Pedi Dosage 1995 00:00:00 Completed [facility] Hep B, Adol or Pedi Dosage 1995 00:00:00 Completed [facility] Hep B, Adol or Pedi Dosage 1995 00:00:00 Completed [facility] Hep B, Adol or Pedi Dosage 1995 00:00:00 Completed [facility] Hep B, Adol or Pedi Dosage 1995 00:00:00 Completed [facility] Hep B, Adol or Pedi Dosage 1995 00:00:00 Completed [facility] Hep B, Adol or Pedi Dosage 1995 00:00:00 Completed [facility] Hep B, Adol or Pedi Dosage 1995 00:00:00 Completed [facility] Hep B, Adol or Pedi Dosage 1995 00:00:00 Completed [facility] Hep B, Adol or Pedi Dosage 1995 00:00:00 Completed [facility] Hep B, Adol or Pedi Dosage 1995 00:00:00 Completed [facility] Meningococcal Vaccine Unknown Completed [facility] MMR Unknown Completed [facility] MMR Unknown Completed [facility] TDAP (ADACEL) VACCINE Unknown Completed [facility] HEPATITIS A Unknown Completed [facility] Hep B, Adol or Pedi Dosage Unknown Completed [facility] Hep B, Adol or Pedi Dosage Unknown Completed [facility] Hep B, Adol or Pedi Dosage Unknown Completed [facility] HPV Unknown Completed [facility] Influenza Virus Vaccine Unknown Completed [facility] Meningococcal Vaccine Unknown Completed [facility] MMR Unknown Completed [facility] MMR Unknown Completed [facility] TDAP (ADACEL) VACCINE Unknown Completed [facility] HEPATITIS A Unknown Completed [facility] Hep B, Adol or Pedi Dosage Unknown Completed [facility] Hep B, Adol or Pedi Dosage Unknown Completed [facility] Hep B, Adol or Pedi Dosage Unknown Completed [facility] HPV Unknown Completed [facility] Influenza Virus Vaccine Unknown Completed [facility] Meningococcal Vaccine Unknown Completed [facility] MMR Unknown Completed [facility] MMR Unknown Completed [facility] TDAP (ADACEL) VACCINE Unknown Completed [facility] HEPATITIS A Unknown Completed [facility] Hep B, Adol or Pedi Dosage Unknown Completed [facility] Hep B, Adol or Pedi Dosage Unknown Completed [facility] Hep B, Adol or Pedi Dosage Unknown Completed [facility] HPV Unknown Completed [facility] Influenza Virus Vaccine Unknown Completed [facility] Meningococcal Vaccine Unknown Completed [facility] MMR Unknown Completed [facility] MMR Unknown Completed [facility] TDAP (ADACEL) VACCINE Unknown Completed [facility] HEPATITIS A Unknown Completed [facility] Hep B, Adol or Pedi Dosage Unknown Completed [facility] Hep B, Adol or Pedi Dosage Unknown Completed [facility] Hep B, Adol or Pedi Dosage Unknown Completed [facility] HPV Unknown Completed [facility] Influenza Virus Vaccine Unknown Completed [facility] Meningococcal Vaccine Unknown Completed [facility] MMR Unknown Completed [facility] MMR Unknown Completed [facility] TDAP (ADACEL) VACCINE Unknown Completed [facility] HEPATITIS A Unknown Completed [facility] Hep B, Adol or Pedi Dosage Unknown Completed [facility] Hep B, Adol or Pedi Dosage Unknown Completed [facility] Hep B, Adol or Pedi Dosage Unknown Completed [facility] HPV Unknown Completed [facility] Influenza Virus Vaccine Unknown Completed [facility] Meningococcal Vaccine Unknown Completed [facility] MMR Unknown Completed [facility] MMR Unknown Completed [facility] TDAP (ADACEL) VACCINE Unknown Completed [facility] HEPATITIS A Unknown Completed [facility] Hep B, Adol or Pedi Dosage Unknown Completed [facility] Hep B, Adol or Pedi Dosage Unknown Completed [facility] Hep B, Adol or Pedi Dosage Unknown Completed [facility] HPV Unknown Completed [facility] Influenza Virus Vaccine Unknown Completed [facility] Meningococcal Vaccine Unknown Completed [facility] MMR Unknown Completed [facility] MMR Unknown Completed [facility] TDAP (ADACEL) VACCINE Unknown Completed [facility] HEPATITIS A Unknown Completed [facility] Hep B, Adol or Pedi Dosage Unknown Completed [facility] Hep B, Adol or Pedi Dosage Unknown Completed [facility] Hep B, Adol or Pedi Dosage Unknown Completed [facility] HPV Unknown Completed [facility] Influenza Virus Vaccine Unknown Completed [facility] Meningococcal Vaccine Unknown Completed [facility] MMR Unknown Completed [facility] MMR Unknown Completed [facility] TDAP (ADACEL) VACCINE Unknown Completed [facility] HEPATITIS A Unknown Completed [facility] Hep B, Adol or Pedi Dosage Unknown Completed [facility] Hep B, Adol or Pedi Dosage Unknown Completed [facility] Hep B, Adol or Pedi Dosage Unknown Completed [facility] HPV Unknown Completed [facility] Influenza Virus Vaccine Unknown Completed [facility] Meningococcal Vaccine Unknown Completed [facility] MMR Unknown Completed [facility] MMR Unknown Completed [facility] TDAP (ADACEL) VACCINE Unknown Completed [facility] HEPATITIS A Unknown Completed [facility] Hep B, Adol or Pedi Dosage Unknown Completed [facility] Hep B, Adol or Pedi Dosage Unknown Completed [facility] Hep B, Adol or Pedi Dosage Unknown Completed [facility] HPV Unknown Completed [facility] Influenza Virus Vaccine Unknown Completed [facility] Meningococcal Vaccine Unknown Completed [facility] MMR Unknown Completed [facility] MMR Unknown Completed [facility] TDAP (ADACEL) VACCINE Unknown Completed [facility] HEPATITIS A Unknown Completed [facility] Hep B, Adol or Pedi Dosage Unknown Completed [facility] Hep B, Adol or Pedi Dosage Unknown Completed [facility] Hep B, Adol or Pedi Dosage Unknown Completed [facility] HPV Unknown Completed [facility] Influenza Virus Vaccine Unknown Completed [facility] Meningococcal Vaccine Unknown Completed [facility] MMR Unknown Completed [facility] MMR Unknown Completed [facility] TDAP (ADACEL) VACCINE Unknown Completed [facility] TDAP Unknown Completed [facility] HEPATITIS A Unknown Completed [facility] Hep B, Adol or Pedi Dosage Unknown Completed [facility] Hep B, Adol or Pedi Dosage Unknown Completed [facility] Hep B, Adol or Pedi Dosage Unknown Completed [facility] HPV Unknown Completed [facility] Influenza Virus Vaccine Unknown Completed [facility] Meningococcal Vaccine Unknown Completed [facility] MMR Unknown Completed [facility] MMR Unknown Completed [facility] TDAP (ADACEL) VACCINE Unknown Completed [facility] TDAP Unknown Completed [facility] HEPATITIS A Unknown Completed [facility] Hep B, Adol or Pedi Dosage Unknown Completed [facility] Hep B, Adol or Pedi Dosage Unknown Completed [facility] Hep B, Adol or Pedi Dosage Unknown Completed [facility] HPV Unknown Completed [facility] Influenza Virus Vaccine Unknown Completed [facility] Meningococcal Vaccine Unknown Completed [facility] MMR Unknown Completed [facility] MMR Unknown Completed [facility] TDAP (ADACEL) VACCINE Unknown Completed [facility] TDAP Unknown Completed [facility] HEPATITIS A Unknown Completed [facility] Hep B, Adol or Pedi Dosage Unknown Completed [facility] Hep B, Adol or Pedi Dosage Unknown Completed [facility] Hep B, Adol or Pedi Dosage Unknown Completed [facility] HPV Unknown Completed [facility] Influenza Virus Vaccine Unknown Completed [facility] Meningococcal Vaccine Unknown Completed [facility] MMR Unknown Completed [facility] MMR Unknown Completed [facility] TDAP (ADACEL) VACCINE Unknown Completed [facility] TDAP Unknown Completed [facility] HEPATITIS A Unknown Completed [facility] Hep B, Adol or Pedi Dosage Unknown Completed [facility] Hep B, Adol or Pedi Dosage Unknown Completed [facility] Hep B, Adol or Pedi Dosage Unknown Completed [facility] HPV Unknown Completed [facility] Influenza Virus Vaccine Unknown Completed [facility] Meningococcal Vaccine Unknown Completed [facility] MMR Unknown Completed [facility] MMR Unknown Completed [facility] TDAP (ADACEL) VACCINE Unknown Completed [facility] TDAP Unknown Completed [facility] HEPATITIS A Unknown Completed [facility] Hep B, Adol or Pedi Dosage Unknown Completed [facility] Hep B, Adol or Pedi Dosage Unknown Completed [facility] Hep B, Adol or Pedi Dosage Unknown Completed [facility] HPV Unknown Completed [facility] Influenza Virus Vaccine Unknown Completed [facility] Meningococcal Vaccine Unknown Completed [facility] MMR Unknown Completed [facility] MMR Unknown Completed [facility] TDAP (ADACEL) VACCINE Unknown Completed [facility] TDAP Unknown Completed [facility] HEPATITIS A Unknown Completed [facility] Hep B, Adol or Pedi Dosage Unknown Completed [facility] Hep B, Adol or Pedi Dosage Unknown Completed [facility] Hep B, Adol or Pedi Dosage Unknown Completed [facility] HPV Unknown Completed [facility] Influenza Virus Vaccine Unknown Completed [facility] Meningococcal Vaccine Unknown Completed [facility] MMR Unknown Completed [facility] MMR Unknown Completed [facility] TDAP (ADACEL) VACCINE Unknown Completed [facility] TDAP Unknown Completed [facility] HEPATITIS A Unknown Completed [facility] Hep B, Adol or Pedi Dosage Unknown Completed [facility] Hep B, Adol or Pedi Dosage Unknown Completed [facility] Hep B, Adol or Pedi Dosage Unknown Completed [facility] HPV Unknown Completed [facility] Influenza Virus Vaccine Unknown Completed [facility] Meningococcal Vaccine Unknown Completed [facility] MMR Unknown Completed [facility] MMR Unknown Completed [facility] TDAP (ADACEL) VACCINE Unknown Completed [facility] TDAP Unknown Completed [facility] HEPATITIS A Unknown Completed [facility] Hep B, Adol or Pedi Dosage Unknown Completed [facility] Hep B, Adol or Pedi Dosage Unknown Completed [facility] Hep B, Adol or Pedi Dosage Unknown Completed [facility] HPV Unknown Completed [facility] Influenza Virus Vaccine Unknown Completed [facility] Meningococcal Vaccine Unknown Completed [facility] MMR Unknown Completed [facility] MMR Unknown Completed [facility] TDAP (ADACEL) VACCINE Unknown Completed [facility] TDAP Unknown Completed [facility] HEPATITIS A Unknown Completed [facility] Hep B, Adol or Pedi Dosage Unknown Completed [facility] Hep B, Adol or Pedi Dosage Unknown Completed [facility] Hep B, Adol or Pedi Dosage Unknown Completed [facility] HPV Unknown Completed [facility] Influenza Virus Vaccine Unknown Completed [facility] Meningococcal Vaccine Unknown Completed [facility] MMR Unknown Completed [facility] MMR Unknown Completed [facility] TDAP (ADACEL) VACCINE Unknown Completed [facility] TDAP Unknown Completed [facility] HEPATITIS A Unknown Completed [facility] Hep B, Adol or Pedi Dosage Unknown Completed [facility] Hep B, Adol or Pedi Dosage Unknown Completed [facility] Hep B, Adol or Pedi Dosage Unknown Completed [facility] HPV Unknown Completed [facility] Influenza Virus Vaccine Unknown Completed [facility] Meningococcal Vaccine Unknown Completed [facility] MMR Unknown Completed [facility] MMR Unknown Completed [facility] TDAP (ADACEL) VACCINE Unknown Completed [facility] TDAP Unknown Completed [facility] HEPATITIS A Unknown Completed [facility] Hep B, Adol or Pedi Dosage Unknown Completed [facility] Hep B, Adol or Pedi Dosage Unknown Completed [facility] Hep B, Adol or Pedi Dosage Unknown Completed [facility] HPV Unknown Completed [facility] Influenza Virus Vaccine Unknown Completed [facility] Meningococcal Vaccine Unknown Completed [facility] MMR Unknown Completed [facility] MMR Unknown Completed [facility] TDAP (ADACEL) VACCINE Unknown Completed [facility] TDAP Unknown Completed [facility] HEPATITIS A Unknown Completed [facility] Hep B, Adol or Pedi Dosage Unknown Completed [facility] Hep B, Adol or Pedi Dosage Unknown Completed [facility] Hep B, Adol or Pedi Dosage Unknown Completed [facility] HPV Unknown Completed [facility] Influenza Virus Vaccine Unknown Completed [facility] Meningococcal Vaccine Unknown Completed [facility] MMR Unknown Completed [facility] MMR Unknown Completed [facility] TDAP (ADACEL) VACCINE Unknown Completed [facility] TDAP Unknown Completed [facility] HEPATITIS A Unknown Completed [facility] Hep B, Adol or Pedi Dosage Unknown Completed [facility] Hep B, Adol or Pedi Dosage Unknown Completed [facility] Hep B, Adol or Pedi Dosage Unknown Completed [facility] HPV Unknown Completed [facility] Influenza Virus Vaccine Unknown Completed [facility] Meningococcal Vaccine Unknown Completed [facility] MMR Unknown Completed [facility] MMR Unknown Completed [facility] TDAP (ADACEL) VACCINE Unknown Completed [facility] TDAP Unknown Completed [facility] HEPATITIS A Unknown Completed [facility] Hep B, Adol or Pedi Dosage Unknown Completed [facility] Hep B, Adol or Pedi Dosage Unknown Completed [facility] Hep B, Adol or Pedi Dosage Unknown Completed [facility] HPV Unknown Completed [facility] Influenza Virus Vaccine Unknown Completed [facility] Meningococcal Vaccine Unknown Completed [facility] MMR Unknown Completed [facility] MMR Unknown Completed [facility] TDAP (ADACEL) VACCINE Unknown Completed [facility] TDAP Unknown Completed [facility] HEPATITIS A Unknown Completed [facility] Hep B, Adol or Pedi Dosage Unknown Completed [facility] Hep B, Adol or Pedi Dosage Unknown Completed [facility] Hep B, Adol or Pedi Dosage Unknown Completed [facility] HPV Unknown Completed [facility] Influenza Virus Vaccine Unknown Completed [facility] Meningococcal Vaccine Unknown Completed [facility] MMR Unknown Completed [facility] MMR Unknown Completed [facility] TDAP (ADACEL) VACCINE Unknown Completed [facility] TDAP Unknown Completed [facility] HEPATITIS A Unknown Completed [facility] Hep B, Adol or Pedi Dosage Unknown Completed [facility] Hep B, Adol or Pedi Dosage Unknown Completed [facility] Hep B, Adol or Pedi Dosage Unknown Completed [facility] HPV Unknown Completed [facility] Influenza Virus Vaccine Unknown Completed [facility] Meningococcal Vaccine Unknown Completed [facility] MMR Unknown Completed [facility] MMR Unknown Completed [facility] TDAP (ADACEL) VACCINE Unknown Completed [facility] HEPATITIS A Unknown Completed [facility] Hep B, Adol or Pedi Dosage Unknown Completed [facility] Hep B, Adol or Pedi Dosage Unknown Completed [facility] Hep B, Adol or Pedi Dosage Unknown Completed [facility] HPV Unknown Completed [facility] Influenza Virus Vaccine Unknown Completed [facility] Meningococcal Vaccine Unknown Completed [facility] MMR Unknown Completed [facility] MMR Unknown Completed [facility] TDAP (ADACEL) VACCINE Unknown Completed [facility] HEPATITIS A Unknown Completed [facility] Hep B, Adol or Pedi Dosage Unknown Completed [facility] Hep B, Adol or Pedi Dosage Unknown Completed [facility] Hep B, Adol or Pedi Dosage Unknown Completed [facility] HPV Unknown Completed [facility] Influenza Virus Vaccine Unknown Completed [facility] Meningococcal Vaccine Unknown Completed [facility] MMR Unknown Completed [facility] MMR Unknown Completed [facility] TDAP (ADACEL) VACCINE Unknown Completed [facility] HEPATITIS A Unknown Completed [facility] Hep B, Adol or Pedi Dosage Unknown Completed [facility] Hep B, Adol or Pedi Dosage Unknown Completed [facility] Hep B, Adol or Pedi Dosage Unknown Completed [facility] HPV Unknown Completed [facility] Influenza Virus Vaccine Unknown Completed [facility] Meningococcal Vaccine Unknown Completed [facility] MMR Unknown Completed [facility] MMR Unknown Completed [facility] TDAP (ADACEL) VACCINE Unknown Completed [facility] HEPATITIS A Unknown Completed [facility] Hep B, Adol or Pedi Dosage Unknown Completed [facility] Hep B, Adol or Pedi Dosage Unknown Completed [facility] Hep B, Adol or Pedi Dosage Unknown Completed [facility] HPV Unknown Completed [facility] Influenza Virus Vaccine Unknown Completed [facility] Meningococcal Vaccine Unknown Completed [facility] MMR Unknown Completed [facility] MMR Unknown Completed [facility] TDAP (ADACEL) VACCINE Unknown Completed [facility] HEPATITIS A Unknown Completed [facility] Hep B, Adol or Pedi Dosage Unknown Completed [facility] Hep B, Adol or Pedi Dosage Unknown Completed [facility] Hep B, Adol or Pedi Dosage Unknown Completed [facility] HPV Unknown Completed [facility] Influenza Virus Vaccine Unknown Completed [facility] Meningococcal Vaccine Unknown Completed [facility] MMR Unknown Completed [facility] MMR Unknown Completed [facility] TDAP (ADACEL) VACCINE Unknown Completed [facility] HEPATITIS A Unknown Completed [facility] Hep B, Adol or Pedi Dosage Unknown Completed [facility] Hep B, Adol or Pedi Dosage Unknown Completed [facility] Hep B, Adol or Pedi Dosage Unknown Completed [facility] HPV Unknown Completed [facility] Influenza Virus Vaccine Unknown Completed [facility] Meningococcal Vaccine Unknown Completed [facility] MMR Unknown Completed [facility] MMR Unknown Completed [facility] TDAP (ADACEL) VACCINE Unknown Completed [facility] HEPATITIS A Unknown Completed [facility] Hep B, Adol or Pedi Dosage Unknown Completed [facility] Hep B, Adol or Pedi Dosage Unknown Completed [facility] Hep B, Adol or Pedi Dosage Unknown Completed [facility] HPV Unknown Completed [facility] Influenza Virus Vaccine Unknown Completed [facility] Meningococcal Vaccine Unknown Completed [facility] MMR Unknown Completed [facility] MMR Unknown Completed [facility] TDAP (ADACEL) VACCINE Unknown Completed [facility] HEPATITIS A Unknown Completed [facility] Hep B, Adol or Pedi Dosage Unknown Completed [facility] Hep B, Adol or Pedi Dosage Unknown Completed [facility] Hep B, Adol or Pedi Dosage Unknown Completed [facility] HPV Unknown Completed [facility] Influenza Virus Vaccine Unknown Completed [facility] Meningococcal Vaccine Unknown Completed [facility] MMR Unknown Completed [facility] MMR Unknown Completed [facility] TDAP (ADACEL) VACCINE Unknown Completed [facility] HEPATITIS A Unknown Completed [facility] Hep B, Adol or Pedi Dosage Unknown Completed [facility] Hep B, Adol or Pedi Dosage Unknown Completed [facility] Hep B, Adol or Pedi Dosage Unknown Completed [facility] HPV Unknown Completed [facility] Influenza Virus Vaccine Unknown Completed [facility] Meningococcal Vaccine Unknown Completed [facility] MMR Unknown Completed [facility] MMR Unknown Completed [facility] TDAP (ADACEL) VACCINE Unknown Completed [facility] HEPATITIS A Unknown Completed [facility] Hep B, Adol or Pedi Dosage Unknown Completed [facility] Hep B, Adol or Pedi Dosage Unknown Completed [facility] Hep B, Adol or Pedi Dosage Unknown Completed [facility] HPV Unknown Completed [facility] Influenza Virus Vaccine Unknown Completed [facility] Meningococcal Vaccine Unknown Completed [facility] MMR Unknown Completed [facility] MMR Unknown Completed [facility] TDAP (ADACEL) VACCINE Unknown Completed [facility] HEPATITIS A Unknown Completed [facility] Hep B, Adol or Pedi Dosage Unknown Completed [facility] Hep B, Adol or Pedi Dosage Unknown Completed [facility] Hep B, Adol or Pedi Dosage Unknown Completed [facility] HPV Unknown Completed [facility] Influenza Virus Vaccine Unknown Completed [facility] Meningococcal Vaccine Unknown Completed [facility] MMR Unknown Completed [facility] MMR Unknown Completed [facility] TDAP (ADACEL) VACCINE Unknown Completed [facility] HEPATITIS A Unknown Completed [facility] Hep B, Adol or Pedi Dosage Unknown Completed [facility] Hep B, Adol or Pedi Dosage Unknown Completed [facility] Hep B, Adol or Pedi Dosage Unknown Completed [facility] HPV Unknown Completed [facility] Influenza Virus Vaccine Unknown Completed [facility] Meningococcal Vaccine Unknown Completed [facility] MMR Unknown Completed [facility] MMR Unknown Completed [facility] TDAP (ADACEL) VACCINE Unknown Completed [facility] HEPATITIS A Unknown Completed [facility] Hep B, Adol or Pedi Dosage Unknown Completed [facility] Hep B, Adol or Pedi Dosage Unknown Completed [facility] Hep B, Adol or Pedi Dosage Unknown Completed [facility] HPV Unknown Completed [facility] Influenza Virus Vaccine Unknown Completed [facility] Meningococcal Vaccine Unknown Completed [facility] MMR Unknown Completed [facility] MMR Unknown Completed [facility] TDAP (ADACEL) VACCINE Unknown Completed [facility] HEPATITIS A Unknown Completed [facility] Hep B, Adol or Pedi Dosage Unknown Completed [facility] Hep B, Adol or Pedi Dosage Unknown Completed [facility] Hep B, Adol or Pedi Dosage Unknown Completed [facility] HPV Unknown Completed [facility] Influenza Virus Vaccine Unknown Completed [facility] Meningococcal Vaccine Unknown Completed [facility] MMR Unknown Completed [facility] MMR Unknown Completed [facility] TDAP (ADACEL) VACCINE Unknown Completed [facility] HEPATITIS A Unknown Completed [facility] Hep B, Adol or Pedi Dosage Unknown Completed [facility] Hep B, Adol or Pedi Dosage Unknown Completed [facility] Hep B, Adol or Pedi Dosage Unknown Completed [facility] HPV Unknown Completed [facility] Influenza Virus Vaccine Unknown Completed [facility] Meningococcal Vaccine Unknown Completed [facility] MMR Unknown Completed [facility] MMR Unknown Completed [facility] TDAP (ADACEL) VACCINE Unknown Completed [facility] HEPATITIS A Unknown Completed [facility] Hep B, Adol or Pedi Dosage Unknown Completed [facility] Hep B, Adol or Pedi Dosage Unknown Completed [facility] Hep B, Adol or Pedi Dosage Unknown Completed [facility] HPV Unknown Completed [facility] Influenza Virus Vaccine Unknown Completed [facility] Meningococcal Vaccine Unknown Completed [facility] MMR Unknown Completed [facility] MMR Unknown Completed [facility] TDAP (ADACEL) VACCINE Unknown Completed [facility] HEPATITIS A Unknown Completed [facility] Hep B, Adol or Pedi Dosage Unknown Completed [facility] Hep B, Adol or Pedi Dosage Unknown Completed [facility] Hep B, Adol or Pedi Dosage Unknown Completed [facility] HPV Unknown Completed [facility] Influenza Virus Vaccine Unknown Completed [facility] Vital Signs Vital Name Observation Time Observation Value Comments S ource Systolic blood pressure 2024-02-10 18:00:00 118 mm[Hg] [facility] Diastolic blood pressure 2024-02-10 18:00:00 73 mm[Hg] [facility] Heart rate 2024-02-10 18:00:00 81 /min [facility] Respiratory rate 2024-02-10 18:00:00 19 /min [facility] Oxygen saturation in Arterial blood by Pulse oximetry 2024-02-10 18:00:00 100 /min [facility] Body temperature 2024-02-10 15:50:00 36.67 [facility] Body height 2024-02-10 15:50:00 162.6 cm [facility] Body weight 2024-02-10 15:50:00 99.791 kg [facility] BMI 2024-02-10 15:50:00 37.76 kg/m2 [facility] Heart rate 2023-12-24 00:35:00 75 /min [facility] Oxygen saturation in Arterial blood by Pulse oximetry 2023-12-24 00:35:00 100 /min [facility] Systolic blood pressure 2023-12-24 00:31:00 136 mm[Hg] [facility] Diastolic blood pressure 2023-12-24 00:31:00 81 mm[Hg] [facility] Body temperature 2023-12-24 00:31:00 36.83 [facility] Respiratory rate 2023-12-24 00:31:00 18 /min [facility] Body height 2023-12-22 18:40:00 162.6 cm [facility] Body weight 2023-12-22 18:40:00 100.699 kg [facility] BMI 2023-12-22 18:40:00 38.11 kg/m2 [facility] Systolic blood pressure 2023-12-17 20:12:00 134 mm[Hg] [facility] Diastolic blood pressure 2023-12-17 20:12:00 83 mm[Hg] [facility] Heart rate 2023-12-17 20:12:00 61 /min [facility] Body temperature 2023-12-17 20:12:00 35.83 [facility] Respiratory rate 2023-12-17 20:12:00 18 /min [facility] Body height 2023-12-17 20:12:00 162.6 cm [facility] Body weight 2023-12-17 20:12:00 100.88 kg [facility] BMI 2023-12-17 20:12:00 38.17 kg/m2 [facility] Systolic blood pressure 2023-11-27 15:33:00 124 mm[Hg] [facility] Diastolic blood pressure 2023-11-27 15:33:00 72 mm[Hg] [facility] Heart rate 2023-11-27 15:33:00 64 /min [facility] Body temperature 2023-11-27 15:33:00 36.17 [facility] Respiratory rate 2023-11-27 15:33:00 18 /min [facility] Body height 2023-11-27 15:33:00 162.6 cm [facility] Body weight 2023-11-27 15:33:00 96.361 kg [facility] BMI 2023-11-27 15:33:00 36.46 kg/m2 [facility] Systolic blood pressure 2023-11-08 15:56:00 136 mm[Hg] [facility] Diastolic blood pressure 2023-11-08 15:56:00 80 mm[Hg] [facility] Heart rate 2023-11-08 15:56:00 94 [facility] Body temperature 2023-11-08 15:56:00 35.89 [facility] Respiratory rate 2023-11-08 15:56:00 18 /min [facility] Body height 2023-11-08 15:56:00 162.6 cm [facility] Body weight 2023-11-08 15:56:00 102.059 kg [facility] BMI 2023-11-08 15:56:00 38.62 kg/m2 [facility] Systolic blood pressure 2023-11-01 21:57:00 118 mm[Hg] [facility] Diastolic blood pressure 2023-11-01 21:57:00 69 mm[Hg] [facility] Heart rate 2023-11-01 21:57:00 74 /min [facility] Body temperature 2023-11-01 21:57:00 36.67 [facility] Respiratory rate 2023-11-01 21:57:00 18 /min [facility] Oxygen saturation in Arterial blood by Pulse oximetry 2023-11-01 21:57:00 97 /min [facility] Body height 2023-10-30 08:38:00 162.6 cm [facility] Body weight 2023-10-30 08:38:00 99.5 kg [facility] BMI 2023-10-30 08:38:00 37.63 kg/m2 [facility] Systolic blood pressure 2023-10-31 19:33:00 117 mm[Hg] [facility] Diastolic blood pressure 2023-10-31 19:33:00 56 mm[Hg] [facility] Heart rate 2023-10-31 19:33:00 77 /min [facility] Respiratory rate 2023-10-31 19:33:00 12 /min [facility] Oxygen saturation in Arterial blood by Pulse oximetry 2023-10-31 19:33:00 99 /min [facility] Body temperature 2023-10-31 19:26:00 37.22 [facility] Body height 2023-10-30 08:38:00 162.6 cm [facility] Body weight 2023-10-30 08:38:00 99.5 kg [facility] BMI 2023-10-30 08:38:00 37.63 kg/m2 [facility] Systolic blood pressure 2023-09-03 21:07:00 125 mm[Hg] [facility] Diastolic blood pressure 2023-09-03 21:07:00 84 mm[Hg] [facility] Heart rate 2023-09-03 21:07:00 119 /min [facility] Body temperature 2023-09-03 21:07:00 36.61 [facility] Respiratory rate 2023-09-03 21:07:00 18 /min [facility] Body height 2023-09-03 21:07:00 162.6 cm [facility] Body weight 2023-09-03 21:07:00 99.536 kg [facility] BMI 2023-09-03 21:07:00 37.67 kg/m2 [facility] Systolic blood pressure 2023-08-06 21:54:00 135 mm[Hg] [facility] Diastolic blood pressure 2023-08-06 21:54:00 75 mm[Hg] [facility] Heart rate 2023-08-06 21:54:00 107 /min [facility] Body temperature 2023-08-06 21:54:00 35.39 [facility] Respiratory rate 2023-08-06 21:54:00 18 /min [facility] Body height 2023-08-06 21:54:00 162.6 cm [facility] Body weight 2023-08-06 21:54:00 92.761 kg [facility] BMI 2023-08-06 21:54:00 35.10 kg/m2 [facility] Systolic blood pressure 2023-07-08 23:47:00 123 mm[Hg] [facility] Diastolic blood pressure 2023-07-08 23:47:00 75 mm[Hg] [facility] Heart rate 2023-07-08 23:47:00 79 /min [facility] Body temperature 2023-07-08 23:47:00 36.61 [facility] Respiratory rate 2023-07-08 23:47:00 16 /min [facility] Body height 2023-07-08 23:47:00 162.6 cm [facility] Body weight 2023-07-08 23:47:00 94.802 kg [facility] BMI 2023-07-08 23:47:00 35.87 kg/m2 [facility] Oxygen saturation in Arterial blood by Pulse oximetry 2023-07-08 23:47:00 98 /min [facility] Respiratory rate 2023-07-02 12:55:00 18 /min [facility] Body height 2023-07-02 12:55:00 162.6 cm [facility] Body weight 2023-07-02 12:55:00 91.264 kg [facility] BMI 2023-07-02 12:55:00 34.54 kg/m2 [facility] Systolic blood pressure 2023-07-02 12:55:00 126 mm[Hg] [facility] Diastolic blood pressure 2023-07-02 12:55:00 74 mm[Hg] [facility] Heart rate 2023-07-02 12:55:00 99 /min [facility] Body temperature 2023-07-02 12:55:00 36.78 [facility] Systolic blood pressure 2023-06-04 18:06:00 123 mm[Hg] [facility] Diastolic blood pressure 2023-06-04 18:06:00 67 mm[Hg] [facility] Heart rate 2023-06-04 18:06:00 88 /min [facility] Body temperature 2023-06-04 18:06:00 36.78 [facility] Respiratory rate 2023-06-04 18:06:00 18 /min [facility] Body height 2023-06-04 18:06:00 162.6 cm [facility] Body weight 2023-06-04 18:06:00 91.4 kg [facility] BMI 2023-06-04 18:06:00 34.59 kg/m2 [facility] Systolic blood pressure 2023-03-30 19:43:48 132 mm[Hg] [facility] Diastolic blood pressure 2023-03-30 19:43:48 83 mm[Hg] [facility] Heart rate 2023-03-30 19:43:48 103 /min [facility] Respiratory rate 2023-03-30 19:43:48 16 /min [facility] Oxygen saturation in Arterial blood by Pulse oximetry 2023-03-30 19:43:48 100 /min [facility] Body temperature 2023-03-30 18:30:00 37.5 [facility] Body height 2023-03-30 18:30:00 162.6 cm [facility] Body weight 2023-03-30 18:30:00 90.719 kg [facility] BMI 2023-03-30 18:30:00 34.33 kg/m2 [facility] Systolic blood pressure 2020-11-03 23:01:00 129 mm[Hg] [facility] Diastolic blood pressure 2020-11-03 23:01:00 71 mm[Hg] [facility] Heart rate 2020-11-03 23:01:00 93 /min [facility] Body temperature 2020-11-03 23:01:00 37.17 [facility] Respiratory rate 2020-11-03 23:01:00 14 /min [facility] Body height 2020-11-03 23:01:00 162.6 cm [facility] Body weight 2020-11-03 23:01:00 86.183 kg [facility] BMI 2020-11-03 23:01:00 32.61 kg/m2 [facility] Oxygen saturation in Arterial blood by Pulse oximetry 2020-11-03 23:01:00 100 /min [facility] Systolic blood pressure 2020-10-14 15:42:00 109 mm[Hg] [facility] Diastolic blood pressure 2020-10-14 15:42:00 67 mm[Hg] [facility] Heart rate 2020-10-14 15:42:00 81 /min [facility] Body temperature 2020-10-14 15:42:00 36.61 [facility] Respiratory rate 2020-10-14 15:42:00 16 /min [facility] Body height 2020-10-14 15:42:00 162.6 cm [facility] Body weight 2020-10-14 15:42:00 94.212 kg [facility] BMI 2020-10-14 15:42:00 35.65 kg/m2 [facility] Systolic blood pressure 2020-10-12 02:31:00 127 mm[Hg] [facility] Diastolic blood pressure 2020-10-12 02:31:00 83 mm[Hg] [facility] Heart rate 2020-10-12 02:31:00 86 /min [facility] Body temperature 2020-10-12 02:31:00 36.72 [facility] Respiratory rate 2020-10-12 02:31:00 17 /min [facility] Oxygen saturation in Arterial blood by Pulse oximetry 2020-10-12 02:31:00 100 /min [facility] Systolic blood pressure 2020-10-12 01:30:00 112 mm[Hg] [facility] Diastolic blood pressure 2020-10-12 01:30:00 66 mm[Hg] [facility] Heart rate 2020-10-12 01:30:00 83 /min [facility] Respiratory rate 2020-10-12 01:30:00 17 /min [facility] Oxygen saturation in Arterial blood by Pulse oximetry 2020-10-12 01:30:00 100 /min [facility] Body temperature 2020-10-11 23:12:00 36.67 [facility] Body weight 2020-10-11 23:12:00 91.627 kg [facility] BMI 2020-10-11 23:12:00 31.64 kg/m2 [facility] Systolic blood pressure 2019-05-20 18:15:00 127 mm[Hg] [facility] Diastolic blood pressure 2019-05-20 18:15:00 79 mm[Hg] [facility] Heart rate 2019-05-20 18:15:00 88 /min [facility] Body temperature 2019-05-20 18:15:00 36.67 [facility] Respiratory rate 2019-05-20 18:15:00 18 /min [facility] Body height 2019-05-20 18:15:00 162.6 cm [facility] Body weight 2019-05-20 18:15:00 117.028 kg [facility] BMI 2019-05-20 18:15:00 44.29 kg/m2 [facility] Systolic blood pressure 2019-05-20 18:15:00 127 mm[Hg] [facility] Diastolic blood pressure 2019-05-20 18:15:00 79 mm[Hg] [facility] Heart rate 2019-05-20 18:15:00 88 /min [facility] Body temperature 2019-05-20 18:15:00 36.67 [facility] Respiratory rate 2019-05-20 18:15:00 18 /min [facility] Body height 2019-05-20 18:15:00 162.6 cm [facility] Body weight 2019-05-20 18:15:00 117.028 kg [facility] BMI 2019-05-20 18:15:00 44.29 kg/m2 [facility] Systolic blood pressure 2019-04-29 19:47:00 122 mm[Hg] [place] [facility] Diastolic blood pressure 2019-04-29 19:47:00 71 mm[Hg] [facility] Heart rate 2019-04-29 19:47:00 98 /min [facility] Body temperature 2019-04-29 19:47:00 36.61 [facility] Respiratory rate 2019-04-29 19:47:00 18 /min [facility] Body height 2019-04-29 19:47:00 162.6 cm [facility] Body weight 2019-04-29 19:47:00 116.847 kg [facility] BMI 2019-04-29 19:47:00 44.22 kg/m2 [facility] Systolic blood pressure 2019-04-29 19:47:00 122 mm[Hg] [facility] Diastolic blood pressure 2019-04-29 19:47:00 71 mm[Hg] [facility] Heart rate 2019-04-29 19:47:00 98 /min [facility] Body temperature 2019-04-29 19:47:00 36.61 [facility] Respiratory rate 2019-04-29 19:47:00 18 /min [facility] Body height 2019-04-29 19:47:00 162.6 cm [facility] Body weight 2019-04-29 19:47:00 116.847 kg [facility] BMI 2019-04-29 19:47:00 44.22 kg/m2 [facility] Procedures Procedure Date / Time Performed Performing Clinician Source XR CHEST 2 VW 2024-02-10 16:30:42 Marilin Rollins [facility] POCT TEST 2024-02-10 16:22:00 Madison Rollins [facility] URINALYSIS 2024-02-10 16:21:00 Marilin Rollins [facility] INFLUENZA A/B RSV COVID NAAT 2024-02-10 16:13:00 Marilin Rollins [facility] CENTRAL NEURAXIAL BLOCK 2023-12-22 20:49:00 Alban Ragsdale [facility] SGOT (ASPARTATE AMINO TRANSFER) 2023-12-22 19:15:00 Adum, Darlene Varghese [facility] CREATININE 2023-12-22 19:15:00 Adum, Darlene Varghese [facility] ALANINE AMINO TRANSFERASE(SGPT 2023-12-22 19:15:00 Adum, Darlene Varghese [facility] LACTATE DEHYDROGENASE 2023-12-22 19:15:00 Adum, Darlene Varghese [facility] URIC ACID 2023-12-22 19:15:00 Adum, Darlene Varghese [facility] CBC WITH DIFF 2023-12-22 19:15:00 Adum, Darlene Varghese [facility] HEPATITIS B SURFACE ANTIGEN 2023-12-22 19:15:00 Adum, Darlene Varghese [facility] HB ABO GROUPING 2023-12-22 19:15:00 Adum, Darlene Frias [facility] GC & CHLAMYDIA AMPLIFIED ASSAY 2023-12-22 19:15:00 Adum, Darlene Varghese [facility] RHO (D) IMMUNE GLOBULIN 2023-12-22 19:15:00 Adum, Katelyn Varghese [facility] ADC OR DEMETRIUS ONLY - RPR 2023-12-22 19:15:00 Adum, Sydnie Varghese [facility] PROTEIN CREAT RATIO URINE RANDOM 2023-12-22 19:15:00 Adum, Darlene Varghese [facility] HIV 1/2 AG-AB WITH REFLEX 2023-12-22 19:15:00 Adum, Sydnie Varghese [facility] POCT URINALYSIS 2023-12-17 20:14:00 Denisse Guerra [facility] SECOND AND THIRD TRIMESTER ULTRASOUND 2023-12-16 20:53:43 Anant Abdullahi [facility] POCT URINALYSIS 2023-11-27 16:33:00 Denisse Guerra [facility] TDAP VACCINE, >11 YRS, IM 2023-11-08 16:31:16 Denisse Thakkar [facility] FL TIME OR (NON-REPORTABLE) 2023-10-31 19:15:00 João Sandra [facility] FL TIME OR (NON-REPORTABLE) 2023-10-31 19:15:00 [facility] LAPAROSCOPIC CHOLECYSTECTOMY 2023-10-31 16:52:00 [facility] INTRAOPERATIVE CHOLANGIOGRAM 2023-10-31 16:52:00 [facility] COMMON BILE DUCT EXPLORATION 2023-10-31 16:52:00 [facility] LAPAROSCOPIC CHOLECYSTECTOMY 2023-10-31 16:52:00 [facility] INTRAOPERATIVE CHOLANGIOGRAM 2023-10-31 16:52:00 [facility] COMMON BILE DUCT EXPLORATION 2023-10-31 16:52:00 [facility] COMP. METABOLIC PANEL ([id number]) 2023-10-31 02:58:00 Melvin Kamila [facility] CBC WITH DIFF 2023-10-31 02:58:00 [facility] COMP. METABOLIC PANEL ([id number]) 2023-10-31 02:58:00 Melvin Kamila [facility] CBC WITH DIFF 2023-10-31 02:58:00 [facility] GALL BLADDER 2023-10-30 14:13:47 Nathen Hodges in [facility] US GALL BLADDER 2023-10-30 14:13:47 Nathen Hodges in [facility] HB ABO GROUPING 2023-10-30 06:03:00 Nathen Hodges in [facility] HB ABO GROUPING 2023-10-30 06:03:00 Nathen Hodges in [facility] PHOSPHORUS 2023-10-30 05:36:00 Nathen Hodges [facility] LACTATE DEHYDROGENASE 2023-10-30 05:36:00 Ko Hodges [facility] URIC ACID 2023-10-30 05:36:00 Nathen Hodges [facility] AMYLASE 2023-10-30 05:36:00 Nathen Hodges [facility] LIPASE 2023-10-30 05:36:00 Nathne Hodges [facility] MAGNESIUM 2023-10-30 05:36:00 Nathen Hodges [facility] HEPATIC FUNCTION PANEL ([id number]) (ALB,T.PRO,BILI T,BU/BC,ALT,AST,ALK PHOS) 2023-10-30 05:36:00 Nathen Hodges [facility] COMP. METABOLIC PANEL ([id number]) 2023-10-30 05:36:00 Nathen Hodges [facility] CBC WITH DIFF 2023-10-30 05:36:00 Nathen Hodges [facility] URINALYSIS 2023-10-30 05:36:00 Nathen Hodges [facility] HEPATITIS B SURFACE ANTIBODY 2023-10-30 05:36:00 Nathen Hodges [facility] HEPATITIS B SURFACE ANTIGEN 2023-10-30 05:36:00 Nathen Hodges [facility] HCV ANTIBODY 2023-10-30 05:36:00 Nathen Hodges [facility] HEPATITIS A VIRUS ANTIBODY IGM 2023-10-30 05:36:00 Nathen Hodges [facility] HEPATITIS B CORE ANTIBODY IGM 2023-10-30 05:36:00 Nathen Hodges [facility] URINE CULTURE 2023-10-30 05:36:00 Nathen Hodges [facility] PROTEIN CREAT RATIO URINE RANDOM 2023-10-30 05:36:00 Nathen Hodges [facility] PHOSPHORUS 2023-10-30 05:36:00 Nathen Hodges [facility] LACTATE DEHYDROGENASE 2023-10-30 05:36:00 Ko Hodges [facility] URIC ACID 2023-10-30 05:36:00 Nathen Hodges [facility] AMYLASE 2023-10-30 05:36:00 Nathen Hodges [facility] LIPASE 2023-10-30 05:36:00 Nathen Hodges [facility] MAGNESIUM 2023-10-30 05:36:00 Nathen Hodges [facility] HEPATIC FUNCTION PANEL ([id number]) (ALB,T.PRO,BILI T,BU/BC,ALT,AST,ALK PHOS) 2023-10-30 05:36:00 Nathen Hodges [facility] COMP. METABOLIC PANEL ([id number]) 2023-10-30 05:36:00 Nathen Hodges [facility] CBC WITH DIFF 2023-10-30 05:36:00 Nathen Hodges [facility] URINALYSIS 2023-10-30 05:36:00 Nathen Hodges [facility] HEPATITIS B SURFACE ANTIBODY 2023-10-30 05:36:00 Nathen Hodges [facility] HEPATITIS B SURFACE ANTIGEN 2023-10-30 05:36:00 Nathen Hodges [facility] HCV ANTIBODY 2023-10-30 05:36:00 Nathen Hodges [facility] HEPATITIS A VIRUS ANTIBODY IGM 2023-10-30 05:36:00 Nathen Hodges [facility] HEPATITIS B CORE ANTIBODY IGM 2023-10-30 05:36:00 Nathen Hodges [facility] URINE CULTURE 2023-10-30 05:36:00 Nathen Hodges [facility] PROTEIN CREAT RATIO URINE RANDOM 2023-10-30 05:36:00 Nathen Hodges [facility] POCT GLUCOSE (AUTOMATED) 2023-10-30 05:20:00 Santhosh Barroso [facility] POCT GLUCOSE (AUTOMATED) 2023-10-30 05:20:00 Santhosh Barroso [facility] POCT URINALYSIS 2023-09-03 21:08:00 Denisse Guerra [facility] SECOND AND THIRD TRIMESTER ULTRASOUND 2023-08-28 15:45:00 Anant Abdullahi [facility] ALPHA FETOPROTEIN-MATERNAL SER 2023-08-06 22:00:00 Denisse Guerra [facility] POCT URINALYSIS 2023-08-06 21:54:00 Denisse Guerra [facility] CONSENT FOR NIPT 2023-08-06 06:01:00 Doctor Unas signed, [place] [facility] FIRST TRIMESTER ULTRASOUND 2023-07-11 19:54:00 Anant Kenny [facility] ASSIGNMENT OF BENEFITS 2023-07-09 00:18:03 Docto r Unassigned, [place] [facility] RAPID STREP SCREEN FOR GROUP A 2023-07-08 23:50:00 Robert Stapleton [facility] CONSENT/REFUSAL FOR DIAGNOSIS AND TREATMENT 2023-07-08 23:17:17 Doctor Unassigned, [place] [facility] POCT URINALYSIS 2023-07-02 00:00:00 Denisse Guerra [facility] GC & CHLAMYDIA AMPLIFIED ASSAY 2023-06-04 19:26:00 Denisse Guerra [facility] TRICHOMONAS AMPLIFIED ASSAY 2023-06-04 19:26:00 Denisse Guerra [facility] PAP SMEAR-LIQUID BASED-CP 2023-06-04 19:26:00 Denisse Thakkar [facility] POCT TEST 2023-06-04 17:58:00 Bree Guerra [facility] POCT URINALYSIS W/O SPECIFIC GRAVITY 2023-06-04 17:58:00 Denisse Guerra [facility] ASSIGNMENT OF BENEFITS 2023-06-04 17:39:07 Docto r Unassigned, [place] [facility] GLUCOSE 1 HOUR POST PRANDIAL 2023-06-04 07:05:00 Denisse Guerra [facility] COMP. METABOLIC PANEL ([id number]) 2023-06-04 07:05:00 Denisse Guerra [facility] CBC WITH DIFF 2023-06-04 07:05:00 Denisse Guerra [facility] RUBELLA SCREEN IGG 2023-06-04 07:05:00 Karely Guerra [facility] VZV ANTIBODY SCREEN 2023-06-04 07:05:00 Bree Guerra [facility] HEPATITIS B SURFACE ANTIGEN 2023-06-04 07:05:00 Denisse Guerra [facility] HCV ANTIBODY 2023-06-04 07:05:00 Denisse Guerra [facility] HB ABO GROUPING 2023-06-04 07:05:00 Denisse Guerra [facility] HIV 1/2 AG-AB WITH REFLEX 2023-06-04 07:05:00 Denisse Thakkar [facility] SYPHILIS IGG/IGM 2023-06-04 07:05:00 Denisse Guerra [facility] CT SOFT TISSUE NECK W CONTRAST 2023-03-30 19:49:39 Robert Stapleton [facility] COMP. METABOLIC PANEL ([id number]) 2023-03-30 19:02:00 Robert Stapleton [facility] CBC WITH DIFF 2023-03-30 19:02:00 Robert Stapleton [facility] RAPID STREP SCREEN FOR GROUP A 2023-03-30 19:02:00 Robert Stapleton [facility] CONSENT/REFUSAL FOR DIAGNOSIS AND TREATMENT 2023-03-30 18:27:08 Doctor Unassigned, [place] [facility] CONSENT/REFUSAL FOR DIAGNOSIS AND TREATMENT 2020-11-03 22:50:29 Doctor Unassigned, [place] [facility] POCT TEST 2020-10-14 15:43:00 Nita Rayo [facility] POCT URINALYSIS W/O SPECIFIC GRAVITY 2020-10-14 15:43:00 Boom Rayo [facility] ASSIGNMENT OF BENEFITS 2020-10-14 15:02:26 Docto r Unassigned, [place] [facility] US FIRST TRIMESTER LESS THAN 14 WEEKS WITH TRANSVAGINAL 2020-10-12 01:27:14 Imelda Iglesias [facility] COMP. METABOLIC PANEL ([id number]) 2020-10-11 23:30:00 Imelda Iglesias [facility] TOTAL BETA HCG ASSAY 2020-10-11 23:30:00 Imelda Iglesias [facility] CBC WITH DIFF 2020-10-11 23:30:00 Imelda Iglesias [facility] URINALYSIS 2020-10-11 23:30:00 Imelda Iglesias [facility] POCT TEST 2020-10-11 23:30:00 Imelda Iglesias [facility] NOTICE OF PRIVACY PRACTICES 2020-10-11 23:00:41 Doctor Unassigned, [place] [facility] TDAP (ADACEL) IMMUNIZATION 2019-05-20 18:30:34 Yashira Cardenas [facility] POCT URINALYSIS W/O SPECIFIC GRAVITY 2019-05-20 00:00:00 Yashira Garcia [facility] 1 HR GLUCOSE TOLERANCE TEST 2019-05-15 15:00:00 Radha Yashira [facility] GLUCOSE FASTING 2019-05-15 14:00:00 [facility] [facility] 2019-04-27 05:01:00 Doc tor Unassigned, [place] [facility] Encounters Start Date/Time End Date/Time Encounter Type Admission Type Attending Clinicians Care Facility Care Department Encounter ID Source 2023-11-01 18:13:03 Outpatient P [facility] [id number] [facility] 2021-07-02 03:21:10 Emergency [facility] [id number] [facility] 2021-07-01 22:39:41 Emergency [facility] [id number] [facility] 2024-02-10 10:51:00 2024-02-10 13:33:00 Emergency X MARILIN ROLLINS [facility] E[facility] [id number] [facility] 2024-02-10 10:51:00 2024-02-10 13:33:00 Emergency Marilin Rollins [facility] [id number] 350.1.13.10 4.2.7.2.686 [id number] [facility] 2024-01-09 08:30:00 2024-01-09 08:30:00 Outpatient R TYSHAWN KWOK [facility] [id number] [facility] 2024-01-06 00:00:00 2024-01-06 10:57:28 Telephone PaulakimIvelisse delacruz [facility] 1.2840.114 350.1.13.10 4.2.7.2.686 [id number] [facility] 2023-12-25 14:15:00 2023-12-25 14:15:00 Outpatient R DENISSE GUERRA [facility] [id number] [facility] 2023-12-25 00:00:00 2023-12-25 00:00:00 Encounter [facility] 1.20.114 350.1.13.10 4.2.7.2.686 [id number] [facility] 2023-12-22 12:43:00 2023-12-23 20:38:00 Inpatient X DARLENE HUSSEIN [facility] [id number] [facility] 2023-12-22 12:43:00 2023-12-23 20:38:00 Hospital Encounter Darlene Hussein [facility] 1.2840.114 350.1.13.10 4.2.7.2.686 [id number] [facility] 2023-12-22 15:49:00 2023-12-22 22:52:00 Anesthesia Event Alban Ragsdale [facility] 1.2840.114 350.1.13.10 4.2.7.2.686 [id number] [facility] 2023-12-22 15:34:55 2023-12-22 15:34:55 Anesthesia Event Alban Ragsdale [facility] 1.2840.114 350.1.13.10 4.2.7.2.686 [id number] [facility] 2023-12-17 15:15:00 2023-12-17 15:48:57 Outpatient R DENISSE GUERRA [facility] [id number] [facility] 2023-12-17 15:15:00 2023-12-17 15:48:57 Routine Visit Denisse Guerra [facility] CHILD [facility] [id number] 350.1.13.10 4.2.7.2.686 [id number] [facility] 2023-12-17 00:00:00 2023-12-17 00:00:00 Abstract Anant Abdullahi [facility] CHILD [facility] 1..840.114 350.1.13.10 4.2.7.2.686 [id number] [facility] 2023-12-16 15:30:00 2023-12-16 15:47:08 Outpatient DANIEL BERNAL SANGEETA [facility] [id number] [facility] 2023-12-16 15:30:00 2023-12-16 15:47:08 Clinical Informatics Strategist Visit Ultrasound, Daniel Cordova [facility] CHILD [facility] 1..840.114 350.1.13.10 4.2.7.2.686 [id number] [facility] 2023-12-09 10:30:00 2023-12-09 10:30:00 Outpatient R DENISSE GUERRA [facility] [id number] [facility] 2023-11-27 10:30:00 2023-11-27 11:14:39 Outpatient R DENISSE GUERRA [facility] [id number] [facility] 2023-11-27 10:30:00 2023-11-27 11:14:39 Routine Visit Denisse Guerra [facility] CHILD [facility] 1.2840.114 350.1.13.10 4.2.7.2.686 [id number] [facility] 2023-11-08 09:45:00 2023-11-08 10:47:15 Outpatient R DENISSE GUERRA [facility] [id number] [facility] 2023-11-08 09:45:00 2023-11-08 10:47:15 Routine Visit Denisse Guerra [facility] CHILD [facility] 1.2840.114 350.1.13.10 4.2.7.2.686 [id number] [facility] 2023-10-29 22:23:00 2023-11-01 18:12:00 Inpatient P BARROSO, [facility] [id number] [facility] 2023-10-29 22:23:00 2023-11-01 18:12:00 Hospital Encounter Santhosh Barroso [facility] 1.2840.114 350.1.13.10 4.2.7.2.686 [id number] [facility] 2023-10-31 10:06:00 2023-10-31 13:37:00 Surgery João Sandra [facility] 1.2840.114 350.1.13.10 4.2.7.2.686 [id number] [facility] 2023-10-30 15:00:00 2023-10-30 15:00:00 Outpatient R DENISSE GUERRA [facility] [id number] [facility] 2023-10-04 00:00:00 2023-10-04 00:00:00 Refill Denisse Guerra [facility] CHILD [facility] 1.2840.114 350.1.13.10 4.2.7.2.686 [id number] [facility] 2023-10-01 14:15:00 2023-10-01 14:15:00 Outpatient R DENISSE GUERRA [facility] [id number] [facility] 2023-09-03 15:00:00 2023-09-03 15:32:52 Outpatient R DENISSE GUERRA [facility] [id number] [facility] 2023-09-03 15:00:00 2023-09-03 15:32:52 Routine Visit Denisse Guerra [facility] & CHILD [facility] 1..840.114 350.1.13.10 4.2.7.2.686 [id number] [facility] 2023-09-03 00:00:00 2023-09-03 00:00:00 Abstract Anant Abdullahi [facility] & CHILD [facility] 1.840.114 350.1.13.10 4.2.7.2.686 [id number] [facility] 2023-08-28 09:00:00 2023-08-28 09:41:47 Clinical Informatics Strategist Visit Ultrasound, Daniel Cordova [facility] ..840.114 350.1.13.10 4.2.7.2.686 [id number] [facility] 2023-08-28 09:00:00 2023-08-28 09:41:47 Outpatient DANIEL BERNAL SANGEETA [facility] [id number] [facility] 2023-08-23 00:00:00 2023-08-23 00:00:00 Refill Denisse Guerra [facility] ..840.114 350.1.13.10 [id number] [id number] [facility] 2023-08-06 15:30:00 2023-08-06 16:20:20 Outpatient DENISSE RICARDO [facility] [id number] [facility] 2023-08-06 15:30:00 2023-08-06 16:20:20 Routine Visit Denisse Guerra [facility] [id number] 350.1.13.10 [id number] [id number] [facility] 2023-08-06 00:00:00 2023-08-06 00:00:00 Orders Only Doctor Unassigned, [place] [facility] [id number] 350.1.13.10 [id number] [id number] [facility] 2023-07-24 00:00:00 2023-07-24 00:00:00 Refill Anant Abdullahi [facility] 1.840.114 350.1.13.10 4.2.7.2.686 [id number] [facility] 2023-07-16 07:45:00 2023-07-16 07:45:00 Outpatient R DENISSE GUERRA [facility] [id number] [facility] 2023-07-12 00:00:00 2023-07-12 00:00:00 Abstract Anant Abdullahi [facility] 1.840.114 350.1.13.10 4.2.7.2.686 [id number] [facility] 2023-07-11 13:30:00 2023-07-11 14:06:29 Outpatient KEN HERMAN [facility] [id number] [facility] 2023-07-11 13:30:00 2023-07-11 14:06:29 Clinical Informatics Strategist Visit Ultrasound, Sergo Kessler Ken Chenchadd [facility] 1.2.840.114 350.1.13.10 4.2.7.2.686 [id number] [facility] 2023-07-08 17:49:00 2023-07-08 19:04:00 Emergency X Robert STAPLETON [facility] ERT [id number] [facility] 2023-07-08 17:49:00 2023-07-08 19:04:00 Emergency Robert Stapleton [facility] 1..840.114 350.1.13.10 4.2.7.2.686 [id number] [facility] 2023-07-04 00:00:00 2023-07-04 00:00:00 Telephone Anant Abdullahi [facility] 1..840.114 350.1.13.10 4.2.7.2.686 [id number] [facility] 2023-07-02 12:45:00 2023-07-02 12:45:00 Outpatient DENISSE RICARDO [facility] [id number] [facility] 2023-07-02 07:45:00 2023-07-02 09:04:48 Outpatient R ANANT ABDULLAHI [facility] [id number] [facility] 2023-07-02 07:45:00 2023-07-02 09:04:48 Routine Visit Anant Abdullahi [facility] 1.2.840.114 350.1.13.10 4.2.7.2.686 [id number] [facility] 2023-07-01 00:00:00 2023-07-01 00:00:00 Case Management Denisse Guerra [facility] 1.2840.114 350.1.13.10 4.2.7.2.686 [id number] [facility] 2023-06-28 00:00:00 2023-06-28 00:00:00 Telephone Anant Abdullahi [facility] 1.2840.114 350.1.13.10 4.2.7.2.686 [id number] [facility] 2023-06-28 00:00:00 2023-06-28 00:00:00 Telephone Anant Abdullahi [facility] CHILD [facility] 1.2840.114 350.1.13.10 4.2.7.2.686 [id number] [facility] 2023-06-14 13:00:00 2023-06-14 13:00:00 Outpatient P [facility] [id number] [facility] 2023-06-04 13:00:00 2023-06-04 14:20:42 Outpatient R DENISSE GUERRA [facility] [id number] [facility] 2023-06-04 13:00:00 2023-06-04 14:20:42 Initial Visit Denisse Guerra [facility] 1.2.114 350.1.13.10 4.2.7.2.686 [id number] [facility] 2023-06-04 00:00:00 2023-06-04 00:00:00 Orders Only Doctor Unassigned, [place] [facility] 1.2840.114 350.1.13.10 4.2.7.2.686 [id number] [facility] 2023-05-28 13:45:00 2023-05-28 13:45:00 Outpatient R ANANT ABDULLAHI [facility] [id number] [facility] 2023-03-30 13:32:00 2023-03-30 15:51:00 Emergency X Robert STAPLETON [facility] ERT [id number] [facility] 2023-03-30 13:32:00 2023-03-30 15:51:00 Emergency Robert Stapleton [facility] 1.2.840.114 350.1.13.10 4.2.7.2.686 [id number] [facility] 2020-11-14 13:45:00 2020-11-14 13:45:00 Outpatient R BOOM RAYO [facility] [id number] [facility] 2020-11-03 17:03:00 2020-11-03 17:26:00 Emergency Robert Stapleton [facility] 1.2.840.114 350.1.13.10 4.2.7.2.686 [id number] [facility] 2020-11-03 00:00:00 2020-11-03 00:00:00 Orders Only Doctor Unassigned, [place] [facility] 1.2.840.114 350.1.13.10 4.2.7.2.686 [id number] [facility] 2020-10-19 00:00:00 2020-10-19 00:00:00 Telephone Anant Abdullahi [facility] 1.2.840.114 350.1.13.10 4.2.7.2.686 [id number] [facility] 2020-10-14 09:21:43 2020-10-14 10:26:07 Initial Visit Boom Rayo [facility] 1.2.840.114 350.1.13.10 4.2.7.2.686 [id number] [facility] 2020-10-14 08:30:00 2020-10-14 08:30:00 Outpatient R [facility] [id number] [facility] 2020-10-14 00:00:00 2020-10-14 00:00:00 Orders Only Doctor Unassigned, [place] [facility] 1.114 350.1.13.10 4.2.7.2.686 [id number] [facility] 2020-10-11 17:13:00 2020-10-11 20:50:00 Emergency Imelda Iglesias [facility] 1.114 350.1.13.10 4.2.7.2.686 [id number] [facility] 2020-08-09 14:15:00 2020-08-09 14:15:00 Outpatient R ANANT ABDULLAHI [facility] [id number] [facility] 2020-02-22 14:00:00 2020-02-22 14:00:00 Outpatient R NICKIBRAYDEN YASHIRA [facility] [id number] [facility] 2019-08-20 08:30:00 2019-08-20 08:46:46 Outpatient R RADHA [facility] [id number] [facility] 2019-05-20 13:07:44 2019-05-20 13:38:14 Routine Visit Nickibrayden [facility] Building 1.114 350.1.13.10 4.2.7.2.686 [id number] [facility] 2019-05-20 13:07:44 2019-05-20 13:38:14 Routine [facility] 1.114 350.1.13.10 4.2.7.2.686 [id number] 2019-05-15 08:51:51 2019-05-15 09:06:51 Clinical Informatics Strategist Visit 1, [facility] Radha [facility] 1.2.840.114 350.1.13.10 4.2.7.2.686 [id number] [facility] 2019-05-15 08:51:51 2019-05-15 09:06:51 Clinical Informatics Strategist Visit 1, [facility] Lab [facility] 1.2.840.114 350.1.13.10 4.2.7.2.686 [id number] 2019-05-07 08:17:00 2019-05-07 08:32:00 Clinical Informatics Strategist Visit 1, [facility] Lab Christi Castellano [facility] 1.2.840.114 350.1.13.10 4.2.7.2.686 [id number] [facility] 2019-05-07 08:17:00 2019-05-07 08:32:00 Clinical Informatics Strategist Visit 1, [facility] 1.2.840.114 350.1.13.10 4.2.7.2.686 [id number] 2019-05-07 00:00:00 2019-05-07 00:00:00 Case Management Yashira Garcia [facility] 1.2.840.114 350.1.13.10 4.2.7.2.686 [id number] [facility] 2019-05-07 00:00:00 2019-05-07 00:00:00 Case Management Yashira Garcia [facility] 1.2.840.114 350.1.13.10 4.2.7.2.686 [id number] 2019-04-29 14:22:55 2019-04-29 15:27:05 Routine Visit Christi Castellano [facility] 1.2.840.114 350.1.13.10 4.2.7.2.686 [id number] 2019-04-29 14:22:55 2019-04-29 15:27:05 Routine Visit Christi Castellano [facility] 1.2.840.114 350.1.13.10 4.2.7.2.686 [id number] [facility] 2019-04-27 00:00:00 2019-04-27 00:00:00 Orders Only Doctor Unassigned, [place] [facility] 1.2.840.114 350.1.13.10 4.2.7.2.686 [id number] 2019-04-27 00:00:00 2019-04-27 00:00:00 Orders Only Doctor Unassigned, [place] [facility] 1.2.840.114 350.1.13.10 4.2.7.2.686 [id number] [facility] Results Test Description Test Time Test Comments Results Resul t Comments Source XR CHEST 2 VW 2024-02-01 0 17:19:29 EXAM: XR CHEST 2 VW HISTORY: 28 years-old Female; Provided indication: SOB . TECHNIQUE: Single frontal view of the chest. COMPARISON: None FINDINGS: The lungs are well-expanded. No focal consolidation or pleural abnormalityis visualized. The cardiomediastinal silhouette is normal in size accounting fortechnique. No focal osseous lesions or acute osseous findings are detected. [facility] - [id number] 06:03:41* Test Item Value Reference Range Interpretation Comme nts RPR (Qualitative) (test code = 69674-9) Nonreactive Nonreactive Lab Interpretation (test cod e = 31796-4) Normal [facility]) IMMUNE [id number] 04:46:54* Test Item Value Reference Range Interpretation Comme nts RHIG CANDIDATE? (test code = 5188) No- see comment Patient is not a candidate for RhIg- Patient is Rh Positive.Performed at [facility] Laboratory Services - [facility] Blood [address] [place] [id number] Free: [phone] No. [id number] [facility] CenterHepatitis B Surface [id number] 23:15:32 * Test Item Value Reference Range Interpretation Comme nts HBsAg Semi-Quantitative (amy t code = 5195-3) 0.06 Negative [facility] CenterHIV 1/2 Ag-Ab with [id number] 21:27:08* Test Item Value Reference Range Interpretation Comme nts HIV Semi-quantitative (test code = 26178-1) 0.08 Negative VIVI (test code = VIVI) Non-reactive for HIV-1 antigen and HIV-1/HIV-2 antibodies. ?No laboratory evidence of HIV infection. ?Repeat in 2-4 weeks if acute HIV infection is suspected. [facility] Neuraxial [id number] 20:49:00 Alban Ragsdale MD ? ? 12/22/2023 ?4:17 PM Central Neuraxial Block Date/Time: 12/22/2023 3:49 PMPerformed by: Alban Ragsdale, [facility]PITALuthorized by: Alban Ragsdale MD ?Patient Location: OB ([facility] Labor Room 2306)End Time: 12/22/2023 4:16 PMReason for Block: Patient request and Labor analgesiaStaff: ?Anesthesiologist: Alban Ragsdale MD ?Performed by: anesthesiologistPreanesthetic Checklist: patient identified, IV checked, risks and benefits explained, monitors and equipment checked, timeout performed, pre- op evaluation, site marked and anesthesia consentProcedure: ?Type of Neuraxial: Epidural and Continuous ? Sterility Prep cap, drape, gloves, hand hygiene and mask ? ?Sedation Level no sedation ?Patient Position: sitting ?Prep: Betadine and patient draped ? ?Monitoring: heart rate, continuous pulse ox, heart rate / toco and NIBP ?Location: lumbar (1-5) ?Lumbar: L4-L5 ?Approach: midline ? ?Technique: catheter and KIMBERLEE saline ?Guidance with: landmark technique}Epidural/Spinal Cunningham and/or Catheter: ?Epidural/Spinal Kit: BBraun ?Needle Type: Tuohy ?Needle Gauge: 17 G ?Needle Length: 3.5 in (8.89 cm) ?Needle Insertion Depth: 8 ?Catheter Type: multiport ? ?Catheter Size: 19 G ? ?Catheter at Skin Depth: 12.5 ?Number of Attempts: 1 ?Test Dose: lidocaine 1.5% with epinephrine 1-to-200,000 and negative ? ?Dose: 5 cc ? ?Catheter Securement Method: surgical tape, Tegaderm and liquid medical adhesiveAssessment: ?Sensory Level: below T10 ?Block Outcome: pain improved, pain relieved, patient comfortable and patient tolerated procedure well ? ?Procedure Assessment: patie nt tolerated procedure well with no complicationsNotes: ? Smooth and atraumatic, (+) Local, (+) STFUniversCHI St[facility] HospitalCentral Neuraxial Block 2023-12-22 20:49:00Alban Ragsdale MD ? ? 12/22/2023 ?4:17 PM Central Neuraxial Block Date/Time: 12/22/2023 3:49 PMPerformed by: Alban Ragsdale MDAuthorized by: Alban Ragsdale MD ?Patient Location: OB ([facility] Labor Room 2306)End Time: 12/22/2023 4:16 PMReason for Block: Patient request and Labor analgesiaStaff: ?Anesthesiologist: Alban Ragsdale MD ?Performed by: anesthesiologistPreanesthetic Checklist: patient identified, IV checked, risks and benefits explained, monitors and equipment checked, timeout performed, pre- op evaluation, site marked and anesthesia consentProcedure: ?Type of Neuraxial: Epidural and Continuous ? Sterility Prep cap, drape, gloves, hand hygiene and mask ? ?Sedation Level no sedation ?Patient Position: sitting ?Prep: Betadine and patient draped ? ?Monitoring: heart rate, continuous pulse ox, heart rate / toco and NIBP ?Location: lumbar (1-5) ?Lumbar: L4-L5 ?Approach: midline ? ?Technique: catheter and KIMBERLEE saline ?Guidance with: landmark technique}Epidural/Spinal Cunningham and/or Catheter: ?Epidural/Spinal Kit: BBraun ?Needle Type: Tuohy ?Needle Gauge: 17 G ?Needle Length: 3.5 in (8.89 cm) ?Needle Insertion Depth: 8 ?Catheter Type: multiport ? ?Catheter Size: 19 G ? ?Catheter at Skin Depth: 12.5 ?Number of Attempts: 1 ?Test Dose: lidocaine 1.5% with epinephrine 1-to-200,000 and negative ? ?Dose: 5 cc ? ?Catheter Securement Method: surgical tape, Tegaderm and liquid medical adhesiveAssessment: ?Sensory Level: below T10 ?Block Outcome: pain improved, pain relieved, patient comfortable and patient tolerated procedure well ? ?Procedure Assessment: patie nt tolerated procedure well with no complicationsNotes: ? Smooth and atraumatic, (+) Local, (+) STFUniversCHI St[facility] HospitalLactate Dehydrogenase 2023-12-22 20:45:24* Test Item Value Reference Range Interpretation Comme [facility] LDH (test code = 3430245883) 186 U/L 120-246 Lab Interpretation (test cod e = 69595-0) Normal [facility] Center[facility] (Aspartate Amino Transfer ; SGOT) 2023-12-22 20:33:04* Test Item Value Reference Range Interpretation Comme [facility] AST(SGOT) (test code = 3032004156) 37 U/L 13-40 Lab Interpretation (test cod e = 40309-7) Normal [facility] CenterALT (Alanine Amino Transferase ; SGPT) 2023-12-22 20:33:04* Test Item Value Reference Range Interpretation Comme [facility] ALTv (test code = 1742-6) 62 U/L 5-35 H Lab Interpretation (test cod e = 52829-8) Abnormal [facility] CenterUric Acid [id number] 20:33:04* Test Item Value Reference Range Interpretation Comme [facility] URIC ACID (test code = 9533369831) 5.1 mg/dL 2.9-6.0 Lab Interpretation (test cod e = 85179-8) Normal [facility] CenterCreatinine [id number] 20:32:44* Test Item Value Reference Range Interpretation Comme [facility] CREATININE (test code = 2160-0) 0.59 mg/dL 0.50-1.04 eGFR (test code = 13494-0) 126.1 mL/min/1.73m2 CKD-EPI eGFR (20 21). Assuming creatinine has been stable day-to-day for at least three months, the eGFR indicates Category G1 (>= 90 mL/min/1.73 m2) [facility] with [id number] 20:21:25* Test Item Value Reference Range Interpretation Comme nts WBC (test code = 6690-2) 8.09 4.30-11.10 RBC (test code = 789-8) 3.56 3.93-5.25 L HGB (test code = 718-7) 9.9 g/dL 11.6-15.0 L HCT (test code = 4544-3) 31.3 % 35.7-45.2 L MCV (test code = 787-2) 87.9 fL 80.6-95.5 MCH (test code = 785-6) 27.8 pg 25.9-32.8 MCHC (test code = 786-4) 31.6 g/dL 31.6-35.1 RDW-SD (test code = 22122-3) 44.8 fL 39.0-49.9 RDW-CV (test code = 788-0) 14.1 % 12.0-15.5 PLT (test code = 777-3) 260 166-358 MPV (test code = 70493-3) 12.7 fL 9.5-12.9 NRBC/100 WBC (test code = 3389407469) 0.0 0.0-10.0 NRBC x10^3 (test code = 0986601943) See_Comment [Automated messa ge] The system which generated this result transmitted reference range: 10*3/?L. The reference range was not used to interpret this result as normal/abnormal. GRAN MAT (NEUT) % (test code = 770-8) 71.3 % IMM GRAN % (test code = 5469779532) 0.40 % LYMPH % (test code = 736-9) 16.6 % MONO % (test code = 5905-5) 9.5 % EOS % (test code = 713-8) 2.0 % BASO % (test code = 706-2) 0.2 % GRAN MAT x10^3(ANC) (test code = 8551079946) 5.77 10*3/uL 1.88-7.09 IMM GRAN x10^3 (test code = 2634952718) 0.03 10*3/uL 0.00-0.06 LYMPH x10^3 (test code = 731-0) 1.34 10*3/uL 1.32-3.29 MONO x10^3 (test code = 742-7) 0.77 10*3/uL 0.33-0.92 EOS x10^3 (test code = 711-2) 0.16 10*3/uL 0.03-0.39 BASO x10^3 (test code = 704-7) 0.01-0.07 Lab Interpretation (test code = 46826-2) Abnormal [facility] CenterType and Screen - ONCE [id number] 20:17:00 * Test Item Value Reference Range Interpretation Comme nts ABO & RH (test code = 20) O POSITIVE IAT (test code = 1185) Negative [facility] CenterPOCT URINALYSIS W SPECIFIC [id number] 20:14:00* Test Item Value Reference Range Interpretation Comme nts POCT U SP GRAV (test code = 3255) . 1.005-1.025 POCT PH U (test code = 3254) 7 mg/dl 5-8 POCT U LEUK EST (test code = 3263) 1+ Negative - Negative POCT U NIT (test code = 3262) neg Negative - Negati ve POCT U PROT (test code = 3259) trace Negative - Negat carmina POCT U GLU (test code = 3256) neg Negative - Negati ve POCT U KETONE (test code = 3258) neg Negative - Neg ative POCT U UROBILI (test code = 3260) . 0.2-1 POCT U BILI (test code = 3261) . Negative - Negat cramina POCT U BLD (test code = 3257) neg Negative - Negati ve POCT U COLOR (test code = 3266) . POCT U APPEAR (test code = 3267) . [facility] CenterPOCT URINALYSIS W SPECIFIC [id number] 20:14:00* Test Item Value Reference Range Interpretation Comme nts POCT U SP GRAV (test code = 3255) . 1.005-1.025 POCT PH U (test code = 3254) 7 mg/dl 5-8 POCT U LEUK EST (test code = 3263) 1+ Negative - Negative POCT U NIT (test code = 3262) neg Negative - Negati ve POCT U PROT (test code = 3259) trace Negative - Negat carmina POCT U GLU (test code = 3256) neg Negative - Negati ve POCT U KETONE (test code = 3258) neg Negative - Neg ative POCT U UROBILI (test code = 3260) . 0.2-1 POCT U BILI (test code = 3261) . Negative - Negat carmina POCT U BLD (test code = 3257) neg Negative - Negati ve POCT U COLOR (test code = 3266) . POCT U APPEAR (test code = 3267) . [facility] CenterPOCT URINALYSIS W SPECIFIC [id number] 16:33:00* Test Item Value Reference Range Interpretation Comme nts POCT U SP GRAV (test code = 3255) . 1.005-1.025 POCT PH U (test code = 3254) 6 mg/dl 5-8 POCT U LEUK EST (test code = 3263) Trace Negative - Negative POCT U NIT (test [...] POCT U APPEAR (test code = 3267) [facility] TIME OR (NON-REPORTABLE)2023-10-31 19:23:28 These images do not require a Radiology diagnostic report.[facility] TIME OR (NON-REPORTABLE)2023-10-31 19:23:28These images do not require a Radiology diagnostic report.[facility] CenterUrine [id number] 13:17:03* Test Item Value Reference Range Interpretation Comme nts URINE CULTURE (test code = 630-4) 10,000 - 100,000 CFU/mL mixed aerobic organisms - suggests endogenous microbial contamination [facility] CenterUrine [id number] 13:17:03* Test Item Value Reference Range Interpretation Comme nts URINE CULTURE (test code = 630-4) 10,000 - 100,000 CFU/mL mixed aerobic organisms - suggests endogenous microbial contamination [facility] A Virus Antibody [id number] 01:26:24* Test Item Value Reference Range Interpretation Comme nts HAVM Semi-Quantitative (test code = 44977-9) 0.03 VIVI (test code = VIVI) HAVAb IgM Interpretative Information: Reactive greater than or equal to 1.2 Biotin has been reported to cause a negative bias, interpret results relative to patient's use of biotin. [facility] B Core Antibody [id number] 01:26:24* Test Item Value Reference Range Interpretation Comme [facility] HBCM Semi-Quantitative (test code = 45357-4) 0.03 VIVI (test code = VIVI) Biotin has been reported to cause a negative bias, interpret results relative to patient's use of biotin. [facility] A Virus Antibody [id number] 01:26:24* Test Item Value Reference Range Interpretation Comme nts HAVM Semi-Quantitative (test code = 70353-5) 0.03 VIVI (test code = VIVI) HAVAb IgM Interpretative Information: Reactive greater than or equal to 1.2 Biotin has been reported to cause a negative bias, interpret results relative to patient's use of biotin. [facility] B Core Antibody [id number] 01:26:24* Test Item Value Reference Range Interpretation Comme nts HBCM Semi-Quantitative (test code = 79024-7) 0.03 VIVI (test code = VIVI) Biotin has been reported to cause a negative bias, interpret results relative to patient's use of biotin. [facility] CenterUS GALL [id number] 14:59:11EXAM: US GALL BLADDER HISTORY: 28 years-old Female; Provided indication: RUQ pain with elevatedconjbilirubin, gallstones seen on bedside ultrasoundd. TECHNIQUE: Limited abdominal ultrasound focused on the gallbladder wasperformed by the sand technologist. The main portal vein wasevaluated with color Doppler. [employer] images were obtained for therecord. COMPARISON: None FINDINGS: PANCREAS:The pancreas is unable to be visualized due to shadowing from bowel gas. LIVER:Visualized Parenchyma: The liver parenchyma exhibits normal hepaticechogenicity and echotexture. Portal vein: Hepatopetal flow is present in the main portal vein. BILE DUCTS:A large, shadowing gallstone is visualized within the cystic duct. Nointra- or extrahepatic biliary dilatation is visualized.The common duct diameter is normal and measures 0.9 cm. GALLBLADDER:Mobile and echogenic stones are seen. ?The gallbladder wall thickness is normal and measures 0.3 cm. Nopericholecystic fluid is visualized.Mondragon's sign was not present. OTHER: None.[facility] CenterUS GALL [id number] 14:59:11EXAM: US GALL BLADDER HISTORY: 28 years-old Female; Provided indication: RUQ pain with elevatedconjbilirubin, gallstones seen on bedside ultrasoundd. TECHNIQUE: Limited abdominal ultrasound focused on the gallbladder wasperformed by the sand technologist. The main portal vein wasevaluated with color Doppler. [employer] images were obtained for therecord. COMPARISON: None FINDINGS: PANCREAS:The pancreas is unable to be visualized due to shadowing from bowel gas. LIVER:Visualized Parenchyma: The liver parenchyma exhibits normal hepaticechogenicity and echotexture. Portal vein: Hepatopetal flow is present in the main portal vein. BILE DUCTS:A large, shadowing gallstone is visualizedwithin the cystic duct. Nointra- or extrahepatic biliary dilatation is visualized.The common duct diameter is normal and measures 0.9 cm. GALLBLADDER:Mobile and echogenic stones are seen. ?The gallbladder wall thickness is normal and measures 0.3 cm. Nopericholecystic fluid is visualized.Mondragon's sign was not present. OTHER: None.[facility] CenterHcv [id number] 07:43:39* Test Item Value Reference Range Interpretation Comme [facility] HCV Ab (test code = 41503-9) Negative HCV Semi-Quantitative (test code = 75422-8) 0.01 [facility] CenterHepatitis B Surface [id number] 07:43:39* Test Item Value Reference Range Interpretation Comme nts HBsAB (test code = 1702147765) Negative HBsAb Semi-Quantitative (test code = 5738918979) 0.20 mIU/mL VIVI (test code = VIVI) Interpretation: ?Hepatitis B Surface Antibody ? Negative - Patient is considered to be not immune to infection with HBV. ? ? Positive - Anti-HBs detected at greater than or equal to 12 mIU/mL. ?Patient is considered to be immune to infection with HBV. ? [facility] CenterHcv Cpwoupfd3105-14-77 07:43:39* Test Item Value Reference Range Interpretation Comme [facility] HCV Ab (test code = 15357-1) Negative HCV Semi-Quantitative (test code = 23093-4) 0.01 [facility] Ptasgjps9263-01-86 07:43:39* Test Item Value Reference Range Interpretation Comme [facility] HBsAB (test code = 0863248918) Negative HBsAb Semi-Quantitative (test code = 4842051125) 0.20 mIU/mL VIVI (test code = VIVI) Interpretation: ?Hepatitis B Surface Antibody ? Negative - Patient is considered to be not immune to infection with HBV. ? ? Positive - Anti-HBs detected at greater than or equal to 12 mIU/mL. ?Patient is considered to be immune to infection with HBV. ? [facility] Surface Dixxghc2771-18-29 07:26:13 * Test Item Value Reference Range Interpretation Comme [facility] HBsAg Semi-Quantitative (amy t code = 5195-3) 0.05 Negative [facility] B Surface Hxjfojp5424-74-76 07:26:13 * Test Item Value Reference Range Interpretation Comme [facility] HBsAg Semi-Quantitative (amy t code = 5195-3) 0.05 Negative [facility] CenterAmylase2024-02-28 06:54:34* Test Item Value Reference Range Interpretation Comme nts SATISH (test code = 7762214413) 51 U/L 35-110 Lab Interpretation (test cod e = 01955-0) Normal [facility] CenterHepatic Function Panel (76210) (ALB,T.PRO,BILI T,BU/BC,ALT,AST,ALK PHOS)2023-10-30 06:54:34* Test Item Value Reference Range Interpretation Comme nts TOTAL BILI (test code = 4073252401) 1.8 mg/dL 0.1-1.1 H BILI UNCON (test code = 3570563951) 0.4 mg/dL 0.1-1.1 BILI CONJ (test code = 3687456561) 0.5 mg/dL 0.0-0.3 H T PROTEIN (test code = 9571451565) 5.8 g/dL 6.3-8.2 L ALBUMIN (test code = 8851852223) 2.8 g/dL 3.5-5.0 L ALK PHOS (test code = 2295596789) 265 U/L 34-122 H ALTv (test code = 1742-6) 133 U/L 5-35 H AST(SGOT) (test code = 4913470593) 103 U/L 13-40 H Lab Interpretation (test cod e = 70839-2) Abnormal [facility] CenterAmylase2024-02-28 06:54:34* Test Item Value Reference Range Interpretation Comme nts SATISH (test code = 9169489321) 51 U/L 35-110 Lab Interpretation (test cod e = 22690-9) Normal [facility] CenterHep[facility] (61194) (ALB,T.PRO,BILI T,BU/BC,ALT,AST,ALK PHOS)2023-10-30 06:54:34* Test Item Value Reference Range Interpretation Comme nts TOTAL BILI (test code = 7209496501) 1.8 mg/dL 0.1-1.1 H BILI UNCON (test code = 4772140670) 0.4 mg/dL 0.1-1.1 BILI CONJ (test code = 1636827234) 0.5 mg/dL 0.0-0.3 H T PROTEIN (test code = 2361172539) 5.8 g/dL 6.3-8.2 L ALBUMIN (test code = 4515971792) 2.8 g/dL 3.5-5.0 L ALK PHOS (test code = 3647046301) 265 U/L 34-122 H ALTv (test code = 1742-6) 133 U/L 5-35 H AST(SGOT) (test code = 1177914901) 103 U/L 13-40 H Lab Interpretation (test cod e = 37173-2) Abnormal [facility] CenterLipase2024-02-28 06:33:34* Test Item Value Reference Range Interpretation Comme nts LIPASE (test code = 7001571461) 30 U/L 0-220 Lab Interpretation (test cod e = 81312-3) Normal [facility] CenterUric Acid Mjahc5177-79-18 06:33:34* Test Item Value Reference Range Interpretation Comme nts URIC ACID (test code = 2289741786) 3.4 mg/dL 2.9-6.0 Lab Interpretation (test cod e = 94956-6) Normal [facility] CenterLipase2024-02-28 06:33:34* Test Item Value Reference Range Interpretation Comme nts LIPASE (test code = 9505486740) 30 U/L 0-220 Lab Interpretation (test cod e = 47360-9) Normal [facility] CenterUric Acid Kotpq2369-50-93 06:33:34* Test Item Value Reference Range Interpretation Comme nts URIC ACID (test code = 2649027993) 3.4 mg/dL 2.9-6.0 Lab Interpretation (test cod e = 45479-7) Normal [facility] CenterMagnesium2024-02-28 06:33:29* Test Item Value Reference Range Interpretation Comme nts MAGNESIUM (test code = 4351286915) 2.8 mg/dL 1.7-2.4 H Lab Interpretation (test cod e = 58195-7) Abnormal [facility] CenterPhosphorus2024-02-28 06:33:29* Test Item Value Reference Range Interpretation Comme nts PHOSPHORUS (test code = 6443162279) 3.1 mg/dL 2.5-5.0 Lab Interpretation (test cod e = 18710-8) Normal [facility] CenterComp. Metabolic Panel (79604)2023-10-30 06:33:29* Test Item Value Reference Range Interpretation Comme nts NA (test code = 6803233917) 136 mmol/L 135-145 K (test code = 6695410652) 3.7 mmol/L 3.5-5.0 CL (test code = 1037935997) 107 mmol/L 98-108 CO2 TOTAL (test code = 7383253688) 23 mmol/L 23-31 AGAP (test code = 1053123179) 6 2-16 BUN (test code = 5356566421) 4 mg/dL 7-23 L GLUCOSE (test code = 7667970701) 112 mg/dL 70-110 H CREATININE (test code = 2160-0) 0.36 mg/dL 0.50-1.04 L TOTAL BILI (test code = 9350565849) 1.8 mg/dL 0.1-1.1 H CALCIUM (test code = 4903127416) 7.6 mg/dL 8.6-10.6 L T PROTEIN (test code = 3392096044) 5.9 g/dL 6.3-8.2 L ALBUMIN (test code = 3047145789) 2.9 g/dL 3.5-5.0 L ALK PHOS (test code = 5765174680) 270 U/L 34-122 H ALTv (test code = 1742-6) 131 U/L 5-35 H AST(SGOT) (test code = 7206135235) 101 U/L 13-40 H eGFR (test code = 71910-2) 142.0 mL/min/1.73m2 CKD-EPI eGFR (2020). Assuming creatinine has been stable day-to-day for at least three months, the eGFR indicates Category G1 (>= 90 mL/min/1.73 m2) Lab Interpretation (test code = 05918-7) Abnormal [facility] CenterMagnesium2024-02-28 06:33:29* Test Item Value Reference Range Interpretation Comme nts MAGNESIUM (test code = 7439924739) 2.8 mg/dL 1.7-2.4 H Lab Interpretation (test cod e = 03789-5) Abnormal [facility] CenterPhosphorus2024-02-28 06:33:29* Test Item Value Reference Range Interpretation Comme nts PHOSPHORUS (test code = 9324963847) 3.1 mg/dL 2.5-5.0 Lab Interpretation (test cod e = 35539-6) Normal [facility] CenterComp. Metabolic Panel (85901)2023-10-30 06:33:29* Test Item Value Reference Range Interpretation Comme nts NA (test code = 3500826310) 136 mmol/L 135-145 K (test code = 3557521348) 3.7 mmol/L 3.5-5.0 CL (test code = 3477376009) 107 mmol/L 98-108 CO2 TOTAL (test code = 1474963837) 23 mmol/L 23-31 AGAP (test code = 1391944423) 6 2-16 BUN (test code = 6053848615) 4 mg/dL 7-23 L GLUCOSE (test code = 3090345250) 112 mg/dL 70-110 H CREATININE (test code = 2160-0) 0.36 mg/dL 0.50-1.04 L TOTAL BILI (test code = 6349029434) 1.8 mg/dL 0.1-1.1 H CALCIUM (test code = 2828409692) 7.6 mg/dL 8.6-10.6 L T PROTEIN (test code = 5938146917) 5.9 g/dL 6.3-8.2 L ALBUMIN (test code = 4521224071) 2.9 g/dL 3.5-5.0 L ALK PHOS (test code = 4695879583) 270 U/L 34-122 H ALTv (test code = 1742-6) 131 U/L 5-35 H AST(SGOT) (test code = 3669314915) 101 U/L 13-40 H eGFR (test code = 69895-0) 142.0 mL/min/1.73m2 CKD-EPI eGFR (2020). Assuming creatinine has been stable day-to-day for at least three months, the eGFR indicates Category G1 (>= 90 mL/min/1.73 m2) Lab Interpretation (test code = 40996-0) Abnormal [facility] CenterLactate Lnciobgwuctwl4998-07-90 06:31:27* Test Item Value Reference Range Interpretation Comme nts LDH (test code = 7430542208) 176 U/L 120-246 Lab Interpretation (test cod e = 71765-8) Normal [facility] CenterLactate Ounkiuqdgqaqq9211-77-84 06:31:27* Test Item Value Reference Range Interpretation Comme nts LDH (test code = 3328237257) 176 U/L 120-246 Lab Interpretation (test cod e = 83949-6) Normal [facility] CenterUrinalysis2024-02-28 06:24:44* Test Item Value Reference Range Interpretation Comme nts APPEARANCE (test code = 6436765162) Clear Clear COLOR (test code = 9293016250) Rogelio Yellow A PH (test code = 3856598810) 5.0 4.8-8.0 SP GRAVITY (test code = 1809218613) 1.021 1.003-1.030 GLU U QUAL (test code = 5546853880) Normal Normal BLOOD (test code = 1629162341) Negative Negative KETONES (test code = 2914124730) 80 mg/dL Negative A PROTEIN (test code = 2887-8) Negative Negative UROBILIN (test code = 8609839377) 4.0 mg/dL Normal A BILIRUBIN (test code = 6753883332) 2 mg/dL Negative A NITRITE (test code = 0655398029) Negative Negative LEUK RONAK (test code = 8199731346) 25/uL Negative A RBC/HPF (test code = 3513504789) 3 0-3 WBC/HPF (test code = 5148445407) 3 0-5 BACTERIA (test code = 5004969594) Few Negative A MUCOUS (test code = 9694692404) Moderate Negative LPF A SQ EPITH (test code = 7519241556) 3 See_Comment H [Automated messa ge] The system which generated this result transmitted reference range: <=2 HPF. The reference range was not used to interpret this result as normal/abnormal. Ictotest (test code = 5271970753) Positive Lab Interpretation (test code = 16189-3) Abnormal [facility] CenterUrinalysis2024-02-28 06:24:44* Test Item Value Reference Range Interpretation Comme nts APPEARANCE (test code = 5318867176) Clear Clear COLOR (test code = 7795663464) Rogelio Yellow A PH (test code = 4702277083) 5.0 4.8-8.0 SP GRAVITY (test code = 0449996571) 1.021 1.003-1.030 GLU U QUAL (test code = 5754020336) Normal Normal BLOOD (test code = 9853895928) Negative Negative KETONES (test code = 5037088088) 80 mg/dL Negative A PROTEIN (test code = 2887-8) Negative Negative UROBILIN (test code = 0411214043) 4.0 mg/dL Normal A BILIRUBIN (test code = 8706429227) 2 mg/dL Negative A NITRITE (test code = 5866204670) Negative Negative LEUK RONAK (test code = 5238511471) 25/uL Negative A RBC/HPF (test code = 3689883326) 3 0-3 WBC/HPF (test code = 3385398679) 3 0-5 BACTERIA (test code = 2745944693) Few Negative A MUCOUS (test code = 2652769630) Moderate Negative LPF A SQ EPITH (test code = 6947775529) 3 See_Comment H [Automated PackLate.coma ge] The system which generated this result transmitted reference range: <=2 HPF. The reference range was not used to interpret this result as normal/abnormal. Ictotest (test code = 3015115425) Positive Lab Interpretation (test code = 24517-9) Abnormal [facility] with Vrjk4178-96-77 06:17:50* Test Item Value Reference Range Interpretation Comme nts WBC (test code = 6690-2) 6.42 4.30-11.10 RBC (test code = 789-8) 3.76 3.93-5.25 L HGB (test code = 718-7) 10.8 g/dL 11.6-15.0 L HCT (test code = 4544-3) 33.4 % 35.7-45.2 L MCV (test code = 787-2) 88.8 fL 80.6-95.5 MCH (test code = 785-6) 28.7 pg 25.9-32.8 MCHC (test code = 786-4) 32.3 g/dL 31.6-35.1 RDW-SD (test code = 12760-0) 45.6 fL 39.0-49.9 RDW-CV (test code = 788-0) 14.2 % 12.0-15.5 PLT (test code = 777-3) 215 166-358 MPV (test code = 12592-3) 10.9 fL 9.5-12.9 NRBC/100 WBC (test code = 5078686564) 0.0 0.0-10.0 NRBC x10^3 (test code = 9344319349) See_Comment [Automated PackLate.coma ge] The system which generated this result transmitted reference range: 10*3/?L. The reference range was not used to interpret this result as normal/abnormal. GRAN MAT (NEUT) % (test code = 770-8) 74.4 % IMM GRAN % (test code = 1992586357) 0.30 % LYMPH % (test code = 736-9) 17.6 % MONO % (test code = 5905-5) 5.8 % EOS % (test code = 713-8) 1.7 % BASO % (test code = 706-2) 0.2 % GRAN MAT x10^3(ANC) (test code = 5134330217) 4.78 10*3/uL 1.88-7.09 IMM GRAN x10^3 (test code = 9695475297) 0.00-0.06 LYMPH x10^3 (test code = 731-0) 1.13 10*3/uL 1.32-3.29 L MONO x10^3 (test code = 742-7) 0.37 10*3/uL 0.33-0.92 EOS x10^3 (test code = 711-2) 0.11 10*3/uL 0.03-0.39 BASO x10^3 (test code = 704-7) 0.01-0.07 Lab Interpretation (test code = 79805-1) Abnormal [facility] with Voht9527-76-45 06:17:50* Test Item Value Reference Range Interpretation Comme nts WBC (test code = 6690-2) 6.42 4.30-11.10 RBC (test code = 789-8) 3.76 3.93-5.25 L HGB (test code = 718-7) 10.8 g/dL 11.6-15.0 L HCT (test code = 4544-3) 33.4 % 35.7-45.2 L MCV (test code = 787-2) 88.8 fL 80.6-95.5 MCH (test code = 785-6) 28.7 pg 25.9-32.8 MCHC (test code = 786-4) 32.3 g/dL 31.6-35.1 RDW-SD (test code = 25121-5) 45.6 fL 39.0-49.9 RDW-CV (test code = 788-0) 14.2 % 12.0-15.5 PLT (test code = 777-3) 215 166-358 MPV (test code = 41746-4) 10.9 fL 9.5-12.9 NRBC/100 WBC (test code = 4319997369) 0.0 0.0-10.0 NRBC x10^3 (test code = 3958103903) See_Comment [Automated messa ge] The system which generated this result transmitted reference range: 10*3/?L. The reference range was not used to interpret this result as normal/abnormal. GRAN MAT (NEUT) % (test code = 770-8) 74.4 % IMM GRAN % (test code = 7330387438) 0.30 % LYMPH % (test code = 736-9) 17.6 % MONO % (test code = 5905-5) 5.8 % EOS % (test code = 713-8) 1.7 % BASO % (test code = 706-2) 0.2 % GRAN MAT x10^3(ANC) (test code = 2889189261) 4.78 10*3/uL 1.88-7.09 IMM GRAN x10^3 (test code = 5691213495) 0.00-0.06 LYMPH x10^3 (test code = 731-0) 1.13 10*3/uL 1.32-3.29 L MONO x10^3 (test code = 742-7) 0.37 10*3/uL 0.33-0.92 EOS x10^3 (test code = 711-2) 0.11 10*3/uL 0.03-0.39 BASO x10^3 (test code = 704-7) 0.01-0.07 Lab Interpretation (test code = 99778-4) Abnormal [facility]Type [facility] - ONCE VEYT8548-76-27 06:14:00 * Test Item Value Reference Range Interpretation Comme nts ABO & RH (test code = 20) O POSITIVE IAT (test code = 1185) [facility] FIZA7663-93-69 06:14:00 * Test Item Value Reference Range Interpretation Comme nts ABO & RH (test code = 20) O POSITIVE IAT (test code = 1185) Negative [facility] CenterProtein CREAT Ratio Urine Yymjqp2654-25-99 06:11:07* Test Item Value Reference Range Interpretation Comme nts T. PROT U (test code = 2888-6) 43 mg/dL CREAT U (test code = 4533175154) 99.5 mg/dL Protein/Creatinine Ratio Uri ne (test code = 0889179024) 0.4 0.0-2.0 [facility] CREAT Ratio Urine Vwenmw2688-22-49 06:11:07* Test Item Value Reference Range Interpretation Comme nts T. PROT U (test code = 2888-6) 43 mg/dL CREAT U (test code = 8531653145) 99.5 mg/dL Protein/Creatinine Ratio Uri ne (test code = 9112738179) 0.4 0.0-2.0 [facility] GLUCOSE (AUTOMATED)2023-10-30 05:20:59* Test Item Value Reference Range Interpretation Comme nts POCT GLU (test code = 9715929197) 111 mg/dL 70-110 H Lab Interpretation (test cod e = 51711-4) Abnormal [facility] GLUCOSE (AUTOMATED)2023-10-30 05:20:59* Test Item Value Reference Range Interpretation Comme nts POCT GLU (test code = 8829640914) 111 mg/dL 70-110 H Lab Interpretation (test cod e = 59604-3) Abnormal [facility] URINALYSIS W SPECIFIC EOAPAEY7205-69-80 21:08:00* Test Item Value Reference Range Interpretation Comme nts POCT U SP GRAV (test code = 3255) . 1.005-1.025 POCT PH U (test code = 3254) 6 mg/dl 5-8 POCT U LEUK EST (test code = 3263) Trace Negative - Negative POCT U NIT (test code = 3262) POS Negative - Negati ve POCT U PROT (test code = 3259) 1+ Negative - Negat carmina POCT U GLU [...] POCT U APPEAR (test code = 3267) .. [facility] CenterALPHA FETOPROTEIN-MATERNAL AUX1240-31-24 13:46:28* Test Item Value Reference Range Interpretation Comme nts AFP-MS (test code = 7299681376) 34.3 ng/mL AFP-MS MoM (test code = 5131342758) 1.20 WEIGHT (test code = 6243216500) 204.5 lbs RACE (test code = 4157475120) GEST. AGE (test code = 2724527268) 16,5 Gestational age reflects sample collection date. Previous preliminary verified result was 13,0 on 08/08/2023 at 0720 [employer] INS. DEP (test code = 7382744007) No LMP (test code = 4473708671) US DATE (test code = 9295782156) [id number] PE DATE (test code = 9512440536) METHOD (test code = 4450505514) US MULT GEST (test code = 9602916954) No NTD HX (test code = 0356130040) No INITAL OR REPEAT (test code = 5212665165) Initial Testing SMOKER (test code = 3179730662) Yes RH (test code = 7331106211) Positive OSB INTERP (test code = 4868791333) See Note The maternal ser um AFP result is NOT elevated for a of thisgestational age. The risk of an open neural tube defect is less thanthe screening cut-off. OSB RSK (test code = 8814846059) 1:79416 The risk of OSB is equal to 1:12937Wun OSB cut-off is 2.46 (1:104) OSB SCRN (test code = 4041133198) Negative [facility] CenterPO[facility] W SPECIFIC VYWSEZK8611-75-70 21:55:00* Test Item Value Reference Range Interpretation [...] POCT U APPEAR (test code = 3267) [facility] URINALYSIS W SPECIFIC [id number] 13:02:00* Test Item Value Reference Range Interpretation [...] U APPEAR (test code = 3267) . [facility] URINALYSIS W SPECIFIC SGARCOC3278-46-60 13:02:00* Test Item Value Reference Range Interpretation [...] U APPEAR (test code = 3267) . [facility] URINALYSIS W SPECIFIC POYWMVI8957-06-71 13:02:00* Test Item Value Reference Range Interpretation [...] U APPEAR (test code = 3267) . [facility] URINALYSIS W SPECIFIC VESBGGE9711-50-13 13:02:00* Test Item Value Reference Range Interpretation [...] U APPEAR (test code = 3267) . [facility] CenterPOAK [facility] W SPECIFIC EEJSALM1900-43-74 13:02:00* Test Item Value Reference Range Interpretation [...] U APPEAR (test code = 3267) . [facility] ONLY - SYPHILIS IGG/NCP6702-61-94 15:48:45* Test Item Value Reference Range Interpretation Comme nts Syphilis IgG/IgM (test code = 21709-5) Non-reactive Non-reactive VIVI (test code = VIVI) Non-reactive - No serologic evidence of T. pallidum infection. Cannot exclude incubating or early syphilis. Submit a second specimen in 2-4 weeks if syphilis is clinically suspected. Equivocal - Further testing to follow. Reactive - Further testing to follow. Lab Interpretation (test code = 30121-3) Normal [facility] 1/2 AG-AB WITH [id number] 08:25:41* Test Item Value Reference Range Interpretation Comme nts HIV Semi-quantitative (test code = 07472-7) 0.09 Negative VIVI (test code = VIVI) Non-reactive for HIV-1 antigen and HIV-1/HIV-2 antibodies. ?No laboratory evidence of HIV infection. ?Repeat in 2-4 weeks if acute HIV infection is suspected. [facility] CenterHCV BJZTLPNA8005-14-96 07:10:07* Test Item Value Reference Range Interpretation Comme nts HCV Ab (test code = 91464-3) Negative HCV Semi-Quantitative (test code = 47399-2) 0.03 [facility] CenterHEPATITIS B SURFACE PIBSXCV1552-30-23 06:53:26 * Test Item Value Reference Range Interpretation Comme nts HBsAg Semi-Quantitative (amy t code = 5195-3) 0.09 Negative [facility] CenterCOMP. METABOLIC PANEL (99297)2023-06-05 06:17:42* Test Item Value Reference Range Interpretation Comme nts NA (test code = 4833360293) 136 mmol/L 135-145 K (test code = 6756625438) 4.0 mmol/L 3.5-5.0 CL (test code = 9019809400) 104 mmol/L 98-108 CO2 TOTAL (test code = 4463239816) 18 mmol/L 23-31 L AGAP (test code = 8675847910) 14 2-16 BUN (test code = 6248069643) 6 mg/dL 7-23 L GLUCOSE (test code = 6319026711) 99 mg/dL 70-110 CREATININE (test code = 9834591847) 0.50 mg/dL 0.50-1.04 TOTAL BILI (test code = 7598160625) 0.2 mg/dL 0.1-1.1 CALCIUM (test code = 9912296702) 9.3 mg/dL 8.6-10.6 T PROTEIN (test code = 0189872497) 7.1 g/dL 6.3-8.2 ALBUMIN (test code = 3114356763) 4.3 g/dL 3.5-5.0 ALK PHOS (test code = 5178408867) 56 U/L 34-122 ALTv (test code = 1742-6) 17 U/L 5-35 AST(SGOT) (test code = 1815090538) 19 U/L 13-40 eGFR (test code = 6922161168) 146.9 mL/min/1.73m2 VIVI (test code = VIVI) [...] imaging tests). Lab Interpretation (test code = 68527-6) Abnormal [facility] CenterPRENATAL WORKUP, BLOOD [id number] 05:18:00 * Test Item Value Reference Range Interpretation Comme nts ABO & RH (test code = 20) O POSITIVE IAT (test code = 1185) Negative [facility] WITH [id number] 04:40:08* Test Item Value Reference Range Interpretation Comme nts WBC (test code = 6690-2) 11.86 See_Comment H [Automated PackLate.coma ge] The system which generated this result transmitted reference range: 4.30 - 11.10 10*3/?L. The reference range was not used to interpret this result as normal/abnormal. RBC (test code = 789-8) 4.65 See_Comment [Automated PackLate.coma ge] The system which generated this result [...] 32.4 g/dL 31.6-35.1 RDW-SD (test code = 74771-6) 50.1 fL 39.0-49.9 H RDW-CV (test code = 788-0) 15.9 % 12.0-15.5 H PLT (test code = 777-3) 344 See_Comment [Automated PackLate.coma ge] The system which generated this result transmitted reference range: 166 - 358 10*3/?L. The reference range was not used to interpret this result as normal/abnormal. MPV (test code = 73172-9) 10.7 fL 9.5-12.9 NRBC/100 WBC (test code = 7436892755) 0.0 See_Comment [Automated [employer]in[employer] ssage] The system which generated this result transmitted reference range: 0.0 - 10.0 /100 WBCs. The reference range was not used to interpret this result as normal/abnormal. NRBC x10^3 (test code = 3197480053) See_Comment [Automated PackLate.coma ge] The system which generated this result transmitted reference range: 10*3/?L. The reference range was not used to interpret this result as normal/abnormal. GRAN MAT (NEUT) % (test code = 770-8) 72.6 % IMM GRAN % (test code = 2705836943) 0.40 % LYMPH % (test code = 736-9) 17.0 % MONO % (test code = 5905-5) 7.6 % EOS % (test code = 713-8) 2.1 % BASO % (test code = 706-2) 0.3 % GRAN MAT x10^3(ANC) (test code = 1696495297) 8.61 10*3/uL 1.88-7.09 H IMM GRAN x10^3 (test code = 9534039188) 0.05 10*3/uL 0.00-0.06 LYMPH x10^3 (test code = 731-0) 2.02 10*3/uL 1.32-3.29 MONO x10^3 (test code = 742-7) 0.90 10*3/uL 0.33-0.92 EOS x10^3 (test code = 711-2) 0.25 10*3/uL 0.03-0.39 BASO x10^3 (test code = 704-7) 0.03 10*3/uL 0.01-0.07 Lab Interpretation (test code = 00513-1) Abnormal [facility] [id number] 17:58:00* Test Item Value Reference Range Interpretation Comme nts POCT PREG (test code = 1605) Positive On board controls acceptable with C Line (test code = 3574) Yes POCT PREG LOT # (test code = 3575) POCT PREG TEST DATE ( test code = 3576) [facility] URINALYSIS W/O SPECIFIC [id number] 17:58:00* Test Item Value Reference Range Interpretation [...] = 3257) trace Negative - Negati ve [facility]. METABOLIC PANEL (22280)2023-03-30 19:33:38* Test Item Value Reference Range Interpretation Comme nts NA (test code = 0302246263) 141 mmol/L 135-145 K (test code = 5946087899) 3.7 mmol/L 3.5-5.0 CL (test code = 1554638204) 106 mmol/L 98-108 CO2 TOTAL (test code = 6280563855) 21 mmol/L 23-31 L AGAP (test code = 0675963269) 14 2-16 BUN (test code = 6253749361) 9 mg/dL 7-23 GLUCOSE (test code = 0583735141) 157 mg/dL 70-110 H CREATININE (test code = 2537988427) 0.86 mg/dL 0.50-1.04 TOTAL BILI (test code = 9027786336) 0.5 mg/dL 0.1-1.1 CALCIUM (test code = 3897534877) 10.1 mg/dL 8.6-10.6 T PROTEIN (test code = 4779135811) 8.9 g/dL 6.3-8.2 H ALBUMIN (test code = 6778041436) 4.4 g/dL 3.5-5.0 ALK PHOS (test code = 3633055960) 83 U/L 34-122 ALTv (test code = 1742-6) 20 U/L 5-35 AST(SGOT) (test code = 4268505384) 20 U/L 13-40 eGFR (test code = 4152769477) 79.2 mL/min/1.73m2 VIVI (test code = VIVI) [...] imaging tests). Lab Interpretation (test code = 72280-0) Abnormal [facility] WITH [id number] 19:21:57* Test Item Value Reference Range Interpretation Comme nts WBC (test code = 6690-2) 11.04 See_Comment [[email or web address] [email or web address]] The system which generated this result transmitted reference range: 4.30 - 11.10 10*3/?L. The reference range was not used to interpret this result as normal/abnormal. RBC (test code = 789-8) 5.50 See_Comment H [Automated [email or web address]] The system which generated this result transmitted [...] 33.0 g/dL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 Resource Strain: Not on file Food Insecurity: Not on file Transportation Needs: Not on file Physical Activity: Not on file Stress: Not on file Social Connections: Not on file Intimate Partner Violence: Not on file Housing Stability: Not on file ROS: See above PE: BP 125/67 | Pulse 67 | Temp 36.4 ?C (97.5 ?F) (Axillary) | Resp 18 | Ht 1.626 m (5' 4.02") | Wt 99.5 kg (219 lb 5.7 oz) | LMP 03/16/2023 (Approximate) | SpO2 98% | BMI 37.63 kg/m? Gen: Alert, no acute distress HEENT: No scleral icterus Heart: Appears well perfused Lungs: Normal work of breathing Abdomen: soft, minimal RUQ tenderness, no rebound or guarding. Distended abdomen BLEs: no edema LABORATORY HGB (g/dL) Date Value 10/29/2023 10.8 (L) 06/04/2023 13.1 03/30/2023 15.5 (H) PLT (10*3/?L) Date Value 10/29/2023 215 06/04/2023 344 03/30/2023 324 No results found for: "PTINR" Hepatic Function Panel ALBUMIN (g/dL) Date Value 10/29/2023 2.9 (L) 10/29/2023 2.8 (L) T PROTEIN (g/dL) Date Value 10/29/2023 5.9 (L) 10/29/2023 5.8 (L) TOTAL BILI (mg/dL) Date Value 10/29/2023 1.8 (H) 10/29/2023 1.8 (H) BILI UNCON (mg/dL) Date Value 10/29/2023 0.4 BILI CONJ (mg/dL) Date Value 10/29/2023 0.5 (H) ALT(SGPT) (U/L) Date Value 11/19/2016 27 ALTv (U/L) Date Value 10/29/2023 131 (H) 10/29/2023 133 (H) AST(SGOT) (U/L) Date Value 10/29/2023 101 (H) 10/29/2023 103 (H) ALK PHOS (U/L) Date Value 10/29/2023 270 (H) 10/29/2023 265 (H) BMP NA (mmol/L) Date Value 10/29/2023 136 K (mmol/L) Date Value 10/29/2023 3.7 CALCIUM (mg/dL) Date Value 10/29/2023 7.6 (L) CL (mmol/L) Date Value 10/29/2023 107 BUN (mg/dL) Date Value 10/29/2023 4 (L) CREATININE (mg/dL) Date Value 10/29/2023 0.36 (L) GLUCOSE (mg/dL) Date Value 10/29/2023 112 (H) CO2 TOTAL (mmol/L) Date Value 10/29/2023 23 RADIOLOGY: US gallbladder 10/30/2023: IMPRESSION 1. Cholelithiasis within a hydropic gallbladder without any other sonographic signs of acute cholecystitis. 2. Large gallstone lodged within the cystic duct. Dilated common bile duct and minimal dilatation of the intrahepatic bile ducts. Previous Endoscopy: None ASSESSMENT and PLAN Valentina Alvarez is a 28 year old female with PMH as listed above, GI consulted for: Hyperbilirubinemia, elevated transaminases Cholelithiasis, cystic duct stone Dilated CBD Patient presents with acute worsening of chronic RUQ abdominal pain, nausea, and vomiting. She is afebrile and hemodynamically stable. Labs notable for mild bilirubin elevation, elevated transaminases. US gallbladder with cholelithiasis, large cystic duct stone, CBD dilation to 9mm. Findings are likely secondary to cystic duct obstruction, though cannot rule out choledocholithiasis. Recommend MRI/MRCP and further evaluation by surgery for consideration of cholecystectomy. - MRI/MRCP - Surgery consult for consideration of cholecystectomy - Pain, nausea control, and hydration per primary team - Daily hepatic function panel Hematemesis Noted to have small volume bright red emesis after several days of clear vomit. Hemodynamically stable and hemoglobin near baseline. BUN wnl and no other signs of overt GI bleeding. Likely Iveth-Meyer tear or esophagitis/gastritis from multiple episodes of emesis. Give stability and no further episodes, recommend conservative management at this time. - CBC [id number]. Transfuse if active bleeding or hgb <7 - PPI IV BID while admitted - Nausea control per primary team - Need for endoscopy to be determined based on clinical course. Could consider evaluation at time of cholecystectomy, if performed, to limit anesthesia - Notify GI fellow digital content marketing manager with any further episodes Patient was seen and discussed with Dr. Conteh. Please call with any questions. Jhonny West MD Gastroenterology and hepatology fellow, PGY-5 ARY CLASS TEACHER Associated attestation - Bean Conteh MD - 10/31/2023 1:53 PM PRIMARY CLASS TEACHER I have examined the patient and discussed the findings and management plan with Dr West. I agree with the GI Consult note dated 10/30/23 as above. [facility] - Health History and Physical Notes Date/Time Note Provider Source 2023-12-22 13:44:20 TRIAGE HISTORY & PHYSICAL IDENTIFYING DATA Valentina Alvarez is 28 year old, /White, 36w3d, female with FAN 01/16/2024, by Ultrasound. : 1995 Primary Care Physician: PATIENT DOES NOT HAVE A PCP CHIEF COMPLAINT Contractions HISTORY OF PRESENT ILLNESS Valentina Alvarez is a 28 year old female at 36w3d presents with contractions that started at 5 am and has worsened in intensity and frequency. Patient is found to be 5cm dilated on admission +FM. No VB, LOF. No pre-eclampsia sx or other complaints. CARE: OB: [facility] [place] complicated by laparoscopic cholecystectomy with intraoperative cholangiogram for biliary colic with dilated CBD in 10/2023 at 28 weeks Patient reports a history of PIH during intrapartum with last delivery. She self discontinued her low dose aspirin over a month ago PAST OBSTETRIC HISTORY OB History Para Term AB Living 12 1 1 0 10 1 SAB IAB Ectopic Multiple Live Births 7 0 0 0 1 # Outcome Date GA Lbr Hai/2nd Weight Sex Delivery Anes PTL Lv 12 Current 11 2021 6w0d 10 AB 2021 6w0d 9 AB 2021 6w0d 8 2019 6w0d 7 AB 2019 6w0d 6 Term 07/28/19 39w4d 3450 g M NORMAL SPONT IV narcotic, EPI N PINO 5 07/2018 4 04/2018 3 10/2017 2 04/13/17 6w0d 1 11/05/16 9w0d PAST MEDICAL HISTORY Problem list: Patient Active Problem List Diagnosis Date Noted 36 weeks gestation of 12/22/2023 Obesity (BMI 30-39.9) 12/22/2023 uterine contractions, antepartum, third trimester 12/22/2023 Elevated blood pressure affecting in third trimester, antepartum 12/22/2023 Anemia of mother in , antepartum 11/08/2023 Depression affecting 08/08/2023 Multiparity 07/02/2023 Engages in vaping 06/04/2023 History of pre-eclampsia in prior , currently 06/04/2023 Obesity in 02/10/2015 Asthma during 02/10/2015 Operations: Past Surgical History: Procedure Laterality Date COMMON BILE DUCT EXPLORATION N/A 10/31/2023 Surgeon: João Sandra MD; Location: [facility] INTRAOPERATIVE CHOLANGIOGRAM N/A 10/31/2023 Surgeon: João Sandra MD; Location: [facility] LAPAROSCOPIC CHOLECYSTECTOMY N/A 10/31/2023 Surgeon: João Sandra MD; Location: [facility] Past Medical History: Diagnosis Date Abnormal maternal glucose tolerance, antepartum 11/28/2018 Abnormal uterine bleeding Anemia with Asthma 3-4 years of age, takes singulair and PRN inhaler Chlamydia Depression affecting 08/08/2023 Menstrual disorder irregular and heavy bleeding STD (sexually transmitted disease) Vaginal yeast infection 02/11/2019 CURRENT HEALTH STATUS Medications: Current Facility-Administered Medications Medication Dose Route Frequency Last Rate Last Admin carboprost (HEMABATE) injection 250 mcg 250 mcg Intramuscular Q2HPRN D5W-LR IV infusion 1,000 mL 1,000 mL IV Infusion TITRATE FENTanyl PF (SUBLIMAZE (PF)) injection 100 mcg 100 mcg Slow IV Push Q1HPRN lactated ringers IV infusion 500 mL 500 mL IV Infusion PRN - SEE INSTRUCTIONS lidocaine 1% (PF) (XYLOCAINE) injection 0.3 mL 0.3 mL Infiltration PRN - SEE INSTRUCTIONS lidocaine 1% (XYLOCAINE) 10 mg/mL (1 %) injection 50 mL 50 mL Infiltration PRN - SEE INSTRUCTIONS methylergonovine (METHERGINE) injection 0.2 mg 0.2 mg Intramuscular Q4HPRN miSOPROStoL (CYTOTEC) tablet 200 mcg 200 mcg Rectal PRN ondansetron (ZOFRAN) 4 mg/5 mL solution 4 mg 4 mg Oral ONCE oxytocin (PITOCIN) 30 units in NS 500 mL IV infusion 600 mL/hr IV Infusion PRN oxytocin (PITOCIN) 30 units in NS 500 mL IV infusion 2-40 lulu-units/min IV Infusion TITRATE penicillin g potassium 5 Million Units in NaCl 0.9% (NS) 100 mL MINI-BAG 5 Million Units IV Piggyback ONCE Followed by penicillin GK 3 million units in NS 50 mL IV infusion (CNR) 3 Million Units IV Piggyback Q4H ABX sodium citrate-citric acid (BICITRA) 500-334 mg/5 mL solution 30 mL 30 mL Oral PRE-PROCEDURE ONCE terbutaline (BRETHINE) injection 0.25 mg 0.25 mg Subcutaneous Q15MIN PRN tranexamic acid (CYKLOKAPRON) 1,000 mg in NaCl 0.9% (NS) 250 mL piggyback 1,000 mg IV Piggyback PRN Allergies and drug reactions: Patient has no known allergies. HOME MEDICATIONS Medications Prior to Admission Medication Sig Dispense Refill Last Dose Iron Fum & P-FA-Vit B & C No.9 (INTEGRA PLUS) 125 mg iron- 1 mg Cap Take 1 capsule by mouth in the morning. 30 capsule 6 > Month acetaminophen (TYLENOL EXTRA STRENGTH) 500 mg tablet Take 1 tablet by mouth every 8 (eight) hours. 90 tablet 0 Past Month proMETHazine 25 mg tablet Take 1 tablet by mouth every 4 (four) hours as needed for Nausea and Vomiting (N/V). 30 tablet 1 > Month budesonide-formoteroL 80-4.5 mcg/actuation inhaler Inhale 2 Puffs in the morning and 2 Puffs in the evening. 10.2 g 1 Past Month levalbuterol 45 mcg/actuation inhaler Inhale 1-2 Puffs every 4 (four) hours as needed for Wheezing. 15 g 1 Past Month buPROPion XL (WELLBUTRIN XL) 150 mg 24 hr tablet Take 1 tablet by mouth in the morning. 90 tablet 4 > Month docusate (COLACE) 100 mg capsule Take 1 capsule by mouth in the morning. 90 capsule 3 > Month aspirin 81 mg Cap Take 1 tablet by mouth in the morning. 30 capsule 5 > Month ihi02-qiiv-jhjfj acid 29 mg iron- 1 mg per tablet Take 1 tablet by mouth in the morning. 90 tablet 3 > Month SOCIAL HISTORY Tobacco History: Social History Tobacco Use Smoking Status Former Packs/day: .5 Types: Cigarettes Quit date: 05/03/2020 Years since quittin.6 Smokeless Tobacco Current Tobacco Comments vapes daily since 2019 Drug History: Social History Substance and Sexual Activity Drug Use No Alcohol History: Social History Substance and Sexual Activity Alcohol Use No Alcohol/week: 0.0 standard drinks of alcohol FAMILY HISTORY Family History Problem Relation Age of Onset Diabetes Mother Hypertension Mother Depression Mother Heart Father No Significant Medical Problems Sister Psychiatry Brother bipolar/ schizo Depression Brother No Significant Medical Problems Maternal Aunt No Significant Medical Problems Maternal Uncle No Significant Medical Problems Paternal Aunt No Significant Medical Problems Paternal Uncle Hypertension Maternal Grandmother Arthritis Maternal Grandmother Cancer Maternal Grandmother Skin High cholesterol Maternal Grandmother Diabetes Maternal Grandmother Diabetes Maternal Grandfather Asthma NoFHx defects NoFHx Genetic NoFHx Breast Cancer NoFHx Colon Cancer NoFHx Ovarian Cancer NoFHx Uterine Cancer NoFHx Mental retardation NoFHx Neurological NoFHx Osteoporosis NoFHx REVIEW OF SYSTEMS General: negative Constitutional: negative Eyes: negative ENT/Mouth: negative Cardiovascular: negative Respiratory: negative Gastrointestinal:negative Genitourinary: As HPI Musculoskeletal: negative Skin/breast: negative Neurological: negative Psychiatric: negative Endocrine: negative Hemat/Lymph: negative Allergic/Immuno:none VITAL SIGNS BP: (137-172)/(68-95) Temp: [36.7 ?C (98.1 ?F)-36.8 ?C (98.3 ?F)] Temp source: Oral (12/21 1300) Pulse: [51-56] Resp: [18] SpO2: [99 %-100 %] Height: [162.6 cm (5' 4")] Weight: [100.7 kg (222 lb)] BMI (calculated): [0-38.11] PHYSICAL EXAMINATIONS Gen: alert and oriented, well appearing, no distress CV: RRR Resp: normal work of breathing Abd: gravid, soft, NTTP. Cephalic on BSUS. EFW less than 4500grams Ext: no calf tenderness or edema Contractions: q3-5mins - SVE: Dilation: 5 / Effacement (%): 80 % / Station: -3, Bulging membrane REVIEW OF LABORATORY, PATHOLOGY, AND RADIOLOGY DATA Lab results: Type & Screen HIV Hep B Syphilis Chlamydia ABO & RH Date Value Ref Range Status 10/30/2023 O POSITIVE Final HIV Ag-Ab Multiplex Date Value Ref Range Status 11/05/2017 Non-reactive Non-reactive Final No components found for: "HBSHBSAG" Syphilis IgG/IgM Date Value Ref Range Status 11/08/2023 Non-reactive Non-reactive Final C. trachomatis Nucleic Acid Date Value Ref Range Status 06/04/2023 Negative Negative Final IAT Date Value Ref Range Status 10/30/2023 Negative Final Varicella Rubella Glucose Group B Strep CBC VZV IgG antibody Date Value Ref Range Status 06/04/2023 Positive Negative Final Rubella screen IgG Date Value Ref Range Status 06/04/2023 Positive Negative Final GLUC 1 HR Date Value Ref Range Status 11/08/2023 78 (L) 120 - 170 mg/dL Final No results found for: "CGBS" HGB Date Value Ref Range Status 10/30/2023 10.3 (L) 11.6 - 15.0 g/dL Final HCT Date Value Ref Range Status 10/30/2023 32.2 (L) 35.7 - 45.2 % Final PLT Date Value Ref Range Status 10/30/2023 204 166 - 358 10*3/?L Final Placenta Accreta Screening Prior ? : No Prior Uterine Surgery?: No Placenta low lying/previa in current ? : No Screening outcome: A positive screening outcome indicates a history of prior delivery or prior uterine surgery, AND the presence of either a placenta low lying/previa or ultrasound suspicion of PASD in the current . Negative screening. Active Hospital Problems Diagnosis Date Noted Obesity (BMI 30-39.9) 12/22/2023 36 weeks gestation of 12/22/2023 uterine contractions, antepartum, third trimester 12/22/2023 Elevated blood pressure affecting in third trimester, antepartum 12/22/2023 Resolved Hospital Problems No resolved problems to display. Present on Admission: Obesity (BMI 30-39.9) 36 weeks gestation of uterine contractions, antepartum, third trimester Elevated blood pressure affecting in third trimester, antepartum ASSESSMENT AND PLAN Valentina Alvarez is a 28 year old at 36w3d who presents in labor GBS unknown. CAT 1 PTD - Admit - Start Abx for GBS prophylaxis Elevated BP - BP 130-170's/60-90's ( over 2 hours). Currently 150/75 - patient having ctx - Asymptomatic for preecalmpsia - PIH labs pending - Continue to monitor Fetus - CAT 1 - Cephalic Darlene L Adum, MD [facility] 2023-10-29 20:03:10 TRIAGE/L&D HISTORY & PHYSICAL IDENTIFYING DATA Valentina Alvarez is 28 year old, /White, 28w5d, female with FAN 01/16/2024, by Ultrasound. : 1995 Primary Care Physician: PATIENT DOES NOT HAVE A PCP CHIEF COMPLAINT Hematemesis, RUQ pain, DFM HISTORY OF PRESENT ILLNESS Valentina Alvarez is a 28 year old at 28w5d who presents for hematemesis, RUQ pain, DFM. She has nausea and vomiting since the first trimester, which is episodic in nature. She has RUQ pain with nausea and vomiting after meals at times. Today she vomited 5-6 times, and had about a tablespoon of bright red blood present each time. She last ate a burger, fries, and salad last night at dinner. She also has noticed that her baby has been moving less for the past two days. Patient denies vaginal bleeding, denies leakage of fluid, denies contractions. Patient denies headache, admits nausea/vomiting, admits RUQ pain, denies visual abnormalities. Endorses decreased movement. PAST OBSTETRIC HISTORY OB History Para Term AB Living 12 1 1 0 10 1 SAB IAB Ectopic Multiple Live Births 7 0 0 0 1 # Outcome Date GA Lbr Hai/2nd Weight Sex Delivery Anes PTL Lv 12 Current 11 2021 6w0d 10 AB 2021 6w0d 9 AB 2021 6w0d 8 2019 6w0d 7 AB 2019 6w0d 6 Term 07/28/19 39w4d 3450 g M NORMAL SPONT IV narcotic, EPI N PINO 5 07/2018 4 04/2018 3 10/2017 2 04/13/17 6w0d 1 11/05/16 9w0d PAST MEDICAL HISTORY Problem list: Patient Active Problem List Diagnosis Date Noted Cholelithiasis affecting in third trimester, antepartum 10/30/2023 Hematemesis with nausea 10/30/2023 28 weeks gestation of 10/30/2023 Depression affecting 08/08/2023 Nausea and vomiting during 08/08/2023 Multiparity 07/02/2023 Engages in vaping 06/04/2023 History of pre-eclampsia in prior , currently 06/04/2023 Supervision of high risk , antepartum 11/27/2018 History of miscarriage 11/05/2017 Obesity in 02/10/2015 Asthma during 02/10/2015 Operations: No past surgical history on file. Past Medical History: Diagnosis Date Abnormal maternal glucose tolerance, antepartum 11/28/2018 Abnormal uterine bleeding Anemia with Asthma 3-4 years of age, takes singulair and PRN inhaler Chlamydia Depression affecting 08/08/2023 Menstrual disorder irregular and heavy bleeding STD (sexually transmitted disease) Vaginal yeast infection 02/11/2019 CURRENT HEALTH STATUS Medications: Current Facility-Administered Medications Medication Dose Route Frequency Last Rate Last Admin alum-mag hydroxide-simeth (MAG-AL PLUS) 200-200-20 mg/5 mL suspension 30 mL 30 mL Oral Q6HPRN D5W-LR IV infusion 1,000 mL 1,000 mL IV Infusion CONTINUOUS docusate (COLACE) capsule 200 mg 200 mg Oral QHSPRN magnesium hydroxide (MILK OF MAGNESIA) 400 mg/5 mL suspension 30 mL 30 mL Oral QDAILYPRN ondansetron (ZOFRAN (PF)) injection 4 mg 4 mg Slow IV Push Q6HPRN vitamin w/FA tablet 1 tablet 1 tablet Oral DAILY benzocaine-menthoL (CEPACOL SORE THROAT (LIBERTAD-MEN)) lozenge 1 Lozenge 1 Lozenge Oral Q4HPRN Allergies and drug reactions: Patient has no known allergies. HOME MEDICATIONS Medications Prior to Admission Medication Sig Dispense Refill Last Dose proMETHazine 25 mg tablet Take 1 tablet by mouth every 4 (four) hours as needed for Nausea and Vomiting (N/V). 30 tablet 1 budesonide-formoteroL 80-4.5 mcg/actuation inhaler Inhale 2 Puffs in the morning and 2 Puffs in the evening. 10.2 g 1 levalbuterol 45 mcg/actuation inhaler Inhale 1-2 Puffs every 4 (four) hours as needed for Wheezing. 15 g 1 buPROPion XL (WELLBUTRIN XL) 150 mg 24 hr tablet Take 1 tablet by mouth in the morning. 90 tablet 4 docusate (COLACE) 100 mg capsule Take 1 capsule by mouth in the morning. 90 capsule 3 aspirin 81 mg Cap Take 1 tablet by mouth in the morning. 30 capsule 5 [id number] acid 29 mg iron- 1 mg per tablet Take 1 tablet by mouth in the morning. 90 tablet 3 SOCIAL HISTORY Tobacco History: Social History Tobacco Use Smoking Status Former Packs/day: .5 Types: Cigarettes Quit date: 05/03/2020 Years since quittin.4 Smokeless Tobacco Current Tobacco Comments vapes daily since 2018 Drug History: Social History Substance and Sexual Activity Drug Use No Alcohol History: Social History Substance and Sexual Activity Alcohol Use No Alcohol/week: 0.0 standard drinks of alcohol FAMILY HISTORY Family History Problem Relation Age of Onset Diabetes Mother Hypertension Mother Depression Mother Heart Father No Significant Medical Problems Sister Psychiatry Brother bipolar/ schizo Depression Brother No Significant Medical Problems Maternal Aunt No Significant Medical Problems Maternal Uncle No Significant Medical Problems Paternal Aunt No Significant Medical Problems Paternal Uncle Hypertension Maternal Grandmother Arthritis Maternal Grandmother Cancer Maternal Grandmother Skin High cholesterol Maternal Grandmother Diabetes Maternal Grandmother Diabetes Maternal Grandfather Asthma NoFHx defects NoFHx Genetic NoFHx Breast Cancer NoFHx Colon Cancer NoFHx Ovarian Cancer NoFHx Uterine Cancer NoFHx Mental retardation NoFHx Neurological NoFHx Osteoporosis NoFHx REVIEW OF SYSTEMS General: negative, (-) fever Skin: negative HEENT: negative, - headache, - change in vision Neck: negative HEME: negative Resp: negative, (-) shortness of breath Cardio: negative, (-) chest pain GI: (+)hematemesis, (+) nausea, (+) vomiting, (+)abd pain, (-) diarrhea : negative, (-) dysuria Endo: negative, (-) diabetes Neuro: negative Back: negative BEVERLY: negative Psych: negative VITAL SIGNS BP: (93-132)/(50-78) Temp: [36.1 ?C (97 ?F)] Temp source: Axillary (10/29 2238) Pulse: [65-88] Resp: -- SpO2: [97 %-100 %] Height: -- Weight: [99.5 kg (219 lb 5.7 oz)] BMI (calculated): [0] PHYSICAL EXAMINATIONS General: patient alert and in no acute distress HEENT: symmetric, negative for masses Lungs: unlabored breathing Cardiology: peripheral pulses intact and regular Abdomen: Tender to palpation in RUQ, mildy tender in epigastrium, otherwise nontender to palpation, no distension or masses and Gravid Extremities: no clubbing, cyanosis, or edema Neuro: patient moving all extremities, no facial droop : deferred REVIEW OF LABORATORY, PATHOLOGY, AND RADIOLOGY DATA Lab results: Type & Screen Lab Results Component Value Date/Time IABORH O POSITIVE 10/30/2023 12:03 AM IAT Negative 10/30/2023 12:03 AM Serologies Lab Results Component Value Date/Time VZVIGG Positive 06/04/2023 02:05 AM HIVMULTIPLEX Non-reactive 11/05/2017 02:55 PM RUBG Positive 06/04/2023 02:05 AM SYPIGG Non-reactive 06/04/2023 02:05 AM SYPIGG Nonreactive 11/05/2017 02:55 PM HBSAG Negative 10/29/2023 11:36 PM HBSAG 0.05 10/29/2023 11:36 PM Chlamydia Lab Results Component Value Date/Time VCAA Negative 06/04/2023 02:26 PM Group B Strep Lab Results Component Value Date/Time CGB Positive (A) 07/08/2019 05:00 PM GTT Lab Results Component Value Date/Time GLUF 85 05/15/2019 09:00 AM VNCV5SI 93 (L) 06/04/2023 02:05 AM GLU3H 108 05/15/2019 11:54 AM CBC Lab Results Component Value Date/Time HGB 10.8 (L) 10/29/2023 11:36 PM HCT 33.4 (L) 10/29/2023 11:36 PM PLT 215 10/29/2023 11:36 PM Active Hospital Problems Diagnosis Date Noted Cholelithiasis affecting in third trimester, antepartum 10/30/2023 Hematemesis with nausea 10/30/2023 28 weeks gestation of 10/30/2023 Resolved Hospital Problems No resolved problems to display. Present on Admission: Cholelithiasis affecting in third trimester, antepartum Hematemesis with nausea 28 weeks gestation of Placenta Accreta Screening Prior ? : No Prior Uterine Surgery?: No Placenta low lying/previa in current ? : No Screening outcome: A positive screening outcome indicates a history of prior delivery or prior uterine surgery, AND the presence of either a placenta low lying/previa or ultrasound suspicion of PASD in the current . Negative screening. ASSESSMENT AND PLAN Valentina Alvarez is a 28 year old at 28w5d by u(13) who presents for RUQ pain and hematemesis. Hematemesis RUQ pain - Reports daily episodes of nausea and vomiting, usually once daily but sometimes 5-6 times on worse days. Associated RUQ pain with worsening episodes, sometimes occurs after spicy or fatty meals - Last ate burgers, fries, salad [place] - Today had 6 episodes of emesis, began having bright red blood emesis, approximately 1 tablespoon red blood per episode - Seen at OSH with elevated LFTs, started and magnesium and transferred to [facility] for concern for HELLP syndrome - Denies f/c, diarrhea, constipation - denies sick contacts, abnormal foods - No weight loss - Exam: abdomen mildly tender in RUQ and epigastrium, mucous membranes moist, no CVA tenderness - Vitals: BP 90-120s/50s-70s, Pulse in 80s, afebrile - Recent Labs 10/29/23 2336 HGB 10.8* PLT 215 CREAT 0.36* URICACID 3.4 ALT 133* | 131* AST 103* | 101* LDH 176 PROCRTUR 0.4 - Total bili elevated at 1.8 with conj bilirubin of 0.5 - UA: bilirubin 2mg/dl, dark rogelio-yellow color noted in mascorro - Faculty BSUS: cholelithiasis observed - Nausea improved with IV zofran, RUQ pain improved since transfer - Given lack of hemolysis and normal platelet count, HELLP syndrome effectively ruled out. Elevated conjugated bilirubin suggests possible biliary colic - Hematemesis: possible Iveth-Meyer tear, hemodynamically stable with Hgb 10.8 Plan: Admit to for further work-up and management of biliary colic - Abdominal US in the AM, further treatment based on results - IV zofran PRN for nausea/vomiting - Clear liquid diet as tolerated - Magnesium discontinued Decreased movement - reports less movement for past two days - FHT 140s, moderate variability, accels present decels absent - Gross movement noted on BSUS - BPP 04/09 - ROBE 23.98 cm - Patient reassured Hx of preeclampsia - History of preeclampsia with previous at delivery (39 weeks) per patient - No additional interventions, not documented in EMR - Started on LDA at 12 weeks Asthma - Symptoms occur daily, no night-time symptoms - Uses rescue inhaler daily - No hospitalizations/intubations Antepartum course reviewed - 1 h not done, sero negative, Rimmune, VZVimmune, HPV 1/3, O positive/IAT negative, GBS unk, Pap NILM 06/04/23 - H/H, plt: 13.1 / 40.4, [facility] - Presentation on admission: cephalic - anterior placenta - ROBE 23.98 cm - EFW: 1192 g, 22%tile - FHT reactive and reassuring - Normal anatomy scan Dispo: Admit to for management of suspected biliary colic. Plan for abdominal ultrasound in AM. HELLP syndrome ruled out based on lack of hemolysis, normal platelet count. Magnesium discontinued. PRN antiemetics for nausea. D/w Dr. Perez and Dr. Barroso, who examined the patient. Nathen Hodges MD ARY CLASS TEACHER Associated attestation - Santhosh Barroos MD - 10/30/2023 9:38 AM PRIMARY CLASS TEACHER Agree with plan, examined with resident. [facility] Procedure Notes Date/Time Note Provider Source 2023-12-22 16:15:48 Associated Order(s): Central Neuraxial Block Central Neuraxial Block Date/Time: 12/22/2023 3:49 PM Performed by: Alban Ragsdale MD Authorized by: Alban Ragsdale MD Patient Location: OB ([facility] Labor Room 2306) End Time: 12/22/2023 4:16 PM Reason for Block: Patient request and Labor analgesia Staff: Anesthesiologist: Alban Ragsdale MD Performed by: anesthesiologist Preanesthetic Checklist: patient identified, IV checked, risks and benefits explained, monitors and equipment checked, timeout performed, pre-op evaluation, site marked and anesthesia consent Procedure: Type of Neuraxial: Epidural and Continuous Sterility Prep cap, drape, gloves, hand hygiene and mask Sedation Level no sedation Patient Position: sitting Prep: Betadine and patient draped Monitoring: heart rate, continuous pulse ox, heart rate / toco and NIBP Location: lumbar (1-5) Lumbar: L4-L5 Approach: midline Technique: catheter and KIMBERLEE saline Guidance with: landmark technique} Epidural/Spinal Cunningham and/or Catheter: Epidural/Spinal Kit: BBraun Needle Type: Tuohy Needle Gauge: 17 G Needle Length: 3.5 in (8.89 cm) Needle Insertion Depth: 8 Catheter Type: multiport Catheter Size: 19 G Catheter at Skin Depth: 12.5 Number of Attempts: 1 Test Dose: lidocaine 1.5% with epinephrine 1-to-200,000 and negative Dose: 5 cc Catheter Securement Method: surgical tape, Tegaderm and liquid medical adhesive Assessment: Sensory Level: below T10 Block Outcome: pain improved, pain relieved, patient comfortable and patient tolerated procedure well Procedure Assessment: patient tolerated procedure well with no complications Notes: Smooth and atraumatic, (+) Local, (+) STF [facility] Notes Date/Time Note Provider Source 2024-02-10 13:18:07 Patient given printed and verbal discharge instructions regarding asthma exacerbation and inhaler use, encouraged hydration and proper nutrition. Discussed indications, side effects and expected therapeutic response to medications. Advised to take until completed unless adverse reaction occurs - if occurs, discontinue medication and follow up with PCP /seek medical attention. Patient verbalized understanding of instructions. Patient is awake alert oriented, respirations even & unlabored, skin warm & dry, color appropriate for race, moves all extremities well, patient encouraged to follow up with PCP and keep all appropriate appointments as otherwise scheduled or to return to ED for new, prolonged, or worsening of symptoms. No adverse reaction to meds given in ER noted upon discharge. PIV DC'd without complications, site appears healthy, hemostatic, pressure dressing applied to site, catheter intact. Patient departed ED ambulatory with steady gait and in possession of all belongings. Lety Terry RN [facility] 2024-02-10 12:53:20 Provider at bedside T [facility] 2024-02-10 11:23:49 Patient transported to [facility] 2024-02-10 10:53:11 Valentina Alvarez is a 28 year old female presenting to ED with cc of wheezing x4 days. Patient reports chills, SOB, CAMERON, lightheadedness. PMHx asthma, preeclampsia, gallbladder removal. Patient is 6 week . Pt is aaox4, SpO2 %100 on RA, respirations mildly labored, bilateral inspiratory and expiratory wheezing present. Continuous SpO2 monitor in place, PIV established, awaiting further updates T [facility] 2024-02-10 10:49:47 Valentina Alvarez is a 28 year old female here with wheezing x 3 days. LS with inspiratory and expiratory wheezes throughout. A&Ox4, respirations mildly labored. Pt 6 weeks post . Alix Ramsey RN [facility] 2024-01-06 10:48:16 Social Work Note GAME MASTER received a call from [facility] [employer] human services case manager Nasir Arroyo ph: [phone] who reports pt is on her caseload. Nasir reports pt tested positive for Fentanyl during . Per Nasir, pt's 13 year old daughter disclosed during a CAC interview that pt uses Fentanyl. Nasir reports pt has not admitted to using Fentanyl and states pt informed CPS that she had her gallbladder removed on 10/31/23. Nasir reports they have requested records from [facility] and are waiting on the records. Nasir requests for pt to be drug tested on delivery. Update at 1106: Upon further review of pt's chart, pt delivered on 12/22/23. [facility] attempted to call [facility] human services case manager Nasir Arroyo ph: [phone] back but did not receive an answer. GAME MASTER left a vm. Update at 1242: GAME MASTER received a call back from [facility] human services case manager Nasir Arroyo ph: [phone]. GAME MASTER notified Nasir that pt delivered on 12/22/23. Per Nasir, they were in court on 12/25. GAME MASTER discussed w/ Nasir that baby was in the NICU. GAME MASTER informed Nasir that baby's UDS was negative and MDS was positive for Fentanyl and Morphine; however, pt received Morphine and Fentanyl during gallbladder surgery on 10/31/23. GAME MASTER discussed with Nasir that pt was not drug tested at delivery or during care. Nasir reports plans to speak w/ her lunchroom supervisor and then go try to find the baby. Ivelisse De La Cruz LMSW Care Management Pager: [phone] Ivelisse De La Cruz LMSW [facility] 2023-12-25 14:15:00 Images from the original note were not included. This note was copied from a baby's chart. Assessment (most recent) Assessment - 12/25/23 1415 General Information Visit Follow-up Feeding plan Breast Infant Oral Assessment Oral assessment Deferred sleeping Literature Resources Education Early term/ feeding patterns;Benefits of breast massage and hand expression;Lactogenesis;Pump frequency;Storage of expressed breastmilk Vertical Contour Band Saw Operator Observation Pumping Yes 7.5oz Reported;Mom states latches well with no pain instructed mom to latch one side per feeding as she has a large supply and baby would only receive foremilk if she changed at 10 minutes. mother to massage breasts with pumping and latching to increase fat content Follow up Mom will call staff Recommended Feeding Plan Recommended feeding plan Breastfeed on-demand but at least every three hours, if no effective latch then express/pump milk and feed breastmilk to baby;Frequent [id number] time with parents;Pump/hand express minimum 8 times in 24 hours including nights. Pump for 15-25 min. OTHER $ SERVICES Follow-up Gume Orr RNC-[place], IBCLC Pager - [phone] Lara Orr RN [facility] 2023-12-23 20:51:59 Problem: Infection Risk Goal: Absence of infection 12/23/20232050 by Brooklyn Webb RN Outcome: Change in patient condition/care plan 12/23/20231930 by Brooklyn Webb RN Outcome: Progressing as expected Problem: Bleeding, Risk of Goal: Absence of impaired coagulation signs and symptoms 12/23/20232050 by Brooklyn Webb RN Outcome: Change in patient condition/care plan 12/23/20231930 by Brooklyn Webb RN Outcome: Progressing as expected Goal: Absence of active bleeding 12/23/20232050 by Brooklyn Webb RN Outcome: Change in patient condition/care plan 12/23/20231930 by Brooklyn Webb RN Outcome: Progressing as expected Problem: Falls, Risk of Goal: Absence of falls 12/23/20232050 by Brooklyn Webb RN Outcome: Change in patient condition/care plan 12/23/20231930 by Brooklyn Webb RN Outcome: Progressing as expected Problem: Complications of preeclampsia/eclampsia (risk or actual) Goal: Absence of seizure activity 12/23/20232050 by Brooklyn Webb RN Outcome: Change in patient condition/care plan 12/23/20231930 by Brooklyn Webb RN Outcome: Progressing as expected Goal: Absence of signs and symptoms of preeclampsia 12/23/20232050 by Brooklyn Webb RN Outcome: Change in patient condition/care plan 12/23/20231930 by Brooklyn Webb RN Outcome: Progressing as expected Brooklyn Webb RN [facility] 2023-12-23 19:31:14 Problem: Infection Risk Goal: Absence of infection Outcome: Progressing as expected Problem: Bleeding, Risk of Goal: Absence of impaired coagulation signs and symptoms Outcome: Progressing as expected Goal: Absence of active bleeding Outcome: Progressing as expected Problem: Falls, Risk of Goal: Absence of falls Outcome: Progressing as expected Problem: Complications of preeclampsia/eclampsia (risk or actual) Goal: Absence of seizure activity Outcome: Progressing as expected Goal: Absence of signs and symptoms of preeclampsia Outcome: Progressing as expected [facility] 2023-12-23 13:45:00 Images from the original note were not included. Evaluation Situation visit for mom with baby in the NICU Background Baby Girl is 1 day old Gestational Age: 36w3d at MATERNAL FEEDING INTENT MATERNAL STATUS Current milk volume: 10 mL/24 hrs Pump frequency: 8-12times/24 hrs Type of pump using at hospital: Medela Symphony (hospital- grade). Pump for home use: Requesting from insurance Assessment & Recommendations PUMP OBSERVATION Mom instructed on assembly, usage and cleaning of Symphony breast pump. Pump observation done with 24 mm flanges-fit appropriately. Mom denied pain with pumping. Mom was able to express 10mL of colostrum. Bottle/Syringe labeled and verified with mom's name and baby's date of . PLAN OF CARE It is encouraged to begin pumping as soon as possible if the baby is not ready to begin . Pumping will begin to establish mom's milk supply, so that mom will have an adequate milk supply once the baby is able to begin Instructed on use of Symphony hospital grade breast pump using "initiation mode." Encouraged mom to pump at a comfortable setting to promote/stimulate milk supply. Encouraged mom to pump at least 8-10 times per 24 hours or every 2-3 hours during the day today and every 4 hours during the night. Pump regularly:Pump 8 or more times per day. It does not need to be on a schedule. Some parents are able to pump 8+ sessions during their awake hours so that they can take a 4-5 hour break in the middle of the night to sleep. If you miss a session, make up for it as soon as you can. When you visit your baby, use the breast pumps in the NICU so you won t miss a session. Just bring your own kit with you. Instructed mom to pump for 15-20 minutes each pumping session. Encouraged mom to set an alarm reminder to keep pumping sessions on time. Educated mom that during the first few days she may only express drops of colostrum. Educated that this is normal. Encouraged mom to continue pumping, even if nothing can be expressed. Educated that around 3-5 days after delivery mom s breasts should begin to feel simon and heavier. Her milk volume should be increasing. Instructed mom to bring any milk expressed to baby's bedside for oral care or to feed to the baby. Instructed mom on washing of pump parts and milk storage guidelines. Encouraged mom to begin skin to skin as soon as permitted by NICU team and pump right after to help with milk supply. Encouraged mom to schedule feeding assistance with environmental consultant when baby is ready. Encouraged mom to get a breast pump for home use. Encouraged mom to call if needing assistance. MILK STORAGE GUIDELINES SPECIAL CONCERNS FOR LATE BABIES Respiratory Distress:Your baby may have respiratory distress. The baby will most likely receive IV fluids for energy needs and hydration. Then as the baby's respiratory status improves, the baby will transition to gavage (tube) feeding, , and bottle feeding as ordered by the NICU team. Sleepiness:Your baby may be sleepy and difficult to awaken for feedings. Feed whenever the baby seems hungry--at least 8 times in a twenty-four hour period or every 3 hours. Unable to maintain body temperature: Your baby may chill easily. Jtqo-mg-blzz holding is the best way to keep your baby warm and will also make it easy to breastfeed often. When not dnup-ez-aelq, make sure that your baby is dressed warmly and away from drafts. Lack stamina and tire easily during a feeding: If your baby falls asleep during a feeding, change the diaper, change breasts or use other ways to keep your baby awake for a full feeding. Short frequent feedings usually work best. At risk for low blood sugar: Some babies have low blood sugars because they do not have as much body fat as a term baby. There are ways of correcting this depending on the situation with glucose gel, feedings, and IV dextrose. The nurses will be checking blood glucose levels regularly after to make sure it is normal. Infections: Your baby may have an underdeveloped immune system and be more susceptible to infections. Breastmilk provides immune factors and infection fighting factors to help protect your baby. TRIPLE FEEDING PLAN Feeding plan for infants 35 - 36.6 weeks gestation, weight less than or equal to 2500 grams, or weight loss greater than 10% Begin once the baby is allowed to breastfeed. Means that you do 3 things every time you feed your baby. 1. Breastfeed 2. Bottle-feed 3. Pump Breastfeed: Breastfeed whenever your baby is showing feeding cues, with a maximum of 3 hours in between each feed. If your baby has not eaten for 3 hours, you will need to wake your baby to eat. Recommend first for a maximum of 20 mins, then offering the bottle immediately after . Stop whenever the baby is no longer actively/vigorously sucking and is engaging in more non-nutritive sucking. Bottle-feed: After or if your baby won't latch, give expressed breastmilk or formula ad den. Offer the bottle until your baby disengages from the feeding. If expressed breastmilk is available give it first for supplementation. If more volume is needed for supplementation, then make up the difference in needed volume with formula. Recommended volume of expressed breast milk or formula to give your baby: -First feedin - 10 mL at 2 hours of age -Day 1: 10 - 15 mL -Day 2: 15 - 25 mL -Day 3 and beyond: 20 - 35 mL or as per MD/SOFTWARE QUALITY TESTER order -Increase by 5 - 10 mL per feeding per day Pump: You will need to begin pumping within 6 hours of delivery. After each session, you need to hand express or pump for 15-20 minutes. This will ensure you produce an adequate milk supply for your baby. WEANING OFF TRIPLE FEEDING The goal is to keep the baby fed, both via and then topping the baby off with the bottle, while continually working on so that eventually the bottle-feeding and pumping steps can be stopped. Continue this triple feeding regimen and wean off supplementation as directed by your outpatient Dog Track Kennel Manager. Generally, mom will slowly reduce the amount of volume she is topping the baby off with after a session until the top offs are not necessary. As the baby gains adequate weight on this regimen and improves his/her energy and efficiency at the breast over time, the bottle feeding can be gradually reduced while the length of lengthened. PLAN OF CARE Encouraged mom to pump at least 8 times per day especially after feeding attempts. Encouraged to continue skin to skin holding prior to daily attempts as permitted by team. MARY JO Arevalo, RN, IBCLC Beatriz Guy RN [facility] 2023-12-23 06:55:43 Problem: Infection Risk Goal: Absence of infection 12/23/2023654 by Yennifer Blake RN Outcome: Progressing as expected 12/23/2023654 by Yennifer Blake RN Outcome: Progressing as expected Problem: Bleeding, Risk of Goal: Absence of impaired coagulation signs and symptoms 12/23/2023654 by Yennifer Blake RN Outcome: Progressing as expected 12/23/2023654 by Yennifer Blake RN Outcome: Progressing as expected Goal: Absence of active bleeding 12/23/2023654 by Yennifer Blake RN Outcome: Progressing as expected 12/23/2023654 by Yennifer Blake RN Outcome: Progressing as expected Problem: Falls, Risk of Goal: Absence of falls 12/23/2023654 by Yennifer Blake RN Outcome: Progressing as expected 12/23/2023654 by Yennifer Blake RN Outcome: Progressing as expected Problem: Complications of preeclampsia/eclampsia (risk or actual) Goal: Absence of seizure activity 12/23/2023654 by Yennifer Blake RN Outcome: Progressing as expected 12/23/2023 0655 by Yennifer Blake RN Outcome: Progressing as expected Goal: Absence of signs and symptoms of preeclampsia 12/23/2023 0655 by Yennifer Blake RN Outcome: Progressing as expected 12/23/2023 0655 by Yennifer Blake RN Outcome: Progressing as expected Yennifer Blake RN [facility] 2023-12-22 23:24:43 Problem: Complications of preeclampsia/eclampsia (risk or actual) Goal: Absence of seizure activity Outcome: Progressing as expected Problem: Complications of preeclampsia/eclampsia (risk or actual) Goal: Absence of signs and symptoms of preeclampsia Outcome: Progressing as expected [facility] 2023-12-22 23:23:57 Problem: Intrapartum process (including labor pain) Goal: Absence of or reduction of complications of labor 12/22/20232322 by Brooklyn Webb RN Outcome: Resolved 12/22/20231914 by Brooklyn Webb RN Outcome: Progressing as expected Goal: Able to cope with pain 12/22/20232322 by Brooklyn Webb RN Outcome: Resolved 12/22/20231914 by Brooklyn Webb RN Outcome: Progressing as expected Goal: Adequate to move to next level of care 12/22/20232322 by Brooklyn Webb RN Outcome: Resolved 12/22/20231914 by Brooklyn Webb RN Outcome: Progressing as expected Goal: Reduction in pain sensation 12/22/20232322 by Brooklyn Webb, KATERINE Outcome: Resolved 12/22/20231914 by Brooklyn Webb RN Outcome: Progressing as expected Problem: Coping - Ineffective, Individual Goal: Effective coping 12/22/20232322 by Brooklyn Webb RN Outcome: Resolved 12/22/20231914 by Brooklyn Webb RN Outcome: Progressing as expected Goal: Knowledge of positive coping patterns 12/22/20232322 by Brooklyn Webb RN Outcome: Resolved 12/22/20231914 by Brooklyn Webb RN Outcome: Progressing as expected Goal: Knowledge of depression symptoms 12/22/20232322 by Brooklyn Webb RN Outcome: Resolved 12/22/20231914 by Brooklyn Webb RN Outcome: Progressing as expected [facility] 2023-12-22 22:56:14 Patient: Valentina Alvarez Procedure Summary Date: 12/22/23 Room / Location: Anesthesia Start: 1549 Anesthesia Stop: 2251 Procedure: CENTRAL NEURAXIAL BLOCK Diagnosis: Scheduled Providers: Responsible Provider: Alban Ragsdale MD Anesthesia Type: Epidural ASA Status: 3 Anesthesia Type: Epidural Last vitals BP Temp Pulse Resp SpO2 There were no known notable events for this encounter. Anesthesia Post Evaluation Comments: Anesthesia JEANCARLOS Post Operative Faculty Note Date of service: 12/22/2023 Epidural Removal Criteria Estimated blood loss for delivery in the first hour is less than 500 mL?: Yes (12/22/2023 10:53 PM) Lacerations from delivery have been repaired at bedside?: No (comment) (N/A) (12/22/2023 10:53 PM) Patient has not received anticoagulation on blood thinners prior to epidural placement or during labor?: No (comment) (12/22/2023 10:53 PM) Patient will not have a BTL in the next 4 hours?: No (comment) (12/22/2023 10:53 PM) OB physicians are not placing lab orders for coagulation profile or waiting for their results?: No (comment) (12/22/2023 10:53 PM) Fall precautions given?: Yes (12/22/2023 10:53 PM) Patient is s/p labor epidural placement and removal. Patient examined, patient awake. Patient participation in post anesthesia evaluation: Block not fully resolved, as expected. Patient participated otherwise. Patient advised about fall precautions. Vital Signs: BP 134/67 | Pulse 84 | Temp 37.2 ?C (98.9 ?F) (Oral) | Resp 18 | Ht 1.626 m (5' 4") | Wt 100.7 kg (222 lb) | LMP 03/16/2023 (Approximate) | SpO2 100% | Unknown | BMI 38.11 kg/m? Pain: Scale used: 0 - 10 Ratin Nausea and vomiting: Not present. Post operative/post procedure hydration status: Euvolemic. Post-operative course: Block resolving appropriately, and patient advised about fall precautions as noted above. Complications: No apparent complications Alban Ragsdale MD 12/22/2023 22:56 [facility] 2023-12-22 20:22:46 DELIVERY BY SPONTANEOUS VAGINAL DELIVERY Delivery Date: 12/22/2023 Delivery Time: 8:02 PM Delivery Summary The patient was admitted to the Labor & Delivery unit for in active PTD at 36 weeks 3 days Delivery Physician: Darlene Hussein MD OB Faculty: Darlene Hussein MD Intrapartum Anesthesia/Analgesia: Epidural Mode of Delivery: Delivery of bright fetus with cephalic presentation Fetus Spontaneous vaginal delivery of head with cephalic position, occipital anterior. As the head crowned and distended the perineum, no episiotomy was performed. A blue towel was used to protect the perineum as the head crowned and delivered. he other hand was used to exert pressure on the occiput to control the delivery of the head. The perineum was pushed with a towel-draped hand as the head and mouth was delivered over the perineum. The head was allowed to rotate externally to achieve natural body posture. Examination of neck revealed no umbilical cord. The shoulder was delivered by gentle downward traction applied to head and downward traction for the delivery of anterior shoulder. This was followed by upward traction with delivery of posterior shoulder and body. After the delivery of infant, bulb suction was performed from ororpharynx and nostril with removal of moderate meconium. A normal, female was delivered. The umbilical cord was double clamped, cut and the was handed off the field to the circulating nurse Placenta Placenta was delivered spontaneously while the abdominal hand lifted the uterus cephalad and other hand keeping the umbilical cord slightly taut. Laceration Laceration Repair: No laceration repair needed. Fourth Stage Fourth stage of labor was managed by uterine massage with abdominal hand and infusion 30 units of pitocin mixed with intravenous fluid. EBL: 50 Complications: None Weight: 2750 g 1 Minute 5 Minute 10 Minute Totals: Darlene Hussein MD [facility] 2023-12-22 19:16:41 Problem: Intrapartum process (including labor pain) Goal: Absence of or reduction of complications of labor Outcome: Progressing as expected Goal: Able to cope with pain Outcome: Progressing as expected Goal: Adequate to move to next level of care Outcome: Progressing as expected Goal: Reduction in pain sensation Outcome: Progressing as expected Problem: Infection Risk Goal: Absence of infection Outcome: Progressing as expected Problem: Bleeding, Risk of Goal: Absence of impaired coagulation signs and symptoms Outcome: Progressing as expected Goal: Absence of active bleeding Outcome: Progressing as expected Problem: Coping - Ineffective, Individual Goal: Effective coping Outcome: Progressing as expected Goal: Knowledge of positive coping patterns Outcome: Progressing as expected Goal: Knowledge of depression symptoms Outcome: Progressing as expected Problem: Falls, Risk of Goal: Absence of falls Outcome: Progressing as expected [facility] 2023-12-22 15:35:04 Name/ MRN / Age / Gender: Valentina Alvarez, [id number] 28 year old female BMI: Estimated body mass index is 38.11 kg/m? as calculated from the following: Height as of this encounter: 1.626 m (5' 4"). Weight as of this encounter: 100.7 kg (222 lb). Allergies: Patient has no known allergies. Last Vitals: BP Readings from Last 1 Encounters: 12/22/23 (!) 142/91 Pulse Readings from Last 1 Encounters: 12/22/23 53 SpO2 Readings from Last 1 Encounters: 12/22/23 100% Date of Surgery: 10/31/2023 Surgeon: João Sandra MD Procedure: CENTRAL NEURAXIAL BLOCK OR Location: * No surgery found * Anesthesia Preop Eval (physical exam) Anesthesia Preop: Chart Review and [id number] [facility] Communication: 28 y/o @ 36w3d for labor consult. In pre-term labor, obese. Anesthesia History (-) Hx of anesthetic complications Previous Anesthetics/Airways Cardiovascular METS: 5-6 Pulmonary Negative Pulmonary ROS (+) Asthma and mild (+) Allergic rhinitis Neuro/Musculoskeletal (+) Obesity (BMI=38.1) GI/Hepatic Hematology Comments: 12/22/23 14:15 WBC x10 3 : 8.09 HGB: 9.9 (L) PLT x10 3 : 260 (+) Anemia and iron deficiency Prior Blood Transfusion: No (-) No previous positive antibody screen (-) No historical type and screen Patient Accepts Blood Transfusion: Yes Renal Skin Negative Skin ROS Endo/Other Negative Endo/Other ROS Other PLANNER Negative PLANNER ROS P: 1 0 10 1 Gestational Age: 36w3d on 12/22/2023 Pediatric Pediatric N/A N/A Preoperative Medication Instructions Continue taking all prescribed medications except: MAGALYS inhibitors, ARBs, diuretics, all oral diabetes medications Anticoagulant Therapy: Defer to surgeons Insulin: Take 1/2 dose the night prior to surgery. Hold on DOS. Phentermine: Alert [facility] anesthesiologist SGLT2 Inhibitors: "gliflozins" to be held for 3 days prior to elective surgeries GLP1 Agonosit: stop 7 days prior to surgery MAC Cases: Continue taking MAGALYS inhibitors and ARBs ASA Classification ASA: 3 Labs: Chemistry 10/30/2023 CBC 12/22/2023 137 110 (H) 7 83 8.09 9.9 (L) 260 4.1 24 0.59 31.3 (L) eGFR: 126.1 Date: 12/22/2023 ANC: 5.77 Date: 12/22/2023 LFTs 12/22/2023 Coags AST: 37 AP: 232 (H) Prot: 5.5 (L) Ca: 8.0 (L) PT: - Date: - ALT: 62 (H) T Db: 0.9 Alb: 2.7 (L) PTT: - Date: - PO4: 3.1 Date: 10/29/2023 INR: - Date: - Cardiac Endocrine & other pBNP: - Date: - A1C: - Date: - Trop I: - Date: - TSH: - Date: - CK: - Date: - FT4: - Date: - CKMB: - Date: - Lact: - Date: - Procal: - Date: - Respiratory -|-|-|-|- D-dimer: - ABG Date: - Date: - Current Medications: No outpatient medications have been marked as taking for the 12/22/23 encounter (Hospital Encounter). Previous Surgeries: Past Surgical History: Procedure Laterality Date COMMON BILE DUCT EXPLORATION N/A 10/31/2023 Surgeon: João Sandra MD; Location: [facility] OR LOCATION INTRAOPERATIVE CHOLANGIOGRAM N/A 10/31/2023 Surgeon: João Sandra MD; Location: [facility] OR LOCATION LAPAROSCOPIC CHOLECYSTECTOMY N/A 10/31/2023 Surgeon: João Sandra MD; Location: [facility] Anesthesia Physical Exam General no apparent distress and alert and oriented x 3 Neuro/Psych neurological Dental no notable dental hx Abdominal bowel sounds normal (+) obesity, tenderness and gravid Airway Mallampati score:I TM distance:> 5 cm Neck ROM: full Mouth opening:normal (+) Normal facies Extremity Normal extremity Pulmonary pulmonary exam normal and bilateral clear to auscultation Other Cardiovascular cardiovascular exam normalRhythm:regular Rate: normal (+) murmur (II/ CARMEL) (-) peripheral edema Anesthesia Plan ASA Status: 3 Plan discussed during pre-op evaluation: General, Epidural, Spinal and CSE Anesthetic plan on DOS: Epidural Anesthesia plan discussed with: patient or c s s representative Post-Operative Analgesia: routine analgesia & antiemetics Recovery Plan: LDR Additional comments: [facility] 2023-12-22 14:52:00 Name/ MRN / Age / Gender: Valentina Alvarez, [id number] 28 year old female BMI: Estimated body mass index is 38.11 kg/m? as calculated from the following: Height as of this encounter: 1.626 m (5' 4"). Weight as of this encounter: 100.7 kg (222 lb). Allergies: Patient has no known allergies. Last Vitals: BP Readings from Last 1 Encounters: 12/22/23 (!) 142/91 Pulse Readings from Last 1 Encounters: 12/22/23 53 SpO2 Readings from Last 1 Encounters: 12/22/23 100% Date of Surgery: 10/31/2023 Surgeon: João Sandra MD Procedure: LABOR CONSULT OR Location: * No surgery found * Anesthesia Preop Eval (physical exam) Anesthesia Preop: Chart Review and [id number] [facility] Communication: 28 y/o @ 36w3d for labor consult. In pre-term labor, obese. Anesthesia History (-) Hx of anesthetic complications Previous Anesthetics/Airways Cardiovascular METS: 5-6 Pulmonary Negative Pulmonary ROS (+) Asthma and mild (+) Allergic rhinitis Neuro/Musculoskeletal (+) Obesity (BMI=38.1) GI/Hepatic Hematology (+) Anemia and iron deficiency Renal Skin Negative Skin ROS Endo/Other Negative Endo/Other ROS Other PLANNER Negative PLANNER ROS P: 1 0 10 1 Gestational Age: 36w3d on 12/22/2023 Pediatric Pediatric N/A N/A Preoperative Medication Instructions Continue taking all prescribed medications except: MAGALYS inhibitors, ARBs, diuretics, all oral diabetes medications Anticoagulant Therapy: Defer to surgeons Insulin: Take 1/2 dose the night prior to surgery. Hold on DOS. Phentermine: Alert [facility] anesthesiologist SGLT2 Inhibitors: "gliflozins" to be held for 3 days prior to elective surgeries GLP1 Agonosit: stop 7 days prior to surgery MAC Cases: Continue taking MAGALYS inhibitors and ARBs ASA Classification ASA: 3 Labs: Chemistry 10/30/2023 CBC 10/30/2023 137 110 (H) 7 83 5.35 10.3 (L) 204 4.1 24 0.53 32.2 (L) eGFR: 129.4 Date: 10/30/2023 ANC: 3.37 Date: 10/30/2023 LFTs 10/30/2023 Coags AST: 92 (H) AP: 232 (H) Prot: 5.5 (L) Ca: 8.0 (L) PT: - Date: - ALT: 126 (H) T Db: 0.9 Alb: 2.7 (L) PTT: - Date: - PO4: 3.1 Date: 10/29/2023 INR: - Date: - Cardiac Endocrine & other pBNP: - Date: - A1C: - Date: - Trop I: - Date: - TSH: - Date: - CK: - Date: - FT4: - Date: - CKMB: - Date: - Lact: - Date: - Procal: - Date: - Respiratory -|-|-|-|- D-dimer: - ABG Date: - Date: - Current Medications: No outpatient medications have been marked as taking for the 12/22/23 encounter (Hospital Encounter). Previous Surgeries: Past Surgical History: Procedure Laterality Date COMMON BILE DUCT EXPLORATION N/A 10/31/2023 Surgeon: João Sandra MD; Location: [facility] OR LOCATION INTRAOPERATIVE CHOLANGIOGRAM N/A 10/31/2023 Surgeon: João Sandra MD; Location: [facility] OR LOCATION LAPAROSCOPIC CHOLECYSTECTOMY N/A 10/31/2023 Surgeon: João Sandra MD; Location: [facility] OR LOCATION Anesthesia Physical Exam General no apparent distress and alert and oriented x 3 Neuro/Psych neurological Dental no notable dental hx Abdominal bowel sounds normal (+) obesity, tenderness and gravid Airway Mallampati score:I TM distance:> 5 cm Neck ROM: full Mouth opening:normal (+) Normal facies Extremity Normal extremity Pulmonary pulmonary exam normal and bilateral clear to auscultation Other Cardiovascular cardiovascular exam normalRhythm:regular Rate: normal (+) murmur (II/ CARMEL) (-) peripheral edema Anesthesia Plan ASA Status: 3 Plan discussed during pre-op evaluation: General, Epidural, Spinal and CSE Anesthetic plan on DOS: Epidural Anesthesia plan discussed with: patient or c s s representative Post-Operative Analgesia: routine analgesia & antiemetics Recovery Plan: LDR Additional comments: [facility] 2023-12-22 12:41:25 Patient to ED for contractions. Started at 5 am and has progressed. Contractions are 5 mins apart. She is 37 weeks and 5 days . . Seen at clinic for OB. Patient report called to Rosio RN. Patient stable for transport to L&D. Marilin Diamond RN [facility] 2023-10-31 23:57:25 Problem: Discharge Planning - Antepartum Goal: Absence of seizure activity Outcome: Progressing as expected Goal: Adequate for discharge Outcome: Progressing as expected Goal: Blood pressure within specified parameters Outcome: Progressing as expected Problem: Fluid Volume - Imbalanced Goal: Absence of imbalanced fluid volume signs and symptoms Outcome: Progressing as expected [employer] Rehana Laura RN [facility] 2023-10-31 11:41:00 Full Operative Note 10/31/2023 Faculty Surgeon: Dr. Sandra Resident Surgeon(s): Priya Frazier Anesthesia: General -GETA Preoperative Diagnosis: Biliary colic with dilated CBD Postoperative Diagnosis: Same Procedure: Laparoscopic cholecystectomy with IOC Findings: Mildly inflammed gallbladder with large stone in the neck. Intraoperative cholangiogram without filling defects Complications: None Fluids: Per anesthesia EBL: 10 cc UOP: Not quantified Specimen: Gallbladder Drain: None Dispo: Floor Specific Postop Instructions: Keep incision clean and dry May shower in 24 hours No soaking in bath for 4 weeks No swimming for 6 weeks Can have a diet Can be discharged with tolerating PO intake without issues and pain is controlled No need for abx Indications for Procedure: Valentina Alvarez is a 28 year old female with biliary colic and dilated CBD. Informed consent obtained after discussion of risks, benefits, alternatives and details of the operation. Details of Procedure: The patient was brought to the operating room and a time out check was conducted verifying correct patient, positioning, procedures, allergies and anesthesia plan. General endotracheal anesthesia was induced without complications. A dose of pre-operative antibiotics were given prior to incision. All medications were corroborated and safe for status. A bump was placed in the right flank to elevate her side and a radiation shield skirt was available in the room to cover the abdomen during IOC. The abdomen was prepped and draped in the usual sterile fashion. A curvilinear incision was made in the upper midline. Electrocautery was used to deepen the incision to the fascia which was elevated and incised. The peritoneum was then elevated and incised. The abdomen was entered far from the uterine fundus. Entry into the peritoneum was confirm visually and no bowel or uterine fundus was noted in the vicinity of the incision. The Franco cannula was inserted under direct visualization. The abdomen was then insufflated and the patient tolerated pneumoperitoneum well. The laparoscopic was inserted and the abdomen was inspected. No injuries from initial trocar placement were noted, the uterus was intact. Additional trocars were placed in the following locations under direct visualization: a 5 mm trocar in the epigastrium, and two 5 mm trocars along the right costal margin. The table was then positioned in the reverse Trendelenburg position with the right side up. Filmy adhesions between the gallbladder and the duodenum were lysed sharply.The dome of the gallbladder was grasped with an atraumatic grasper passed through the lateral port and retracted over the dome of the liver. The infundibulum was also gasped with an atraumatic grasper through the mid-clavicular port and retracted toward the right lower quadrant. The peritoneum overlying the gallbladder infundibulum was then incised and the cystic duct and cystic artery were identified and circumferentially dissected. The cystic duct was clipped proximally and a scott was made with the donna. We proceeded to perform the intraoperative cholangiogram by inserting a catheter from the arrow kit in the cystic duct and securing it with a clip. The catheter flushed easily. The protective lead skirt was placed in the patients lower abdomen at the level of the umbilicus and the C arm was brought in. The cholangiogram was performed and no filling defects were seen, contrast reached the duodenum and the hepatic ducts. Minimal radiation time used. IOC was terminated and the catheter was removed after removing the clip. The cystic duct was clipped distally twice as well as the cystic artery (also clipped once proximally) and both were transected The gallbladder was then dissected from the liver with electrocautery. Hemostasis was checked. There was no evidence of bleeding from the gallbladder fossa or cystic artery or leakage of bile from the cystic duct stump. Secondary trocars were removed under direct visualization. No bleeding was noted. The gallbladder was removed using an endoscopic retrieval bag placed through the Franco port. The Franco port was removed and the fascia was closed with several single 0 Vicryl suture. The skin was closed on all incision with subcuticular sutures of 4-0 monocryl and dermabond. The patient tolerated the procedure well, was extubated in the operating room and transported to the recovery room in stable condition. All counts were correct at the end of the case. Dr. Sandra was present for the entire procedure. Priya Frazier MD 10/31/2023 General Surgery PGY-3 [employer] TE[employer] Associated attestation - João Sandra MD - 10/31/2023 4:18 PM PRIMARY CLASS TEACHER Attending Attestation I was present for and directed or personally performed the entire procedure. I agree with the note below. BRUNILDA-SURGERY [facility] 2023-10-31 09:57:20 Problem: Discharge Planning - Antepartum Goal: Absence of seizure activity Outcome: Progressing as expected Goal: Adequate for discharge Outcome: Progressing as expected Goal: Blood pressure within specified parameters Outcome: Progressing as expected Problem: Fluid Volume - Imbalanced Goal: Absence of imbalanced fluid volume signs and symptoms Outcome: Progressing as expected [employer] TE[employer] Carrie Iglesias RN [facility] 2023-10-30 23:21:25 Problem: Discharge Planning - Antepartum Goal: Absence of seizure activity Outcome: Progressing as expected Goal: Adequate for discharge Outcome: Progressing as expected Goal: Blood pressure within specified parameters Outcome: Progressing as expected Problem: Fluid Volume - Imbalanced Goal: Absence of imbalanced fluid volume signs and symptoms Outcome: Progressing as expected [employer] TE[employer] Vania Bernal RN [facility] 2023-10-30 17:18:43 Problem: Discharge Planning - Antepartum Goal: Absence of seizure activity Outcome: Progressing as expected Goal: Adequate for discharge Outcome: Progressing as expected Goal: Blood pressure within specified parameters Outcome: Progressing as expected Problem: Fluid Volume - Imbalanced Goal: Absence of imbalanced fluid volume signs and symptoms Outcome: Progressing as expected [facility] Joyce Adorno RN [facility] 2023-10-04 16:56:03 Pt is needing a Rx refill for her proMETHazine 25 mg tablet, has 2 pills left . Please advise. [facility]/pharmacy #[id number] - [place], [place] - [address] [facility] [address] [facility] [address] [facility] [id number] [facility] 2023-08-23 12:16:38 Addended by: DENISSE GUERRA CNM on: 08/23/2023 12:16 PM Modules accepted: Orders [facility] 2023-03-30 15:49:49 Formatting of this n ote might be different from the original. Pt given discharge instructions on strep throat, tonsilititis. Given prescription X 1 for prednisone. Pt left ER ambulatory with adult, no signs of distress. [facility] 2023-03-30 13:29:45 Formatting of this n ote might be different from the original. Patient states: "I went to [facility] in [place] last week and they gave me z-pack and a shot but it's still hurting. I have not eaten since Saturday, I'm so hungry" Pmhx: none T Paige Johnson RN [facility]
[2024-05-01 17:05] VITALS: BP 168/96; TEMP 98; O2SAT 100
== END 2024-05-01 16:54 | disposition home or self-care (01) ==
LOC: ER 16:41
DX: T40.2X1A Poisoning by other opioids, accidental (unintentional), initial encounter (principal)
CPT/HCPCS: 96374; 99284; J2310; J7030